=== PATIENT | female | born 1935 | race Caucasian/White ===

== ENCOUNTER 2016-11-05 16:38 | Inpatient (IN) | payer OTHER ==
[~2016-11-05] VITALS: Ht 160 cm; Wt 66.1 kg
[~2016-11-05 16:38] MED LIST: AMLO-114 PO; B-CO1CAP17 PO; CARV6.252 PO; CHOL100027 PO; LEVO125T5 PO; LSN20 PO; PANT40TA PO; PRVC/20 PO; SEVE800T7 PO; ZLF/50 PO
[2016-11-05] MEDS ORDERED: LISI-461 PO (17:09)
[2016-11-05] MEDS ORDERED: PIPERACILLIN/TAZOBACTAM 4.5 GM/100ML D5W IV STA (17:10)
[2016-11-05] MEDS ORDERED: ACETAMINOPHEN 325 MG TAB PO ONE (17:15)
--- NOTE | 2016-11-05 17:31 | EMERGENCY ROOM VISIT NOTE ---
History Report prepared by Kathy: Oj Moser Under the Supervision of: Dr. Efraín Jurado M.D. First contact with patient: 17:04 Chief Complaint: WEAKNESS Stated Complaint: WEAKNESS Nursing Triage Summary: General weakness for 2 or more days. Dialysis patient. History of Present Illness The patient is a 81 year old female who presents to the Emergency Room via EMS with complaints of weakness for the past 2 days. This HPI is limited secondary to AMS. She called EMS to come to the hospital today due to her increasing weakness. She is incontinent of stool. She could not even get up to go to the bathroom today. She received dialysis recently (Sunday). She usually uses a walker, but cannot even do that since the weakness started. She thinks that the last time she was able to walk was yesterday. She occasionally can urinate, but not very often. She denies any fever, cough, emesis, and chills. Although she denies fevers, the nursing staff notes she had a low grade fever per EMS. Source of History: patient History Limited By: AMS Onset: 2 days ago Position: other (global) Symptom Intensity: moderate Quality: other (weakness) Timing: worsening Associated Symptoms: + fevers, No chills, No cough, No vomiting Review of Systems ROS is limited secondary to AMS. Past Medical & Surgical Medical Problems: (1) Aortic stenosis (2) CAD (coronary artery disease) (3) CHF (congestive heart failure) (4) DM2 (diabetes mellitus, type 2) (5) DVT (deep vein thrombosis) in (6) End stage renal disease (7) ESRD needing dialysis (8) Hemodialysis access, AV graft (9) History of tobacco use (10) HLD (hyperlipidemia) (11) HTN (hypertension) (12) Hyperkalemia (13) Hypothyroidism (14) Hypoxia (15) JOON (obstructive sleep apnea) (16) PUD (peptic ulcer disease) (17) Pulmonary embolism (18) TIA (transient ischemic attack) Surgical Problems: (1) H/O eye surgery (2) H/O knee surgery (3) S/P appendectomy Family History Patient reports no known family medical history. Social History Smoking Status: Never Smoker Alcohol Use: none Drug Use: none Marital Status: Housing Status: lives with family Occupation Status: retired Current/Historical Medications Scheduled Amlodipine (Norvasc), 10 MG PO DAILY Carvedilol (Coreg), 6.25 MG PO AMPM Cholecalciferol (Vitamin D 1000 Unit), 1,000 INTER.UNIT PO QAM Levothyroxine Sodium (Levothyroxine Sodium), 125 MCG PO QAM Lisinopril (Lisinopril), 10 MG PO QAM Pantoprazole Sodium (Protonix), 40 MG PO BID Pravastatin Sod (Pravastatin Sodium), 20 MG PO DAILY Sertraline HCl (Sertraline HCl), 50 MG PO DAILY Sevelamer Carbonate (Renvela), 800 MG PO TIDM Vitamin B Cmplx/Vitc/Folic Ac (Nephrocaps), 1 CAP PO QAM Allergies Coded Allergies: Diazepam (Verified Adverse Reaction, Severe, CHEST PAIN, 11/05/16) Physical Exam Vital Signs Date Time Temp Pulse Resp B/P Pulse Ox O2 Delivery O2 Flow Rate FiO2 11/05/16 18:11 74 16 148/65 93 Room Air 11/05/16 17:54 77 22 151/62 93 Room Air 11/05/16 16:58 75 11/05/16 16:55 Room Air 11/05/16 16:49 37.0 76 16 151/62 92 Room Air Physical Exam GENERAL: Patient is in no acute distress. HEENT: No acute trauma, normocephalic atraumatic, mucous membranes moist, no nasal congestion, no scleral icterus. NECK: No stridor, no adenopathy, no meningismus, trachea is midline. LUNGS: Crackles at both bases, more on the right. No wheezing. Equal breath sounds. HEART: 4/6 systolic murmur with a regular rate and rhythm. ABDOMEN: Soft, nontender, bowel sounds positive, no hernias, no peritonitis. EXTREMITIES: No cyanosis. Full range of motion of all the joints without pain or difficulty, no signs for acute trauma. Edema to the right upper extremity that the patient states is chronic. There is a fistula present in this arm. NEUROLOGIC: Awake and alert. Some confusion noted. Patient follows simple commands. No focal motor deficits. SKIN: No rash, no jaundice, no diaphoresis. Medical Decision & Procedures ER Provider Diagnostic Interpretation: Radiology results are stated below per my review and radiologist interpretation: HEAD CT NONCONTRAST CT DOSE: 537.48 mGy.cm HISTORY: weakness TECHNIQUE: Multiaxial CT images of the head were performed without the use of intravenous contrast. Automated exposure control was utilized for this study. Comparison: Head CT 05/30/2015. Findings: The paranasal sinuses and mastoid air cells are clear. The calvarium and skull base are intact. There is no mass, hematoma, midline shift, acute infarct. White matter hypodensity is nonspecific but suggestive of microvascular ischemic change. The ventricles and sulci demonstrate mild age-related involutional changes. Old left basal ganglia lacunar infarcts. Old left OFFICE MESSENGER territory infarct. This remains unchanged. Impression: No significant change compared to the prior study. No acute intracranial abnormality. 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 Electronically signed by: Tristin Amador M.D. 11/05/2016 6:23 PM Dictated Date/Time: 11/05/2016 6:20 PM CHEST ONE VIEW PORTABLE HISTORY: Sepsis COMPARISON: Chest 01/25/2016. FINDINGS: No change in the cardiomegaly and diffuse interstitial thickening. No pneumothorax. Small right pleural effusion. Right-sided vascular stent is again noted. No lobar consolidation. IMPRESSION: No change in the mild interstitial pulmonary edema and cardiomegaly. There is a small right pleural effusion. Electronically signed by: Tristin Amador M.D. 11/05/2016 5:55 PM Dictated Date/Time: 11/05/2016 5:54 PM Laboratory Results 11/05/16 18:05 Red Blood Count 4.20, Mean Corpuscular Volume 85.5, Mean Corpuscular Hemoglobin 28.3, Mean Corpuscular Hemoglobin Concent 33.1, Mean Platelet Volume 8.6, Neutrophils (%) (Auto) 66.8, Lymphocytes (%) (Auto) 16.2, Monocytes (%) (Auto) 12.0, Eosinophils (%) (Auto) 3.3, Basophils (%) (Auto) 1.4, Neutrophils # (Auto ) 5.28, Lymphocytes # (Auto) 1.28, Monocytes # (Auto) 0.95, Eosinophils # (Auto ) 0.26, Basophils # (Auto) 0.11 11/05/16 18:05 Test 11/05/16 18:05 White Blood Count 7.90 K/uL (4.8-10.8) Red Blood Count 4.20 M/uL (4.2-5.4) Hemoglobin 11.9 g/dL (12.0-16.0) Hematocrit 35.9 % (37-47) Mean Corpuscular Volume 85.5 fL (80-100) Mean Corpuscular Hemoglobin 28.3 pg (25-34) Mean Corpuscular Hemoglobin Concent 33.1 g/dl (32-36) Platelet Count 301 K/uL (130-400) Mean Platelet Volume 8.6 fL (7.4-10.4) Neutrophils (%) (Auto) 66.8 % Lymphocytes (%) (Auto) 16.2 % Monocytes (%) (Auto) 12.0 % Eosinophils (%) (Auto) 3.3 % Basophils (%) (Auto) 1.4 % Neutrophils # (Auto) 5.28 K/uL (1.4-6.5) Lymphocytes # (Auto) 1.28 K/uL (1.2-3.4) Monocytes # (Auto) 0.95 K/uL (0.11-0.59) Eosinophils # (Auto) 0.26 K/uL (0-0.5) Basophils # (Auto) 0.11 K/uL (0-0.2) RDW Standard Deviation 45.9 fL (36.4-46.3) RDW Coefficient of Variation 14.8 % (11.5-14.5) Immature Granulocyte % (Auto) 0.3 % Immature Granulocyte # (Auto) 0.02 K/uL (0.00-0.02) Prothrombin Time 11.8 SECONDS (9.0-12.0) Prothromb Time International Ratio 1.1 (0.9-1.1) Activated Partial Thromboplast Time 33.5 SECONDS (21.0-31.0) Partial Thromboplastin Ratio 1.3 Anion Gap 9.0 mmol/L (3-11) Est Creatinine Clear Calc Drug Dose 7.4 ml/min Estimated GFR () 7.9 Estimated GFR (Non- 6.8 BUN/Creatinine Ratio 4.5 (10-20) Bedside Lactic Acid Venous 1.18 mmol/L (0.90-1.70) Calcium Level 8.6 mg/dl (8.5-10.1) Magnesium Level 1.9 mg/dl (1.8-2.4) Total Bilirubin 0.9 mg/dl (0.2-1) Aspartate Amino Transf (AST/SGOT) 16 U/L (15-37) Alanine Aminotransferase (ALT/SGPT) 9 U/L (12-78) Alkaline Phosphatase 133 U/L (45-117) Total Protein 8.0 gm/dl (6.4-8.2) Albumin 2.7 gm/dl (3.4-5.0) Globulin 5.3 gm/dl (2.5-4.0) Albumin/Globulin Ratio 0.5 (0.9-2) Thyroid Stimulating Hormone (TSH) 1.290 uIu/ml (0.300-4.500) Free Thyroxine 1.64 ng/dl (0.80-1.60) Laboratory results reviewed by me. Medications Administered Medications (Trade) Dose Ordered Sig/Rach Route Start Time Stop Time Status Last Admin Dose Admin Piperacillin Sod/ Tazobactam Sod (Zosyn Iv) 4.5 gm ONE STAT IV 11/05/16 17:10 11/05/16 17:12 DC 11/05/16 18:39 4.5 GM Acetaminophen 650 mg 650 mg ONE ONCE PO 11/05/16 17:15 11/05/16 17:16 DC 11/05/16 18:39 650 MG Sodium Chloride (Nss 250ml) 250 ml @ 999 mls/hr Q16M STAT IV 11/05/16 19:19 11/05/16 19:34 DC 11/05/16 19:19 999 MLS/HR ECG Indication: weakness Rate (beats per minute): 76 Rhythm: normal sinus Findings: ST depression (Lateral), no acute ischemic change, no ectopy ED Course 1703: The patient was evaluated in room B2. A complete history and physical exam was performed. 1710: Ordered Zosyn Iv 4.5 gm IV 1715: Ordered Tylenol Tab 650 mg PO 1750: I had to convince the patient to have blood work. 1903: Her rectal temperature is 37.5 C. 1924: Upon reexamination the patient is resting. I discussed results and treatment plan with the patient. She verbalizes agreement and understanding. The patient will be evaluated by Dr. Contreras - [facility] – [place], for further management. Medical Decision Differential diagnosis includes but is not limited to sepsis, bacteremia, pneumonia, electrolyte imbalance, cellulitis, stroke, dehydration, and viral illness. There is no leukocytosis or concerning anemia. Renal panel testing shows the need for dialysis. No significant electrolyte abnormality requiring correction. There was no hepatitis. Thyroid testing shows findings consistent with someone taking thyroid medication. EKG shows a sinus rhythm, no acute ischemia. Brain CT shows no acute bleed or mass effect. Chest x-ray shows some chronic congestion to the lungs and what I think may be a right lung infiltrate. Blood cultures are pending. Lactic acid level is not elevated making sepsis less likely. The patient received a small amount of IV saline. She was given IV Zosyn and oral Tylenol. The patient presents with weakness and inability to walk. I think she has an infection, likely a pneumonia. This has caused her presentation. Admission/ observation is warranted. I spoke to the patient and to case management. The on-call hospitalist was consulted. Consults Time Called: 1914 Consulting Physician: Dr. Diane Toussaint [facility] – [place] Returned Call: [phone] He will be evaluating the patient for further management. Impression Primary Impression: Weakness Additional Impression: Pneumonia Scribe Attestation The scribe's documentation has been prepared under my direction and personally reviewed by me in its entirety. I confirm that the note above accurately reflects all work, treatment, procedures, and medical decision making performed by me. Departure Information Dispostion Being Evaluated By Hospitalist Referrals Mracelo Bradley M.D. (PCP) Patient Instructions My [facility] Problem Qualifiers
--- NOTE | 2016-11-05 17:57 | DIAGNOSTIC IMAGING REPORT ---
CHEST ONE VIEW PORTABLE HISTORY: Sepsis COMPARISON: Chest 01/25/2016. FINDINGS: No change in the cardiomegaly and diffuse interstitial thickening. No pneumothorax. Small right pleural effusion. Right-sided vascular stent is again noted. No lobar consolidation. IMPRESSION: No change in the mild interstitial pulmonary edema and cardiomegaly. There is a small right pleural effusion. Electronically signed by: Tristin Amador M.D. 11/05/2016 5:55 PM Dictated Date/Time: 11/05/2016 5:54 PM
[2016-11-05 18:18] LABS: BASO % 1.4 %; BASO ABS # 0.11 K/uL (0-0.2); COMPLETE YES; EOS % 3.3 %; HEMATOCRIT 35.9 % (37-47); IG% 0.3 %; LYMPH % 16.2 %; LYMPH ABS # 1.28 K/uL (1.2-3.4); MEAN CELL VOLUME 85.5 fL (80-100); MEAN CORPUSCULAR HEMOGLOBIN 28.3 pg (25-34); MEAN CORPUSCULAR HGB CONC 33.1 g/dl (32-36); MEAN PLATELET VOLUME 8.6 fL (7.4-10.4); NEUT % 66.8 %; PLATELET COUNT 301 K/uL (130-400)
--- NOTE | 2016-11-05 18:25 | DIAGNOSTIC IMAGING REPORT ---
HEAD CT NONCONTRAST CT DOSE: 537.48 mGy.cm HISTORY: weakness TECHNIQUE: Multiaxial CT images of the head were performed without the use of intravenous contrast. Automated exposure control was utilized for this study. Comparison: Head CT 05/30/2015. Findings: The paranasal sinuses and mastoid air cells are clear. The calvarium and skull base are intact. There is no mass, hematoma, midline shift, acute infarct. White matter hypodensity is nonspecific but suggestive of microvascular ischemic change. The ventricles and sulci demonstrate mild age-related involutional changes. Old left basal ganglia lacunar infarcts. Old left CENTER MANAGER territory infarct. This remains unchanged. Impression: No significant change compared to the prior study. No acute intracranial abnormality. 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 Electronically signed by: Tristin Amador M.D. 11/05/2016 6:23 PM Dictated Date/Time: 11/05/2016 6:20 PM
[2016-11-05 18:34] LABS: INR 1.1 (0.9-1.1); PARTIAL THROMBOPLASTIN RATIO 1.3; PROTHROMBIN TIME (PATIENT) 11.8 SECONDS (9.0-12.0)
[2016-11-05 18:54] LABS: ALB/GLOB RATIO 0.5 (0.9-2); BUN/CREATININE RATIO 4.5 (10-20); CALCIUM 8.6 mg/dl (8.5-10.1); CREATININE 5.4 mg/dl (0.60-1.20); MAGNESIUM 1.9 mg/dl (1.8-2.4); POTASSIUM 3.3 mmol/L (3.5-5.1)
[2016-11-05 18:55] LABS: THYROID STIMULATING HORMONE 1.29 uIu/ml (0.300-4.500)
[2016-11-05] MEDS ORDERED: SODIUM CHLORIDE 0.9% 250ML 250 ML IV STA (19:19)
[2016-11-05] MEDS ORDERED: VANCOMYCIN INJ 1,000 MG in SODIUM CHLORIDE 0.9% 250ML 250 ML IV STA (19:49)
[2016-11-05] MEDS ORDERED: ONDANSETRON INJ 2 MG/ML 2 ML VIAL IV PRN (20:00)
[2016-11-05] MEDS ORDERED: LEVOFLOXACIN / D5W 500 MG in PREMIXED IN D5W 100 ML IV SCH (20:00)
[2016-11-05] MEDS ORDERED: ZOLPIDEM TARTRATE 5 MG TAB PO PRN (20:00)
[2016-11-05] MEDS ORDERED: ACETAMINOPHEN 325 MG TAB PO PRN (20:00)
[2016-11-05] MEDS ORDERED: VANCOMYCIN 1GM/270ML NSS IV STA (20:08)
[2016-11-05] MEDS ORDERED: VANCOMYCIN CONSULT ACTIVE PRN (20:15)
[2016-11-05] MEDS ORDERED: PIPERACILL/TAZOBAC CONSULT ACTIVE PRN (20:15)
[2016-11-05] MEDS ORDERED: LEVALBUTEROL/IPRATROPIUM NEB INH SCH (21:00)
[2016-11-05] MEDS ORDERED: LEVOFLOXACIN 500MG / D5W IV SCH (21:00)
[2016-11-05 22:24] VITALS: BP 105/46; PULSE 68; TEMP 37; O2SAT 95; Ht 160 cm; Wt 66.1 kg
[2016-11-05] MEDS ORDERED: LEVOFLOXACIN CONSULT ACTIVE PRN (22:30)
[2016-11-05 22:32] VITALS: BP 130/58; PULSE 62; TEMP 36.5; O2SAT 95
[2016-11-05] MEDS: GUAIFENESIN 600 MG TABCR PO SCH (22:43)
[2016-11-05] MEDS: PANTOprazole SOD 40 MG TAB PO SCH (22:43)
[2016-11-05] MEDS: CARVEDILOL 6.25 MG TAB PO SCH (22:44)
[2016-11-05] MEDS: METHYLPREDNISOLONE IV 20 MG in SYRINGE 0 ML IV SCH (22:45)
[2016-11-06] VITALS (23 sets, daily range): BP systolic 137–188; BP diastolic 51–80; PULSE 64–84; TEMP 36.5–37; O2SAT 92–96
[2016-11-06] MEDS: IPRATROPIUM BROMIDE NEB SOLN 0.02% 2.5 ML VIAL INH SCH ×5 (01:48→21:43)
[2016-11-06] MEDS: LEVALBUTEROL 1.25MG/0.5ML NEB INH SCH ×5 (01:48→21:43)
[2016-11-06] MEDS ORDERED: PIPERACILL/TAZOBAC IV 3.375 GM in DEXTROSE 5% 100ML 100 ML IV SCH (02:00)
--- NOTE | 2016-11-06 03:43 | History and Physical ---
History & Physical Date & Time of Service: Nov 06, 2016 at 03:30. Date of admission was 11/05/2016. Chief Complaint: Esrd Needing Dialysis, Pneumonia Primary Care Physician: Marcelo Bradley M.D. History of Present Illness Source: patient The patient is an 81-year-old female presents emergency department via EMS with 2 days of generalized weakness and confusion. She was too weak to walk with her walker to the bathroom today, and is incontinent of stool. She has end- stage renal disease receiving dialysis on Sunday, Sunday and Sunday. She does still produce some urine. EMS reported that she had a low-grade fever. Past Medical/Surgical History Medical Problems: (1) Aortic stenosis Status: Chronic (2) CAD (coronary artery disease) Status: Chronic (3) CHF (congestive heart failure) Status: Chronic (4) DM2 (diabetes mellitus, type 2) Status: Chronic (5) DVT (deep vein thrombosis) in Status: Chronic (6) End stage renal disease Status: Chronic (7) Hemodialysis access, AV graft Status: Chronic (8) History of tobacco use Status: Chronic (9) HLD (hyperlipidemia) Status: Chronic (10) HTN (hypertension) Status: Chronic (11) Hyperkalemia Status: Chronic (12) Hypothyroidism Status: Chronic (13) JOON (obstructive sleep apnea) Status: Chronic (14) PUD (peptic ulcer disease) Status: Chronic (15) Pulmonary embolism Status: Chronic (16) TIA (transient ischemic attack) Status: Chronic Surgical Problems: (1) H/O eye surgery Status: Chronic (2) H/O knee surgery Permanent Comment: Right TKA Status: Chronic (3) S/P appendectomy Status: Chronic Family History Patient reports no known family medical history. Social History Smoking Status: Never Smoker Smokeless Tobacco Use: No Alcohol Use: none Drug Use: none Marital Status: Occupational Status: retired Immunizations History of Influenza Vaccine: N/A History of Tetanus Vaccine?: Yes History of Pneumococcal: Yes Pneumococcal Date: Feb 23, 2010 History of Hepatitis B Vaccine: No Multi-Drug Resistant Organisms History of MDRO: No Allergies Coded Allergies: Diazepam (Verified Adverse Reaction, Severe, CHEST PAIN, 11/05/16) Home Medications Scheduled Amlodipine (Norvasc), 10 MG PO DAILY Carvedilol (Coreg), 6.25 MG PO AMPM Cholecalciferol (Vitamin D 1000 Unit), 1,000 INTER.UNIT PO QAM Levothyroxine Sodium (Levothyroxine Sodium), 125 MCG PO QAM Lisinopril (Lisinopril), 10 MG PO QAM Pantoprazole Sodium (Protonix), 40 MG PO BID Pravastatin Sod (Pravastatin Sodium), 20 MG PO DAILY Sertraline HCl (Sertraline HCl), 50 MG PO DAILY Sevelamer Carbonate (Renvela), 800 MG PO TIDM Vitamin B Cmplx/Vitc/Folic Ac (Nephrocaps), 1 CAP PO QAM Review of Systems The patient denies chest pain, palpitations, shortness of breath, cough, lower extremity swelling, vision change, hearing change, sore throat, fevers, chills, sweats, weight change, nausea, vomiting, abdominal pain, pelvic pain, blood in urine or stool, dysuria, urinary frequency or urgency, memory loss, rash, abnormal bruising or bleeding, focal weakness, numbness or tingling in arms or legs, arthralgias or myalgias, back or neck pain, night sweats, or allergy symptoms. The review of systems is otherwise negative other than for that already noted above, and at least 10 systems have been reviewed. Physical Exam Vital Signs Date Time Temp Pulse Resp B/P Pulse Ox O2 Delivery O2 Flow Rate FiO2 11/06/16 01:49 68 16 95 Room Air 11/05/16 23:35 Room Air 11/05/16 22:32 36.5 62 18 130/58 95 Room Air 11/05/16 22:24 37.0 68 18 105/46 95 Room Air 11/05/16 21:20 68 18 105/46 93 11/05/16 20:05 71 11/05/16 18:11 74 16 148/65 93 Room Air 11/05/16 17:54 77 22 151/62 93 Room Air 11/05/16 16:58 75 11/05/16 16:55 Room Air 11/05/16 16:49 37.0 76 16 151/62 92 Room Air The patient is awake, well-developed and adequately nourished, alert and oriented 3, normocephalic and atraumatic, lying in bed and in no acute distress. She was initially reported as confused upon arrival in the ED, but at the time of my examination is improved. HEENT--PERRL, EOMI, mucous membranes and oropharynx dry. Neck--supple, no JVD or bruits, thyroid normal, trachea midline, no adenopathy. Heart--normal S1 and S2, no extra beats, no murmurs, rubs or gallops. Lungs--coarse sounds bilaterally with crackles at the bases, no respiratory distress, no accessory muscle use. Abdomen--normal bowel sounds and soft, nontender and nondistended, no hernias or masses, no organomegaly. Extremities--no cyanosis, clubbing or edema. There are good distal pulses b/l. Dermatologic--normal skin turgor, normal color, warm and dry, no abnormal lymph nodes, no rash. Neurologic--cranial nerves II through XII grossly intact, motor and sensory examination normal. Rheumatologic--generalized osteoarthritis with limitation of range of motion of most joints. Psychiatric--normal affect. Diagnostics Laboratory Results Results Past 24 Hours Test 11/05/16 18:05 11/05/16 21:23 Range/Units White Blood Count 7.90 4.8-10.8 K/uL Red Blood Count 4.20 4.2-5.4 M/uL Hemoglobin 11.9 12.0-16.0 g/dL Hematocrit 35.9 37-47 % Mean Corpuscular Volume 85.5 80-100 fL Mean Corpuscular Hemoglobin 28.3 25-34 pg Mean Corpuscular Hemoglobin Concent 33.1 32-36 g/dl Platelet Count 301 130-400 K/uL Mean Platelet Volume 8.6 7.4-10.4 fL Neutrophils (%) (Auto) 66.8 % Lymphocytes (%) (Auto) 16.2 % Monocytes (%) (Auto) 12.0 % Eosinophils (%) (Auto) 3.3 % Basophils (%) (Auto) 1.4 % Neutrophils # (Auto) 5.28 1.4-6.5 K/uL Lymphocytes # (Auto) 1.28 1.2-3.4 K/uL Monocytes # (Auto) 0.95 0.11-0.59 K/uL Eosinophils # (Auto) 0.26 0-0.5 K/uL Basophils # (Auto) 0.11 0-0.2 K/uL RDW Standard Deviation 45.9 36.4-46.3 fL RDW Coefficient of Variation 14.8 11.5-14.5 % Immature Granulocyte % (Auto) 0.3 % Immature Granulocyte # (Auto) 0.02 0.00-0.02 K/uL Prothrombin Time 11.8 9.0-12.0 SECONDS Prothromb Time International Ratio 1.1 0.9-1.1 Activated Partial Thromboplast Time 33.5 21.0-31.0 SECONDS Partial Thromboplastin Ratio 1.3 Sodium Level 134 136-145 mmol/L Potassium Level 3.3 3.5-5.1 mmol/L Chloride Level 93 98-107 mmol/L Carbon Dioxide Level 32 21-32 mmol/L Anion Gap 9.0 3-11 mmol/L Blood Urea Nitrogen 24 7-18 mg/dl Creatinine 5.40 0.60-1.20 mg/dl Est Creatinine Clear Calc Drug Dose 7.4 ml/min Estimated GFR () 7.9 Estimated GFR (Non- 6.8 BUN/Creatinine Ratio 4.5 10-20 Random Glucose 63 70-99 mg/dl Bedside Lactic Acid Venous 1.18 0.90-1.70 mmol/L Calcium Level 8.6 8.5-10.1 mg/dl Magnesium Level 1.9 1.8-2.4 mg/dl Total Bilirubin 0.9 0.2-1 mg/dl Aspartate Amino Transf (AST/SGOT) 16 15-37 U/L Alanine Aminotransferase (ALT/SGPT) 9 12-78 U/L Alkaline Phosphatase 133 45-117 U/L Total Protein 8.0 6.4-8.2 gm/dl Albumin 2.7 3.4-5.0 gm/dl Globulin 5.3 2.5-4.0 gm/dl Albumin/Globulin Ratio 0.5 0.9-2 Thyroid Stimulating Hormone (TSH) 1.290 0.300-4.500 uIu/ml Free Thyroxine 1.64 0.80-1.60 ng/dl Bedside Glucose 115 70-90 mg/dl Microbiology Results 11/05/16 Blood Culture, Received Pending 11/05/16 Blood Culture, Received Pending Diagnostic Radiology Patient Name: AARON ROCA Unit Number: [id number] Dictated: 11/05/161819 Transcribed: 11/05/161819 [facility] Printed Date/Time: [~ rep prt dt]/[~ rep prt tm] [~ rep ct labl] - [~ rep ct ivnm] [facility] [place] [address] Dictated: 11/05/161819 Transcribed: 11/05/161819 [facility] Printed Date/Time: [~ rep prt dt]/[~ rep prt tm] [~ rep ct labl] - [~ rep ct ivnm] HEAD CT NONCONTRAST CT DOSE: 537.48 mGy.cm HISTORY: weakness TECHNIQUE: Multiaxial CT images of the head were performed without the use of intravenous contrast. Automated exposure control was utilized for this study. Comparison: Head CT 05/30/2015. Findings: The paranasal sinuses and mastoid air cells are clear. The calvarium and skull base are intact. There is no mass, hematoma, midline shift, acute infarct. White matter hypodensity is nonspecific but suggestive of microvascular ischemic change. The ventricles and sulci demonstrate mild age-related involutional changes. Old left basal ganglia lacunar infarcts. Old left [employer] territory infarct. This remains unchanged. Impression: No significant change compared to the prior study. No acute intracranial abnormality. 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 Electronically signed by: Tristin Amador M.D. 11/05/2016 6:23 PM Dictated Date/Time: 11/05/2016 6:20 PM The status of this report is Signed. Draft = Not yet reviewed or approved by Radiologist. Signed = Reviewed and approved by Radiologist. <AttendingPhy></AttendingPhy> <FamilyPhy>Marcelo Bradley M.D.</FamilyPhy> < PrimaryPhy>Marcelo Bradley M.D.</PrimaryPhy> <UnitNumber>[id number]</UnitNumber> < VisitNumber>[id number]</VisitNumber> <PatientName>AARON ROCA</PatientName> < DateOfBirth>1935</DateOfBirth> <Location>[facility]</Location> <ServiceDate></ServiceDate> <MNE>ESINDI</MNE> <OrderingPhy>Feese, Efraín J. M.D.</ OrderingPhy> <OrderingPhyMNE>f rep ord dr bagley</OrderingPhyMNE> <DictatingPhyMNE> f rep dict dr bagley</DictatingPhyMNE> <CCListMNE>f rep ct mne</CCListMNE> < AdmittingPhyMNE>f pt admit dr bagley</AdmittingPhyMNE> <AttendingPhyMNE>f pt attend dr bagley</AttendingPhyMNE> <ConsultingPhyMNE>f pt consult dr bagley</ConsultingPhyMNE> <FamilyPhyMNE>f pt fam dr bagley</FamilyPhyMNE> <OtherPhyMNE>f pt other dr bagley</OtherPhyMNE> < PrimaryPhyMNE>f pt prim care dr bagley</PrimaryPhyMNE> <ReferringPhyMNE>f pt referring dr bagley</ReferringPhyMNE> Patient Name: AARON ROCA Unit Number: [id number] Dictated: 11/05/161753 Transcribed: 11/05/161753 [facility] Printed Date/Time: [~ rep prt dt]/[~ rep prt tm] [~ rep ct labl] - [~ rep ct ivnm] [facility] [place] [address] Dictated: 11/05/161753 Transcribed: 11/05/161753 [facility] Printed Date/Time: [~ rep prt dt]/[~ rep prt tm] [~ rep ct labl] - [~ rep ct ivnm] [~ rep ct add3]] CHEST ONE VIEW PORTABLE HISTORY: Sepsis COMPARISON: Chest 01/25/2016. FINDINGS: No change in the cardiomegaly and diffuse interstitial thickening. No pneumothorax. Small right pleural effusion. Right-sided vascular stent is again noted. No lobar consolidation. IMPRESSION: No change in the mild interstitial pulmonary edema and cardiomegaly. There is a small right pleural effusion. Electronically signed by: Tristin Amador M.D. 11/05/2016 5:55 PM Dictated Date/Time: 11/05/2016 5:54 PM The status of this report is Signed. Draft = Not yet reviewed or approved by Radiologist. Signed = Reviewed and approved by Radiologist. <AttendingPhy></AttendingPhy> <FamilyPhy>Marcelo Bradley M.D.</FamilyPhy> < PrimaryPhy>Marcelo Bradley M.D.</PrimaryPhy> <UnitNumber>[id number]</UnitNumber> < VisitNumber>[id number]</VisitNumber> <PatientName>AARON ROCA</PatientName> < DateOfBirth>1935</DateOfBirth> <Location>[facility]</Location> <ServiceDate></ServiceDate> <MNE>ESINDI</MNE> <OrderingPhy>Efraín Jurado M.D.</ OrderingPhy> <OrderingPhyMNE>f rep ord dr bagley</OrderingPhyMNE> <DictatingPhyMNE> f rep dict dr bagley</DictatingPhyMNE> <CCListMNE>f rep ct kevyn</CCListMNE> < AdmittingPhyMNE>f pt admit dr bagley</AdmittingPhyMNE> <AttendingPhyMNE>f pt attend dr bagley</AttendingPhyMNE> <ConsultingPhyMNE>f pt consult dr bagley</ConsultingPhyMNE> <FamilyPhyMNE>f pt fam dr bagley</FamilyPhyMNE> <OtherPhyMNE>f pt other dr bagley</OtherPhyMNE> < PrimaryPhyMNE>f pt prim care dr bagley</PrimaryPhyMNE> <ReferringPhyMNE>f pt referring dr bagley</ReferringPhyMNE> EKG EKG shows normal sinus rhythm at 76 bpm, nonspecific ST changes. No change compared to 04/16/2016. Impression Assessment and Plan Bilateral pneumonia--admitted to the medical floor. Place on vancomycin IV, Zosyn IV, Levaquin IV, guaifenesin extended release 600 mg by mouth twice a day , Solu-Medrol 20 mg IV every 8 hours, and Xopenex/Atrovent nebulizers every 6 hours while awake and every 2 hours when necessary. End-stage renal disease on dialysis Sunday, Sunday and Sunday. We'll consult nephrology. Continue Renvela 800 mg by mouth 3 times a day with meals, Nephrocaps every morning, and vitamin D 1000 international units every morning. CAD/hypertension/CHF/aortic stenosis--continue amlodipine 10 mg by mouth daily, carvedilol 6.25 mg by mouth twice a day, and lisinopril 10 mg by mouth every morning. Hypothyroidism--continue levothyroxine sodium 125 g by mouth every morning. GERD/PUD--continue pantoprazole 40 mg by mouth twice a day. Hypercholesterolemia--continue pravastatin 20 mg by mouth daily. Depression--continue sertraline 50 mg by mouth daily. Level of Care Med/Surg Advanced Directives Existing Advance Directive: No Existing Living Will: No Existing Power of Film Flat Inspector: No Resuscitation Status FULL RESUSCITATION VTE Prophylaxis VTE Risk Assessment Done? Y/N: Yes Risk Level: Moderate Given or contraindicated: SCD's
[2016-11-06] MEDS: METHYLPREDNISOLONE IV 20 MG in SYRINGE 0 ML IV SCH ×3 (06:04→22:07)
[2016-11-06] MEDS: LEVOTHYROXINE 125 MCG TAB PO SCH (06:04)
[2016-11-06 07:31] LABS: BASO % 0.2 %; BASO ABS # 0.01 K/uL (0-0.2); COMPLETE YES; EOS % 0.2 %; HEMATOCRIT 32.7 % (37-47); IG% 0.2 %; LYMPH % 12.8 %; LYMPH ABS # 0.69 K/uL (1.2-3.4); MEAN CELL VOLUME 85.2 fL (80-100); MEAN CORPUSCULAR HEMOGLOBIN 28.6 pg (25-34); MEAN CORPUSCULAR HGB CONC 33.6 g/dl (32-36); MEAN PLATELET VOLUME 8.6 fL (7.4-10.4); MONO % 3.3 %; NEUT % 83.3 %; PLATELET COUNT 272 K/uL (130-400); RED BLOOD COUNT 3.84 M/uL (4.2-5.4); WHITE BLOOD COUNT 5.41 K/uL (4.8-10.8)
[2016-11-06] MEDS: CARVEDILOL 6.25 MG TAB PO SCH ×2 (08:00→21:06)
[2016-11-06 08:09] LABS: BUN/CREATININE RATIO 5.7 (10-20); CALCIUM 8.3 mg/dl (8.5-10.1); CREATININE 5.8 mg/dl (0.60-1.20); POTASSIUM 3.6 mmol/L (3.5-5.1)
[2016-11-06] MEDS: PANTOprazole SOD 40 MG TAB PO SCH ×2 (08:19→21:06)
[2016-11-06] MEDS: PRAVASTATIN SOD 20 MG TAB PO SCH (08:19)
[2016-11-06] MEDS: SEVELAMER HYDROCH 800 MG TAB PO SCH ×3 (08:19→18:27)
[2016-11-06] MEDS: GUAIFENESIN 600 MG TABCR PO SCH ×2 (08:19→21:06)
[2016-11-06] MEDS: SERTRALINE HCL 50 MG TAB PO SCH (08:19)
[2016-11-06] MEDS: CHOLECALCIFEROL 1000 INTER.UNIT TAB PO SCH (08:19)
[2016-11-06] MEDS: LACTOBACILLUS ACIDOPHILUS (FLORANEX) TAB PO SCH ×3 (08:19→18:27)
[2016-11-06] MEDS: NEPHROCAPS PO SCH (08:19)
--- NOTE | 2016-11-06 09:50 | Clinical Documentation Query ---
BENITA Tejada : CLINICAL DOCUMENTATION QUERIES QUERY 1 OF 2 Patient is an 81 year old female presenting with weakness and confusion, subsequently admitted with pneumonia. She was placed on vancomycin IV, Zosyn IV, and Levaquin IV, in addition to Guaifenesin, Solumedrol, and nebulizer treatments. As appropriate, please explicitly list the possible types of pneumonia in which your patient is actively being treated for. In your clinical opinion is this patient being managed for: ( x) Possible gram negative and/or MRSA pneumonia ( ) Other explanation of clinical findings (Please Explain) ( ) Unable to determine (Please Define) ( ) Need to Discuss ( ) Not Agree The medical record reflects the following clinical findings, treatment, and risk factors. Clinical Indicators: Vancomycin IV, Zosyn IV, Levaquin IV Treatment: As above Risk Factors: Co-morbidities, ESRD, frequent healthcare encounters for dialysis QUERY 2 OF 2 H&P notes heart failure, not otherwise specified. Echocardiogram (04/29) demonstrated an LVEF of 55-60%. Historical cardiology documentation (04/30)notes a diagnosis of diastolic CHF. As appropriate, please specify the acuity and type explicitly in daily progress notes and DC summary. Thank you. In your clinical opinion is this patient being managed for: ( x ) Chronic diastolic CHF ( ) Other explanation of clinical findings (Please Explain) ( ) Unable to determine (Please Define) ( ) Need to Discuss ( ) Not Agree The medical record reflects the following clinical findings, treatment, and risk factors. Clinical Indicators: As above Treatment: Antihypertensives Risk Factors: Age, hypertension, mixed valvular disease Please clarify and document your clinical opinion in the progress notes and discharge summary. Terms such as "probable", "suspected", "likely", "questionable", "possible", or "still to be ruled out" are acceptable. IF IN AGREEMENT, YOU MUST DOCUMENT ABOVE DIAGNOSTIC STATEMENT IN DAILY PROGRESS NOTES AND DISCHARGE SUMMARY. This document is not part of the patient's record. Thank You, Omkar Luis, ROMERO [phone]
[2016-11-06 10:37] LABS: HEPATITIS B AB POS
--- NOTE | 2016-11-06 11:03 | Hospitalist Progress Note ---
Hospitalist Progress Note Date of Service Nov 06, 2016. (Janis Rosario, PANorbertC) Subjective Pt evaluation today including: conversation w/ patient, physical exam, chart review, lab review, review of studies, review of inpatient medication list Patient seen and evaluated. Was admitted overnight. Patient is sitting in bedside chair and verbalizes no complaints at this time. She is intermittently confused. She is alert and oriented to self only. Initially states she was in [place] then [place]. When asked what month it is she said it was the end of the month but was unable to say it was October. When talking about PT, patient states that no physical therapist was in to see her yet today but then said that she was angry at the physical therapist for her making a comment but cannot elaborate on specifics. Upon further discussion it appears that this comment was made on a previous admission but again she was not able to elaborate. She kept saying that this therapist said she wasn't doing things at home. Again she was admitted early overnight and has not been seen by any physical therapist during this admission yet. Patient continues to be intermittently confused but is easily redirected. She states that she lives with her son and is not seeking acute rehabilitation. She is unsure if her lower extremity weakness has improved as she was moved from the bed to the chair she could not self evaluate. She is due for dialysis today. She denies get in generalized weakness after dialysis treatment. She states that this occurred out of nowhere and her legs just would not move. Additional Comments: REVIEW OF SYSTEMS: General/Constitutional: +generalized lower extremity weakness; Denies fever/ chills, fatigue ENT: Denies visual changes, nasal drainage, hearing loss, sore throat, trouble swallowing Cardiovascular: Denies chest pain, palpitations, edema Respiratory: +intermittent cough with intermittent sputum; Denies SOB, wheezing , orthopnea GI: Denies nausea, vomiting, abdominal pain, constipation, diarrhea, melena/ hematochezia : Denies dysuria, frequency, hematuria Musculoskeletal: +chronic RUE edema since AV fistula; Denies joint/muscle aches , weakness Neurologic: Denies dizziness/lightheadedness, numbness/tingling, weakness Psychiatric: Deferred Endocrine: Deferred Hematologic/Lymphatic: Denies bleeding/clotting abnormalities Skin: Denies rash, itch, new skin changes, easy bruising Allergy/Immunologic: Deferred (Janis Rosario PA-C) Medications Current Inpatient Medications Medications (Trade) Dose Ordered Sig/Rach Route Start Time Stop Time Status Last Admin Dose Admin Acetaminophen (Tylenol Tab) 650 mg Q4H PRN PO 11/05/16 20:00 12/05/16 19:59 Zolpidem Tartrate (Ambien Tab) 5 mg HSZ PRN PO 11/05/16 20:00 12/05/16 19:59 Amlodipine Besylate (Norvasc Tab) 10 mg DAILY PO 11/06/16 08:00 12/06/16 08:59 Carvedilol (Coreg Tab) 6.25 mg BID PO 11/05/16 21:00 12/05/16 20:59 11/05/16 22:44 6.25 MG Cholecalciferol (Vitamin D Tab) 1,000 inter.unit QAM PO 11/06/16 08:00 12/06/16 08:59 11/06/16 08:19 1,000 INTER.UNIT Levothyroxine Sodium (Synthroid Tab) 125 mcg DAILYBB PO 11/06/16 06:30 12/06/16 06:59 11/06/16 06:04 125 MCG Lisinopril (Zestril Tab) 10 mg QAM PO 11/06/16 08:00 12/06/16 08:59 Pantoprazole Sodium (Protonix Tab) 40 mg BID PO 11/05/16 21:00 12/05/16 20:59 11/06/16 08:19 40 MG Pravastatin Sodium (Pravachol Tab) 20 mg DAILY PO 11/06/16 08:00 12/06/16 08:59 11/06/16 08:19 20 MG Sertraline HCl (Zoloft Tab) 50 mg DAILY PO 11/06/16 08:00 12/06/16 08:59 11/06/16 08:19 50 MG Vitamin B Complex/ Vit C/Folic Acid (Nephrocaps) 1 cap QAM PO 11/06/16 08:00 12/06/16 08:59 11/06/16 08:19 1 CAP Sevelamer HCl 800 mg 800 mg TIDM PO 11/06/16 08:00 12/06/16 07:59 11/06/16 08:19 800 MG Piperacillin Sod/ Tazobactam Sod 3.375 gm/Dextrose 115 ml @ 28.75 mls/ hr Q12@0200,1400 IV 11/06/16 02:00 11/12/16 17:59 11/06/16 01:52 28.75 MLS/HR Methylprednisolone Sodium Succinate/ Syringe (Solu-Medrol IV/ Syringe) 0.32 ml @ 1.5 mls/min Q8H IV 11/05/16 22:00 12/05/16 21:59 11/06/16 06:04 1.5 MLS/MIN Ondansetron HCl (Zofran Inj) 4 mg Q6H PRN IV 11/05/16 20:00 12/05/16 19:59 Guaifenesin (Mucinex Contr Rel Tab) 600 mg BID PO 11/05/16 21:00 12/05/16 20:59 11/06/16 08:19 600 MG Lactobacillus Acidophilus (Floranex Tab) 4 tab TIDM PO 11/06/16 08:00 12/06/16 07:59 11/06/16 08:19 4 TAB Piperacillin Sod/ Tazobactam Sod (Consult) 1 ea UD PRN N/A 11/05/16 20:15 12/05/16 20:14 Vancomycin HCl (Consult) 1 ea UD PRN N/A 11/05/16 20:15 12/05/16 20:14 Levalbuterol (Xopenex 1.25MG/ 0.5ML Neb) 1.25 mg Q6R INH 11/05/16 21:00 12/05/16 20:59 11/06/16 07:44 1.25 MG Ipratropium [place] (Atrovent 0.02% 0.5MG/2.5ML Neb) 0.5 mg Q6R INH 11/05/16 21:00 12/05/16 20:59 11/06/16 07:44 0.5 MG Levofloxacin 1 ea 1 ea UD PRN N/A 11/05/16 22:30 12/05/16 22:29 Levofloxacin/Prmx (Levaquin / D5W/ Premixed D5W) 50 ml @ 50 mls/hr Q48H IV 11/07/16 23:00 11/12/16 23:59 (Janis Rosario, PA-C) Objective Vital Signs Date Time Temp Pulse Resp B/P Pulse Ox O2 Delivery O2 Flow Rate FiO2 11/06/16 08:00 Room Air 11/06/16 07:45 69 16 96 Room Air 11/06/16 07:16 37.0 64 20 149/55 92 Room Air 11/06/16 01:49 68 16 95 Room Air 11/05/16 23:35 Room Air 11/05/16 22:32 36.5 62 18 130/58 95 Room Air 11/05/16 22:24 37.0 68 18 105/46 95 Room Air 11/05/16 21:20 68 18 105/46 93 11/05/16 20:05 71 11/05/16 18:11 74 16 148/65 93 Room Air 11/05/16 17:54 77 22 151/62 93 Room Air 11/05/16 16:58 75 11/05/16 16:55 Room Air 11/05/16 16:49 37.0 76 16 151/62 92 Room Air (Janis Rosario PA-C) Physical Exam Notes: PHYSICAL EXAM:: General Appearance: WDWN in NAD who is A&O x 1 with intermittent confusion HEENT: Head is normocephalic/atraumatic; EOMI; PERRLA; Hearing grossly intact; Mucous membranes moist; Pharynx negative for exudate/lesions Neck: Supple; Trachea midline; Neg JVD; Neg lymphadenopathy Heart: RRR with systolic murmur III/ with no G/R Lungs: Crackles at bases bilarally; Respirations unlabored; Neg accessory muscle use Abdomen: Soft, non-tender, non-distended; Positive BS x 4 quadrants; Neg organomegaly Extremities: +non-pitting edema of lower extremities b/l; non-pitting edema of RUE with AV fistula with +thrill +bruit; Capillary refill < 2 seconds; Neg cyanosis Neurological: Speech clear; Gross motor/sensory function intact; Neg focal neurologic deficits Psychiatric: Appropriate mood/affect Skin: Normal Color; Warm/Dry; Neg rashes, ecchymosis, lacerations/ulcerations (Janis Rosario PA-C) Laboratory Results Last 24 Hours Test 11/05/16 18:05 11/05/16 21:23 11/06/16 07:06 11/06/16 09:20 White Blood Count 7.90 K/uL 5.41 K/uL Red Blood Count 4.20 M/uL 3.84 M/uL Hemoglobin 11.9 g/dL 11.0 g/dL Hematocrit 35.9 % 32.7 % Mean Corpuscular Volume 85.5 fL 85.2 fL Mean Corpuscular Hemoglobin 28.3 pg 28.6 pg Mean Corpuscular Hemoglobin Concent 33.1 g/dl 33.6 g/dl Platelet Count 301 K/uL 272 K/uL Mean Platelet Volume 8.6 fL 8.6 fL Neutrophils (%) (Auto) 66.8 % 83.3 % Lymphocytes (%) (Auto) 16.2 % 12.8 % Monocytes (%) (Auto) 12.0 % 3.3 % Eosinophils (%) (Auto) 3.3 % 0.2 % Basophils (%) (Auto) 1.4 % 0.2 % Neutrophils # (Auto) 5.28 K/uL 4.51 K/uL Lymphocytes # (Auto) 1.28 K/uL 0.69 K/uL Monocytes # (Auto) 0.95 K/uL 0.18 K/uL Eosinophils # (Auto) 0.26 K/uL 0.01 K/uL Basophils # (Auto) 0.11 K/uL 0.01 K/uL RDW Standard Deviation 45.9 fL 46.3 fL RDW Coefficient of Variation 14.8 % 14.9 % Immature Granulocyte % (Auto) 0.3 % 0.2 % Immature Granulocyte # (Auto) 0.02 K/uL 0.01 K/uL Prothrombin Time 11.8 SECONDS Prothromb Time International Ratio 1.1 Activated Partial Thromboplast Time 33.5 SECONDS Partial Thromboplastin Ratio 1.3 Sodium Level 134 mmol/L 134 mmol/L Potassium Level 3.3 mmol/L 3.6 mmol/L Chloride Level 93 mmol/L 95 mmol/L Carbon Dioxide Level 32 mmol/L 29 mmol/L Anion Gap 9.0 mmol/L 10.0 mmol/L Blood Urea Nitrogen 24 mg/dl 33 mg/dl Creatinine 5.40 mg/dl 5.80 mg/dl Est Creatinine Clear Calc Drug Dose 7.4 ml/min 6.9 ml/min Estimated GFR () 7.9 7.3 Estimated GFR (Non- 6.8 6.3 BUN/Creatinine Ratio 4.5 5.7 Random Glucose 63 mg/dl 177 mg/dl Bedside Lactic Acid Venous 1.18 mmol/L Calcium Level 8.6 mg/dl 8.3 mg/dl Magnesium Level 1.9 mg/dl 2.0 mg/dl Total Bilirubin 0.9 mg/dl Aspartate Amino Transf (AST/SGOT) 16 U/L Alanine Aminotransferase (ALT/SGPT) 9 U/L Alkaline Phosphatase 133 U/L Total Protein 8.0 gm/dl Albumin 2.7 gm/dl Globulin 5.3 gm/dl Albumin/Globulin Ratio 0.5 Thyroid Stimulating Hormone (TSH) 1.290 uIu/ml Free Thyroxine 1.64 ng/dl Bedside Glucose 115 mg/dl Hepatitis B Surface Antigen NEG Hepatitis B Surface Antibody POS (Janis Rosario PA-C) Assessment and Plan Generalized Weakness/Confusion 2/2 Bilateral PNA? vs Deconditioning vs Effect of Dialysis: - CXR reviewed - evidence of chronic pulmonary congestion question of underlying infiltrate? She is afebrile and without leukocytosis - Blood cultures pending - will obtain a urinalysis to rule out UTI - of note patient has already been started on antibiotics and has minimal urine output - Levofloxacin 250 mg IV Q2D, Zosyn per pharmacy dosing, and vancomycin per pharmacy dosing - dosing adjustment for renal function - Methylprednisolone 20 mg IV Q8H - Xopenex and Atrovent nebulizers Anemia: Likely Anemia of Chronic Disease: - Obtain B12, folate, iron studies - hemoglobin is baseline and suspect anemia of chronic disease given chronic renal disease - will rule out for explanation of generalized weakness ESRD - Dialysis MWF: - Sevelamer 800 mg TID and Nephrocaps daily CAD with Aortic Stenosis/HTN/CHF: - Norvasc 10 mg daily, lisinopril 10 mg daily, and Coreg 6.25 mg BID Hypothyroidism: - Synthroid 125 mcg daily GERD/PUD: - Protonix 40 mg BID HLD: - Pravastatin 20 mg daily DVT Prophylaxis: RICHARD/SCDs Code Status: FULL RESUSCITATION Disposition: PT/OT evaluations - Will await PT evaluations - at this time patient is adamant about not going to acute rehabilitation Continued [facility] stay due to: multiple IV medications needed Discharge planning: uncertain (Janis Rosario PA-C) Reviewed: Pt Seen/Exam by Me (Darlene Wilhelm MD) History Physician Science Teacher Supervision Note: I interviewed and examined the patient. Discussed with VIDA Rosario and agree with findings and plan as documented in the note. Any exceptions or clarifications are listed here: Patient seen and examined during dialysis. Still mildly confused. Does not know if she feels stronger but she is able to lift up her legs now. Attempts were made to reach her family by phone today and were not successful in order to get more information about her baseline mental status. No acute distress, alert awake oriented 1 Regular rate and rhythm, no murmur Decreased breath sounds at the bases bilaterally, otherwise clear to auscultation Positive bowel sounds soft nontender nondistended Extremities no edema, right upper extremity with AV fistula in place 81-year-old female with history of ESRD on HD, CAD, CHF Diastolic and Valvular type, aortic stenosis, history of PE, Hypertension, Dyslipidemia, CVA, here with weakness and inability to walk, incontinence of stool, and suspected right lower lobe pneumonia. 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
--- NOTE | 2016-11-06 13:44 | Nephrology Consultation ---
Nephrology Consultation Date & Providers Date of Consultation: Nov 06, 2016. Primary Care Provider: Marcelo Bradley M.D. Referring Provider: Reason for Consultation End-stage renal disease on hemodialysis. History of Present Illness Maria G Is a 81-year-old female with end-stage renal disease on hemodialysis Sunday , Sunday, Sunday at time [facility] Dialysis Unit via right brachiocephalic AV fistula admitted to the hospital with history of inability to walk for 2 days. Nephrologic consult was requested to manage end-stage renal disease on hemodialysis while in hospital. Electronic medical records including labs and imaging are reviewed in detail during patient's visit. She was feeling fine until 2 days ago when she noticed that she is not able to get out of bed or walk but could not specify any other symptom. EMS was called and she was brought to the hospital for further evaluation. She denies any neurological symptoms. Had a CT scan of head a.m. in ED which was unremarkable for any acute process. Currently overall she feels better however she has not been off of the bed. Denies any weakness or numbness of the upper or lower extremity. Her speech is normal. Denies any headache, visual changes. Denies any chest pain, shortness of breath, abdominal pain, nausea, vomiting, diarrhea or constipation. She has end-stage renal disease and has been on hemodialysis for last almost 5 years, via right brachiocephalic AV fistula, on Sunday, Sunday, Sunday at [facility] per dialysis unit. Her last dialysis was last Sunday, had full treatment for 3 and 0.5 hours. Currently she has stable volume status, blood pressure and electrolyte and she is due for dialysis today. Allergies Coded Allergies: Diazepam (Verified Adverse Reaction, Severe, CHEST PAIN, 11/05/16) Inpatient Medications Current Inpatient Medications Medications (Trade) Dose Ordered Sig/Rach Route Start Time Stop Time Status Last Admin Dose Admin Acetaminophen (Tylenol Tab) 650 mg Q4H PRN PO 11/05/16 20:00 12/05/16 19:59 Zolpidem Tartrate (Ambien Tab) 5 mg HSZ PRN PO 11/05/16 20:00 12/05/16 19:59 Amlodipine Besylate (Norvasc Tab) 10 mg DAILY PO 11/06/16 08:00 12/06/16 08:59 Carvedilol (Coreg Tab) 6.25 mg BID PO 11/05/16 21:00 12/05/16 20:59 11/05/16 22:44 6.25 MG Cholecalciferol (Vitamin D Tab) 1,000 inter.unit QAM PO 11/06/16 08:00 12/06/16 08:59 11/06/16 08:19 1,000 INTER.UNIT Levothyroxine Sodium (Synthroid Tab) 125 mcg DAILYBB PO 11/06/16 06:30 12/06/16 06:59 11/06/16 06:04 125 MCG Lisinopril (Zestril Tab) 10 mg QAM PO 11/06/16 08:00 12/06/16 08:59 Pantoprazole Sodium (Protonix Tab) 40 mg BID PO 11/05/16 21:00 12/05/16 20:59 11/06/16 08:19 40 MG Pravastatin Sodium (Pravachol Tab) 20 mg DAILY PO 11/06/16 08:00 12/06/16 08:59 11/06/16 08:19 20 MG Sertraline HCl (Zoloft Tab) 50 mg DAILY PO 11/06/16 08:00 12/06/16 08:59 11/06/16 08:19 50 MG Vitamin B Complex/ Vit C/Folic Acid (Nephrocaps) 1 cap QAM PO 11/06/16 08:00 12/06/16 08:59 11/06/16 08:19 1 CAP Sevelamer HCl 800 mg 800 mg TIDM PO 11/06/16 08:00 12/06/16 07:59 11/06/16 08:19 800 MG Piperacillin Sod/ Tazobactam Sod 3.375 gm/Dextrose 115 ml @ 28.75 mls/ hr Q12@0200,1400 IV 11/06/16 02:00 11/12/16 17:59 11/06/16 01:52 28.75 MLS/HR Methylprednisolone Sodium Succinate/ Syringe (Solu-Medrol IV/ Syringe) 0.32 ml @ 1.5 mls/min Q8H IV 11/05/16 22:00 12/05/16 21:59 11/06/16 06:04 1.5 MLS/MIN Ondansetron HCl (Zofran Inj) 4 mg Q6H PRN IV 11/05/16 20:00 12/05/16 19:59 Guaifenesin (Mucinex Contr Rel Tab) 600 mg BID PO 11/05/16 21:00 12/05/16 20:59 11/06/16 08:19 600 MG Lactobacillus Acidophilus (Floranex Tab) 4 tab TIDM PO 11/06/16 08:00 12/06/16 07:59 11/06/16 08:19 4 TAB Piperacillin Sod/ Tazobactam Sod (Consult) 1 ea UD PRN N/A 11/05/16 20:15 12/05/16 20:14 Vancomycin HCl (Consult) 1 ea UD PRN N/A 11/05/16 20:15 12/05/16 20:14 Levalbuterol (Xopenex 1.25MG/ 0.5ML Neb) 1.25 mg Q6R INH 11/05/16 21:00 12/05/16 20:59 11/06/16 07:44 1.25 MG Ipratropium [place] (Atrovent 0.02% 0.5MG/2.5ML Neb) 0.5 mg Q6R INH 11/05/16 21:00 12/05/16 20:59 11/06/16 07:44 0.5 MG Levofloxacin 1 ea 1 ea UD PRN N/A 11/05/16 22:30 12/05/16 22:29 Levofloxacin/Prmx (Levaquin / D5W/ Premixed D5W) 50 ml @ 50 mls/hr Q48H IV 11/07/16 23:00 11/12/16 23:59 Family History Patient reports no known family medical history. Social History Smoking Status: Never Smoker Smokeless Tobacco Use: No Alcohol Use: none Drug Use: none Marital Status: Occupation: retired Review of Systems A complete review of systems was performed. Pertinent positives are noted above. All other systems are negative. Physical Exam Date Time Temp Pulse Resp B/P Pulse Ox O2 Delivery O2 Flow Rate FiO2 11/06/16 07:45 69 16 96 Room Air 11/06/16 07:16 37.0 64 20 149/55 92 Room Air 11/06/16 01:49 68 16 95 Room Air 11/05/16 23:35 Room Air 11/05/16 22:32 36.5 62 18 130/58 95 Room Air 11/05/16 22:24 37.0 68 18 105/46 95 Room Air 11/05/16 21:20 68 18 105/46 93 11/05/16 20:05 71 11/05/16 18:11 74 16 148/65 93 Room Air 11/05/16 17:54 77 22 151/62 93 Room Air 11/05/16 16:58 75 11/05/16 16:55 Room Air 11/05/16 16:49 37.0 76 16 151/62 92 Room Air GENERAL: Elderly female, AAA x 3, pleasant, healthy-appearing, not in any distress. NECK: Supple, no JVD. RESPIRATORY: Normal breathing efforts, no accessory muscle use, clear to auscultation bilaterally, no wheezes or rales. CARDIOVASCULAR: S1, S2 normal, rate rhythm regular. EXTREMITY: Edema of right upper extremity, right of upper extremity AV fistula with them aneurysm. Fistula with thrill and sharp bruit. NEURO: speech fluent. PSYCHIATRY: Normal mood and judgment Laboratory Results Last 24 Hours Test 11/05/16 18:05 11/05/16 21:23 11/06/16 07:06 White Blood Count 7.90 K/uL 5.41 K/uL Red Blood Count 4.20 M/uL 3.84 M/uL Hemoglobin 11.9 g/dL 11.0 g/dL Hematocrit 35.9 % 32.7 % Mean Corpuscular Volume 85.5 fL 85.2 fL Mean Corpuscular Hemoglobin 28.3 pg 28.6 pg Mean Corpuscular Hemoglobin Concent 33.1 g/dl 33.6 g/dl Platelet Count 301 K/uL 272 K/uL Mean Platelet Volume 8.6 fL 8.6 fL Neutrophils (%) (Auto) 66.8 % 83.3 % Lymphocytes (%) (Auto) 16.2 % 12.8 % Monocytes (%) (Auto) 12.0 % 3.3 % Eosinophils (%) (Auto) 3.3 % 0.2 % Basophils (%) (Auto) 1.4 % 0.2 % Neutrophils # (Auto) 5.28 K/uL 4.51 K/uL Lymphocytes # (Auto) 1.28 K/uL 0.69 K/uL Monocytes # (Auto) 0.95 K/uL 0.18 K/uL Eosinophils # (Auto) 0.26 K/uL 0.01 K/uL Basophils # (Auto) 0.11 K/uL 0.01 K/uL RDW Standard Deviation 45.9 fL 46.3 fL RDW Coefficient of Variation 14.8 % 14.9 % Immature Granulocyte % (Auto) 0.3 % 0.2 % Immature Granulocyte # (Auto) 0.02 K/uL 0.01 K/uL Prothrombin Time 11.8 SECONDS Prothromb Time International Ratio 1.1 Activated Partial Thromboplast Time 33.5 SECONDS Partial Thromboplastin Ratio 1.3 Sodium Level 134 mmol/L 134 mmol/L Potassium Level 3.3 mmol/L 3.6 mmol/L Chloride Level 93 mmol/L 95 mmol/L Carbon Dioxide Level 32 mmol/L 29 mmol/L Anion Gap 9.0 mmol/L 10.0 mmol/L Blood Urea Nitrogen 24 mg/dl 33 mg/dl Creatinine 5.40 mg/dl 5.80 mg/dl Est Creatinine Clear Calc Drug Dose 7.4 ml/min 6.9 ml/min Estimated GFR () 7.9 7.3 Estimated GFR (Non- 6.8 6.3 BUN/Creatinine Ratio 4.5 5.7 Random Glucose 63 mg/dl 177 mg/dl Bedside Lactic Acid Venous 1.18 mmol/L Calcium Level 8.6 mg/dl 8.3 mg/dl Magnesium Level 1.9 mg/dl 2.0 mg/dl Total Bilirubin 0.9 mg/dl Aspartate Amino Transf (AST/SGOT) 16 U/L Alanine Aminotransferase (ALT/SGPT) 9 U/L Alkaline Phosphatase 133 U/L Total Protein 8.0 gm/dl Albumin 2.7 gm/dl Globulin 5.3 gm/dl Albumin/Globulin Ratio 0.5 Thyroid Stimulating Hormone (TSH) 1.290 uIu/ml Free Thyroxine 1.64 ng/dl Bedside Glucose 115 mg/dl Impression Maria G Is a 81-year-old female with end-stage renal disease on hemodialysis admitted to the hospital with ambulatory dysfunction. Unclear etiology for ambulatory dysfunction, CT head on admission was negative, currently she does not have any focal neurological deficit. She is on dialysis Sunday, Sunday, Sunday and today she is due for her regular dialysis. Her volume status blood pressure and electrolyte acceptable. Recommendations --We will schedule for dialysis today for 3 and 1.5 hours as her regular schedule -- avoid IV fluid, continue on renal diet, will continue on renal cap and phosphate binder with meal -- will scheduled for Doppler ultrasound of upper extremity to evaluate for any possibility for stenosis proximal to the AV fistula -- will give Epogen for hemoglobin less than 10 --dose medications for GFR less than 10 Thank you for allowing me to participate in your patient's care. It was a pleasure to see Maria G This chart was completed utilizing [employer] Speech and voice recognition software. Grammatical errors, random word insertions, pronoun errors and incomplete sentences are occasional consequences of this system. Any questions or concerns about the content, text or information contained within the body of this dictation should be addressed directly to the physician for clarification.
[2016-11-06] MEDS: AMLODIPINE BESYLATE 5 MG TAB PO SCH (18:24)
[2016-11-06] MEDS: LISINOPRIL 10 MG TAB PO SCH (18:24)
--- NOTE | 2016-11-06 21:15 | DIAGNOSTIC IMAGING REPORT ---
ADDENDUM ADDENDUM: There is a crating and moving estimator error in the body of the initial report. A stent is located in the right subclavian vein and the subclavian vein is patent. The splenic artery is listed, and this should also read the subclavian vein. Electronically signed by: Efraín Romero M.D. 11/07/2016 3:07 PM Dictated Date/Time: 11/07/2016 3:05 PM ORIGINAL REPORT ULTRASOUND RIGHT UPPER EXTREMITY VENOUS CLINICAL HISTORY: Right arm swelling. COMPARISON STUDY: Right upper extremity venous ultrasound dated 12/16/2011. TECHNIQUE: Real-time, grayscale, and color Doppler sonography of the deep veins of the right upper extremity is performed. Compression and augmentation were utilized. FINDINGS: There is no sonographic evidence of deep venous thrombosis identified in the right upper extremity. The right internal jugular, axillary, and brachial veins are patent and normally compressible. A stent is identified within the right subclavian artery. The splenic artery is patent. The cephalic and basilic veins are clear. The cephalic vein is enlarged, likely due to the presence of a right upper extremity dialysis fistula. The visualized radial and ulnar veins are patent. There is a tiny complex fluid collection identified which measures up to 1.5 cm. This is located adjacent to the cephalic vein and likely represents a small hematoma. There is no flow identified within this to suggest pseudoaneurysm. IMPRESSION: 1. There is no sonographic evidence of deep venous thrombosis identified in the right upper extremity. 2. A small hematoma is suggested adjacent to the right cephalic vein measure up to 1.5 cm. Electronically signed by: Efraín Romero M.D. 11/06/2016 9:13 PM Dictated Date/Time: 11/06/2016 9:10 PM
--- NOTE | 2016-11-06 21:25 | DIAGNOSTIC IMAGING REPORT ---
ULTRASOUND RIGHT UPPER EXTREMITY ARTERIAL CLINICAL HISTORY: Right arm swelling. COMPARISON STUDY: Right upper extremity hemodialysis ultrasound dated 03/17/2016. TECHNIQUE: Real-time, grayscale, and color Doppler sonography of the arteries of the right upper extremity is performed. FINDINGS: The right common carotid artery is patent. There are elevated velocities identified within the right subclavian artery. These measure up to 424 cm/s. There are blunted arterial waveforms seen distally, and there is reversal of flow present within the right vertebral artery, suggesting subclavian steal phenomenon. Elevated velocities are also identified within the right axillary artery, measuring up to 347 cm/s. This suggests high-grade stenosis. The brachial arteries are patent. Mildly elevated velocities are present within the right proximal brachial artery, measuring up to 255 cm/s. The right radial artery and the right ulnar artery are patent. A hemodialysis fistula in the right upper extremity is patent. IMPRESSION: 1. There are markedly elevated velocities identified within the right subclavian artery with reversal of flow in the right vertebral artery. 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 2. Elevated velocities within the right axillary and right brachial arteries also suggest foci of stenosis. 3. The patient's right upper extremity dialysis fistula is patent. Dictated: 11/06/2016 9:05 PM Transcribed: 11/06/2016 9:24 PM [email or web address] Electronically signed by: Efraín Romero M.D. 11/06/2016 10:40 PM Dictated Date/Time: 11/06/2016 9:05 PM
[2016-11-06] MEDS ORDERED: HEPARIN SOD 5000 UNIT/0.5 ML CARP SQ ONE (22:28)
[2016-11-06] MEDS ORDERED: VANCOMYCIN INJ 750 MG in SODIUM CHLORIDE 0.9% 250ML 250 ML IV SCH (22:30)
--- NOTE | 2016-11-06 23:06 | Pharmacy Progress Note ---
Pharmacy Antibiotic Consult Date of Service: Nov 06, 2016. Pharmacy Dosing Scope Pharmacy is consulted to initiate vancomycin, Zosyn, Levaquin IV dosing therapy , order appropriate labs and adjust drug dose/frequency. Subjective The patient is a 81 year old female admitted on Nov 05, 2016 at 20:14 with weakness, possible pneumonia. Objective Height (Feet): 5 Height (Inches): 3.00 Weight (Kilograms): 67.800 Lab Results (24hrs): Laboratory Tests Test 11/06/16 07:06 BUN/Creatinine Ratio 5.7 Blood Urea Nitrogen 33 mg/dl Creatinine 5.80 mg/dl White Blood Count 5.41 K/uL Red Blood Count 3.84 M/uL Hemoglobin 11.0 g/dL Hematocrit 32.7 % Mean Corpuscular Volume 85.2 fL Mean Corpuscular Hemoglobin 28.6 pg Mean Corpuscular Hemoglobin Concent 33.6 g/dl Platelet Count 272 K/uL Mean Platelet Volume 8.6 fL Neutrophils (%) (Auto) 83.3 % Lymphocytes (%) (Auto) 12.8 % Monocytes (%) (Auto) 3.3 % Eosinophils (%) (Auto) 0.2 % Basophils (%) (Auto) 0.2 % Neutrophils # (Auto) 4.51 K/uL Lymphocytes # (Auto) 0.69 K/uL Monocytes # (Auto) 0.18 K/uL Eosinophils # (Auto) 0.01 K/uL Basophils # (Auto) 0.01 K/uL Micro Results: 11/05 blood x2 pending 11/06 nasal swab pending Recent Pertinent Medications Item Value Date Time Levofloxacin 250 50 ml @ 50 mls/hr 11/07/16 2300 mg/Prmx Q48H/IV Vancomycin HCl 265 ml @ 125 mls/hr 11/06/16 2230 750 mg/Sodium TODAY@2230/IV Chloride Piperacillin Sod/ 115 ml @ 28.75 mls/hr 11/06/16 0200 Tazobactam Sod Q12@0200,1400/IV 11/06/16 0152 3.375 gm/Dextrose Levofloxacin 500 100 ml @ 100 mls/hr 11/05/16 2100 mg/Prmx TODAY@2100/IV 11/05/16 2242 Vancomycin HCl 1 gm 11/05/162007 (Vancomycin 1gm/ NOW STAT/IV 270ml Nss) Piperacillin Sod/ 4.5 gm 11/05/16 1710 Tazobactam Sod ONE STAT/IV 11/05/16 1839 (Zosyn Iv) Assessment & Plan Loading dose: vancomycin 1000 mg IV X 1 dose in ED 11/05 then: redose empirically based on levels. Vanco level ~4 hr after hemodialysis 11/06 was 9.1. Will give additional vancomycin 750 mg today. Next level prior to next hemodialysis. Goal trough level estimate: between 15-20 mcg/mL. Random level has been ordered for: 11/08 with am labs. Levaquin loading dose 500 mg IV x1, then 250 mg q48h for hemodialysis patient. Zosyn loading dose 4.5 Gm IV x 1, then 3.375 Gm IV (infused over 4 hr) q12h for CrCl less than 20 ml/min or hemodialysis. (Note Zosyn dc'd today) Pharmacy will continue to follow and will adjust dose/frequency as necessary. Thank you
[2016-11-07] VITALS (9 sets, daily range): BP systolic 123–153; BP diastolic 57–68; PULSE 63–81; TEMP 36.6–36.8; O2SAT 94–99
[2016-11-07] MEDS: IPRATROPIUM BROMIDE NEB SOLN 0.02% 2.5 ML VIAL INH SCH ×4 (02:14→19:10)
[2016-11-07] MEDS: LEVALBUTEROL 1.25MG/0.5ML NEB INH SCH ×4 (02:14→19:10)
[2016-11-07] MEDS: LEVOTHYROXINE 125 MCG TAB PO SCH (06:06)
[2016-11-07] MEDS: METHYLPREDNISOLONE IV 20 MG in SYRINGE 0 ML IV SCH ×3 (06:06→21:27)
[2016-11-07 07:52] LABS: BASO % 0.1 %; BASO ABS # 0.01 K/uL (0-0.2); COMPLETE YES; HEMATOCRIT 31.2 % (37-47); IG% 0.3 %; LYMPH % 10.5 %; LYMPH ABS # 0.95 K/uL (1.2-3.4); MEAN CELL VOLUME 85.2 fL (80-100); MEAN CORPUSCULAR HEMOGLOBIN 29.2 pg (25-34); MEAN CORPUSCULAR HGB CONC 34.3 g/dl (32-36); MONO % 6.5 %; NEUT % 82.6 %; PLATELET COUNT 283 K/uL (130-400); RED BLOOD COUNT 3.66 M/uL (4.2-5.4); WHITE BLOOD COUNT 9.09 K/uL (4.8-10.8)
[2016-11-07 09:09] LABS: BUN/CREATININE RATIO 5.7 (10-20); CALCIUM 8.9 mg/dl (8.5-10.1); CREATININE 4.2 mg/dl (0.60-1.20); POTASSIUM 3.9 mmol/L (3.5-5.1)
[2016-11-07 09:18] LABS: FERRITIN 1174.2 ng/ml (8.0-388.0)
[2016-11-07] MEDS: SERTRALINE HCL 50 MG TAB PO SCH (09:21)
[2016-11-07] MEDS: PRAVASTATIN SOD 20 MG TAB PO SCH (09:21)
[2016-11-07] MEDS: NEPHROCAPS PO SCH (09:22)
[2016-11-07] MEDS: CARVEDILOL 6.25 MG TAB PO SCH ×2 (09:22→19:44)
[2016-11-07] MEDS: GUAIFENESIN 600 MG TABCR PO SCH ×2 (09:22→19:44)
[2016-11-07] MEDS: PANTOprazole SOD 40 MG TAB PO SCH ×2 (09:22→19:45)
[2016-11-07] MEDS: CHOLECALCIFEROL 1000 INTER.UNIT TAB PO SCH (09:23)
[2016-11-07] MEDS: LACTOBACILLUS ACIDOPHILUS (FLORANEX) TAB PO SCH ×3 (09:23→16:30)
[2016-11-07] MEDS: SEVELAMER HYDROCH 800 MG TAB PO SCH ×3 (09:24→16:31)
[2016-11-07] MEDS: HEPARIN SOD 5000 UNIT/0.5 ML CARP SQ SCH ×2 (09:35→21:30)
--- NOTE | 2016-11-07 12:27 | Nephrology Progress Note ---
Nephrology Progress Note Date of Service Nov 07, 2016. Chief Complaint End-stage renal disease on hemodialysis. Suze Cummins Was seen and examined in her room this morning. She was sitting in chair and feels like her legs does not feel as weak as before. blood pressure, volume status and electrolyte acceptable. She had dialysis yesterday uneventful. Venous Doppler upper extremity was negative for any venous thrombosis. Arterial Doppler showed significant stenosis seen and axillary and subclavian artery. Review of Systems A complete review of systems was performed. Pertinent positives are noted above. All other systems are negative. Vital Signs Last 8 Hrs Date Time Temp Pulse Resp B/P Pulse Ox O2 Delivery O2 Flow Rate FiO2 11/07/16 08:00 94 Room Air 11/07/16 07:37 36.7 72 18 145/58 94 Room Air 11/07/16 07:07 74 16 95 Room Air I & O 24-Hour Column 11/07/16 08:00 Intake Total 775 ml Output Total 2000 ml Balance -1225 ml Last Recorded Weight Weight (Kilograms): 66.500 Physical Exam GENERAL: Elderly female, AAA x 3, pleasant, healthy-appearing, not in any distress. NECK: Supple, no JVD. RESPIRATORY: Normal breathing efforts, no accessory muscle use, clear to auscultation bilaterally, no wheezes or rales. CARDIOVASCULAR: S1, S2 normal, rate rhythm regular. EXTREMITY: No lower extremity edema, has right upper extremity edema, AV fistula with harsh thrill, large aneurysm. NEURO: speech fluent. PSYCHIATRY: Normal mood and judgment Family History Patient reports no known family medical history. Social History Smoking Status: Never smoker Smokeless Tobacco Use: No Alcohol Use: none Drug Use: none Marital Status: Occupation: retired Laboratory Results Past 24 Hours 11/07/16 07:12 Red Blood Count 3.66, Mean Corpuscular Volume 85.2, Mean Corpuscular Hemoglobin 29.2, Mean Corpuscular Hemoglobin Concent 34.3, Mean Platelet Volume 9.0, Neutrophils (%) (Auto) 82.6, Lymphocytes (%) (Auto) 10.5, Monocytes (%) (Auto) 6.5, Eosinophils (%) (Auto) 0.0, Basophils (%) (Auto) 0.1, Neutrophils # (Auto) 7.51, Lymphocytes # (Auto) 0.95, Monocytes # (Auto) 0.59, Eosinophils # (Auto) 0.00, Basophils # (Auto) 0.01 11/07/16 07:12 Test 11/06/16 21:20 11/07/16 07:12 Random Vancomycin Level 9.1 mcg/ml White Blood Count 9.09 K/uL (4.8-10.8) Red Blood Count 3.66 M/uL (4.2-5.4) Hemoglobin 10.7 g/dL (12.0-16.0) Hematocrit 31.2 % (37-47) Mean Corpuscular Volume 85.2 fL (80-100) Mean Corpuscular Hemoglobin 29.2 pg (25-34) Mean Corpuscular Hemoglobin Concent 34.3 g/dl (32-36) Platelet Count 283 K/uL (130-400) Mean Platelet Volume 9.0 fL (7.4-10.4) Neutrophils (%) (Auto) 82.6 % Lymphocytes (%) (Auto) 10.5 % Monocytes (%) (Auto) 6.5 % Eosinophils (%) (Auto) 0.0 % Basophils (%) (Auto) 0.1 % Neutrophils # (Auto) 7.51 K/uL (1.4-6.5) Lymphocytes # (Auto) 0.95 K/uL (1.2-3.4) Monocytes # (Auto) 0.59 K/uL (0.11-0.59) Eosinophils # (Auto) 0.00 K/uL (0-0.5) Basophils # (Auto) 0.01 K/uL (0-0.2) RDW Standard Deviation 47.0 fL (36.4-46.3) RDW Coefficient of Variation 15.0 % (11.5-14.5) Immature Granulocyte % (Auto) 0.3 % Immature Granulocyte # (Auto) 0.03 K/uL (0.00-0.02) Anion Gap 8.0 mmol/L (3-11) Est Creatinine Clear Calc Drug Dose 9.5 ml/min Estimated GFR () 10.7 Estimated GFR (Non- 9.2 BUN/Creatinine Ratio 5.7 (10-20) Calcium Level 8.9 mg/dl (8.5-10.1) Magnesium Level 2.0 mg/dl (1.8-2.4) Iron Level 100 mcg/dl (35-150) Total Iron Binding Capacity 166 mcg/dl (250-450) Ferritin 1174.2 ng/ml (8.0-388.0) Vitamin B12 Level 1171 pg/mL (211-911) Folate 4.81 ng/mL (>5.38) Date/Time Source Procedure Growth Status 11/06/16 22:00 Nasal MRSA DNA Surveillance Screen - Final Specimen Negative for MRSA by DNA Probe Complete Allergies Coded Allergies: Diazepam (Verified Adverse Reaction, Severe, CHEST PAIN, 11/05/16) Medications Current Inpatient Medications Medications (Trade) Dose Ordered Sig/Rach Route Start Time Stop Time Status Last Admin Dose Admin Acetaminophen (Tylenol Tab) 650 mg Q4H PRN PO 11/05/16 20:00 12/05/16 19:59 Zolpidem Tartrate (Ambien Tab) 5 mg HSZ PRN PO 11/05/16 20:00 12/05/16 19:59 Amlodipine Besylate (Norvasc Tab) 10 mg DAILY PO 11/06/16 08:00 12/06/16 08:59 11/06/16 18:24 10 MG Carvedilol (Coreg Tab) 6.25 mg BID PO 11/05/16 21:00 12/05/16 20:59 11/07/16 09:22 6.25 MG Cholecalciferol (Vitamin D Tab) 1,000 inter.unit QAM PO 11/06/16 08:00 12/06/16 08:59 11/07/16 09:23 1,000 INTER.UNIT Levothyroxine Sodium (Synthroid Tab) 125 mcg DAILYBB PO 11/06/16 06:30 12/06/16 06:59 11/07/16 06:06 125 MCG Lisinopril (Zestril Tab) 10 mg QAM PO 11/06/16 08:00 12/06/16 08:59 11/06/16 18:24 10 MG Pantoprazole Sodium (Protonix Tab) 40 mg BID PO 11/05/16 21:00 12/05/16 20:59 11/07/16 09:22 40 MG Pravastatin Sodium (Pravachol Tab) 20 mg DAILY PO 11/06/16 08:00 12/06/16 08:59 11/07/16 09:21 20 MG Sertraline HCl (Zoloft Tab) 50 mg DAILY PO 11/06/16 08:00 12/06/16 08:59 11/07/16 09:21 50 MG Vitamin B Complex/ Vit C/Folic Acid (Nephrocaps) 1 cap QAM PO 11/06/16 08:00 12/06/16 08:59 11/07/16 09:22 1 CAP Sevelamer HCl 800 mg 800 mg TIDM PO 11/06/16 08:00 12/06/16 07:59 11/07/16 09:24 800 MG Methylprednisolone Sodium Succinate/ Syringe (Solu-Medrol IV/ Syringe) 0.32 ml @ 1.5 mls/min Q8H IV 11/05/16 22:00 12/05/16 21:59 11/07/16 06:06 1.5 MLS/MIN Ondansetron HCl (Zofran Inj) 4 mg Q6H PRN IV 11/05/16 20:00 12/05/16 19:59 Guaifenesin (Mucinex Contr Rel Tab) 600 mg BID PO 11/05/16 21:00 12/05/16 20:59 11/07/16 09:22 600 MG Lactobacillus Acidophilus (Floranex Tab) 4 tab TIDM PO 11/06/16 08:00 12/06/16 07:59 11/07/16 09:23 4 TAB Levalbuterol (Xopenex 1.25MG/ 0.5ML Neb) 1.25 mg Q6R INH 11/05/16 21:00 12/05/16 20:59 11/07/16 07:07 1.25 MG Ipratropium Imperial (Atrovent 0.02% 0.5MG/2.5ML Neb) 0.5 mg Q6R INH 11/05/16 21:00 12/05/16 20:59 11/07/16 07:07 0.5 MG Levofloxacin 1 ea 1 ea UD PRN N/A 11/05/16 22:30 12/05/16 22:29 Levofloxacin/Prmx (Levaquin / D5W/ Premixed D5W) 50 ml @ 50 mls/hr Q48H IV 11/07/16 23:00 11/12/16 23:59 Heparin Sodium (Porcine) (Heparin Sq 5000 Unit/0.5ml) 5,000 unit Q12 SQ 11/07/16 09:00 12/07/16 08:59 11/07/16 09:35 5,000 UNIT Impression Maria G Is a 81-year-old female with end-stage renal disease on hemodialysis admitted to the hospital with ambulatory dysfunction. Unclear etiology for ambulatory dysfunction, CT head on admission was negative, currently she does not have any focal neurological deficit. She is on dialysis Sunday, Sunday, Sunday.. Her volume status blood pressure and electrolyte acceptable. Recommendations -- had dialysis yesterday, tolerated well, currently volume status, blood pressure and electrolyte acceptable. -- avoid IV fluid, continue on renal diet, will continue on renal cap and phosphate binder with meal -- arterial Doppler of right upper extremity showed critical stenosis and subclavian and axillary artery -- vascular surgery consulted for further evaluation management -- will give Epogen for hemoglobin less than 10 --dose medications for GFR less than 10 Will follow.
[2016-11-07] MEDS: LISINOPRIL 10 MG TAB PO SCH (14:01)
[2016-11-07] MEDS: AMLODIPINE BESYLATE 5 MG TAB PO SCH (14:02)
--- NOTE | 2016-11-07 15:01 | Hospitalist Progress Note ---
Hospitalist Progress Note Date of Service Nov 07, 2016. (Janis Rosario PA-C) Subjective Pt evaluation today including: conversation w/ patient, physical exam, chart review, lab review, review of studies, review of inpatient medication list Patient seen and evaluated. No acute events overnight. Patient continues to be intermittently confused but easily redirected and reoriented. Ultrasounds of the right upper extremity performed which were significant for multiple vessel stenosis. Asked patient if she can recall who placed her AV fistula and she cannot recall. Try to discuss with family members and have been unable to reach them. Consult placed for vascular surgery for evaluation. PT evaluation reports ability to ambulate and does recommend the patient may return home with caregivers and family. Discussion with patient, she states that she is willing to continue PT/OT at home but is not interested in acute rehabilitation. She has caregivers established through [facility]. We'll continue to try to touch base with family members to confirm their ability to assist her and to better understand her baseline mentation. Additional Comments: REVIEW OF SYSTEMS: General/Constitutional: Denies fever/chills, fatigue, generalized weakness ENT: Denies visual changes, nasal drainage, hearing loss, sore throat, trouble swallowing Cardiovascular: Denies chest pain, palpitations, edema Respiratory: +intermittent cough with intermittent sputum; Denies SOB, wheezing , orthopnea GI: Denies nausea, vomiting, abdominal pain, constipation, diarrhea, melena/ hematochezia : Denies dysuria, frequency, hematuria Musculoskeletal: +chronic RUE edema with AV fistula; Denies joint/muscle aches, weakness Neurologic: Denies dizziness/lightheadedness, numbness/tingling, weakness Psychiatric: Deferred Endocrine: Deferred Hematologic/Lymphatic: Denies bleeding/clotting abnormalities Skin: Denies rash, itch, new skin changes, easy bruising Allergy/Immunologic: Deferred (Janis Rosario PA-C) Medications Current Inpatient Medications Medications (Trade) Dose Ordered Sig/Rach Route Start Time Stop Time Status Last Admin Dose Admin Acetaminophen (Tylenol Tab) 650 mg Q4H PRN PO 11/05/16 20:00 12/05/16 19:59 Zolpidem Tartrate (Ambien Tab) 5 mg HSZ PRN PO 11/05/16 20:00 12/05/16 19:59 Amlodipine Besylate (Norvasc Tab) 10 mg DAILY PO 11/06/16 08:00 12/06/16 08:59 11/07/16 14:02 10 MG Carvedilol (Coreg Tab) 6.25 mg BID PO 11/05/16 21:00 12/05/16 20:59 11/07/16 09:22 6.25 MG Cholecalciferol (Vitamin D Tab) 1,000 inter.unit QAM PO 11/06/16 08:00 12/06/16 08:59 11/07/16 09:23 1,000 INTER.UNIT Levothyroxine Sodium (Synthroid Tab) 125 mcg DAILYBB PO 11/06/16 06:30 12/06/16 06:59 11/07/16 06:06 125 MCG Lisinopril (Zestril Tab) 10 mg QAM PO 11/06/16 08:00 12/06/16 08:59 11/07/16 14:01 10 MG Pantoprazole Sodium (Protonix Tab) 40 mg BID PO 11/05/16 21:00 12/05/16 20:59 11/07/16 09:22 40 MG Pravastatin Sodium (Pravachol Tab) 20 mg DAILY PO 11/06/16 08:00 12/06/16 08:59 11/07/16 09:21 20 MG Sertraline HCl (Zoloft Tab) 50 mg DAILY PO 11/06/16 08:00 12/06/16 08:59 11/07/16 09:21 50 MG Vitamin B Complex/ Vit C/Folic Acid (Nephrocaps) 1 cap QAM PO 11/06/16 08:00 12/06/16 08:59 11/07/16 09:22 1 CAP Sevelamer HCl 800 mg 800 mg TIDM PO 11/06/16 08:00 12/06/16 07:59 11/07/16 14:02 800 MG Methylprednisolone Sodium Succinate/ Syringe (Solu-Medrol IV/ Syringe) 0.32 ml @ 1.5 mls/min Q8H IV 11/05/16 22:00 12/05/16 21:59 11/07/16 14:02 1.5 MLS/MIN Ondansetron HCl (Zofran Inj) 4 mg Q6H PRN IV 11/05/16 20:00 12/05/16 19:59 Guaifenesin (Mucinex Contr Rel Tab) 600 mg BID PO 11/05/16 21:00 12/05/16 20:59 11/07/16 09:22 600 MG Lactobacillus Acidophilus (Floranex Tab) 4 tab TIDM PO 11/06/16 08:00 12/06/16 07:59 11/07/16 14:02 4 TAB Levalbuterol (Xopenex 1.25MG/ 0.5ML Neb) 1.25 mg Q6R INH 11/05/16 21:00 12/05/16 20:59 11/07/16 14:27 1.25 MG Ipratropium Osprey (Atrovent 0.02% 0.5MG/2.5ML Neb) 0.5 mg Q6R INH 11/05/16 21:00 12/05/16 20:59 11/07/16 14:27 0.5 MG Levofloxacin 1 ea 1 ea UD PRN N/A 11/05/16 22:30 12/05/16 22:29 Levofloxacin/Prmx (Levaquin / D5W/ Premixed D5W) 50 ml @ 50 mls/hr Q48H IV 11/07/16 23:00 11/12/16 23:59 Heparin Sodium (Porcine) (Heparin Sq 5000 Unit/0.5ml) 5,000 unit Q12 SQ 11/07/16 09:00 12/07/16 08:59 11/07/16 09:35 5,000 UNIT Folic Acid (Folvite Tab) 1 mg QAM PO 11/08/16 08:00 12/08/16 07:59 (Janis Rosario, GEREMIASC) Objective Vital Signs Date Time Temp Pulse Resp B/P Pulse Ox O2 Delivery O2 Flow Rate FiO2 11/07/16 14:26 77 16 95 Room Air 11/07/16 08:00 94 Room Air 11/07/16 07:37 36.7 72 18 145/58 94 Room Air 11/07/16 07:07 74 16 95 Room Air 11/07/16 02:14 68 16 94 Room Air 11/07/16 00:00 Room Air 11/06/16 23:21 36.8 79 16 137/54 94 Room Air 11/06/16 21:43 82 16 93 Room Air 11/06/16 21:03 36.7 78 18 138/51 94 Room Air 11/06/16 18:00 Room Air 11/06/16 17:59 36.7 79 182/77 11/06/16 17:45 84 171/80 11/06/16 17:30 69 165/71 11/06/16 17:15 75 173/74 11/06/16 17:00 77 176/75 11/06/16 16:45 81 174/77 11/06/16 16:30 73 177/74 11/06/16 16:15 77 172/70 11/06/16 16:00 75 188/71 11/06/16 15:45 82 170/66 11/06/16 15:30 82 175/72 11/06/16 15:15 80 167/74 11/06/16 15:00 77 182/69 11/06/16 14:45 84 177/70 (Janis Rosario PA-C) Physical Exam Notes: PHYSICAL EXAM:: General Appearance: WDWN in NAD who is A&O to person and somewhat place (knows it's Edupath) with intermittent confusion HEENT: Head is normocephalic/atraumatic; EOMI; PERRLA; Hearing grossly intact; Mucous membranes moist; Pharynx negative for exudate/lesions Neck: Supple; Trachea midline; Neg JVD; Neg lymphadenopathy Heart: RRR with systolic murmur III/ with no G/R Lungs: Crackles at R base; Respirations unlabored; Neg accessory muscle use Abdomen: Soft, non-tender, non-distended; Positive BS x 4 quadrants; Neg organomegaly Extremities: +non-pitting edema of lower extremities b/l; non-pitting edema of RUE with AV fistula with +thrill +bruit with enlarged vessels of the forearm connecting to AV fistula; Capillary refill < 2 seconds; Neg cyanosis Neurological: Speech clear; Gross motor/sensory function intact; Neg focal neurologic deficits Psychiatric: Appropriate mood/affect Skin: Normal Color; Warm/Dry; Neg rashes, ecchymosis, lacerations/ulcerations (Janis Rosario PA-C) Laboratory Results Last 24 Hours Test 11/06/16 21:20 11/07/16 07:12 Random Vancomycin Level 9.1 mcg/ml White Blood Count 9.09 K/uL Red Blood Count 3.66 M/uL Hemoglobin 10.7 g/dL Hematocrit 31.2 % Mean Corpuscular Volume 85.2 fL Mean Corpuscular Hemoglobin 29.2 pg Mean Corpuscular Hemoglobin Concent 34.3 g/dl Platelet Count 283 K/uL Mean Platelet Volume 9.0 fL Neutrophils (%) (Auto) 82.6 % Lymphocytes (%) (Auto) 10.5 % Monocytes (%) (Auto) 6.5 % Eosinophils (%) (Auto) 0.0 % Basophils (%) (Auto) 0.1 % Neutrophils # (Auto) 7.51 K/uL Lymphocytes # (Auto) 0.95 K/uL Monocytes # (Auto) 0.59 K/uL Eosinophils # (Auto) 0.00 K/uL Basophils # (Auto) 0.01 K/uL RDW Standard Deviation 47.0 fL RDW Coefficient of Variation 15.0 % Immature Granulocyte % (Auto) 0.3 % Immature Granulocyte # (Auto) 0.03 K/uL Sodium Level 136 mmol/L Potassium Level 3.9 mmol/L Chloride Level 99 mmol/L Carbon Dioxide Level 29 mmol/L Anion Gap 8.0 mmol/L Blood Urea Nitrogen 24 mg/dl Creatinine 4.20 mg/dl Est Creatinine Clear Calc Drug Dose 9.5 ml/min Estimated GFR () 10.7 Estimated GFR (Non- 9.2 BUN/Creatinine Ratio 5.7 Random Glucose 123 mg/dl Calcium Level 8.9 mg/dl Magnesium Level 2.0 mg/dl Iron Level 100 mcg/dl Total Iron Binding Capacity 166 mcg/dl Ferritin 1174.2 ng/ml Vitamin B12 Level 1171 pg/mL Folate 4.81 ng/mL (Janis Rosario, PA-C) Assessment and Plan Generalized Weakness/Confusion 2/2 Bilateral CAP/MRSA? 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: - Unable to ascertain who placed AV fistula due to patient a poor story and and unable to contact family - Consult vascular surgery - appreciate recommendations Anemia: Likely Anemia of Chronic Disease: - Evidence of folate deficiency and elevated ferritin (can cause unexplained weakness) - Folic acid 1 mg daily ESRD - Dialysis MWF: - Sevelamer 800 mg TID and Nephrocaps daily CAD with Aortic Stenosis/HTN/Chronic Diastolic CHF: - Norvasc 10 mg daily, lisinopril 10 mg daily, and Coreg 6.25 mg BID Hypothyroidism: - Synthroid 125 mcg daily GERD/PUD: - Protonix 40 mg BID HLD: - Pravastatin 20 mg daily DVT Prophylaxis: RICHARD/SCDs Code Status: FULL RESUSCITATION Disposition: PT/OT evaluations - can return home with caregivers and family - Have attempted to call multiple numbers on file to include the son, daughter- in-law (old work number), and number listed for patient's apartment and unable to contact family - Will need to evaluate if family feels comfortable with patient's return home and would like to update on current plan and to assess patient's baseline mentation which likely is significant for intermittent confusion - Hopefully D/C in 1-2 days pending Vascular evaluation and ability to reach family members (Janis Rosario, EMELI) Reviewed: Pt Seen/Exam by Me (Darlene Wilhelm MD) History Physician Lip Reading Teacher Supervision Note: I interviewed and examined the patient. Discussed with VIDA Rosario and agree with findings and plan as documented in the note. Any exceptions or clarifications are listed here: Patient still confused and only oriented 1. She cannot tell me the phone numbers of any of her family members for me to call. We continued to be unsuccessful in reaching out to them for more information and for discharge planning purposes. Patient says she feels much better overall and is stronger. She did have multiple episodes of incontinence to stool today. No acute distress, alert awake oriented 1 Regular rate and rhythm, no murmur Decreased breath sounds at the bases bilaterally, otherwise clear to auscultation Positive bowel sounds soft nontender nondistended Extremities no edema, right upper extremity with AV fistula very large in upper arm in place with some edema of the entire right arm 81-year-old female with history of ESRD on HD, CAD, CHF Diastolic and Valvular type, aortic stenosis, history of PE, Hypertension, Dyslipidemia, CVA, here with weakness and inability to walk, incontinence of stool, and suspected right lower lobe pneumonia. 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
[2016-11-07] MEDS ORDERED: LEVOFLOXACIN 250MG / D5W IV SCH (23:00)
[2016-11-08] VITALS (24 sets, daily range): BP systolic 142–172; BP diastolic 62–78; PULSE 66–81; TEMP 36.3–36.7; O2SAT 94–96
[2016-11-08] MEDS: IPRATROPIUM BROMIDE NEB SOLN 0.02% 2.5 ML VIAL INH SCH ×4 (02:13→19:38)
[2016-11-08] MEDS: LEVALBUTEROL 1.25MG/0.5ML NEB INH SCH ×4 (02:13→19:38)
[2016-11-08] MEDS: METHYLPREDNISOLONE IV 20 MG in SYRINGE 0 ML IV SCH ×2 (05:41→14:45)
[2016-11-08] MEDS: LEVOTHYROXINE 125 MCG TAB PO SCH (05:41)
[2016-11-08] MEDS: NEPHROCAPS PO SCH (08:19)
[2016-11-08] MEDS: SEVELAMER HYDROCH 800 MG TAB PO SCH ×3 (08:19→17:01)
[2016-11-08] MEDS: SERTRALINE HCL 50 MG TAB PO SCH (08:19)
[2016-11-08] MEDS: PRAVASTATIN SOD 20 MG TAB PO SCH (08:21)
[2016-11-08] MEDS: GUAIFENESIN 600 MG TABCR PO SCH ×2 (08:21→21:36)
[2016-11-08] MEDS: LACTOBACILLUS ACIDOPHILUS (FLORANEX) TAB PO SCH ×3 (08:21→17:01)
[2016-11-08] MEDS: PANTOprazole SOD 40 MG TAB PO SCH ×2 (08:21→21:36)
[2016-11-08] MEDS: CHOLECALCIFEROL 1000 INTER.UNIT TAB PO SCH (08:21)
[2016-11-08] MEDS: HEPARIN SOD 5000 UNIT/0.5 ML CARP SQ SCH ×2 (08:22→21:46)
[2016-11-08 08:45] LABS: BASO % 0.1 %; BASO ABS # 0.01 K/uL (0-0.2); COMPLETE YES; IG% 0.4 %; LYMPH % 11.3 %; LYMPH ABS # 1.18 K/uL (1.2-3.4); MEAN CELL VOLUME 85.7 fL (80-100); MEAN CORPUSCULAR HEMOGLOBIN 27.6 pg (25-34); MEAN CORPUSCULAR HGB CONC 32.2 g/dl (32-36); MEAN PLATELET VOLUME 8.9 fL (7.4-10.4); MONO % 5.4 %; NEUT % 82.8 %; PLATELET COUNT 328 K/uL (130-400); WHITE BLOOD COUNT 10.42 K/uL (4.8-10.8)
[2016-11-08 09:20] LABS: CALCIUM 8.7 mg/dl (8.5-10.1)
[2016-11-08 09:33] LABS: BUN/CREATININE RATIO 8.2 (10-20); CREATININE 5.7 mg/dl (0.60-1.20); POTASSIUM 4.6 mmol/L (3.5-5.1)
--- NOTE | 2016-11-08 09:39 | Surgery Consultation ---
Consultation Date of Service Nov 08, 2016. Chief Complaint ESRD on HD, RUE AVF venous aneurysm and edema History of Present Illness The patient is a 81 year old female with hx of HTN, ESRD on HD, hypothyroidism, known to Dr Feliciano for HD access, seen in consultation today d/t large venous aneurysms of RUE AVF , as well as edema of R arm. Imaging performed on admission suggests possible subclavian and axillary art stenosis and reversal of vertebral flow, but pt denies dizziness, vertigo, or lightheadedness. She is unreliable historian d/t dementia. States she lives with her son, Larry, and goes to HD 3 x weekly. States she does not know of any problems they have been having running her at HD. Denies PHELPS, fever, chills, chest pain, SOB, abd pain, N/V, rest pain, claudication, other complaints. Vitals Vital Signs Past 12 Hours Date Time Temp Pulse Resp B/P Pulse Ox O2 Delivery O2 Flow Rate FiO2 11/08/16 07:49 36.5 75 17 169/73 95 Room Air 11/08/16 07:46 79 16 95 Room Air 11/08/16 02:14 74 16 96 Room Air 11/07/16 23:35 Room Air 11/07/16 23:35 36.6 81 18 153/68 98 Room Air Allergies Coded Allergies: Diazepam (Verified Adverse Reaction, Severe, CHEST PAIN, 11/05/16) Home Medications Scheduled Amlodipine (Norvasc), 10 MG PO DAILY Carvedilol (Coreg), 6.25 MG PO AMPM Cholecalciferol (Vitamin D 1000 Unit), 1,000 INTER.UNIT PO QAM Levothyroxine Sodium (Levothyroxine Sodium), 125 MCG PO QAM Lisinopril (Lisinopril), 10 MG PO QAM Pantoprazole Sodium (Protonix), 40 MG PO BID Pravastatin Sod (Pravastatin Sodium), 20 MG PO DAILY Sertraline HCl (Sertraline HCl), 50 MG PO DAILY Sevelamer Carbonate (Renvela), 800 MG PO TIDM Vitamin B Cmplx/Vitc/Folic Ac (Nephrocaps), 1 CAP PO QAM Problem List Medical Problems: (1) Aortic stenosis (2) CAD (coronary artery disease) (3) CHF (congestive heart failure) (4) DM2 (diabetes mellitus, type 2) (5) DVT (deep vein thrombosis) in (6) End stage renal disease (7) ESRD needing dialysis (8) Hemodialysis access, AV graft (9) History of tobacco use (10) HLD (hyperlipidemia) (11) HTN (hypertension) (12) Hyperkalemia (13) Hypothyroidism (14) Hypoxia (15) JOON (obstructive sleep apnea) (16) PUD (peptic ulcer disease) (17) Pulmonary embolism (18) TIA (transient ischemic attack) Surgical Problems: (1) H/O eye surgery (2) H/O knee surgery (3) S/P appendectomy Surgical / Medical History Hx Cardiac Surgery: No Hx Abdominal Surgery: Yes (hysterectomy, appendectomy) Hx Cancer Surgery: No Hx Thoracic Surgery: No Hx Orthopedic: Yes (right knee surgery) Hx Urinary Tract Surgery: No Past Medical/Surgical History: Hypertension, Kidney Disease, Thyroid Disease Family History Patient reports no known family medical history. Social History Smoking Status: Never Smoker Hx Tobacco Use In Past Year?: No Hx Alcohol Use - Type & Amnt: No Hx Substance Use -Type & Amnt: No Review of Systems Constitutional: + malaise, No chills, No fever Eyes: No visual changes ENMT: No sore throat Respiratory: No MANRIQUE, No cough, No hemoptysis, No short of breath Cardiovascular: + edema (R arm), No chest pain, No intermittent claudication, No palpitations, No syncope Gastrointestinal: No abdominal pain, No nausea, No vomiting Genitourinary - Female: No dysuria, No hematuria Neurologic: No dizziness, No headache, No lethargy, No numbness, No tingling Physical Exam Constitutional: General Apperance: well-nourished, well-developed Level of Distress: NAD, chronically ill Psychiatric: Mental Status: active & alert, normal mood, normal affect Orientation: oriented except where noted, to place, to person, not oriented to time Memory: recent memory abnormal (vague), remote memory abnormal Head: normocephalic, atraumatic Eyes: EOM: EOMI ENMT: normal ENT inspection, hearing grossly normal Neck: supple, trachea midline Lungs: Respiratory effort: no dyspnea Auscultation: no rales/crackles, no rhonchi, decreased breath sounds Cardiovascular: Apical Impulse: not displaced Heart Auscultation: RRR, no rubs, no gallops Peripheral Pulses: Pulses: full and equal, in all extremities except if noted Bruits: none appreciated Carotid Pulse: normal on the left, normal on the right Brachial Pulses: normal on the left, normal on the right Radial Pulse: normal on the left, decreased on the right Femoral Pulse: normal on the left, normal on the right Posterior Tibialis Pulse: decreased on the left, decreased on the right Dorsalis Pedis Pulse: decreased on the left, decreased on the right Abdomen: Bowel Sounds: normal Inspection & Palpation: soft, non-distended, no tenderness, guarding & rebound Musculoskeletal: normal strength (5/5 throughout), normal tone Extremities: Upper Right: no cyanosis, pertinent finding (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 + thrill/bruit throughout AVF. Large venous branch flowing distally. +2 edema. ) Upper Left: no cyanosis, no edema, no varicosities Lower Right: no cyanosis, no edema, no varicosities Lower Left: no cyanosis, no edema, no varicosities Neurologic: Cranial Nerves: grossly intact Sensation: grossly intact Assessment and Plan ASSESSMENT and PLAN: RUE brachiocephalic AVF, large venous aneurysms Edema ESRD on HD Possible subclavian/axillary art stenosis Pt discussed with Dr Feliciano, recommends revision of RUE AVF with venorrhaphy and fistulagram with intervention on FRIDAY 11/10. Will discuss with pt as well as her son by phone prior to procedure.
--- NOTE | 2016-11-08 11:55 | Nephrology Progress Note ---
Nephrology Progress Note Date of Service Nov 08, 2016. Chief Complaint End-stage renal disease on hemodialysis. Review of Systems A complete review of systems was performed. Pertinent positives are noted above. All other systems are negative. Vital Signs Last 8 Hrs Date Time Temp Pulse Resp B/P Pulse Ox O2 Delivery O2 Flow Rate FiO2 11/08/16 11:30 75 169/76 11/08/16 11:15 73 162/70 11/08/16 11:00 73 160/71 11/08/16 10:45 72 154/70 11/08/16 10:30 70 153/67 11/08/16 10:15 75 142/78 11/08/16 10:00 73 150/69 11/08/16 09:44 68 147/67 11/08/16 08:00 94 Room Air 11/08/16 07:49 36.5 75 17 169/73 95 Room Air 11/08/16 07:46 79 16 95 Room Air I & O 24-Hour Column 11/08/16 08:00 Intake Total 580 ml Balance 580 ml Last Recorded Weight Weight (Kilograms): 66.700 Physical Exam GENERAL: Elderly female, AAA x 3, pleasant, healthy-appearing, not in any distress but seems somewhat confused. NECK: Supple, no JVD. RESPIRATORY: Normal breathing efforts, no accessory muscle use, clear to auscultation bilaterally, no wheezes or rales. CARDIOVASCULAR: S1, S2 normal, rate rhythm regular. EXTREMITY: No lower extremity edema, has right upper extremity edema, AV fistula with harsh thrill, large aneurysm. NEURO: speech fluent. PSYCHIATRY: Normal mood and judgment Family History Patient reports no known family medical history. Social History Smoking Status: Never smoker Smokeless Tobacco Use: No Alcohol Use: none Drug Use: none Marital Status: Occupation: retired Laboratory Results Past 24 Hours 11/08/16 08:22 Red Blood Count 4.20, Mean Corpuscular Volume 85.7, Mean Corpuscular Hemoglobin 27.6, Mean Corpuscular Hemoglobin Concent 32.2, Mean Platelet Volume 8.9, Neutrophils (%) (Auto) 82.8, Lymphocytes (%) (Auto) 11.3, Monocytes (%) (Auto) 5.4, Eosinophils (%) (Auto) 0.0, Basophils (%) (Auto) 0.1, Neutrophils # (Auto) 8.63, Lymphocytes # (Auto) 1.18, Monocytes # (Auto) 0.56, Eosinophils # (Auto) 0.00, Basophils # (Auto) 0.01 11/08/16 08:22 Test 11/08/16 08:22 White Blood Count 10.42 K/uL (4.8-10.8) Red Blood Count 4.20 M/uL (4.2-5.4) Hemoglobin 11.6 g/dL (12.0-16.0) Hematocrit 36.0 % (37-47) Mean Corpuscular Volume 85.7 fL (80-100) Mean Corpuscular Hemoglobin 27.6 pg (25-34) Mean Corpuscular Hemoglobin Concent 32.2 g/dl (32-36) Platelet Count 328 K/uL (130-400) Mean Platelet Volume 8.9 fL (7.4-10.4) Neutrophils (%) (Auto) 82.8 % Lymphocytes (%) (Auto) 11.3 % Monocytes (%) (Auto) 5.4 % Eosinophils (%) (Auto) 0.0 % Basophils (%) (Auto) 0.1 % Neutrophils # (Auto) 8.63 K/uL (1.4-6.5) Lymphocytes # (Auto) 1.18 K/uL (1.2-3.4) Monocytes # (Auto) 0.56 K/uL (0.11-0.59) Eosinophils # (Auto) 0.00 K/uL (0-0.5) Basophils # (Auto) 0.01 K/uL (0-0.2) RDW Standard Deviation 46.8 fL (36.4-46.3) RDW Coefficient of Variation 15.2 % (11.5-14.5) Immature Granulocyte % (Auto) 0.4 % Immature Granulocyte # (Auto) 0.04 K/uL (0.00-0.02) Anion Gap 12.0 mmol/L (3-11) Est Creatinine Clear Calc Drug Dose 7.0 ml/min Estimated GFR () 7.4 Estimated GFR (Non- 6.4 BUN/Creatinine Ratio 8.2 (10-20) Calcium Level 8.7 mg/dl (8.5-10.1) Magnesium Level 2.0 mg/dl (1.8-2.4) Allergies Coded Allergies: Diazepam (Verified Adverse Reaction, Severe, CHEST PAIN, 11/05/16) Medications Current Inpatient Medications Medications (Trade) Dose Ordered Sig/Rach Route Start Time Stop Time Status Last Admin Dose Admin Acetaminophen (Tylenol Tab) 650 mg Q4H PRN PO 11/05/16 20:00 12/05/16 19:59 Zolpidem Tartrate (Ambien Tab) 5 mg HSZ PRN PO 11/05/16 20:00 12/05/16 19:59 Amlodipine Besylate (Norvasc Tab) 10 mg DAILY PO 11/06/16 08:00 12/06/16 08:59 11/07/16 14:02 10 MG Carvedilol (Coreg Tab) 6.25 mg BID PO 11/05/16 21:00 12/05/16 20:59 11/07/16 19:44 6.25 MG Cholecalciferol (Vitamin D Tab) 1,000 inter.unit QAM PO 11/06/16 08:00 12/06/16 08:59 11/08/16 08:21 1,000 INTER.UNIT Levothyroxine Sodium (Synthroid Tab) 125 mcg DAILYBB PO 11/06/16 06:30 12/06/16 06:59 11/08/16 05:41 125 MCG Lisinopril (Zestril Tab) 10 mg QAM PO 11/06/16 08:00 12/06/16 08:59 11/07/16 14:01 10 MG Pantoprazole Sodium (Protonix Tab) 40 mg BID PO 11/05/16 21:00 12/05/16 20:59 11/08/16 08:21 40 MG Pravastatin Sodium (Pravachol Tab) 20 mg DAILY PO 11/06/16 08:00 12/06/16 08:59 11/08/16 08:21 20 MG Sertraline HCl (Zoloft Tab) 50 mg DAILY PO 11/06/16 08:00 12/06/16 08:59 11/08/16 08:19 50 MG Vitamin B Complex/ Vit C/Folic Acid (Nephrocaps) 1 cap QAM PO 11/06/16 08:00 12/06/16 08:59 11/08/16 08:19 1 CAP Sevelamer HCl 800 mg 800 mg TIDM PO 11/06/16 08:00 12/06/16 07:59 11/08/16 08:19 800 MG Methylprednisolone Sodium Succinate/ Syringe (Solu-Medrol IV/ Syringe) 0.32 ml @ 1.5 mls/min Q8H IV 11/05/16 22:00 12/05/16 21:59 11/08/16 05:41 1.5 MLS/MIN Ondansetron HCl (Zofran Inj) 4 mg Q6H PRN IV 11/05/16 20:00 12/05/16 19:59 Guaifenesin (Mucinex Contr Rel Tab) 600 mg BID PO 11/05/16 21:00 12/05/16 20:59 11/08/16 08:21 600 MG Lactobacillus Acidophilus (Floranex Tab) 4 tab TIDM PO 11/06/16 08:00 12/06/16 07:59 11/08/16 08:21 4 TAB Levalbuterol (Xopenex 1.25MG/ 0.5ML Neb) 1.25 mg Q6R INH 11/05/16 21:00 12/05/16 20:59 11/08/16 07:46 1.25 MG Ipratropium Stella (Atrovent 0.02% 0.5MG/2.5ML Neb) 0.5 mg Q6R INH 11/05/16 21:00 12/05/16 20:59 11/08/16 07:46 0.5 MG Levofloxacin 1 ea 1 ea UD PRN N/A 11/05/16 22:30 12/05/16 22:29 Levofloxacin/Prmx (Levaquin / D5W/ Premixed D5W) 50 ml @ 50 mls/hr Q48H IV 11/07/16 23:00 11/12/16 23:59 11/07/16 22:51 50 MLS/HR Heparin Sodium (Porcine) (Heparin Sq 5000 Unit/0.5ml) 5,000 unit Q12 SQ 11/07/16 09:00 12/07/16 08:59 11/08/16 08:22 5,000 UNIT Folic Acid (Folvite Tab) 1 mg QAM PO 11/08/16 08:00 12/08/16 07:59 11/08/16 08:20 1 MG Impression Maria G Is a 81-year-old female with end-stage renal disease on hemodialysis admitted to the hospital with ambulatory dysfunction. Unclear etiology for ambulatory dysfunction, CT head on admission was negative, currently she does not have any focal neurological deficit. She is on dialysis Sunday, Sunday, Sunday.. Her volume status blood pressure and electrolyte acceptable. Recommendations -- currently she is doing well, volume status, blood pressure and electrolyte acceptable. --scheduled for dialysis later this morning -- avoid IV fluid, continue on renal diet, will continue on renal cap and phosphate binder with meal -- vascular surgery is evaluating for possible repair of aneurysm at AV fistula site -- will give Epogen for hemoglobin less than 10 --dose medications for GFR less than 10 Will follow.
--- NOTE | 2016-11-08 14:31 | Hospitalist Progress Note ---
Hospitalist Progress Note Date of Service Nov 08, 2016. (Janis Rosario, EMELI) Subjective Pt evaluation today including: conversation w/ patient, physical exam, chart review, lab review, review of studies, review of inpatient medication list Patient seen and evaluated. No acute events overnight. In regards to lower extremity weakness this has seemed to improve. PT/OT evaluations suggest 24/7 care. Patient has been consistently stating that she lives with her son and daughter- in-law with caregivers through the day. This is actually not the truth. This seemed evident as no family has visited and multiple attempts to contact them have been unsuccessful. As well, address is on file do not match that of her son. Per office of aging, patient does have caregivers who assist with transportation for dialysis however she is alone for multiple hours of each day and all day Sunday. Multiple attempts made to contact family members but have been unsuccessful. A cell phone number for the son was obtained and will be attempted. Patient is refusing acute rehabilitation or SNF placement. She is alert and oriented to self and knows she is in [place] but normally does not state the hospital and she is unable to state the month. She also seems to agree with what you say even when you present contradictory statements. Yesterday patient was incontinent of stool and when asked to transition to bedside commode patient said she was not finished and continued to have a bowel movement in the chair and appears she may have thought she was on the toilet. She was recently admitted in April 2016 due to a fall where she was found laying on the floor by her caregivers. Patient appears to have significant dementia that was not initially evident upon admission as well appears to confabulate. Prior to this admission, patient does have life alert and was able to call EMS prior to arrival here. However, given patient's dementia, fall risk, and comorbidities she is a high risk for significant injury and she would return home without 24/7 care. In regards to her AV fistula, evidence of aneurysm is present and plan to perform revision per vascular surgery however need consent from family members. Unfortunately, patient does not seem to be competent to make her decisions and may be forced into place. Additional Comments: REVIEW OF SYSTEMS: General/Constitutional: Denies fever/chills, fatigue, generalized weakness ENT: Denies visual changes, nasal drainage, hearing loss, sore throat, trouble swallowing Cardiovascular: Denies chest pain, palpitations, edema Respiratory: +intermittent cough with intermittent sputum; Denies SOB, wheezing , orthopnea GI: Denies nausea, vomiting, abdominal pain, constipation, diarrhea, melena/ hematochezia : Denies dysuria, frequency, hematuria Musculoskeletal: +chronic RUE edema with AV fistula; Denies joint/muscle aches, weakness Neurologic: Denies dizziness/lightheadedness, numbness/tingling, weakness Psychiatric: Deferred Endocrine: Deferred Hematologic/Lymphatic: Denies bleeding/clotting abnormalities Skin: Denies rash, itch, new skin changes, easy bruising Allergy/Immunologic: Deferred (Janis Rosario, EMELI) Medications Current Inpatient Medications Medications (Trade) Dose Ordered Sig/Rach Route Start Time Stop Time Status Last Admin Dose Admin Acetaminophen (Tylenol Tab) 650 mg Q4H PRN PO 11/05/16 20:00 12/05/16 19:59 Zolpidem Tartrate (Ambien Tab) 5 mg HSZ PRN PO 11/05/16 20:00 12/05/16 19:59 Amlodipine Besylate (Norvasc Tab) 10 mg DAILY PO 11/06/16 08:00 12/06/16 08:59 11/07/16 14:02 10 MG Carvedilol (Coreg Tab) 6.25 mg BID PO 11/05/16 21:00 12/05/16 20:59 11/07/16 19:44 6.25 MG Cholecalciferol (Vitamin D Tab) 1,000 inter.unit QAM PO 11/06/16 08:00 12/06/16 08:59 11/08/16 08:21 1,000 INTER.UNIT Levothyroxine Sodium (Synthroid Tab) 125 mcg DAILYBB PO 11/06/16 06:30 12/06/16 06:59 11/08/16 05:41 125 MCG Lisinopril (Zestril Tab) 10 mg QAM PO 11/06/16 08:00 12/06/16 08:59 11/07/16 14:01 10 MG Pantoprazole Sodium (Protonix Tab) 40 mg BID PO 11/05/16 21:00 12/05/16 20:59 11/08/16 08:21 40 MG Pravastatin Sodium (Pravachol Tab) 20 mg DAILY PO 11/06/16 08:00 12/06/16 08:59 11/08/16 08:21 20 MG Sertraline HCl (Zoloft Tab) 50 mg DAILY PO 11/06/16 08:00 12/06/16 08:59 11/08/16 08:19 50 MG Vitamin B Complex/ Vit C/Folic Acid (Nephrocaps) 1 cap QAM PO 11/06/16 08:00 12/06/16 08:59 11/08/16 08:19 1 CAP Sevelamer HCl 800 mg 800 mg TIDM PO 11/06/16 08:00 12/06/16 07:59 11/08/16 08:19 800 MG Methylprednisolone Sodium Succinate/ Syringe (Solu-Medrol IV/ Syringe) 0.32 ml @ 1.5 mls/min Q8H IV 11/05/16 22:00 12/05/16 21:59 11/08/16 05:41 1.5 MLS/MIN Ondansetron HCl (Zofran Inj) 4 mg Q6H PRN IV 11/05/16 20:00 12/05/16 19:59 Guaifenesin (Mucinex Contr Rel Tab) 600 mg BID PO 11/05/16 21:00 12/05/16 20:59 11/08/16 08:21 600 MG Lactobacillus Acidophilus (Floranex Tab) 4 tab TIDM PO 11/06/16 08:00 12/06/16 07:59 11/08/16 08:21 4 TAB Levalbuterol (Xopenex 1.25MG/ 0.5ML Neb) 1.25 mg Q6R INH 11/05/16 21:00 12/05/16 20:59 11/08/16 07:46 1.25 MG Ipratropium Chemult (Atrovent 0.02% 0.5MG/2.5ML Neb) 0.5 mg Q6R INH 11/05/16 21:00 12/05/16 20:59 11/08/16 07:46 0.5 MG Levofloxacin 1 ea 1 ea UD PRN N/A 11/05/16 22:30 12/05/16 22:29 Levofloxacin/Prmx (Levaquin / D5W/ Premixed D5W) 50 ml @ 50 mls/hr Q48H IV 11/07/16 23:00 11/12/16 23:59 11/07/16 22:51 50 MLS/HR Heparin Sodium (Porcine) (Heparin Sq 5000 Unit/0.5ml) 5,000 unit Q12 SQ 11/07/16 09:00 12/07/16 08:59 11/08/16 08:22 5,000 UNIT Folic Acid (Folvite Tab) 1 mg QAM PO 11/08/16 08:00 12/08/16 07:59 11/08/16 08:20 1 MG (Janis Rosario PA-C) Objective Vital Signs Date Time Temp Pulse Resp B/P Pulse Ox O2 Delivery O2 Flow Rate FiO2 11/08/16 12:30 71 160/74 11/08/16 12:15 74 166/71 11/08/16 12:00 81 172/77 11/08/16 11:45 75 167/73 11/08/16 11:30 75 169/76 11/08/16 11:15 73 162/70 11/08/16 11:00 73 160/71 11/08/16 10:45 72 154/70 11/08/16 10:30 70 153/67 11/08/16 10:15 75 142/78 11/08/16 10:00 73 150/69 11/08/16 09:44 68 147/67 11/08/16 08:00 94 Room Air 11/08/16 07:49 36.5 75 17 169/73 95 Room Air 11/08/16 07:46 79 16 95 Room Air 11/08/16 02:14 74 16 96 Room Air 11/07/16 23:35 Room Air 11/07/16 23:35 36.6 81 18 153/68 98 Room Air 11/07/16 19:10 71 16 94 Room Air 11/07/16 16:00 94 Room Air 11/07/16 15:00 36.8 63 20 123/57 99 Room Air 11/07/16 14:26 77 16 95 Room Air (Janis Rosario PA-C) Physical Exam Notes: PHYSICAL EXAM:: General Appearance: WDWN in NAD who is A&O to person and somewhat place (knows it's [place]) with intermittent confusion HEENT: Head is normocephalic/atraumatic; Hearing grossly intact; Mucous membranes moist; Pharynx negative for exudate/lesions Neck: Supple; Trachea midline; Neg JVD; Neg lymphadenopathy Heart: RRR with systolic murmur III/ with no G/R Lungs: Crackles at R base; Respirations unlabored; Neg accessory muscle use Abdomen: Soft, non-tender, non-distended; Positive BS x 4 quadrants; Neg organomegaly Extremities: +non-pitting edema of lower extremities b/l; non-pitting edema of RUE with AV fistula with +thrill +bruit with enlarged vessels of the forearm connecting to AV fistula; Neg cyanosis Neurological: Speech clear; Gross motor/sensory function intact; Neg focal neurologic deficits; strength equal but diminished with dorsiflexion/plantar flexion and flexion of hip Psychiatric: Appropriate mood/affect Skin: Normal Color; Warm/Dry; Neg rashes, ecchymosis, lacerations/ulcerations (Janis Rosario, EMELI) Laboratory Results Last 24 Hours Test 11/08/16 08:22 White Blood Count 10.42 K/uL Red Blood Count 4.20 M/uL Hemoglobin 11.6 g/dL Hematocrit 36.0 % Mean Corpuscular Volume 85.7 fL Mean Corpuscular Hemoglobin 27.6 pg Mean Corpuscular Hemoglobin Concent 32.2 g/dl Platelet Count 328 K/uL Mean Platelet Volume 8.9 fL Neutrophils (%) (Auto) 82.8 % Lymphocytes (%) (Auto) 11.3 % Monocytes (%) (Auto) 5.4 % Eosinophils (%) (Auto) 0.0 % Basophils (%) (Auto) 0.1 % Neutrophils # (Auto) 8.63 K/uL Lymphocytes # (Auto) 1.18 K/uL Monocytes # (Auto) 0.56 K/uL Eosinophils # (Auto) 0.00 K/uL Basophils # (Auto) 0.01 K/uL RDW Standard Deviation 46.8 fL RDW Coefficient of Variation 15.2 % Immature Granulocyte % (Auto) 0.4 % Immature Granulocyte # (Auto) 0.04 K/uL Sodium Level 134 mmol/L Potassium Level 4.6 mmol/L Chloride Level 97 mmol/L Carbon Dioxide Level 25 mmol/L Anion Gap 12.0 mmol/L Blood Urea Nitrogen 47 mg/dl Creatinine 5.70 mg/dl Est Creatinine Clear Calc Drug Dose 7.0 ml/min Estimated GFR () 7.4 Estimated GFR (Non- 6.4 BUN/Creatinine Ratio 8.2 Random Glucose 120 mg/dl Calcium Level 8.7 mg/dl Magnesium Level 2.0 mg/dl (Janis Rosario PA-C) Assessment and Plan Generalized Weakness/Confusion 2/2 Bilateral CAP/MRSA? 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 - need consent from son Anemia: Likely Anemia of Chronic Disease: - Evidence of folate deficiency and elevated ferritin (can cause unexplained weakness) - Folic acid 1 mg daily ESRD - Dialysis MWF: - Sevelamer 800 mg TID and Nephrocaps daily CAD with Aortic Stenosis/HTN/Chronic Diastolic CHF: - Norvasc 10 mg daily, lisinopril 10 mg daily, and Coreg 6.25 mg BID Hypothyroidism: - Synthroid 125 mcg daily GERD/PUD: - Protonix 40 mg BID HLD: - Pravastatin 20 mg daily DVT Prophylaxis: Heparin 5000 units SC BID Code Status: FULL RESUSCITATION Disposition: PT/OT evaluations - can return home with caregivers and family - Have attempted to call multiple numbers on file to include the son, daughter- in-law (old work number), and number listed for patient's apartment and unable to contact family - Patient lives alone with daytime caregivers to office of aging - his home alone for multiple hours in the evening and at night as well as all day Sunday - Given patient's dementia she does not appear to be competent to make her decisions and will need more supervision than currently placed Continued [facility] stay due to: home environment unsafe for pt [facility]charge planning[facility] (Janis Rosario PA-C) Reviewed: Pt Seen/Exam by Me (Darlene Wilhelm MD) History Physician Coding Compliance Auditor Supervision Note: I interviewed and examined the patient. Discussed with VIDA Rosario and agree with findings and plan as documented in the note. Any exceptions or clarifications are listed here: Patient remains confused and only oriented 1. When I asked how often she sees her son, she tells me "he has a secret." She would not elaborate on that. We continued to be unsuccessful in reaching out to family for more information and for discharge planning purposes. She has no complaints. No acute distress, alert awake oriented 1 Regular rate and rhythm, no murmur Decreased breath sounds at the bases bilaterally, otherwise clear to auscultation Positive bowel sounds soft nontender nondistended Extremities no edema, right upper extremity with AV fistula very large with aneurysm in upper arm in place with trace edema of the entire right arm 81-year-old female with history of ESRD on HD, CAD, CHF Diastolic and Valvular type, aortic stenosis, history of PE, Hypertension, Dyslipidemia, CVA, here with weakness and inability to walk, incontinence of stool, and suspected right lower lobe pneumonia. - continue Levaquin for total 10 days, discontinued vancomycin as MRSA nasal swab was negative -Discontinue steroids as is not wheezing and no evidence of COPD or asthma, continue bronchodilators when necessary -Continue dialysis Sunday, note subclavian steal syndrome and axillary artery stenosis on ultrasound, with aneurysm-needs repair by vascular surgery -Need to get in touch with family to get more information on baseline mental status-we'll ask case management to assist with this -Continue other home meds for chronic conditions -Checking C. difficile antigen for loose stools -Continue heparin subcutaneously for DVT prophylaxis Disposition-to SNF if cannot have 24-hour caregivers at home Documented By: Darlene Wilhelm (Darlene Wilhelm MD)
[2016-11-08] MEDS: LISINOPRIL 10 MG TAB PO SCH (14:43)
[2016-11-08] MEDS: CARVEDILOL 6.25 MG TAB PO SCH ×2 (14:43→21:35)
[2016-11-08] MEDS: AMLODIPINE BESYLATE 5 MG TAB PO SCH (14:43)
[2016-11-09] VITALS (7 sets, daily range): BP systolic 137–158; BP diastolic 60–66; PULSE 63–72; TEMP 36.3–37; O2SAT 96–97
[2016-11-09] MEDS: IPRATROPIUM BROMIDE NEB SOLN 0.02% 2.5 ML VIAL INH SCH ×2 (01:06→07:03)
[2016-11-09] MEDS: LEVALBUTEROL 1.25MG/0.5ML NEB INH SCH ×2 (01:06→07:03)
[2016-11-09] MEDS: LEVOTHYROXINE 125 MCG TAB PO SCH (06:07)
[2016-11-09 07:40] LABS: BASO % 0.3 %; BASO ABS # 0.03 K/uL (0-0.2); COMPLETE YES; EOS % 0.9 %; HEMATOCRIT 32.7 % (37-47); IG% 0.2 %; LYMPH % 17.9 %; LYMPH ABS # 1.68 K/uL (1.2-3.4); MEAN CELL VOLUME 85.6 fL (80-100); MEAN CORPUSCULAR HEMOGLOBIN 28.3 pg (25-34); MEAN PLATELET VOLUME 8.5 fL (7.4-10.4); MONO % 9.5 %; NEUT % 71.2 %; PLATELET COUNT 254 K/uL (130-400); RED BLOOD COUNT 3.82 M/uL (4.2-5.4); WHITE BLOOD COUNT 9.39 K/uL (4.8-10.8)
[2016-11-09 08:14] LABS: BUN/CREATININE RATIO 9.2 (10-20); MAGNESIUM 1.8 mg/dl (1.8-2.4)
[2016-11-09 08:31] LABS: CALCIUM 8.4 mg/dl (8.5-10.1)
[2016-11-09] MEDS: GUAIFENESIN 600 MG TABCR PO SCH ×2 (08:54→19:46)
[2016-11-09] MEDS: AMLODIPINE BESYLATE 5 MG TAB PO SCH (08:54)
[2016-11-09] MEDS: NEPHROCAPS PO SCH (08:54)
[2016-11-09] MEDS: PANTOprazole SOD 40 MG TAB PO SCH ×2 (08:55→19:46)
[2016-11-09] MEDS: LACTOBACILLUS ACIDOPHILUS (FLORANEX) TAB PO SCH ×3 (08:55→17:56)
[2016-11-09] MEDS: SERTRALINE HCL 50 MG TAB PO SCH (08:55)
[2016-11-09] MEDS: PRAVASTATIN SOD 20 MG TAB PO SCH (08:55)
[2016-11-09] MEDS: SEVELAMER HYDROCH 800 MG TAB PO SCH ×3 (08:56→17:56)
[2016-11-09] MEDS: CHOLECALCIFEROL 1000 INTER.UNIT TAB PO SCH (08:56)
[2016-11-09] MEDS: LISINOPRIL 10 MG TAB PO SCH (08:56)
[2016-11-09] MEDS: CARVEDILOL 6.25 MG TAB PO SCH ×2 (08:58→19:46)
[2016-11-09] MEDS: HEPARIN SOD 5000 UNIT/0.5 ML CARP SQ SCH ×2 (09:04→20:47)
--- NOTE | 2016-11-09 10:49 | Nephrology Progress Note ---
Nephrology Progress Note Date of Service Nov 09, 2016. Chief Complaint End-stage renal disease on hemodialysis. Suze Cummins was seen and examined in her room this morning. She was otherwise feeling fine, denies shortness of breath or chest pain, blood pressure stable, volume status and electrolyte acceptable. She had dialysis yesterday, tolerated well. Right upper extremity swelling seems to have improved somewhat. Review of Systems A complete review of systems was performed. Pertinent positives are noted above. All other systems are negative. Vital Signs Last 8 Hrs Date Time Temp Pulse Resp B/P Pulse Ox O2 Delivery O2 Flow Rate FiO2 11/09/16 07:48 37.0 66 18 153/65 96 Room Air 11/09/16 07:03 72 16 96 Room Air 11/09/16 00:37 36.4 68 18 137/60 96 Room Air I & O 24-Hour Column 11/09/16 08:00 Intake Total 440 ml Output Total 2500 ml Balance -2060 ml Last Recorded Weight Weight (Kilograms): 65.800 Physical Exam GENERAL: Elderly female, AAA x 3, pleasant, healthy-appearing, not in any distress but seems somewhat confused. NECK: Supple, no JVD. RESPIRATORY: Normal breathing efforts, no accessory muscle use, clear to auscultation bilaterally, no wheezes or rales. CARDIOVASCULAR: S1, S2 normal, rate rhythm regular. EXTREMITY: No lower extremity edema, has right upper extremity edema, AV fistula with harsh thrill, large aneurysm. NEURO: speech fluent. PSYCHIATRY: Normal mood and judgment Family History Patient reports no known family medical history. Social History Smoking Status: Never smoker Smokeless Tobacco Use: No Alcohol Use: none Drug Use: none Marital Status: Occupation: retired Laboratory Results Past 24 Hours 11/08/16 08:22 Red Blood Count 4.20, Mean Corpuscular Volume 85.7, Mean Corpuscular Hemoglobin 27.6, Mean Corpuscular Hemoglobin Concent 32.2, Mean Platelet Volume 8.9, Neutrophils (%) (Auto) 82.8, Lymphocytes (%) (Auto) 11.3, Monocytes (%) (Auto) 5.4, Eosinophils (%) (Auto) 0.0, Basophils (%) (Auto) 0.1, Neutrophils # (Auto) 8.63, Lymphocytes # (Auto) 1.18, Monocytes # (Auto) 0.56, Eosinophils # (Auto) 0.00, Basophils # (Auto) 0.01 11/09/16 07:29 Red Blood Count 3.82, Mean Corpuscular Volume 85.6, Mean Corpuscular Hemoglobin 28.3, Mean Corpuscular Hemoglobin Concent 33.0, Mean Platelet Volume 8.5, Neutrophils (%) (Auto) 71.2, Lymphocytes (%) (Auto) 17.9, Monocytes (%) (Auto) 9.5, Eosinophils (%) (Auto) 0.9, Basophils (%) (Auto) 0.3, Neutrophils # (Auto) 6.69, Lymphocytes # (Auto) 1.68, Monocytes # (Auto) 0.89, Eosinophils # (Auto) 0.08, Basophils # (Auto) 0.03 11/08/16 08:22 Test 11/08/16 08:22 11/09/16 07:29 White Blood Count 10.42 K/uL (4.8-10.8) 9.39 K/uL (4.8-10.8) Red Blood Count 4.20 M/uL (4.2-5.4) 3.82 M/uL (4.2-5.4) Hemoglobin 11.6 g/dL (12.0-16.0) 10.8 g/dL (12.0-16.0) Hematocrit 36.0 % (37-47) 32.7 % (37-47) Mean Corpuscular Volume 85.7 fL (80-100) 85.6 fL (80-100) Mean Corpuscular Hemoglobin 27.6 pg (25-34) 28.3 pg (25-34) Mean Corpuscular Hemoglobin Concent 32.2 g/dl (32-36) 33.0 g/dl (32-36) Platelet Count 328 K/uL (130-400) 254 K/uL (130-400) Mean Platelet Volume 8.9 fL (7.4-10.4) 8.5 fL (7.4-10.4) Neutrophils (%) (Auto) 82.8 % 71.2 % Lymphocytes (%) (Auto) 11.3 % 17.9 % Monocytes (%) (Auto) 5.4 % 9.5 % Eosinophils (%) (Auto) 0.0 % 0.9 % Basophils (%) (Auto) 0.1 % 0.3 % Neutrophils # (Auto) 8.63 K/uL (1.4-6.5) 6.69 K/uL (1.4-6.5) Lymphocytes # (Auto) 1.18 K/uL (1.2-3.4) 1.68 K/uL (1.2-3.4) Monocytes # (Auto) 0.56 K/uL (0.11-0.59) 0.89 K/uL (0.11-0.59) Eosinophils # (Auto) 0.00 K/uL (0-0.5) 0.08 K/uL (0-0.5) Basophils # (Auto) 0.01 K/uL (0-0.2) 0.03 K/uL (0-0.2) RDW Standard Deviation 46.8 fL (36.4-46.3) 46.8 fL (36.4-46.3) RDW Coefficient of Variation 15.2 % (11.5-14.5) 15.1 % (11.5-14.5) Immature Granulocyte % (Auto) 0.4 % 0.2 % Immature Granulocyte # (Auto) 0.04 K/uL (0.00-0.02) 0.02 K/uL (0.00-0.02) Anion Gap 12.0 mmol/L (3-11) Est Creatinine Clear Calc Drug Dose 7.0 ml/min Estimated GFR () 7.4 Estimated GFR (Non- 6.4 BUN/Creatinine Ratio 8.2 (10-20) Calcium Level 8.7 mg/dl (8.5-10.1) Magnesium Level 2.0 mg/dl (1.8-2.4) Allergies Coded Allergies: Diazepam (Verified Adverse Reaction, Severe, CHEST PAIN, 11/05/16) Medications Current Inpatient Medications Medications (Trade) Dose Ordered Sig/Rach Route Start Time Stop Time Status Last Admin Dose Admin Acetaminophen (Tylenol Tab) 650 mg Q4H PRN PO 11/05/16 20:00 12/05/16 19:59 Zolpidem Tartrate (Ambien Tab) 5 mg HSZ PRN PO 11/05/16 20:00 12/05/16 19:59 Amlodipine Besylate (Norvasc Tab) 10 mg DAILY PO 11/06/16 08:00 12/06/16 08:59 11/08/16 14:43 10 MG Carvedilol (Coreg Tab) 6.25 mg BID PO 11/05/16 21:00 12/05/16 20:59 11/08/16 21:35 6.25 MG Cholecalciferol (Vitamin D Tab) 1,000 inter.unit QAM PO 11/06/16 08:00 12/06/16 08:59 11/08/16 08:21 1,000 INTER.UNIT Levothyroxine Sodium (Synthroid Tab) 125 mcg DAILYBB PO 11/06/16 06:30 12/06/16 06:59 11/09/16 06:07 125 MCG Lisinopril (Zestril Tab) 10 mg QAM PO 11/06/16 08:00 12/06/16 08:59 11/08/16 14:43 10 MG Pantoprazole Sodium (Protonix Tab) 40 mg BID PO 11/05/16 21:00 12/05/16 20:59 11/08/16 21:36 40 MG Pravastatin Sodium (Pravachol Tab) 20 mg DAILY PO 11/06/16 08:00 12/06/16 08:59 11/08/16 08:21 20 MG Sertraline HCl (Zoloft Tab) 50 mg DAILY PO 11/06/16 08:00 12/06/16 08:59 11/08/16 08:19 50 MG Vitamin B Complex/ Vit C/Folic Acid (Nephrocaps) 1 cap QAM PO 11/06/16 08:00 12/06/16 08:59 11/08/16 08:19 1 CAP Sevelamer HCl (Renagel Tab) 800 mg TIDM PO 11/06/16 08:00 12/06/16 07:59 11/08/16 17:01 800 MG Ondansetron HCl (Zofran Inj) 4 mg Q6H PRN IV 11/05/16 20:00 12/05/16 19:59 Guaifenesin (Mucinex Contr Rel Tab) 600 mg BID PO 11/05/16 21:00 12/05/16 20:59 11/08/16 21:36 600 MG Lactobacillus Acidophilus (Floranex Tab) 4 tab TIDM PO 11/06/16 08:00 12/06/16 07:59 11/08/16 17:01 4 TAB Levalbuterol (Xopenex 1.25MG/ 0.5ML Neb) 1.25 mg Q6R INH 11/05/16 21:00 12/05/16 20:59 11/09/16 07:03 1.25 MG Ipratropium [place] (Atrovent 0.02% 0.5MG/2.5ML Neb) 0.5 mg Q6R INH 11/05/16 21:00 12/05/16 20:59 11/09/16 07:03 0.5 MG Levofloxacin 1 ea 1 ea UD PRN N/A 11/05/16 22:30 12/05/16 22:29 Levofloxacin/Prmx (Levaquin / D5W/ Premixed D5W) 50 ml @ 50 mls/hr Q48H IV 11/07/16 23:00 11/12/16 23:59 11/07/16 22:51 50 MLS/HR Heparin Sodium (Porcine) (Heparin Sq 5000 Unit/0.5ml) 5,000 unit Q12 SQ 11/07/16 09:00 12/07/16 08:59 11/08/16 21:46 5,000 UNIT Folic Acid (Folvite Tab) 1 mg QAM PO 11/08/16 08:00 12/08/16 07:59 11/08/16 08:20 1 MG Impression Maria G Is a 81-year-old female with end-stage renal disease on hemodialysis admitted to the hospital with ambulatory dysfunction. Unclear etiology for ambulatory dysfunction, CT head on admission was negative, currently she does not have any focal neurological deficit. She is on dialysis Sunday, Sunday, Sunday.. Her volume status blood pressure and electrolyte acceptable. Recommendations -- currently she is doing well, volume status, blood pressure and electrolyte acceptable. --next dialysis tomorrow -- avoid IV fluid, continue on renal diet, will continue on renal cap and phosphate binder with meal -- she will need repair of aneurysm at AV fistula site, however that can be done as an outpatient -- will give Epogen for hemoglobin less than 10 --dose medications for GFR less than 10 -- she is stable but she may eventually need at the placement to a long-term care facility if she is agreeable. Will follow.
[2016-11-09] MEDS ORDERED: IPRATROPIUM BROMIDE NEB SOLN 0.02% 2.5 ML VIAL INH PRN (15:00)
[2016-11-09] MEDS ORDERED: LEVALBUTEROL 1.25MG/0.5ML NEB INH PRN (15:00)
--- NOTE | 2016-11-09 15:24 | Progress Note ---
Progress Note Date of Service Nov 09, 2016. Progress Note Discussed RUE AVF revision and fistulagram with pt and daughter present. Procedure, risks, benefits and alternatives discussed, they express understanding and agreement. Per daughter, pt does not have a designated POA and she wanted pt to sign the consent.
--- NOTE | 2016-11-09 17:13 | Hospitalist Progress Note ---
Hospitalist Progress Note Date of Service Nov 09, 2016. Subjective Pt evaluation today including: conversation w/ patient, conversation w/ family (daughter finally came in to see patient today, she did not know she was in the hospital until last night) Daughter here today and reports the patient is not normally this confused at home. Says it's only because she is in unfamiliar surroundings. Patient and daughter are agreeable for the vascular surgeon to fix her AV fistula tomorrow. Otherwise, she feels well. She and daughter are in agreement that she should go home and not to a retirement facility. Constitutional: No fever Respiratory: No cough, No shortness of breath Cardiovascular: No chest pain Abdomen: No pain All Other Systems: Reviewed and Negative Objective Vital Signs Date Time Temp Pulse Resp B/P Pulse Ox O2 Delivery O2 Flow Rate FiO2 11/09/16 16:01 97 Room Air 11/09/16 14:44 36.3 63 17 158/66 97 Room Air 11/09/16 08:00 96 Room Air 11/09/16 07:48 37.0 66 18 153/65 96 Room Air 11/09/16 07:03 72 16 96 Room Air 11/09/16 00:37 36.4 68 18 137/60 96 Room Air 11/08/16 23:28 Room Air 11/08/16 19:38 76 16 94 Room Air Physical Exam General Appearance: no apparent distress Eyes: normal inspection, sclerae normal Neck: trachea midline Respiratory/Chest: no respiratory distress, no accessory muscle use, + decreased breath sounds (at the bases bilaterally with some crackles) Cardiovascular: regular rate, rhythm, no edema, + systolic murmur (harsh 4/6 systolic murmur heard in all areas but could also be subclavian bruits) Abdomen: normal bowel sounds, non tender, soft Extremities: no calf tenderness, + pertinent finding (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) Neurologic/Psychiatric: alert, + disoriented (only oriented to person and town) Skin: no rash, + pertinent finding (heath skin) Laboratory Results Last 24 Hours Test 11/09/16 07:29 White Blood Count 9.39 K/uL Red Blood Count 3.82 M/uL Hemoglobin 10.8 g/dL Hematocrit 32.7 % Mean Corpuscular Volume 85.6 fL Mean Corpuscular Hemoglobin 28.3 pg Mean Corpuscular Hemoglobin Concent 33.0 g/dl Platelet Count 254 K/uL Mean Platelet Volume 8.5 fL Neutrophils (%) (Auto) 71.2 % Lymphocytes (%) (Auto) 17.9 % Monocytes (%) (Auto) 9.5 % Eosinophils (%) (Auto) 0.9 % Basophils (%) (Auto) 0.3 % Neutrophils # (Auto) 6.69 K/uL Lymphocytes # (Auto) 1.68 K/uL Monocytes # (Auto) 0.89 K/uL Eosinophils # (Auto) 0.08 K/uL Basophils # (Auto) 0.03 K/uL RDW Standard Deviation 46.8 fL RDW Coefficient of Variation 15.1 % Immature Granulocyte % (Auto) 0.2 % Immature Granulocyte # (Auto) 0.02 K/uL Sodium Level 137 mmol/L Potassium Level 4.0 mmol/L Chloride Level 98 mmol/L Carbon Dioxide Level 30 mmol/L Anion Gap 9.0 mmol/L Blood Urea Nitrogen 37 mg/dl Creatinine 4.00 mg/dl Est Creatinine Clear Calc Drug Dose 9.9 ml/min Estimated GFR () 11.4 Estimated GFR (Non- 9.8 BUN/Creatinine Ratio 9.2 Random Glucose 89 mg/dl Calcium Level 8.4 mg/dl Magnesium Level 1.8 mg/dl Assessment and Plan 81-year-old female with history of ESRD on HD, CAD, CHF Diastolic and Valvular type, aortic stenosis, history of PE, Hypertension, Dyslipidemia, CVA, here with weakness and inability to walk, incontinence of stool, and suspected right lower lobe pneumonia. -Checking C. 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 TSH here is within normal limits at 1.29 - Synthroid 125 mcg daily GERD/PUD: Stable, no issues at this time - Protonix 40 mg BID HLD: Stable, no issues at this time - Pravastatin 20 mg daily DVT Prophylaxis: Heparin 5000 units SC BID Code Status: FULL RESUSCITATION Disposition: PT/OT evaluations - can return home with caregivers and family. Daughter Candy now present and confirms the patient is less confused at her baseline when she is at home and is able to return home safely by herself -Previously attempted to call multiple numbers on file to include the son, [email or web address] (old work number), and number listed for patient's apartment and unable to contact family - Patient lives alone with daytime caregivers to office of [facility] - his home alone for multiple hours in the evening and at night as well as all day Sunday
[2016-11-09] MEDS ORDERED: LEVOFLOXACIN 250 MG TAB PO SCH (18:00)
[2016-11-10] VITALS (21 sets, daily range): BP systolic 122–165; BP diastolic 32–69; PULSE 61–76; TEMP 36.5–36.8; O2SAT 94–95
[2016-11-10] MEDS ORDERED: CEFAZOLIN 1000MG/55 ML D5W 55 ML IV SCH (06:00)
[2016-11-10] MEDS: LEVOTHYROXINE 125 MCG TAB PO SCH (06:25)
[2016-11-10] MEDS: AMLODIPINE BESYLATE 5 MG TAB PO SCH (08:00)
[2016-11-10] MEDS: SEVELAMER HYDROCH 800 MG TAB PO SCH ×3 (08:00→17:29)
[2016-11-10] MEDS: GUAIFENESIN 600 MG TABCR PO SCH ×2 (08:00→20:23)
[2016-11-10] MEDS: LACTOBACILLUS ACIDOPHILUS (FLORANEX) TAB PO SCH ×3 (08:00→17:30)
[2016-11-10] MEDS: PRAVASTATIN SOD 20 MG TAB PO SCH (08:00)
[2016-11-10] MEDS: SERTRALINE HCL 50 MG TAB PO SCH (08:00)
[2016-11-10] MEDS: PANTOprazole SOD 40 MG TAB PO SCH ×2 (08:01→20:23)
[2016-11-10] MEDS: CHOLECALCIFEROL 1000 INTER.UNIT TAB PO SCH (08:02)
[2016-11-10] MEDS: NEPHROCAPS PO SCH (08:03)
[2016-11-10] MEDS ORDERED: NURSING VERBAL MED ORDER ONE (09:30)
[2016-11-10] MEDS ORDERED: DEXAMETHASONE SOD INJ 4 MG/ML VIAL ONE (11:50)
[2016-11-10] MEDS ORDERED: MIDAZOLAM HCL 1 MG/ML 2ML VIAL ONE (11:50)
[2016-11-10] MEDS ORDERED: PROPOFOL IV EMULSION 10 MG/ML 20 ML VIAL IV ONE (11:50)
[2016-11-10] MEDS ORDERED: ONDANSETRON INJ 2 MG/ML 2 ML VIAL ONE (11:50)
[2016-11-10] MEDS ORDERED: LIDOCAINE HCL 2% 2 ML VIAL (20MG/ML) ONE (11:50)
[2016-11-10] MEDS ORDERED: FENTANYL CITRATE INJ 50 MCG/1 ML 2 ML VIAL ONE (11:51)
[2016-11-10] MEDS ORDERED: GELATIN SPONGE 12-7MM ONE (12:12)
[2016-11-10] MEDS ORDERED: THROMBIN FOR SOLN 20000 UNIT KIT ONE (12:12)
[2016-11-10] MEDS ORDERED: LIDOCAINE HCL 1% 20 ML VIAL ONE (12:13)
[2016-11-10] MEDS ORDERED: HEPARIN SOD (PORCINE) 1000 UNIT/ML 10 ML VIAL ONE ×3 (12:13→15:34)
[2016-11-10] MEDS ORDERED: BUPIVACAINE/EPINEPHRINE 0.5% MPF 1:200,000 30 ML VIAL ONE (12:13)
--- NOTE | 2016-11-10 12:16 | Dialysis Progress Note ---
Hemodialysis Note Date of Service Nov 10, 2016. Chief Complaint End-stage renal disease on hemodialysis. Subjective Maria G was seen and examined during HD this am. Tolerating well, BP stable. Denies any symptoms. Review of Systems A complete review of systems was performed. Pertinent positives are noted above. All other systems are negative. Vital Signs Last 8 Hrs Date Time Temp Pulse Resp B/P Pulse Ox O2 Delivery O2 Flow Rate FiO2 11/10/16 12:00 67 147/57 11/10/16 11:45 69 136/55 11/10/16 11:30 68 130/32 11/10/16 11:15 66 122/54 11/10/16 11:00 69 140/56 11/10/16 10:45 72 141/64 11/10/16 10:30 70 139/60 11/10/16 10:15 69 146/63 11/10/16 10:00 70 143/61 11/10/16 09:45 69 139/63 11/10/16 09:30 73 151/67 11/10/16 09:15 72 149/62 11/10/16 09:06 73 143/65 11/10/16 08:39 36.5 76 16 165/69 94 Room Air 11/10/16 08:00 Room Air I & O 24-Hour Column 11/10/16 07:59 Intake Total 420 ml Balance 420 ml Last Recorded Weight Weight (Kilograms): 68.000 Physical Exam GENERAL: Elderly female, AAA x 3, pleasant, healthy-appearing, not in any distress but seems somewhat confused. NECK: Supple, no JVD. RESPIRATORY: Normal breathing efforts, no accessory muscle use, clear to auscultation bilaterally, no wheezes or rales. CARDIOVASCULAR: S1, S2 normal, rate rhythm regular. EXTREMITY: No lower extremity edema, has right upper extremity edema, AV fistula with harsh thrill, large aneurysm. NEURO: speech fluent. PSYCHIATRY: Normal mood and judgment Social History Smoking Status: Never smoker Smokeless Tobacco Use: No Alcohol Use: none Drug Use: none Marital Status: Occupation: retired Allergies Coded Allergies: Diazepam (Verified Adverse Reaction, Severe, CHEST PAIN, 11/05/16) Medications Current Inpatient Medications Medications (Trade) Dose Ordered Sig/Rach Route Start Time Stop Time Status Last Admin Dose Admin Acetaminophen (Tylenol Tab) 650 mg Q4H PRN PO 11/05/16 20:00 12/05/16 19:59 Zolpidem Tartrate (Ambien Tab) 5 mg HSZ PRN PO 11/05/16 20:00 12/05/16 19:59 Amlodipine Besylate (Norvasc Tab) 10 mg DAILY PO 11/06/16 08:00 12/06/16 08:59 11/09/16 08:54 10 MG Carvedilol (Coreg Tab) 6.25 mg BID PO 11/05/16 21:00 12/05/16 20:59 11/09/16 19:46 6.25 MG Cholecalciferol (Vitamin D Tab) 1,000 inter.unit QAM PO 11/06/16 08:00 12/06/16 08:59 11/10/16 08:02 1,000 INTER.UNIT Levothyroxine Sodium (Synthroid Tab) 125 mcg DAILYBB PO 11/06/16 06:30 12/06/16 06:59 11/10/16 06:25 125 MCG Lisinopril (Zestril Tab) 10 mg QAM PO 11/06/16 08:00 12/06/16 08:59 11/09/16 08:56 10 MG Pantoprazole Sodium (Protonix Tab) 40 mg BID PO 11/05/16 21:00 12/05/16 20:59 11/10/16 08:01 40 MG Pravastatin Sodium (Pravachol Tab) 20 mg DAILY PO 11/06/16 08:00 12/06/16 08:59 11/10/16 08:00 20 MG Sertraline HCl (Zoloft Tab) 50 mg DAILY PO 11/06/16 08:00 12/06/16 08:59 11/10/16 08:00 50 MG Vitamin B Complex/ Vit C/Folic Acid (Nephrocaps) 1 cap QAM PO 11/06/16 08:00 12/06/16 08:59 11/10/16 08:03 1 CAP Sevelamer HCl (Renagel Tab) 800 mg TIDM PO 11/06/16 08:00 12/06/16 07:59 11/09/16 17:56 800 MG Ondansetron HCl (Zofran Inj) 4 mg Q6H PRN IV 11/05/16 20:00 12/05/16 19:59 Guaifenesin (Mucinex Contr Rel Tab) 600 mg BID PO 11/05/16 21:00 12/05/16 20:59 11/10/16 08:00 600 MG Lactobacillus Acidophilus (Floranex Tab) 4 tab TIDM PO 11/06/16 08:00 12/06/16 07:59 11/09/16 17:56 4 TAB Levofloxacin (Consult) 1 ea UD PRN N/A 11/05/16 22:30 12/05/16 22:29 Heparin Sodium (Porcine) (Heparin Sq 5000 Unit/0.5ml) 5,000 unit Q12 SQ 11/07/16 09:00 12/07/16 08:59 Future hold 11/09/16 20:47 5,000 UNIT Folic Acid (Folvite Tab) 1 mg QAM PO 11/08/16 08:00 12/08/16 07:59 11/10/16 08:01 1 MG Levofloxacin (Levaquin Tab) 250 mg Q48H PO 11/09/16 18:00 11/12/16 23:59 11/09/16 18:01 250 MG Ipratropium Sturgeon (Atrovent 0.02% 0.5MG/2.5ML Neb) 0.5 mg Q6R PRN INH 11/09/16 15:00 12/09/16 14:59 Levalbuterol 1.25 mg 1.25 mg Q6R PRN INH 11/09/16 15:00 12/09/16 14:59 Cefazolin Sodium (Ancef 1000mg/55 ml D5W) 55 ml @ 100 mls/hr PREOP IV 11/10/16 06:00 11/11/16 05:59 Impression Maria G Is a 81-year-old female with end-stage renal disease on hemodialysis admitted to the hospital with ambulatory dysfunction. Unclear etiology for ambulatory dysfunction, CT head on admission was negative, currently she does not have any focal neurological deficit. She is on dialysis Sunday, Sunday, Sunday.. Her volume status blood pressure and electrolyte acceptable. Recommendations -- currently she is doing well, volume status, blood pressure stable, tolerating HD well. -- avoid IV fluid, continue on renal diet, will continue on renal cap and phosphate binder with meal -- she will need repair of aneurysm at AV fistula site, however that can be done as an outpatient -- will give Epogen for hemoglobin less than 10 --dose medications for GFR less than 10 -- she is stable and hse and her daughter decided to go home on discharge. Will follow.
[2016-11-10] MEDS: CARVEDILOL 6.25 MG TAB PO SCH ×2 (12:45→20:24)
[2016-11-10] MEDS ORDERED: METOPROLOL TARTRATE 1 MG/ML VIAL ONE (13:33)
[2016-11-10] MEDS ORDERED: LACTATED RINGER'S 1000ML 1,000 ML IV PRN (13:38)
[2016-11-10] MEDS ORDERED: ONDANSETRON INJ 2 MG/ML 2 ML VIAL IV PRN (13:45)
[2016-11-10] MEDS ORDERED: FENTANYL CITRATE INJ 50 MCG/1 ML 2 ML VIAL IV PRN (13:45)
--- NOTE | 2016-11-10 13:54 | Progress Note ---
Progress Note Date of Service Nov 10, 2016. Progress Note Patient for revision of her right arm fistula. I have discussed the risks options and benefits of the procedure with the patient. The patient understands the risks options and benefits and agrees to the procedure. I have examined the patient, reviewed the History & Physical and in the interval since the performance of the History & Physical I have noted the following changes of clinical significance: No changes noted
[2016-11-10] MEDS ORDERED: EpHEDrine SULFATE INJ 50 MG/ML AMP ONE (14:40)
[2016-11-10] MEDS ORDERED: KETAMINE HCL INJ 50 MG/ML 10 ML VIAL ONE (15:20)
[2016-11-10] MEDS ORDERED: SURGICEL ABSORB HEMOSTAT 2IN X 14IN TOP ONE ×2 (15:21→15:55)
[2016-11-10] MEDS ORDERED: OPTIRAY 300 IV ONE (15:38)
--- NOTE | 2016-11-10 16:07 | [facility] Post Operative Brief Note ---
Immediate Operative Summary Operative Date Nov 10, 2016. Pre-Operative Diagnosis End-stage renal disease Post-Operative Diagnosis End-stage renal disease Procedure(s) Performed Right Arm Fistulogram; Right Arm Arteriovenous Fistula Revision with Venorrhaphy Surgeon Dr. Minor Degroot Industrial Automation Specialist Surgeon(s) Regina Orourke-Fellow Estimated Blood Loss 150 mL Findings good thrill, subclavian vein occlusion Specimens None per surgeon Anesthesia MAC Complication(s) None Disposition Recovery Room / PACU
[2016-11-10] MEDS ORDERED: OXYCODONE/ACETAMINOPHEN 5-325 TAB PO PRN (16:15)
--- NOTE | 2016-11-10 16:58 | Anesthesiology Progress Note ---
Anesthesia Post Op Note Date & Time Nov 10, 2016 at 16:58 Vital Signs Pain Intensity: 0 Vital Signs Past 12 Hours Date Time Temp Pulse Resp B/P Pulse Ox O2 Delivery O2 Flow Rate FiO2 11/10/16 16:35 63 16 129/51 100 Mask 5 11/10/16 16:28 36.8 69 16 123/52 98 Mask 10 11/10/16 13:05 36.7 61 153/59 11/10/16 12:30 67 142/56 11/10/16 12:15 65 141/63 11/10/16 12:00 67 147/57 11/10/16 11:45 69 136/55 11/10/16 11:30 68 130/32 11/10/16 11:15 66 122/54 11/10/16 11:00 69 140/56 11/10/16 10:45 72 141/64 11/10/16 10:30 70 139/60 11/10/16 10:15 69 146/63 11/10/16 10:00 70 143/61 11/10/16 09:45 69 139/63 11/10/16 09:30 73 151/67 11/10/16 09:15 72 149/62 11/10/16 09:06 73 143/65 11/10/16 08:50 36.7 66 144/68 11/10/16 08:39 36.5 76 16 165/69 94 Room Air 11/10/16 08:00 Room Air Notes Mental Status: alert / awake / arousable, participated in evaluation Pt Amnestic to Procedure: Yes Nausea / Vomiting: adequately controlled Pain: adequately controlled Airway Patency, RR, SpO2: stable & adequate BP & HR: stable & adequate Hydration State: stable & adequate Anesthetic Complications: no major complications apparent
--- NOTE | 2016-11-10 17:15 | OPERATIVE REPORT ---
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 POSTOPERATIVE DIAGNOSIS: Same. PROCEDURE: Revision of right upper extremity aneurysm venorrhaphy and right upper extremity fistulogram. SURGEON: Dr. Minor Feliciano. INFRASTRUCTURE DIRECTOR: Dr. Nanci Leach and Morelia Powers PA-C. FLUIDS: 400 mL. ESTIMATED BLOOD LOSS: 150 mL. ANESTHESIA: Local plus conscious sedation. COMPLICATIONS: None apparent. FLUOROSCOPY TIME: 0.1 minute and 9 milligrays. CONTRAST: 15 mL of contrast dye. CONDITION: Stable to PACU. INDICATIONS: Ms. Maria G Jo is an 81-year-old female with end-stage renal disease on hemodialysis on Sunday, Sunday, and Sunday who had a right upper extremity brachiocephalic fistula placed. This had had some aneurysmal degeneration and on ultrasound there appeared to be a stenosis in her fistula. She was advised of the risks and benefits of undergoing revision and agreed to undergo above procedure. DESCRIPTION OF PROCEDURE: The patient was brought into the operative suite. She was prepped and draped in the usual fashion. A timeout occurred. Incision was made medial to her fistula. The fistula was identified and dissected out. An area was approximated for distal end; however, the entire length of the aneurysm was aneurysmal so there was a spot that was slightly less dilated than the rest that was going to be used as an end-point. After this occurred, proximal and distal control was obtained and a venotomy was made into the fistula. This was extended with Beltran scissors. A 28 chest tube was then used to approximate size. The fistula was trimmed using a trap-door method to approximate the size of the 28 chest tube. The fistula was then repaired primarily with a running 5-0 Prolene suture. Prior to completion of the anastomosis, the 28 chest tube was withdrawn and the anastomosis was completed. It was inspected for hemostasis and repair stitches were placed. Then the fistula was accessed just near the arterial anastomosis with an axe needle. A wire was placed and then a 5-Latvian short sheath was placed into the fistula. Fistulogram was obtained, this demonstrated a widely patent fistula. In the upper arm, there is an area of serpentine fistula and then another smaller aneurysm in the upper arm. However, the patient had had previous subclavian stents and these appeared to be either occluded or highly stenotic. At this time, it was decided that intervention on the subclavian vein would take place at different times and the sheath was withdrawn and repaired with primary repair with 6-0 Prolene sutures. The fistula again was inspected for hemostasis as was the surrounding subcutaneous tissue. The excess skin was trimmed and the wound was closed in running 3-0 and 4-0 suture. The patient tolerated the procedure well and was transported to PACU. Dr. Minor Feliciano was present and scrubbed for the entirety of this case. I attest to the content of the Intraoperative Record and any orders documented therein. Any exceptio ns are noted below.
[2016-11-10] MEDS: LISINOPRIL 10 MG TAB PO SCH (17:31)
--- NOTE | 2016-11-10 18:05 | Hospitalist Progress Note ---
Hospitalist Progress Note Date of Service Nov 10, 2016. (Janis Rosario PA-C) Subjective Pt evaluation today including: conversation w/ patient, conversation w/ family (Candy (Daughter)), physical exam, chart review, lab review, review of studies , review of inpatient medication list Patient seen and evaluated. No acute events overnight. Patient S/P dialysis and S/P AV fistula repair. Tolerated procedure well. Currently eating dinner and tolerating diet. Daughter at bedside who states she can take her home tomorrow and provide care Sunday and Sunday until home services started. Constitutional: No chills, No fever Eyes: No worsening of vision ENT: No nasal symptoms, No sore throat, No trouble swallowing, No unusual epistaxis Respiratory: No cough, No shortness of breath Cardiovascular: No chest pain Abdomen: No nausea, No pain, No vomiting Musculoskeletal: No joint pain, No muscle pain Female : No dysuria Neurologic: + memory loss Skin: No rash (Janis Rosario, GEREMIASC) Medications Current Inpatient Medications Medications (Trade) Dose Ordered Sig/Rach Route Start Time Stop Time Status Last Admin Dose Admin Acetaminophen (Tylenol Tab) 650 mg Q4H PRN PO 11/05/16 20:00 12/05/16 19:59 Zolpidem Tartrate (Ambien Tab) 5 mg HSZ PRN PO 11/05/16 20:00 12/05/16 19:59 Amlodipine Besylate (Norvasc Tab) 10 mg DAILY PO 11/06/16 08:00 12/06/16 08:59 11/09/16 08:54 10 MG Carvedilol (Coreg Tab) 6.25 mg BID PO 11/05/16 21:00 12/05/16 20:59 11/09/16 19:46 6.25 MG Cholecalciferol (Vitamin D Tab) 1,000 inter.unit QAM PO 11/06/16 08:00 12/06/16 08:59 11/10/16 08:02 1,000 INTER.UNIT Levothyroxine Sodium (Synthroid Tab) 125 mcg DAILYBB PO 11/06/16 06:30 12/06/16 06:59 11/10/16 06:25 125 MCG Lisinopril (Zestril Tab) 10 mg QAM PO 11/06/16 08:00 5/24/17 08:59 11/09/16 08:56 10 MG Pantoprazole Sodium (Protonix Tab) 40 mg BID PO 11/05/16 21:00 12/05/16 20:59 11/10/16 08:01 40 MG Pravastatin Sodium (Pravachol Tab) 20 mg DAILY PO 11/06/16 08:00 12/06/16 08:59 11/10/16 08:00 20 MG Sertraline HCl (Zoloft Tab) 50 mg DAILY PO 11/06/16 08:00 12/06/16 08:59 11/10/16 08:00 50 MG Vitamin B Complex/ Vit C/Folic Acid (Nephrocaps) 1 cap QAM PO 11/06/16 08:00 12/06/16 08:59 11/10/16 08:03 1 CAP Sevelamer HCl (Renagel Tab) 800 mg TIDM PO 11/06/16 08:00 12/06/16 07:59 11/09/16 17:56 800 MG Ondansetron HCl (Zofran Inj) 4 mg Q6H PRN IV 11/05/16 20:00 12/05/16 19:59 Guaifenesin (Mucinex Contr Rel Tab) 600 mg BID PO 11/05/16 21:00 12/05/16 20:59 11/10/16 08:00 600 MG Lactobacillus Acidophilus (Floranex Tab) 4 tab TIDM PO 11/06/16 08:00 12/06/16 07:59 11/09/16 17:56 4 TAB Levofloxacin (Consult) 1 ea UD PRN N/A 11/05/16 22:30 12/05/16 22:29 Heparin Sodium (Porcine) (Heparin Sq 5000 Unit/0.5ml) 5,000 unit Q12 SQ 11/07/16 09:00 12/07/16 08:59 Future hold 11/09/16 20:47 5,000 UNIT Folic Acid (Folvite Tab) 1 mg QAM PO 11/08/16 08:00 12/08/16 07:59 11/10/16 08:01 1 MG Levofloxacin (Levaquin Tab) 250 mg Q48H PO 11/09/16 18:00 11/12/16 23:59 11/09/16 18:01 250 MG Ipratropium Brandon (Atrovent 0.02% 0.5MG/2.5ML Neb) 0.5 mg Q6R PRN INH 11/09/16 15:00 12/09/16 14:59 Levalbuterol (Xopenex 1.25MG/ 0.5ML Neb) 1.25 mg Q6R PRN INH 11/09/16 15:00 12/09/16 14:59 Ondansetron HCl (Zofran Inj) 4 mg ONE PRN IV 11/10/16 13:45 Oxycodone/ Acetaminophen (Percocet 5-325mg Tab) 1 tab Q4H PRN PO 11/10/16 16:15 11/24/16 16:14 (Janis Rosario, EMELI) Objective Vital Signs Date Time Temp Pulse Resp B/P Pulse Ox O2 Delivery O2 Flow Rate FiO2 11/10/16 17:25 36.8 63 18 144/56 95 Room Air 11/10/16 17:15 94 Room Air 11/10/16 16:55 63 16 123/51 100 Nasal Cannula 3 11/10/16 16:45 36.6 61 16 121/48 100 Nasal Cannula 3 11/10/16 16:35 63 16 129/51 100 Mask 5 11/10/16 16:28 36.8 69 16 123/52 98 Mask 10 11/10/16 13:05 36.7 61 153/59 11/10/16 12:30 67 142/56 11/10/16 12:15 65 141/63 11/10/16 12:00 67 147/57 11/10/16 11:45 69 136/55 11/10/16 11:30 68 130/32 11/10/16 11:15 66 122/54 11/10/16 11:00 69 140/56 11/10/16 10:45 72 141/64 11/10/16 10:30 70 139/60 11/10/16 10:15 69 146/63 11/10/16 10:00 70 143/61 11/10/16 09:45 69 139/63 11/10/16 09:30 73 151/67 11/10/16 09:15 72 149/62 11/10/16 09:06 73 143/65 11/10/16 08:50 36.7 66 144/68 11/10/16 08:39 36.5 76 16 165/69 94 Room Air 11/10/16 08:00 Room Air 11/10/16 00:00 Room Air 11/09/16 23:47 36.5 66 18 156/64 96 Room Air (Janis Rosario PA-C) Physical Exam General Appearance: WD/WN, no apparent distress Eyes: sclerae normal ENT: hearing grossly normal Neck: supple, no JVD, trachea midline Respiratory/Chest: lungs clear, no respiratory distress, no accessory muscle use, + decreased breath sounds Cardiovascular: regular rate, rhythm, + pertinent finding (harsh murmur) Abdomen: normal bowel sounds, non tender, soft Extremities: no calf tenderness, + swelling (nonpitting edema bilaterally ), + pertinent finding (R arm without active bleeding with adequate pulse and rapid cap refill) Neurologic/Psychiatric: alert, + pertinent finding (oriented to person) Skin: normal color, warm/dry (Janis Rosario, VIDA-C) Laboratory Results Last 24 Hours Test 11/10/16 13:16 Bedside Glucose 77 mg/dl (Janis Rosario, GEREMIASC) Assessment and Plan 81-year-old female with history of ESRD on HD, CAD, CHF Diastolic and Valvular type, aortic stenosis, history of PE, Hypertension, Dyslipidemia, CVA, here with weakness and inability to walk, incontinence of stool, and suspected right lower lobe pneumonia. 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 TSH here is within normal limits at 1.29 - Synthroid 125 mcg daily GERD/PUD: Stable, no issues at this time - Protonix 40 mg BID HLD: Stable, no issues at this time - Pravastatin 20 mg daily DVT Prophylaxis: Heparin 5000 units SC BID Code Status: FULL RESUSCITATION Disposition: PT/OT evaluations - can return home with caregivers and family. Daughter Candy now present and confirms the patient is less confused at her baseline when she is at home and is able to return home safely by herself -Previously attempted to call multiple numbers on file to include the son, [id number] (old work number), and number listed for patient's apartment and unable to contact family - Patient lives alone with daytime caregivers with [facility] - is home alone for multiple hours in the evening and at night as well as all day Sunday -- Candy would like to take patient home tomorrow and states she can provide care Sunday and Sunday until [facility] services resume Continued [facility] stay due to: other (S/P Dialysis and S/P AV Fistula repair) Discharge planning: home with home health ([facility]) (Janis Rosario PA-C) History Case discussed with VIDA Rosario, labs and chart reviewed and agree with plan as outlined. (Darlene Wilhelm MD) Assessment/Plan 81-year-old female with history of ESRD on HD, CAD, CHF Diastolic and Valvular type, aortic stenosis, history of PE, Hypertension, Dyslipidemia, CVA, here with weakness and inability to walk, incontinence of stool, and suspected right lower lobe pneumonia. -Checking C. 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 TSH here is within normal limits at 1.29 - Synthroid 125 mcg daily GERD/PUD: Stable, no issues at this time - Protonix 40 mg BID HLD: Stable, no issues at this time - Pravastatin 20 mg daily DVT Prophylaxis: Heparin 5000 units SC BID Code Status: FULL RESUSCITATION Disposition: PT/OT evaluations - can return home with caregivers and family. Daughter Candy now present and confirms the patient is less confused at her baseline when she is at home and is able to return home safely by herself -Previously attempted to call multiple numbers on file to include the son, [id number] (old work number), and number listed for patient's apartment and unable to contact family - Patient lives alone with daytime caregivers to [facility] - his home alone for multiple hours in the evening and at night as well as all day Sunday (Darlene Wilhelm MD)
[2016-11-10] MEDS: HEPARIN SOD 5000 UNIT/0.5 ML CARP SQ SCH (20:29)
[2016-11-11] MEDS: LEVOTHYROXINE 125 MCG TAB PO SCH (06:00)
[2016-11-11 07:34] VITALS: BP 149/65; PULSE 71; TEMP 36.9; O2SAT 92
--- NOTE | 2016-11-11 07:51 | Progress Note ---
Progress Note Date of Service: Nov 11, 2016. Subjective No complaints Problem List Medical Problems: (1) Abnormal EKG Status: Acute (2) Acute CHF (congestive heart failure) Status: Acute (3) Acute CHF (congestive heart failure) Status: Acute (4) Altered mental state Status: Acute (5) Ambulatory dysfunction Status: Acute (6) AV fistula Status: Acute (7) Congestive heart failure Status: Acute (8) Hematoma Status: Acute (9) Knee pain Status: Acute (10) Leg hematoma Status: Acute (11) Pneumonia Status: Acute (12) Renal failure Status: Acute (13) Weakness Status: Acute Objective Vital Signs Vital Signs Past 12 Hours Date Time Temp Pulse Resp B/P Pulse Ox O2 Delivery O2 Flow Rate FiO2 11/11/16 07:34 36.9 71 16 149/65 92 Room Air 11/11/16 00:00 Room Air 11/10/16 23:05 36.6 75 16 144/60 95 Room Air Exam Right arm incision dry and clean Good thrill Arm swollen Intake & Output 8-Hour Column 11/10/16 11/11/16 11/11/16 16:00 00:00 08:00 Intake Total 700 ml 150 ml Output Total 2500 ml 150 ml Balance -2500 ml 550 ml 150 ml 24-Hour Column 11/11/16 08:00 Intake Total 850 ml Output Total 2650 ml Balance -1800 ml Laboratory and Microbiology Results Past 24 Hours Test 11/10/16 13:16 11/11/16 04:44 Range/Units Bedside Glucose 77 70-90 mg/dl Imp: Post venorrhaphy Plan: Doing well post op. 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 Will need to try to intervene from the femoral vein approach due to severe tortuosity of the fistula.
[2016-11-11 08:02] LABS: BASO % 0.5 %; BASO ABS # 0.05 K/uL (0-0.2); COMPLETE YES; EOS % 3.6 %; HEMATOCRIT 32.7 % (37-47); IG% 0.4 %; LYMPH % 12.5 %; MEAN CELL VOLUME 86.1 fL (80-100); MEAN CORPUSCULAR HEMOGLOBIN 28.4 pg (25-34); MONO % 11.2 %; NEUT % 71.8 %; PLATELET COUNT 239 K/uL (130-400); WHITE BLOOD COUNT 9.63 K/uL (4.8-10.8)
[2016-11-11] MEDS: LACTOBACILLUS ACIDOPHILUS (FLORANEX) TAB PO SCH ×2 (08:25→12:29)
[2016-11-11] MEDS: CARVEDILOL 6.25 MG TAB PO SCH (08:25)
[2016-11-11] MEDS: PRAVASTATIN SOD 20 MG TAB PO SCH (08:26)
[2016-11-11] MEDS: AMLODIPINE BESYLATE 5 MG TAB PO SCH (08:26)
[2016-11-11] MEDS: SEVELAMER HYDROCH 800 MG TAB PO SCH (08:26)
[2016-11-11] MEDS: GUAIFENESIN 600 MG TABCR PO SCH (08:26)
[2016-11-11] MEDS: PANTOprazole SOD 40 MG TAB PO SCH (08:26)
[2016-11-11] MEDS: NEPHROCAPS PO SCH (08:26)
[2016-11-11] MEDS: CHOLECALCIFEROL 1000 INTER.UNIT TAB PO SCH (08:27)
[2016-11-11] MEDS: SERTRALINE HCL 50 MG TAB PO SCH (08:28)
[2016-11-11] MEDS: HEPARIN SOD 5000 UNIT/0.5 ML CARP SQ SCH (08:29)
[2016-11-11 08:32] LABS: BUN/CREATININE RATIO 8.9 (10-20); CREATININE 3.6 mg/dl (0.60-1.20); MAGNESIUM 1.7 mg/dl (1.8-2.4); POTASSIUM 4.2 mmol/L (3.5-5.1)
[2016-11-11 08:50] LABS: CALCIUM 8.5 mg/dl (8.5-10.1)
[2016-11-11] MEDS ORDERED: FLV1 PO (08:55)
[2016-11-11] MEDS ORDERED: LVQ250 PO ×2 (08:55→11:40)
[2016-11-11] MEDS ORDERED: LCTX PO (08:55)
[2016-11-11 10:54] VITALS: O2SAT 92
[2016-11-11] MEDS: LISINOPRIL 10 MG TAB PO SCH (11:01)
[2016-11-11 11:14] VITALS: BP 149/65; PULSE 71; TEMP 36.9; O2SAT 92
[2016-11-11 11:24] VITALS: BP 149/65; PULSE 71; TEMP 36.9; O2SAT 92
[2016-11-11] MEDS ORDERED: TYL325X PO (11:25)
--- NOTE | 2016-11-11 11:49 | Discharge Instructions ---
Discharge Instructions Date of Service Nov 11, 2016. Admission Reason for Admission: Esrd Needing Dialysis, Pneumonia Discharge Discharge Diagnosis / Problem: End-Stage Renal Disease on Dialysis; Pneumonia Discharge Goals Goal(s): Decrease discomfort, Improve function, Increase independence Activity Recommendations Activity Limitations: as noted below Lifting Limitations: no more than 5 pounds, until after follow-up appointment Exercise/Sports Limitations: gradually increase as tolerated Shower/Bathe: keep incision dry . Instructions / Follow-Up Instructions / Follow-Up Generalized Weakness - Confusion - Pneumonia - Continue Levaquin 250 mg every two days due to kidney function -- Take today's dose at approx. 6 PM then a dose on 11/13 then a dose on 11/15 to complete antibiotic course AV Fistula Repair: - Keep area clean and dry and monitor for signs of infection such as: increased pain, redness, warmth, drainage - Please use Tylenol for pain in the arm and take as prescribed. Recommend limiting lifting objects for the next few days then progress to lifting only things that are less the 5 lbs. - BE CAREFUL WITH WALKING ESPECIALLY SINCE YOU NEED YOUR ARM TO USE YOUR WALKER. RECOMMEND FAMILY ASSISTING IN TASKS UNTIL PAIN IMPROVES AND SHE CAN USE WALKER SAFELY - Dr. Feliciano will contact you for a follow-up appointment and to continue monitoring for needs of further interventions Folate Deficiency: - Low folate levels can lead to anemia - recommend continuing Folic Acid supplement of 1 mg daily End-Stage Renal Disease on Dialysis: - Continue dialysis as previously established of Sunday, Sunday, Sunday Follow-Up: - Please see family doctor in 7-10 days - Dr. Feliciano's group will contact for follow-up for the AV fistula repair - Please contact [facility] on Sunday to establish ongoing care - [facility] will help with physical therapy and have a visiting nurse to help especially after the repair on the fistula Current Hospital Diet Patient's current hospital diet: Renal Diet Discharge Diet Recommended Diet: Renal Diet Procedures Procedures Performed: Right Arm Fistulogram; Right Arm Arteriovenous Fistula Revision with Venorrhaphy Pending Studies Studies pending at discharge: no Medical Emergencies . Who to Call and When: Medical Emergencies: If at any time you feel your situation is an emergency, please call 911 immediately. . Non-Emergent Contact Non-Emergency issues call your: Primary Care Provider Call Non-Emergent contact if: you have a fever, your pain is concerning you, you have any medication questions . . "Provider Documentation" section prepared by Janis Rosario. . VTE Core Measure Inpt VTE Proph given/why not?: SCD's
--- NOTE | 2016-11-11 13:06 | Discharge Summary ---
Discharge Summary Date of Service Nov 11, 2016. (Janis Rosario PA-C) Discharge Summary Admission Date: Nov 05, 2016 at 20:14 Discharge Date: Nov 11, 2016 Discharge Disposition: Home with services Principal Diagnosis: Pneumonia Problems/Secondary Diagnoses: 1. ESRD on Dialysis 2. CAD 3. Diastolic and Valvular CHF 4. Aortic Stenosis 5. Steal Phenomenon - Subclavian Stenosis 6. CVA 7. Folate Deficiency 8. Hypothyroidism 9. HTN 10. GERD/PUD 11. H/O PE Immunizations: Have You Had Influenza Vaccine: N/A History of Tetanus Vaccine?: Yes History of Pneumococcal: Yes Pneumococcal Date: Feb 23, 2010 History of Hepatitis B Vaccine: No Procedures: 1. HEAD CT NONCONTRAST Findings: The paranasal sinuses and mastoid air cells are clear. The calvarium and skull base are intact. There is no mass, hematoma, midline shift, acute infarct. White matter hypodensity is nonspecific but suggestive of microvascular ischemic change. The ventricles and sulci demonstrate mild age-related involutional changes. Old left basal ganglia lacunar infarcts. Old left [employer] territory infarct. This remains unchanged. Impression: No significant change compared to the prior study. No acute intracranial abnormality. 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 2. CHEST ONE VIEW PORTABLE FINDINGS: No change in the cardiomegaly and diffuse interstitial thickening. No pneumothorax. Small right pleural effusion. Right-sided vascular stent is again noted. No lobar consolidation. IMPRESSION: No change in the mild interstitial pulmonary edema and cardiomegaly. There is a small right pleural effusion. 3. ULTRASOUND RIGHT UPPER EXTREMITY VENOUS ADDENDUM: There is a rheumatologist error in the body of the initial report. A stent is located in the right subclavian vein and the subclavian vein is patent. The splenic artery is listed, and this should also read the subclavian vein. FINDINGS: There is no sonographic evidence of deep venous thrombosis identified in the right upper extremity. The right internal jugular, axillary, and brachial veins are patent and normally compressible. A stent is identified within the right subclavian artery. The splenic artery is patent. The cephalic and basilic veins are clear. The cephalic vein is enlarged, likely due to the presence of a right upper extremity dialysis fistula. The visualized radial and ulnar veins are patent. There is a tiny complex fluid collection identified which measures up to 1.5 cm. This is located adjacent to the cephalic vein and likely represents a small hematoma. There is no flow identified within this to suggest pseudoaneurysm. IMPRESSION: 1. There is no sonographic evidence of deep venous thrombosis identified in the right upper extremity. 2. A small hematoma is suggested adjacent to the right cephalic vein measure up to 1.5 cm. 4. ULTRASOUND RIGHT UPPER EXTREMITY ARTERIAL FINDINGS: The right common carotid artery is patent. There are elevated velocities identified within the right subclavian artery. These measure up to 424 cm/s. There are blunted arterial waveforms seen distally, and there is reversal of flow present within the right vertebral artery, suggesting subclavian steal phenomenon. Elevated velocities are also identified within the right axillary artery, measuring up to 347 cm/s. This suggests high-grade stenosis. The brachial arteries are patent. Mildly elevated velocities are present within the right proximal brachial artery, measuring up to 255 cm/s. The right radial artery and the right ulnar artery are patent. A hemodialysis fistula in the right upper extremity is patent. IMPRESSION: 1. There are markedly elevated velocities identified within the right subclavian artery with reversal of flow in the right vertebral artery. 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 2. Elevated velocities within the right axillary and right brachial arteries also suggest foci of stenosis. 3. The patient's right upper extremity dialysis fistula is patent. Consultations: 1. Nephrology 2. 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 Cognitive impairment Ambulatory dysfunction Procedures: Revision of right upper extremity aneurysm venorrhaphy and right upper extremity fistulogram (Darlene Wilhelm MD) Medication Reconciliation New Medications: Acetaminophen (Tylenol) 325 Mg Tab 650 MG PO Q4H PRN for Pain or Fever for 30 Days, TAB Folic Acid (Folic Acid) 1 Mg Tab 1 MG PO QAM for 30 Days, #30 TAB Lactobacillus Acidophilus (Floranex) 1 Tab Tab 4 TAB PO TIDM for 7 Days, TAB Levofloxacin (Levofloxacin) 250 Mg Tab 250 MG PO Q48H, #3 TAB Take dose today 11/11 at 6 PM then on 11/13 then on 11/15 Continued Medications: Amlodipine (Norvasc) 10 Mg Tab 10 MG PO DAILY, TAB Carvedilol (Coreg) 6.25 Mg Tab 6.25 MG PO AMPM Cholecalciferol (Vitamin D 1000 Unit) 1,000 Unit Cap 1000 INTER.UNIT PO QAM Levothyroxine Sodium (Levothyroxine Sodium) 125 Mcg Tab 125 MCG PO QAM for 30 Days, 5 Refills Lisinopril (Lisinopril) 10 Mg Tab 10 MG PO QAM Pantoprazole Sodium (Protonix) 40 Mg Tab 40 MG PO BID Pravastatin Sod (Pravastatin Sodium) 20 Mg Tab 20 MG PO DAILY Sertraline HCl (Sertraline HCl) 50 Mg Tab 50 MG PO DAILY Sevelamer Carbonate (Renvela) 800 Mg Tab 800 MG PO TIDM, 3 Refills 2 TABLET DOSE IN AM,NOON AND PM Vitamin B Cmplx/Vitc/Folic Ac (Nephrocaps) Cap 1 CAP PO QAM Discharge Exam REVIEW OF SYSTEMS: General/Constitutional: Denies fever/chills, fatigue, weakness ENT: Denies visual changes, nasal drainage, hearing loss, sore throat, trouble swallowing Cardiovascular: Denies chest pain, palpitations, edema Respiratory: Denies cough, sputum, SOB, wheezing, orthopnea GI: Denies nausea, vomiting, abdominal pain, constipation, diarrhea, melena/ hematochezia : Denies dysuria, frequency, hematuria Musculoskeletal: +RUE pain; Denies weakness, swelling Neurologic: Denies dizziness/lightheadedness, numbness/tingling, weakness Psychiatric: Deferred Endocrine: Deferred Hematologic/Lymphatic: Denies bleeding/clotting abnormalities Skin: Denies rash, itch, new skin changes, easy bruising Allergy/Immunologic: Deferred PHYSICAL EXAM:: General Appearance: WDWN in NAD who is A&O x person and place with intermittent confusion HEENT: Head is normocephalic/atraumatic; EOMI; PERRLA; Hearing grossly intact; Mucous membranes moist; Pharynx negative for exudate/lesions Neck: Supple; Trachea midline; Neg JVD; Neg lymphadenopathy Heart: RRR with harsh systolic murmur heard throughout chest with no G/R Lungs: CTA in all lung tapia bilaterally but diminished; Respirations unlabored ; Neg accessory muscle use Abdomen: Soft, non-tender, non-distended; Positive BS x 4 quadrants; Neg organomegaly Extremities: Capillary refill < 2 seconds; Neg cyanosis or edema; RUE AV fistula +thrill +bruit with tortuous veins Neurological: Speech clear; Gross motor/sensory function intact; Neg focal neurologic deficits Psychiatric: Appropriate mood/affect Skin: Normal Color; Warm/Dry; Neg rashes, ecchymosis, lacerations/ulcerations (Janis Rosario, EMELI) Hospital Course ADMISSION: The patient is an 81-year-old female presents emergency department via EMS with 2 days of generalized weakness and confusion. She was too weak to walk with her walker to the bathroom today, and is incontinent of stool. She has end-stage renal disease receiving dialysis on Sunday, Sunday and Sunday. She does still produce some urine. EMS reported that she had a low-grade fever. HOSPITAL COURSE: Ms. Jo was admitted for bilateral lower extremity weakness, confusion, and incontinence of stool. Question of underlying pneumonia versus dehydration. Prior to admission, patient underwent dialysis on Sunday with resultant lower extremity weakness following this. Lower extremity weakness resolved. She is finishing a course of Levaquin 250 mg Q48H with renal dosing for total of 10 days of treatment. Patient received dialysis during admission without complication. Ultrasound of the right upper extremity obtain due to torturous vessels surrounding her AV fistula. Findings significant for subclavian vein stenosis/steal phenomenon and focal stenosis and vascular surgery was consulted. She underwent AV fistula revision on 11/10 for aneurysmal development of fistula. Plan for outpatient monitoring and femoral vein approach for occlusion of subclavian and innominate vein stents. During hospitalization, patient noted to be intermittently confused with multiple attempts to contact family members during the week with no success. Numbers on file are wrong numbers with a son and [id number]. Numerous attempts made by medical providers and case management. PT/OT evaluations recommended 24/ care. Patient reported that she lived with her son and daughter which was not the truth. Patient's confusion seems to be more related to underlying dementia with confabulation largely only oriented to self and intermittently to place. Finally was able to contact a daughter. Presented the situation to her and she does not want the patient to go to acute rehabilitation as she feels she will be better at home. Last admission reviewed, patient was found laying on the floor after falling out of bed by caregivers that morning. Daughter still adamant for patient to return home with daytime caregivers and without supervision at night even after discussing PT/OT recommendations. Daughter feels that patient is more confused in the hospital than she is at baseline however I would disagree. Patient did not appear to be in delirium and acute changes in mentation not appreciated and was consistently confabulating and agreeing with statements even when they contradicted themselves. Patient is involved with [facility] and [facility]. Patient will be discharged home with [facility] caregivers and [facility] with family assistance even thought rehab was offered. Patient is at high risk for readmission given suspicion of underlying dementia and periods of time spent alone and H/O falls. Total Time Spent: Greater than 30 minutes This includes examination of the patient, discharge planning, medication reconciliation, and communication with other providers. (Janis Rosario PA-C) Discharge Instructions Please refer to the electronic Patient Visit Report (Discharge Instructions) for additional information. (Janis Rosario PA-C) Additional Copies To Marcelo Bradley M.D. Reviewed: Pt Seen/Exam by Me (Darlene Wilhelm MD) History Physician Accountancy Professor Supervision Note: I interviewed and examined the patient. Discussed with VIDA Rosario and agree with findings and plan as documented in the note. Any exceptions or clarifications are listed here: Pt had no complaints the day of discharge except for pain in the right arm on POD#1 from fistula aneurysm repair. Physical Exam Vitals reviewed and stable General Appearance: no apparent distress Eyes: normal inspection, sclerae normal Neck: trachea midline Respiratory/Chest: no respiratory distress, no accessory muscle use, + decreased breath sounds (at the bases bilaterally with some crackles) Cardiovascular: regular rate, rhythm, no edema, + systolic murmur (harsh 4/6 systolic murmur heard in all areas but could also be subclavian bruits) Abdomen: normal bowel sounds, non tender, soft Extremities: no calf tenderness, + pertinent finding of AVF RUE with reduced size of aneurysm, now with 1+ nonpitting edema down through forearm into hand and with pain, incision over AVF appears intact with Dermabond, no surrounding erythema or induration, no bleeding or drainage Neurologic/Psychiatric: alert, + disoriented (only oriented to person and town) Skin: no rash, + pertinent finding (heath skin) 81-year-old female with history of ESRD on HD, CAD, CHF Diastolic and Valvular type, aortic stenosis, history of PE, Hypertension, Dyslipidemia, CVA, here with weakness and inability to walk, incontinence of stool, and suspected right lower lobe pneumonia. Had AVF aneurysm repair while here. Weakness improved and clinically improved on levaquin for PNA - C. difficile antigen for loose stools was negative -finish out course of Levaquin -f/u with Vascular surgery for possible further procedure for venous stenosis -f/u PCP and for HD on MWF -discharge to home with caregivers Documented By: Darlene Wilhelm (Darlene Wilhelm MD)
[2016-11-28] MEDS ORDERED: QSTP PO (10:00)
[2016-11-28] MEDS ORDERED: VANC1CAP3 PO (10:00)
[2016-12-18] MEDS ORDERED: ACET-1256 PO (22:37)
[2016-12-18] MEDS ORDERED: AMT10 PO (22:38)
[2016-12-18] MEDS ORDERED: LEVO137T3 PO (22:42)
[2016-12-18] MEDS ORDERED: NYST1POW7 TD (22:44)
== END 2016-11-11 13:03 | disposition home health service (06) | DRG 981 ==
LOC: ENRESERVDT → ENRESERVTM → EDBD 16:38 → C.EDB 16:39 → C.MS4W 20:14
PROVIDERS: ADMIT Hospitalist; ATTEND Family Medicine
PROC: 03WY03Z Revision of Infusion Device in Upper Artery, Open Approach (ICD-10-PCS; principal; 2016-11-10 13:00)
DX: J18.9 Pneumonia, unspecified organism (principal); N18.6 End stage renal disease; T82.898A Other specified complication of vascular prosthetic devices, implants and grafts, initial encounter; I13.2 Hypertensive heart and chronic kidney disease with heart failure and with stage 5 chronic kidney disease, or end stage renal disease; I50.32 Chronic diastolic (congestive) heart failure; G45.8 Other transient cerebral ischemic attacks and related syndromes; E03.9 Hypothyroidism, unspecified; I35.0 Nonrheumatic aortic (valve) stenosis; E78.00 Pure hypercholesterolemia, unspecified; F32.9 Major depressive disorder, single episode, unspecified; I25.10 Atherosclerotic heart disease of native coronary artery without angina pectoris; Z79.899 Other long term (current) drug therapy; Z99.2 Dependence on renal dialysis; K21.9 Gastro-esophageal reflux disease without esophagitis; D63.1 Anemia in chronic kidney disease; Y83.1 Surgical operation with implant of artificial internal device as the cause of abnormal reaction of the patient, or of later complication, without mention of misadventure at the time of the procedure; F03.90 Unspecified dementia, unspecified severity, without behavioral disturbance, psychotic disturbance, mood disturbance, and anxiety

== ENCOUNTER 2016-11-22 20:03 | Inpatient (IN) | payer OTHER ==
[~2016-11-22] VITALS: Ht 160 cm; Wt 78.1 kg
[~2016-11-22 20:03] MED LIST changes: +FLV1 PO; +LCTX PO; +LISI-461 PO; -LSN20 PO; +LVQ250 PO; +TYL325X PO
[2016-11-22] MEDS ORDERED: SODIUM CHLORIDE 0.9% 500ML 500 ML IV STA (20:13)
--- NOTE | 2016-11-22 20:25 | EMERGENCY ROOM VISIT NOTE ---
History Report prepared by Kathy: Vinnie Bill Under the Supervision of: Dr. King Neves D.O. First contact with patient: 20:06 Stated Complaint: ABNORMAL LABS History of Present Illness The patient is an 81 year old female who presents to the Emergency Room with complaints of persistent and frequent bouts of diarrhea for the past week. She is having at least 5 bouts of diarrhea per day. The patient went to her routine dialysis appointment today and her physician was concerned due to low levels in her blood, including low potassium. She did receive a full dialysis treatment today. The patient was admitted to the hospital ten days prior to this visit. Neither the patient nor her daughter can recall the reason for this admission. Source of History: patient, family Onset: One week Position: other (GI) Quality: other (Diarrhea) Timing: other (Persistent) Review of Systems See HPI for pertinent positives & negatives. A total of 10 systems reviewed and were otherwise negative. Past Medical & Surgical Medical Problems: (1) Aortic stenosis (2) CAD (coronary artery disease) (3) CHF (congestive heart failure) (4) DM2 (diabetes mellitus, type 2) (5) DVT (deep vein thrombosis) in (6) End stage renal disease (7) ESRD needing dialysis (8) Hemodialysis access, AV graft (9) History of tobacco use (10) HLD (hyperlipidemia) (11) HTN (hypertension) (12) Hyperkalemia (13) Hypothyroidism (14) Hypoxia (15) JOON (obstructive sleep apnea) (16) PUD (peptic ulcer disease) (17) Pulmonary embolism (18) TIA (transient ischemic attack) Surgical Problems: (1) H/O eye surgery (2) H/O knee surgery (3) S/P appendectomy Family History Patient reports no known family medical history. Social History Smoking Status: Never Smoker Alcohol Use: none Drug Use: none Marital Status: Housing Status: lives with family Occupation Status: retired Current/Historical Medications Scheduled Amlodipine (Norvasc), 10 MG PO DAILY Carvedilol (Coreg), 6.25 MG PO QAM Folic Acid (Folvite), 1 MG PO DAILY Lactobacillus Acidophilus (Floranex), 4 TAB PO TIDM Levothyroxine Sodium (Levothyroxine Sodium), 125 MCG PO QAM Lisinopril (Lisinopril), 10 MG PO QAM Pantoprazole Sodium (Protonix), 40 MG PO BID Pravastatin Sod (Pravastatin Sodium), 20 MG PO DAILY Sertraline HCl (Sertraline HCl), 50 MG PO DAILY Allergies Coded Allergies: Diazepam (Verified Adverse Reaction, Severe, CHEST PAIN, 11/22/16) Physical Exam Vital Signs Date Time Temp Pulse Resp B/P Pulse Ox O2 Delivery O2 Flow Rate FiO2 11/22/16 21:31 72 18 120/47 92 Room Air 11/22/16 20:44 73 11/22/16 20:18 37.3 76 18 121/55 94 Room Air Physical Exam GENERAL: Patient is awake, alert, and in no acute distress. Patient is resting comfortably and showing no signs of anxiety EYES: The conjunctivae are clear. The pupils are round and reactive. EARS, NOSE, MOUTH AND THROAT: The nose is without any evidence of any deformity. Mucous membranes are DRY tongue is midline NECK: The neck is nontender and supple. RESPIRATORY: Faint rales noted to both bases. No tachypnea or conversational dyspnea. CARDIOVASCULAR: Regular rate and rhythm noted. There is a systolic murmur appreciated to auscultation there no rubs or gallops normal S1 normal S2 GASTROINTESTINAL: The abdomen is soft. Bowel sounds are present in all quadrants. Abdomen is nontender MUSCULOSKELETAL/EXTREMITIES: There is no evidence of gross deformity full range of motion is noted in the hips and shoulders. Pedal edema bilaterally. There is a dialysis fistula in the right arm. Palpable thrill was noted. SKIN: There is no obvious evidence of any rash. There are no petechiae, pallor or cyanosis noted. NEUROLOGIC: Patient is awake alert and oriented x3 Medical Decision & Procedures ER Provider Diagnostic Interpretation: Radiology results as stated below per my review and radiologist interpretation: ABDOMEN 2VIEW W/PA CHEST RTN CLINICAL HISTORY: ABDOMINAL PAIN/GI pain COMPARISON STUDY: 11/05/2016. FINDINGS: mild cardia megaly. Mild congestive failure. Right subclavian stent unchanged. Bowel pattern suggests a nonobstructive ileus. There are no obstructive characteristics. There are degenerative changes of the osseous structures throughout. IMPRESSION: Mild congestive failure. Mild generalized nonobstructive ileus Electronically signed by: Manuelito Becker M.D. 11/22/2016 9:23 PM Dictated Date/Time: 11/22/2016 9:22 PM Laboratory Results 11/22/16 20:22 Red Blood Count 3.84, Mean Corpuscular Volume 86.2, Mean Corpuscular Hemoglobin 28.6, Mean Corpuscular Hemoglobin Concent 33.2, Mean Platelet Volume 8.7, Neutrophils (%) (Auto) 70.5, Lymphocytes (%) (Auto) 12.5, Monocytes (%) (Auto) 11.5, Eosinophils (%) (Auto) 4.6, Basophils (%) (Auto) 0.4, Neutrophils # (Auto ) 7.88, Lymphocytes # (Auto) 1.39, Monocytes # (Auto) 1.28, Eosinophils # (Auto ) 0.51, Basophils # (Auto) 0.04 11/22/16 20:22 Test 11/22/16 20:22 White Blood Count 11.16 K/uL (4.8-10.8) Red Blood Count 3.84 M/uL (4.2-5.4) Hemoglobin 11.0 g/dL (12.0-16.0) Hematocrit 33.1 % (37-47) Mean Corpuscular Volume 86.2 fL (80-100) Mean Corpuscular Hemoglobin 28.6 pg (25-34) Mean Corpuscular Hemoglobin Concent 33.2 g/dl (32-36) Platelet Count 302 K/uL (130-400) Mean Platelet Volume 8.7 fL (7.4-10.4) Neutrophils (%) (Auto) 70.5 % Lymphocytes (%) (Auto) 12.5 % Monocytes (%) (Auto) 11.5 % Eosinophils (%) (Auto) 4.6 % Basophils (%) (Auto) 0.4 % Neutrophils # (Auto) 7.88 K/uL (1.4-6.5) Lymphocytes # (Auto) 1.39 K/uL (1.2-3.4) Monocytes # (Auto) 1.28 K/uL (0.11-0.59) Eosinophils # (Auto) 0.51 K/uL (0-0.5) Basophils # (Auto) 0.04 K/uL (0-0.2) RDW Standard Deviation 51.2 fL (36.4-46.3) RDW Coefficient of Variation 16.7 % (11.5-14.5) Immature Granulocyte % (Auto) 0.5 % Immature Granulocyte # (Auto) 0.06 K/uL (0.00-0.02) Prothrombin Time 12.0 SECONDS (9.0-12.0) Prothromb Time International Ratio 1.1 (0.9-1.1) Activated Partial Thromboplast Time 32.3 SECONDS (21.0-31.0) Partial Thromboplastin Ratio 1.2 Anion Gap 8.0 mmol/L (3-11) Est Creatinine Clear Calc Drug Dose 16.0 ml/min Estimated GFR () 19.1 Estimated GFR (Non- 16.5 BUN/Creatinine Ratio 3.4 (10-20) Calcium Level 8.1 mg/dl (8.5-10.1) Magnesium Level 1.6 mg/dl (1.8-2.4) Total Bilirubin 0.6 mg/dl (0.2-1) Direct Bilirubin 0.3 mg/dl (0-0.2) Aspartate Amino Transf (AST/SGOT) 17 U/L (15-37) Alanine Aminotransferase (ALT/SGPT) 7 U/L (12-78) Alkaline Phosphatase 143 U/L (45-117) Total Creatine Kinase 11 U/L (26-192) Creatine Kinase MB < 0.5 ng/ml (0.5-3.6) Creatine Kinase MB Ratio (0-3.0) Troponin I 0.024 ng/ml (0-0.045) Total Protein 6.7 gm/dl (6.4-8.2) Albumin 2.3 gm/dl (3.4-5.0) Lipase 115 U/L (73-393) Date/Time Source Procedure Growth Status 11/22/16 21:50 Stool C.difficile Toxin B Gene (PCR) - Final Positive for C. difficile toxin B gene Complete Laboratory results per my review. Medications Administered Medications (Trade) Dose Ordered Sig/Rach Route Start Time Stop Time Status Last Admin Dose Admin Sodium Chloride (Nss 500ml) 500 ml @ 999 mls/hr Q31M STAT IV 11/22/16 20:13 11/22/16 20:43 DC 11/22/16 20:13 999 MLS/HR Magnesium Sulfate (Magnesium Sulfate) 1 gm NOW STAT IV 11/22/16 21:19 11/22/16 21:20 DC 11/22/16 21:25 1 GM Potassium Chloride (Kcl 10 Meq / Wtr) 10 meq NOW STAT IV 11/22/16 21:31 11/22/16 21:32 DC 11/22/16 21:31 10 MEQ ECG Indication: weakness Rate (beats per minute): 72 Rhythm: normal sinus Findings: ST depression (Inferior, lateral), no ectopy Comparison ECG Date: 11/05/16 Change: no significant change ED Course 2007: The patient was evaluated in room C2. A complete history and physical examination were performed. 2012: Ordered Sodium Chloride 500 mL @ 999 mL/hr IV. 2118: Ordered Magnesium Sulfate 1 gm IV. 2130: Ordered Potassium Chloride 10 meq IV. 2158: I discussed the case with Dr. Janis SHARMA Hospitalist resident, he will evaluate the patient for further treatment. Medical Decision Differential diagnosis: Etiologies such as metabolic, infection, hypo/hyperglycemia, electrolyte abnormalities, cardiac sources, intracerebral event, toxicologic, neurologic, as well as others were entertained. Nursing notes reviewed. Additional history is obtained from the patient's family member. The patient is an 81-year-old female who presented to the emergency department for an evaluation of weakness and diarrhea. The patient was recently admitted to our facility and has been discharged approximately one week ago. The patient started having loose bowel movements. Her still appeared to be consistent with C. difficile colitis. The patient was treated with IV fluids and IV replacement. She was also given IV antibiotics for presumed C. difficile colitis. I discussed her case with the on-call [facility] hospitalist group. They've agreed to evaluate the patient in the emergency apartment for further management and disposition. I discussed patient's laboratory and radiographic studies with the patient as well as her daughter. Consults Time Called: [phone] Consulting Physician: Dr. Janis SHARMA Hospitalist Resident Returned Call: [phone] I discussed the case with Dr. Janis SHARMA Hospitalist resident, he will evaluate the patient for further treatment. Impression Primary Impression: Diarrhea Additional Impressions: Weakness Dehydration Hypokalemia Hypomagnesemia C. difficile colitis Scribe Attestation The scribe's documentation has been prepared under my direction and personally reviewed by me in its entirety. I confirm that the note above accurately reflects all work, treatment, procedures, and medical decision making performed by me. Departure Information Dispostion Being Evaluated By Hospitalist Referrals Marcelo Bradley M.D. (PCP) Problem Qualifiers Primary Impression: Diarrhea Diarrhea type: infectious Qualified Codes: A09 - Infectious gastroenteritis and colitis, unspecified
[2016-11-22 20:34] LABS: BASO % 0.4 %; BASO ABS # 0.04 K/uL (0-0.2); COMPLETE YES; EOS % 4.6 %; HEMATOCRIT 33.1 % (37-47); IG% 0.5 %; LYMPH % 12.5 %; LYMPH ABS # 1.39 K/uL (1.2-3.4); MEAN CELL VOLUME 86.2 fL (80-100); MEAN CORPUSCULAR HEMOGLOBIN 28.6 pg (25-34); MEAN CORPUSCULAR HGB CONC 33.2 g/dl (32-36); MEAN PLATELET VOLUME 8.7 fL (7.4-10.4); MONO % 11.5 %; NEUT % 70.5 %; PLATELET COUNT 302 K/uL (130-400); RED BLOOD COUNT 3.84 M/uL (4.2-5.4); WHITE BLOOD COUNT 11.16 K/uL (4.8-10.8)
[2016-11-22 20:43] LABS: INR 1.1 (0.9-1.1); PARTIAL THROMBOPLASTIN RATIO 1.2
[2016-11-22] MEDS ORDERED: FOLI1TAB7 PO (20:57)
[2016-11-22 21:06] LABS: ALKALINE PHOSPHATASE 143 U/L (45-117); ALT/SGPT 7 U/L (12-78); AST/SGOT 17 U/L (15-37); BLOOD UREA NITROGEN 9 mg/dl (7-18); BUN/CREATININE RATIO 3.4 (10-20); CARBON DIOXIDE 36 mmol/L (21-32); CHLORIDE 91 mmol/L (98-107); GLUCOSE 99 mg/dl (70-99); MAGNESIUM 1.6 mg/dl (1.8-2.4); SODIUM 136 mmol/L (136-145)
[2016-11-22] MEDS ORDERED: MAGNESIUM SULFATE 1GM / D5W 1 GM BAG IV STA (21:19)
--- NOTE | 2016-11-22 21:24 | DIAGNOSTIC IMAGING REPORT ---
ABDOMEN 2VIEW W/PA CHEST RTN CLINICAL HISTORY: ABDOMINAL PAIN/GI pain COMPARISON STUDY: 11/05/2016. FINDINGS: mild cardia megaly. Mild congestive failure. Right subclavian stent unchanged. Bowel pattern suggests a nonobstructive ileus. There are no obstructive characteristics. There are degenerative changes of the osseous structures throughout. IMPRESSION: Mild congestive failure. Mild generalized nonobstructive ileus Electronically signed by: Manuelito Becker M.D. 11/22/2016 9:23 PM Dictated Date/Time: 11/22/2016 9:22 PM
[2016-11-22] MEDS ORDERED: POTASSIUM CHLORIDE 10 MEQ / 100ML WTR IV STA (21:31)
[2016-11-22 21:42] LABS: POTASSIUM 2.5 mmol/L (3.5-5.1)
[2016-11-22 21:56] LABS: CALCIUM 8.1 mg/dl (8.5-10.1)
[2016-11-22] MEDS ORDERED: METRONIDAZOLE 500MG / 100ML NSS IV STA (23:02)
[2016-11-22] MEDS ORDERED: ZOLPIDEM TARTRATE 5 MG TAB PO PRN (23:30)
[2016-11-22] MEDS ORDERED: ACETAMINOPHEN 325 MG TAB PO PRN (23:30)
[2016-11-22] MEDS ORDERED: ONDANSETRON INJ 2 MG/ML 2 ML VIAL IV PRN (23:45)
[2016-11-22] MEDS ORDERED: VANCOMYCIN INJ 1,350 MG in SODIUM CHLORIDE 0.9% 250ML 250 ML IV STA (23:50)
[2016-11-22] MEDS ORDERED: CHOLESTYRAMINE LIGHT 4 GM PKT PO STA (23:51)
[2016-11-22] MEDS ORDERED: VANCOMYCIN HCL 250 MG/5 ML SOLN PO STA (23:51)
[2016-11-22] MEDS ORDERED: RASPBERRY SYRUP 5 ML UDP PO STA (23:52)
[2016-11-23] VITALS (8 sets, daily range): BP systolic 96–126; BP diastolic 45–63; PULSE 63–77; TEMP 36.8–37.1; O2SAT 91–97; Ht 160 cm; Wt 78.1 kg
[2016-11-23] MEDS ORDERED: VANCOMYCIN CONSULT ACTIVE PRN (01:45)
--- NOTE | 2016-11-23 03:56 | History and Physical ---
History & Physical Date & Time of Service: November 23, 2016 at 03:37. The patient was examined on November 22, 2016. Chief Complaint: D Difficile Colitis, Hypokalemia Primary Care Physician: Marcelo Bradley M.D. History of Present Illness Source: patient, family The patient is an 81-year-old female who presents emergency department with complaints of persistent diarrhea over the past week. She continued to go to dialysis on Sunday,Sunday and Sunday, and was told at her dialysis appointment today that there were a number of low elements in her blood, including potassium, and she was advised to go to emergency department for assessment. Her main complaint is that of frequent loose stools. She denies chest pain, shortness of breath, fevers, chills, nausea, vomiting, abdominal pain, pelvic and or rectal pain. Past Medical/Surgical History Medical Problems: (1) Aortic stenosis Status: Chronic (2) CAD (coronary artery disease) Status: Chronic (3) CHF (congestive heart failure) Status: Chronic (4) DM2 (diabetes mellitus, type 2) Status: Chronic (5) DVT (deep vein thrombosis) in Status: Chronic (6) End stage renal disease Status: Chronic (7) Hemodialysis access, AV graft Status: Chronic (8) History of tobacco use Status: Chronic (9) HLD (hyperlipidemia) Status: Chronic (10) HTN (hypertension) Status: Chronic (11) Hyperkalemia Status: Chronic (12) Hypothyroidism Status: Chronic (13) JOON (obstructive sleep apnea) Status: Chronic (14) PUD (peptic ulcer disease) Status: Chronic (15) Pulmonary embolism Status: Chronic (16) TIA (transient ischemic attack) Status: Chronic Surgical Problems: (1) H/O eye surgery Status: Chronic (2) H/O knee surgery Permanent Comment: Right TKA Status: Chronic (3) S/P appendectomy Status: Chronic Family History Patient reports no known family medical history. Social History Smoking Status: Former Smoker Smokeless Tobacco Use: No Alcohol Use: none Drug Use: none Marital Status: Occupational Status: retired Immunizations History of Influenza Vaccine: N/A History of Tetanus Vaccine?: Yes History of Pneumococcal: Yes Pneumococcal Date: Feb 23, 2010 History of Hepatitis B Vaccine: No Multi-Drug Resistant Organisms History of MDRO: No Allergies Coded Allergies: Diazepam (Verified Adverse Reaction, Severe, CHEST PAIN, 5/10/17) Home Medications Scheduled Amlodipine (Norvasc), 10 MG PO DAILY Carvedilol (Coreg), 6.25 MG PO QAM Folic Acid (Folvite), 1 MG PO DAILY Lactobacillus Acidophilus (Floranex), 4 TAB PO TIDM Levothyroxine Sodium (Levothyroxine Sodium), 125 MCG PO QAM Lisinopril (Lisinopril), 10 MG PO QAM Pantoprazole Sodium (Protonix), 40 MG PO BID Pravastatin Sod (Pravastatin Sodium), 20 MG PO DAILY Sertraline HCl (Sertraline HCl), 50 MG PO DAILY Review of Systems Constitutional: No chills, No fatigue, No fever, No problem reported, No sweats , No weakness, No weight loss Eyes: No diplopia, No discharge, No eye pain, No problem reported, No redness, No worsening of vision ENT: No dental problems, No hearing loss, No nasal symptoms, No problem reported, No sore throat, No tinnitus, No trouble swallowing, No unusual epistaxis Respiratory: No cough, No dyspnea at rest, No dyspnea on exertion, No hemoptysis, No problem reported, No shortness of breath, No sputum, No wheezing Cardiovascular: No PND, No chest pain, No claudication, No edema, No orthopnea , No palpitations, No problem reported Abdomen: + diarrhea, No GI bleeding, No constipation, No nausea, No pain, No problem reported, No vomiting Musculoskeletal: No calf pain, No joint pain, No muscle pain, No problem reported, No swelling Genitourinary - Female: No dysmenorrhea, No dysuria, No hematuria, No menorrhagia, No metrorrhagia, No , No problem reported, No rash, No urinary frequency, No urinary incontinence, No urinary retention, No urinary urgency, No vaginal bleeding, No vaginal discharge, No vaginal itching, No vulvodynia Neurologic: No balance problems, No memory loss, No numbness/tingling, No paralysis, No problem reported, No vertigo, No weakness Psychiatric: No anhedonism, No anxiety, No depression symptoms, No insomnia, No problem reported, No substance abuse Endocrine: No excessive thirst, No excessive urination, No fatigue, No problem reported Hematologic / Lymphatic: No abnormal bleeding/bruising, No clotting problems, No night sweats, No problem reported, No swollen lymph nodes Integumentary: No bleeding, No color change, No itch, No new/changing skin lesions, No problem reported, No rash Allergic / Immunologic: No environmental allergies, No food allergies, No frequent infections, No hives, No pet sensitivities, No poor healing, No problem reported, No prolonged convalescence, No seasonal allergies Physical Exam Vital Signs Date Time Temp Pulse Resp B/P Pulse Ox O2 Delivery O2 Flow Rate FiO2 11/23/16 01:33 36.9 69 20 120/56 97 Nasal Cannula 2.0 11/23/16 01:04 70 16 124/57 96 11/22/16 21:31 72 18 120/47 92 Room Air 11/22/16 20:44 73 11/22/16 20:18 37.3 76 18 121/55 94 Room Air General Appearance: WD/WN, no apparent distress Head: normocephalic, atraumatic Eyes: normal inspection, PERRL, EOMI, sclerae normal ENT: normal ENT inspection, hearing grossly normal, pharynx normal Neck: supple, no adenopathy, thyroid normal, no JVD, no carotid bruits, trachea midline Respiratory/Chest: chest non-tender, lungs clear, normal breath sounds, no respiratory distress, no accessory muscle use Cardiovascular: regular rate, rhythm, no edema, no gallop, no JVD, no murmur, normal peripheral pulses Abdomen/GI: normal bowel sounds, non tender, soft, no organomegaly, no pulsatile mass Back: normal inspection, no CVA tenderness, no muscle spasm, normal range of motion Extremities/Musculoskelatal: normal inspection, no calf tenderness, normal capillary refill, no pedal edema, normal range of motion, non-tender Neurologic/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: 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, no motor/sensory deficits, alert, normal mood/affect, normal reflexes, oriented x 3 Skin: normal color, warm/dry, no rash Lymphatic: no adenopathy Diagnostics Laboratory Results Results Past 24 Hours Test 11/22/16 20:22 Range/Units White Blood Count 11.16 4.8-10.8 K/uL Red Blood Count 3.84 4.2-5.4 M/uL Hemoglobin 11.0 12.0-16.0 g/dL Hematocrit 33.1 37-47 % Mean Corpuscular Volume 86.2 80-100 fL Mean Corpuscular Hemoglobin 28.6 25-34 pg Mean Corpuscular Hemoglobin Concent 33.2 32-36 g/dl Platelet Count 302 130-400 K/uL Mean Platelet Volume 8.7 7.4-10.4 fL Neutrophils (%) (Auto) 70.5 % Lymphocytes (%) (Auto) 12.5 % Monocytes (%) (Auto) 11.5 % Eosinophils (%) (Auto) 4.6 % Basophils (%) (Auto) 0.4 % Neutrophils # (Auto) 7.88 1.4-6.5 K/uL Lymphocytes # (Auto) 1.39 1.2-3.4 K/uL Monocytes # (Auto) 1.28 0.11-0.59 K/uL Eosinophils # (Auto) 0.51 0-0.5 K/uL Basophils # (Auto) 0.04 0-0.2 K/uL RDW Standard Deviation 51.2 36.4-46.3 fL RDW Coefficient of Variation 16.7 11.5-14.5 % Immature Granulocyte % (Auto) 0.5 % Immature Granulocyte # (Auto) 0.06 0.00-0.02 K/uL Prothrombin Time 12.0 9.0-12.0 SECONDS Prothromb Time International Ratio 1.1 0.9-1.1 Activated Partial Thromboplast Time 32.3 21.0-31.0 SECONDS Partial Thromboplastin Ratio 1.2 Sodium Level 136 136-145 mmol/L Potassium Level 2.5 3.5-5.1 mmol/L Chloride Level 91 98-107 mmol/L Carbon Dioxide Level 36 21-32 mmol/L Anion Gap 8.0 3-11 mmol/L Blood Urea Nitrogen 9 7-18 mg/dl Creatinine 2.60 0.60-1.20 mg/dl Est Creatinine Clear Calc Drug Dose 16.0 ml/min Estimated GFR () 19.1 Estimated GFR (Non- 16.5 BUN/Creatinine Ratio 3.4 10-20 Random Glucose 99 70-99 mg/dl Calcium Level 8.1 8.5-10.1 mg/dl Magnesium Level 1.6 1.8-2.4 mg/dl Total Bilirubin 0.6 0.2-1 mg/dl Direct Bilirubin 0.3 0-0.2 mg/dl Aspartate Amino Transf (AST/SGOT) 17 15-37 U/L Alanine Aminotransferase (ALT/SGPT) 7 12-78 U/L Alkaline Phosphatase 143 45-117 U/L Total Creatine Kinase 11 26-192 U/L Creatine Kinase MB < 0.5 0.5-3.6 ng/ml Creatine Kinase MB Ratio 0-3.0 Troponin I 0.024 0-0.045 ng/ml Total Protein 6.7 6.4-8.2 gm/dl Albumin 2.3 3.4-5.0 gm/dl Lipase 115 73-393 U/L Microbiology Results 11/23/16 Blood Culture, Received Pending 11/23/16 Blood Culture, Received Pending 11/22/16 C.difficile Toxin B Gene (PCR) - Final, Complete Positive for C. difficile toxin B gene 11/22/16 Shiga Toxin Test, Received Pending 11/22/16 Stool Culture, Received Pending 11/22/16 WBC Smear - Preliminary, Resulted Diagnostic Radiology Patient Name: AARON ROCA Unit Number: [id number] Dictated: 11/22/162121 Transcribed: 11/22/162121 MS Printed Date/Time: [~ rep prt dt]/[~ rep prt tm] [~ rep ct labl] - [~ rep ct ivnm] [facility] [place] [address] Dictated: 11/22/162121 Transcribed: 11/22/162121 MS Printed Date/Time: [~ rep prt dt]/[~ rep prt tm] [~ rep ct labl] - [~ rep ct ivnm] ABDOMEN 2VIEW W/PA CHEST RTN CLINICAL HISTORY: ABDOMINAL PAIN/GI pain COMPARISON STUDY: 11/05/2016. FINDINGS: mild cardia megaly. Mild congestive failure. Right subclavian stent unchanged. Bowel pattern suggests a nonobstructive ileus. There are no obstructive characteristics. There are degenerative changes of the osseous structures throughout. IMPRESSION: Mild congestive failure. Mild generalized nonobstructive ileus Electronically signed by: Manuelito Becker M.D. 11/22/2016 9:23 PM Dictated Date/Time: 11/22/2016 9:22 PM The status of this report is Signed. Draft = Not yet reviewed or approved by Radiologist. Signed = Reviewed and approved by Radiologist. <AttendingPhy></AttendingPhy> <FamilyPhy>Marcelo Bradley M.D.</FamilyPhy> < PrimaryPhy>Marcelo Bradley M.D.</PrimaryPhy> <UnitNumber>[id number]</UnitNumber> < VisitNumber>[id number]</VisitNumber> <PatientName>AARON ROCA</PatientName> < DateOfBirth>1935</DateOfBirth> <Location>[facility]</Location> <ServiceDate>05/01</ServiceDate> <MNE>ESINDI</MNE> <OrderingPhy>King Neves D.O.</ OrderingPhy> <OrderingPhyMNE>f rep ord dr bagley</OrderingPhyMNE> <DictatingPhyMNE> f rep dict dr bagley</DictatingPhyMNE> <CCListMNE>f rep ct mne</CCListMNE> < AdmittingPhyMNE>f pt admit dr bagley</AdmittingPhyMNE> <AttendingPhyMNE>f pt attend dr bagley</AttendingPhyMNE> <ConsultingPhyMNE>f pt consult dr bagley</ConsultingPhyMNE> <FamilyPhyMNE>f pt fam dr bagley</FamilyPhyMNE> <OtherPhyMNE>f pt other dr bagley</OtherPhyMNE> < PrimaryPhyMNE>f pt prim care dr bagley</PrimaryPhyMNE> <ReferringPhyMNE>f pt referring dr bagley</ReferringPhyMNE> EKG EKG shows normal sinus rhythm at 74 bpm, inferolateral ST segment changes, no change from 05/05/2016 and 11/05/2016 Impression Assessment and Plan C. difficile colitis--the patient will be placed on vancomycin 250 mg by mouth 4 times a day with first dose tonight. We'll rehydrate with IV fluids. Continue Floranex 4 tablets by mouth 3 times a day with meals. Hypokalemia/hypomagnesemia/renal insufficiency--replace electrolytes both orally and IV, and repeat laboratories in the a.m. CAD/hypertension/CHF--continue amlodipine 10 mg by mouth daily carvedilol 6.25 mg by mouth every morning, and lisinopril 10 mg by mouth every morning. Diabetes mellitus--blood sugar on admission was 99, and his she is not on any routine daily medications. Hypothyroidism--continue levothyroxine sodium at 125 g by mouth every morning. Hypercholesterolemia--continue pravastatin 20 mg by mouth daily. GERD--continue pantoprazole 40 mg by mouth twice a day. Anxiety/depression--continue sertraline 50 mg by mouth daily. Level of Care Telemetry Advanced Directives Existing Advance Directive: No Existing Living Will: No Existing Power of Steel Rigger: No Resuscitation Status FULL RESUSCITATION VTE Prophylaxis VTE Risk Assessment Done? Y/N: Yes Risk Level: Moderate Given or contraindicated: SCD's
[2016-11-23] MEDS: LEVOTHYROXINE 125 MCG TAB PO SCH (06:27)
[2016-11-23 06:51] LABS: BASO % 0.5 %; BASO ABS # 0.05 K/uL (0-0.2); COMPLETE YES; EOS % 5.7 %; HEMATOCRIT 30.2 % (37-47); IG% 0.4 %; LYMPH % 16.3 %; MEAN CORPUSCULAR HEMOGLOBIN 27.6 pg (25-34); MEAN CORPUSCULAR HGB CONC 32.1 g/dl (32-36); MEAN PLATELET VOLUME 8.5 fL (7.4-10.4); MONO % 10.3 %; NEUT % 66.8 %; PLATELET COUNT 283 K/uL (130-400); RED BLOOD COUNT 3.51 M/uL (4.2-5.4); WHITE BLOOD COUNT 9.18 K/uL (4.8-10.8)
[2016-11-23 07:23] LABS: CREATININE 3.1 mg/dl (0.60-1.20)
[2016-11-23 07:24] LABS: BUN/CREATININE RATIO 3.6 (10-20); CALCIUM 7.6 mg/dl (8.5-10.1); MAGNESIUM 1.8 mg/dl (1.8-2.4); POTASSIUM 2.6 mmol/L (3.5-5.1)
[2016-11-23] MEDS ORDERED: POTASSIUM CHLORIDE 10 MEQ TABCR PO STA (07:36)
[2016-11-23] MEDS: VANCOMYCIN HCL 250 MG/5 ML SOLN PO SCH ×4 (08:30→20:39)
[2016-11-23] MEDS: RASPBERRY SYRUP 5 ML UDP PO SCH ×4 (08:31→20:40)
[2016-11-23] MEDS: POTASSIUM CHLORIDE INJ 10 MEQ in SODIUM CHLORIDE 0.9% 1000ML 1,000 ML IV SCH ×2 (08:31→20:39)
[2016-11-23] MEDS: CARVEDILOL 6.25 MG TAB PO SCH (08:31)
[2016-11-23] MEDS: SERTRALINE HCL 50 MG TAB PO SCH (08:32)
[2016-11-23] MEDS: LACTOBACILLUS ACIDOPHILUS (FLORANEX) TAB PO SCH ×3 (08:32→16:35)
[2016-11-23] MEDS: LISINOPRIL 10 MG TAB PO SCH (08:32)
[2016-11-23] MEDS: PANTOprazole SOD 40 MG TAB PO SCH ×2 (08:33→20:40)
[2016-11-23] MEDS: AMLODIPINE BESYLATE 5 MG TAB PO SCH (08:33)
[2016-11-23] MEDS: PRAVASTATIN SOD 20 MG TAB PO SCH (08:33)
[2016-11-23] MEDS: CHOLESTYRAMINE LIGHT 4 GM PKT PO SCH ×2 (10:13→22:22)
--- NOTE | 2016-11-23 11:23 | Nephrology Consultation ---
Nephrology Consultation Date & Providers Date of Consultation: November 23, 2016. Primary Care Provider: Marcelo Bradley M.D. Referring Provider: Reason for Consultation Provide inpatient HD for this patient with ESRD admitted with diarrhea and low potassium History of Present Illness Ms. Jo is an 81-year-old white female who is seen at the request of Dr. Contreras to provide inpatient HD and assist with medical management. Medical records in the hospital EMR were reviewed today and are summjarized as follows: Ms. Jo has a h/o , CMP, AODM, ESRD on HD MWF at [facility] ( Dr. Saldana). She has been suffering from profuse watery diarrhea for > 1 week. She presented for dialysis yesterday and had persistent diarrhea but was able to complete her treatment. Laboratory studies obtained at the dialysis unit revealed profound hypokalemia. Ms. Jo was subsequently admitted to the hospital for electrolyte repletion and IV hydration. Stool has tested positive for Clostridium Difficile toxin. Past Medical/Surgical History Medical: # ESRD # AODM # ICM # ASCVD # Aortic stenosis # HTN # Hyperlipidemia # DVT # TIA Surgical: # Appendectomy # TKA, # AVF Allergies Coded Allergies: Diazepam (Verified Adverse Reaction, Severe, CHEST PAIN, 11/22/16) Inpatient Medications Current Inpatient Medications Medications (Trade) Dose Ordered Sig/Rach Route Start Time Stop Time Status Last Admin Dose Admin Acetaminophen (Tylenol Tab) 650 mg Q4H PRN PO 11/22/16 23:30 12/22/16 23:29 Zolpidem Tartrate (Ambien Tab) 5 mg HSZ PRN PO 11/22/16 23:30 12/22/16 23:29 Amlodipine Besylate (Norvasc Tab) 10 mg DAILY PO 11/23/16 09:00 12/23/16 08:59 11/23/16 08:33 10 MG Carvedilol (Coreg Tab) 6.25 mg QAM PO 11/23/16 09:00 12/23/16 08:59 11/23/16 08:31 6.25 MG Folic Acid (Folvite Tab) 1 mg DAILY PO 11/23/16 09:00 12/23/16 08:59 11/23/16 08:33 1 MG Lactobacillus Acidophilus (Floranex Tab) 4 tab TIDM PO 11/23/16 07:30 12/23/16 07:59 11/23/16 08:32 4 TAB Levothyroxine Sodium (Synthroid Tab) 125 mcg DAILYBB PO 11/23/16 06:00 12/23/16 05:59 11/23/16 06:27 125 MCG Lisinopril (Zestril Tab) 10 mg QAM PO 11/23/16 09:00 12/23/16 08:59 11/23/16 08:32 10 MG Pantoprazole Sodium (Protonix Tab) 40 mg BID PO 11/23/16 09:00 12/23/16 08:59 11/23/16 08:33 40 MG Pravastatin Sodium (Pravachol Tab) 20 mg DAILY PO 11/23/16 09:00 12/23/16 08:59 11/23/16 08:33 20 MG Sertraline HCl (Zoloft Tab) 50 mg DAILY PO 11/23/16 09:00 12/23/16 08:59 11/23/16 08:32 50 MG Vancomycin HCl (Vancomycin Oral Soln) 250 mg QID PO 11/23/16 09:00 12/07/16 08:59 11/23/16 08:30 250 MG Ondansetron HCl (Zofran Inj) 4 mg Q6H PRN IV 11/22/16 23:45 12/22/16 23:44 Cholestyramine Resin (Questran Powder Light) 4 gm BID@10,22 PO 11/23/16 10:00 12/23/16 09:59 11/23/16 10:13 4 GM Raspberry (Raspberry Syrup 5ml Cup) 5 ml QID PO 11/23/16 09:00 12/07/16 08:59 11/23/16 08:31 5 ML Vancomycin HCl 1 ea 1 ea UD PRN N/A 11/23/16 01:45 12/23/16 01:44 Potassium Chloride/Sodium Chloride (KCl Inj/Nss 1000ml) 1,005 ml @ 80 mls/hr [id number] IV 11/23/16 08:15 12/23/16 08:14 11/23/16 08:31 80 MLS/HR Epoetin Ziyad (Procrit Inj) 8,000 units ONE ONCE IV. 11/24/16 06:00 11/24/16 06:01 UNV Heparin Sodium (Porcine) (No Heparin In Dialysis) 1 ea ONE ONCE N/A 11/24/16 06:00 11/24/16 06:01 UNV Family History Patient reports no known family medical history. Negative for CKD/ESRD Social History Smoking Status: Former Smoker Smokeless Tobacco Use: No Alcohol Use: none Drug Use: none Marital Status: Occupation: retired . Retired. Former smoker Review of Systems Constitutional: No fever Respiratory: No shortness of breath Cardiovascular: No chest pain Abdomen: + diarrhea, No pain A complete review of systems was performed. Pertinent positives are noted above. All other systems are negative. Physical Exam Date Time Temp Pulse Resp B/P Pulse Ox O2 Delivery O2 Flow Rate FiO2 11/23/16 08:00 Room Air 11/23/16 07:33 36.9 71 18 124/49 91 Room Air 11/23/16 04:17 36.8 66 18 126/63 93 Room Air 11/23/16 04:00 93 Room Air 11/23/16 01:33 36.9 69 20 120/56 97 Nasal Cannula 2.0 11/23/16 01:04 70 16 124/57 96 11/22/16 21:31 72 18 120/47 92 Room Air 11/22/16 20:44 73 11/22/16 20:18 37.3 76 18 121/55 94 Room Air General Appearance: no apparent distress Head: normocephalic, atraumatic Eyes: PERRL, EOMI Neck: no adenopathy Respiratory/Chest: lungs clear Cardiovascular: regular rate, rhythm Abdomen/GI: normal bowel sounds, non tender, soft Extremities/Musculoskelatal: no pedal edema, + pertinent finding (AVF + bruit) Neurologic/Psych: alert, oriented x 3 Laboratory Results Last 24 Hours Test 11/22/16 20:22 11/22/16 20:29 11/23/16 06:39 11/23/16 06:45 White Blood Count 11.16 K/uL 9.18 K/uL Red Blood Count 3.84 M/uL 3.51 M/uL Hemoglobin 11.0 g/dL 9.7 g/dL Hematocrit 33.1 % 30.2 % Mean Corpuscular Volume 86.2 fL 86.0 fL Mean Corpuscular Hemoglobin 28.6 pg 27.6 pg Mean Corpuscular Hemoglobin Concent 33.2 g/dl 32.1 g/dl Platelet Count 302 K/uL 283 K/uL Mean Platelet Volume 8.7 fL 8.5 fL Neutrophils (%) (Auto) 70.5 % 66.8 % Lymphocytes (%) (Auto) 12.5 % 16.3 % Monocytes (%) (Auto) 11.5 % 10.3 % Eosinophils (%) (Auto) 4.6 % 5.7 % Basophils (%) (Auto) 0.4 % 0.5 % Neutrophils # (Auto) 7.88 K/uL 6.12 K/uL Lymphocytes # (Auto) 1.39 K/uL 1.50 K/uL Monocytes # (Auto) 1.28 K/uL 0.95 K/uL Eosinophils # (Auto) 0.51 K/uL 0.52 K/uL Basophils # (Auto) 0.04 K/uL 0.05 K/uL RDW Standard Deviation 51.2 fL 50.9 fL RDW Coefficient of Variation 16.7 % 16.6 % Immature Granulocyte % (Auto) 0.5 % 0.4 % Immature Granulocyte # (Auto) 0.06 K/uL 0.04 K/uL Prothrombin Time 12.0 SECONDS Prothromb Time International Ratio 1.1 Activated Partial Thromboplast Time 32.3 SECONDS Partial Thromboplastin Ratio 1.2 Sodium Level 136 mmol/L 136 mmol/L Potassium Level 2.5 mmol/L 2.6 mmol/L Chloride Level 91 mmol/L 95 mmol/L Carbon Dioxide Level 36 mmol/L 37 mmol/L Anion Gap 8.0 mmol/L 4.0 mmol/L Blood Urea Nitrogen 9 mg/dl 11 mg/dl Creatinine 2.60 mg/dl 3.10 mg/dl Est Creatinine Clear Calc Drug Dose 16.0 ml/min 12.7 ml/min Estimated GFR () 19.1 15.5 Estimated GFR (Non- 16.5 13.3 BUN/Creatinine Ratio 3.4 3.6 Random Glucose 99 mg/dl 77 mg/dl Calcium Level 8.1 mg/dl 7.6 mg/dl Magnesium Level 1.6 mg/dl 1.8 mg/dl Total Bilirubin 0.6 mg/dl Direct Bilirubin 0.3 mg/dl Aspartate Amino Transf (AST/SGOT) 17 U/L Alanine Aminotransferase (ALT/SGPT) 7 U/L Alkaline Phosphatase 143 U/L Total Creatine Kinase 11 U/L Creatine Kinase MB < 0.5 ng/ml Creatine Kinase MB Ratio Troponin I 0.024 ng/ml Total Protein 6.7 gm/dl Albumin 2.3 gm/dl Lipase 115 U/L Bedside Lactic Acid Venous 1.40 mmol/L Random Vancomycin Level 22.6 mcg/ml Impression (1) End-stage renal disease on hemodialysis (2) Hypokalemia (3) Diarrhea (4) C. difficile colitis (5) DM2 (diabetes mellitus, type 2) Patient admitted w/ hypokalemia and dehydration due to Clostridium Difficile colitis. She has ESRD and requires HD MWF Recommendations END STAGE RENAL DISEASE: -- Patient is clinically volume contracted. Agree w/ gentle hydration -- Will schedule HD for 05/12 am using 4K bath and no UF -- Protect AVF HYPOKALEMIA: -- Agree w/ IV KCL supplementation -- Will obtain PRP in am ID: -- Stool tested positive for clostridium difficile toxin -- Agree w/ oral Vancomycin therapy
--- NOTE | 2016-11-23 13:36 | Hospitalist Progress Note ---
Hospitalist Progress Note Date of Service November 23, 2016. (Janis Rosario, PANorbertC) Subjective Pt evaluation today including: conversation w/ patient, physical exam, chart review, lab review, review of studies, review of inpatient medication list Patient seen and evaluated. Admitted overnight for C. Diff and significant hypokalemia. Recheck this afternoon pending. Only complaint is of frequent BMs. Denies abdominal pain or cramping. She does not feel chilled or fevered. Tolerated breakfast and was beginning to eat lunch during my exam. She is largely only oriented to self which is baseline from previous admission. Constitutional: + weakness (generalized (improving)), No chills, No fever ENT: No nasal symptoms, No sore throat, No trouble swallowing Respiratory: No shortness of breath Cardiovascular: No chest pain, No palpitations Abdomen: + diarrhea, No constipation, No nausea, No pain, No vomiting Musculoskeletal: + problem reported (mild pain of R arm (recent revision of AV fistula)), No calf pain Female : No dysuria Neurologic: No vertigo Skin: No rash (Janis Rosario, GEREMIASC) Medications Current Inpatient Medications Medications (Trade) Dose Ordered Sig/Rach Route Start Time Stop Time Status Last Admin Dose Admin Acetaminophen (Tylenol Tab) 650 mg Q4H PRN PO 11/22/16 23:30 12/22/16 23:29 Zolpidem Tartrate (Ambien Tab) 5 mg HSZ PRN PO 11/22/16 23:30 12/22/16 23:29 Amlodipine Besylate (Norvasc Tab) 10 mg DAILY PO 11/23/16 09:00 12/23/16 08:59 11/23/16 08:33 10 MG Carvedilol (Coreg Tab) 6.25 mg QAM PO 11/23/16 09:00 12/23/16 08:59 11/23/16 08:31 6.25 MG Folic Acid (Folvite Tab) 1 mg DAILY PO 11/23/16 09:00 12/23/16 08:59 11/23/16 08:33 1 MG Lactobacillus Acidophilus (Floranex Tab) 4 tab TIDM PO 11/23/16 07:30 12/23/16 07:59 11/23/16 11:11 4 TAB Levothyroxine Sodium (Synthroid Tab) 125 mcg DAILYBB PO 11/23/16 06:00 12/23/16 05:59 11/23/16 06:27 125 MCG Lisinopril (Zestril Tab) 10 mg QAM PO 11/23/16 09:00 12/23/16 08:59 11/23/16 08:32 10 MG Pantoprazole Sodium (Protonix Tab) 40 mg BID PO 11/23/16 09:00 12/23/16 08:59 11/23/16 08:33 40 MG Pravastatin Sodium (Pravachol Tab) 20 mg DAILY PO 11/23/16 09:00 12/23/16 08:59 11/23/16 08:33 20 MG Sertraline HCl (Zoloft Tab) 50 mg DAILY PO 11/23/16 09:00 12/23/16 08:59 11/23/16 08:32 50 MG Vancomycin HCl (Vancomycin Oral Soln) 250 mg QID PO 11/23/16 09:00 12/07/16 08:59 11/23/16 12:41 250 MG Ondansetron HCl (Zofran Inj) 4 mg Q6H PRN IV 11/22/16 23:45 12/22/16 23:44 Cholestyramine Resin (Questran Powder Light) 4 gm BID@10,22 PO 11/23/16 10:00 12/23/16 09:59 11/23/16 10:13 4 GM Raspberry (Raspberry Syrup 5ml Cup) 5 ml QID PO 11/23/16 09:00 12/07/16 08:59 11/23/16 12:40 5 ML Vancomycin HCl 1 ea 1 ea UD PRN N/A 11/23/16 01:45 12/23/16 01:44 Potassium Chloride/Sodium Chloride (KCl Inj/Nss 1000ml) 1,005 ml @ 80 mls/hr [id number] IV 11/23/16 08:15 12/23/16 08:14 11/23/16 08:31 80 MLS/HR Heparin Sodium (Porcine) 1 ea 1 ea TODAY@0600 N/A 11/24/16 06:00 11/24/16 23:59 Epoetin Ziyad/ Syringe (Procrit Inj/ Syringe) 0.4 ml @ 1 mls/min TODAY@0600 IV. 11/24/16 06:00 11/24/16 23:59 (Janis Rosario PA-C) Objective Vital Signs Date Time Temp Pulse Resp B/P Pulse Ox O2 Delivery O2 Flow Rate FiO2 11/23/16 12:00 Room Air 11/23/16 11:45 36.8 63 18 96/45 93 Room Air 11/23/16 08:00 Room Air 11/23/16 07:33 36.9 71 18 124/49 91 Room Air 11/23/16 04:17 36.8 66 18 126/63 93 Room Air 11/23/16 04:00 93 Room Air 11/23/16 01:33 36.9 69 20 120/56 97 Nasal Cannula 2.0 11/23/16 01:04 70 16 124/57 96 11/22/16 21:31 72 18 120/47 92 Room Air 11/22/16 20:44 73 11/22/16 20:18 37.3 76 18 121/55 94 Room Air (Janis Rosario PA-C) Physical Exam General Appearance: WD/WN, no apparent distress Eyes: sclerae normal ENT: hearing grossly normal Neck: supple, no JVD, trachea midline Respiratory/Chest: lungs clear, no respiratory distress, no accessory muscle use, + decreased breath sounds Cardiovascular: regular rate, rhythm, no gallop, + systolic murmur (harsh/loud IV/) Abdomen: normal bowel sounds, non tender, soft Extremities: no calf tenderness, + pertinent finding (Right large AV fistula with +bruit and +thrill) Neurologic/Psychiatric: alert, + disoriented (Janis Rosario PA-C) Laboratory Results Last 24 Hours Test 11/22/16 20:22 11/22/16 20:29 11/23/16 06:39 11/23/16 06:45 White Blood Count 11.16 K/uL 9.18 K/uL Red Blood Count 3.84 M/uL 3.51 M/uL Hemoglobin 11.0 g/dL 9.7 g/dL Hematocrit 33.1 % 30.2 % Mean Corpuscular Volume 86.2 fL 86.0 fL Mean Corpuscular Hemoglobin 28.6 pg 27.6 pg Mean Corpuscular Hemoglobin Concent 33.2 g/dl 32.1 g/dl Platelet Count 302 K/uL 283 K/uL Mean Platelet Volume 8.7 fL 8.5 fL Neutrophils (%) (Auto) 70.5 % 66.8 % Lymphocytes (%) (Auto) 12.5 % 16.3 % Monocytes (%) (Auto) 11.5 % 10.3 % Eosinophils (%) (Auto) 4.6 % 5.7 % Basophils (%) (Auto) 0.4 % 0.5 % Neutrophils # (Auto) 7.88 K/uL 6.12 K/uL Lymphocytes # (Auto) 1.39 K/uL 1.50 K/uL Monocytes # (Auto) 1.28 K/uL 0.95 K/uL Eosinophils # (Auto) 0.51 K/uL 0.52 K/uL Basophils # (Auto) 0.04 K/uL 0.05 K/uL RDW Standard Deviation 51.2 fL 50.9 fL RDW Coefficient of Variation 16.7 % 16.6 % Immature Granulocyte % (Auto) 0.5 % 0.4 % Immature Granulocyte # (Auto) 0.06 K/uL 0.04 K/uL Prothrombin Time 12.0 SECONDS Prothromb Time International Ratio 1.1 Activated Partial Thromboplast Time 32.3 SECONDS Partial Thromboplastin Ratio 1.2 Sodium Level 136 mmol/L 136 mmol/L Potassium Level 2.5 mmol/L 2.6 mmol/L Chloride Level 91 mmol/L 95 mmol/L Carbon Dioxide Level 36 mmol/L 37 mmol/L Anion Gap 8.0 mmol/L 4.0 mmol/L Blood Urea Nitrogen 9 mg/dl 11 mg/dl Creatinine 2.60 mg/dl 3.10 mg/dl Est Creatinine Clear Calc Drug Dose 16.0 ml/min 12.7 ml/min Estimated GFR () 19.1 15.5 Estimated GFR (Non- 16.5 13.3 BUN/Creatinine Ratio 3.4 3.6 Random Glucose 99 mg/dl 77 mg/dl Calcium Level 8.1 mg/dl 7.6 mg/dl Magnesium Level 1.6 mg/dl 1.8 mg/dl Total Bilirubin 0.6 mg/dl Direct Bilirubin 0.3 mg/dl Aspartate Amino Transf (AST/SGOT) 17 U/L Alanine Aminotransferase (ALT/SGPT) 7 U/L Alkaline Phosphatase 143 U/L Total Creatine Kinase 11 U/L Creatine Kinase MB < 0.5 ng/ml Creatine Kinase MB Ratio Troponin I 0.024 ng/ml Total Protein 6.7 gm/dl Albumin 2.3 gm/dl Lipase 115 U/L Bedside Lactic Acid Venous 1.40 mmol/L Random Vancomycin Level 22.6 mcg/ml Test 11/23/16 12:30 (Janis Rosario PA-C) Assessment and Plan Ms. Jo is an 81 y/o female with PMHx of Chronic Diastolic CHF, CAD with , T2DM (not on medications), ESRD on HD, HLD, HTN, TIA, and PUD who presents with diarrhea x 1 week. Testing reveals C. Diff positive. C. Diff Colitis: - Vancomycin 250 mg QID - FULL DAY #1 - Questran 4 g BID and probiotics Fluid and Electrolytes: - Significant hypokalemia (2.5 improved to 2.6) - afternoon replete after KCl 40 mEq po x 1 and gentle hydration with NSS + KCl 10 mEq at 80 mL/hr - Hypomagnesemia - RESOLVED - Continue gentle hydration in the setting of electrolyte abnormalities and diarrhea ESRD on HD Dialysis (MWF) with Anemia of Chronic Disease: STABLE - Folate deficiency on previous admission - Folic acid 1 mg daily - Nephrology consulted - recommendations reviewed - plan for HD tomorrow CAD with Aortic Stenosis/HTN/Chronic Diastolic CHF: STABLE - Norvasc 10 mg daily, Coreg 6.25 mg daily, and Lisinopril 10 mg daily DVT Prophylaxis: SCDs Code Status: FULL RESUSCITATION Disposition: Patient lives alone with OOA with multiple services - On previous admission, PT/OT evaluations recommended 24/7 care and took approx a week to locate family as patient kept reporting that she lives with son /[id number] - Did finally find another daughter (Candy) that states she would be able to check on patient as OOA caregivers are not 24/7 - family wanted patient to return home as they felt she is not as confused at home. On previous admission and now I do suspect advanced dementia as confusion seems to be consistent as patient has a tendency to confabulate - PT/OT evaluations Continued [facility] stay due to: multiple IV medications needed (Janis Rosario, EMELI)
[2016-11-23 13:51] LABS: CALCIUM 7.5 mg/dl (8.5-10.1); CREATININE 3.4 mg/dl (0.60-1.20); MAGNESIUM 1.9 mg/dl (1.8-2.4); POTASSIUM 2.9 mmol/L (3.5-5.1)
--- NOTE | 2016-11-23 14:28 | Pharmacy Progress Note ---
Pharmacy Abx Dose Short Note Date of Service November 23, 2016. Assessment & Plan Assessment 81 year old female receiving vancomycin po for treatment of C. diff, pharmacy consulted for IV vanc for possible fistula infection? Plan Spoke with Janis Rosario re: need for continued IV vancomycin as no notes indicated infection of fistula. In addition, patient being treated for C. diff so do not want to have unnecessary antibiotics on board. She has requested that IV vancomycin be placed on hold and she will check with overnight physician. Pharmacy will continue to follow. Please notify us if vancomycin to be resumed. Thank you.
[2016-11-24] VITALS (16 sets, daily range): BP systolic 117–143; BP diastolic 54–71; PULSE 72–84; TEMP 36.1–37.6; O2SAT 91–96
[2016-11-24] MEDS: LEVOTHYROXINE 125 MCG TAB PO SCH (05:47)
[2016-11-24 05:51] LABS: BASO % 0.4 %; BASO ABS # 0.04 K/uL (0-0.2); COMPLETE YES; EOS % 5.6 %; HEMATOCRIT 28.2 % (37-47); IG% 0.9 %; LYMPH % 15.8 %; LYMPH ABS # 1.54 K/uL (1.2-3.4); MEAN CORPUSCULAR HEMOGLOBIN 29.3 pg (25-34); MEAN PLATELET VOLUME 8.6 fL (7.4-10.4); MONO % 11.7 %; NEUT % 65.6 %; PLATELET COUNT 299 K/uL (130-400); RED BLOOD COUNT 3.28 M/uL (4.2-5.4); WHITE BLOOD COUNT 9.77 K/uL (4.8-10.8)
[2016-11-24] MEDS ORDERED: EPOETIN ALFA INJ 8,000 UNITS in SYRINGE 0 ML IV. SCH (06:00)
[2016-11-24] MEDS ORDERED: EPOETIN ALFA 10,000 UNITS/ML VIAL IV. ONE (06:00)
[2016-11-24 06:36] LABS: BUN/CREATININE RATIO 4.6 (10-20); CALCIUM 7.5 mg/dl (8.5-10.1); CREATININE 4.2 mg/dl (0.60-1.20); MAGNESIUM 1.8 mg/dl (1.8-2.4)
--- NOTE | 2016-11-24 08:02 | Hospitalist Progress Note ---
Hospitalist Progress Note Date of Service November 24, 2016. (Janis Rosario PA-C) Subjective Pt evaluation today including: conversation w/ patient, physical exam, chart review, lab review, review of studies, review of inpatient medication list Patient seen and evaluated. Patient has been incontinent of multiple BMs and having a lot of difficulty standing. Admitting doctor concerned for cellulitis of AV Fistula. Cannot appreciate cellulitis, drainage, warmth. Will hold off on further antibiotics for this. Will continue to monitor Patient did have recent repair on previous admission. She is drowsy upon entering room but easily awoken and answers appropriately but continues to largely be only oriented to person. Does not feel fevered or chilled. Did have low grade fever on AM vitals. Constitutional: No chills, No fever Respiratory: No shortness of breath Cardiovascular: No chest pain Abdomen: + diarrhea, No constipation, No nausea, No pain, No vomiting Musculoskeletal: No calf pain Skin: No rash (Janis Rosario PA-C) Medications Current Inpatient Medications Medications (Trade) Dose Ordered Sig/Rach Route Start Time Stop Time Status Last Admin Dose Admin Acetaminophen (Tylenol Tab) 650 mg Q4H PRN PO 11/22/16 23:30 12/22/16 23:29 Zolpidem Tartrate (Ambien Tab) 5 mg HSZ PRN PO 11/22/16 23:30 12/22/16 23:29 Amlodipine Besylate (Norvasc Tab) 10 mg DAILY PO 11/23/16 09:00 12/23/16 08:59 11/23/16 08:33 10 MG Carvedilol (Coreg Tab) 6.25 mg QAM PO 11/23/16 09:00 12/23/16 08:59 11/23/16 08:31 6.25 MG Folic Acid (Folvite Tab) 1 mg DAILY PO 11/23/16 09:00 12/23/16 08:59 11/23/16 08:33 1 MG Lactobacillus Acidophilus (Floranex Tab) 4 tab TIDM PO 11/23/16 07:30 12/23/16 07:59 11/23/16 16:35 4 TAB Levothyroxine Sodium (Synthroid Tab) 125 mcg DAILYBB PO 11/23/16 06:00 12/23/16 05:59 11/24/16 05:47 125 MCG Lisinopril (Zestril Tab) 10 mg QAM PO 11/23/16 09:00 12/23/16 08:59 11/23/16 08:32 10 MG Pantoprazole Sodium (Protonix Tab) 40 mg BID PO 11/23/16 09:00 12/23/16 08:59 11/23/16 20:40 40 MG Pravastatin Sodium (Pravachol Tab) 20 mg DAILY PO 11/23/16 09:00 12/23/16 08:59 11/23/16 08:33 20 MG Sertraline HCl (Zoloft Tab) 50 mg DAILY PO 11/23/16 09:00 12/23/16 08:59 11/23/16 08:32 50 MG Vancomycin HCl (Vancomycin Oral Soln) 250 mg QID PO 11/23/16 09:00 12/07/16 08:59 11/23/16 20:39 250 MG Ondansetron HCl (Zofran Inj) 4 mg Q6H PRN IV 11/22/16 23:45 12/22/16 23:44 Cholestyramine Resin (Questran Powder Light) 4 gm BID@10,22 PO 11/23/16 10:00 12/23/16 09:59 11/23/16 22:22 4 GM Raspberry (Raspberry Syrup 5ml Cup) 5 ml QID PO 11/23/16 09:00 12/07/16 08:59 11/23/16 20:40 5 ML Vancomycin HCl 1 ea 1 ea UD PRN N/A 11/23/16 01:45 12/23/16 01:44 Future Hold Potassium Chloride/Sodium Chloride (KCl Inj/Nss 1000ml) 1,005 ml @ 80 mls/hr [id number] IV 11/23/16 08:15 12/23/16 08:14 11/23/16 20:39 80 MLS/HR Heparin Sodium (Porcine) 1 ea 1 ea TODAY@0600 N/A 11/24/16 06:00 11/24/16 23:59 Epoetin Ziyad/ Syringe (Procrit Inj/ Syringe) 0.4 ml @ 1 mls/min TODAY@0600 IV. 11/24/16 06:00 11/24/16 23:59 (Janis Rosario, PANorbertC) Objective Vital Signs Date Time Temp Pulse Resp B/P Pulse Ox O2 Delivery O2 Flow Rate FiO2 11/24/16 07:37 37.6 83 16 140/63 91 Room Air 11/24/16 04:00 Room Air 11/24/16 03:53 37.6 84 20 143/62 91 Room Air 11/24/16 00:00 Room Air 11/23/16 23:36 37.1 77 20 121/55 95 Room Air 11/23/16 20:00 Room Air 11/23/16 19:07 37.0 73 22 112/59 95 Room Air 11/23/16 16:00 Room Air 11/23/16 15:30 37.0 67 18 113/53 94 Room Air 11/23/16 12:00 Room Air 11/23/16 11:45 36.8 63 18 96/45 93 Room Air 11/23/16 08:00 Room Air (Janis Rosario PA-C) Physical Exam General Appearance: no apparent distress Eyes: sclerae normal Neck: supple, no JVD, trachea midline Respiratory/Chest: lungs clear, normal breath sounds, no respiratory distress, no accessory muscle use, + decreased breath sounds Cardiovascular: regular rate, rhythm, no gallop, + systolic murmur (harsh IV/ ; heard throughout all heart tapia) Abdomen: normal bowel sounds, non tender, soft Extremities: no pedal edema, no calf tenderness, + pertinent finding ( lymphedema of RUE; AV fistula +thrill +bruit; AV fistula without drainage, erythema, or warmth) Neurologic/Psychiatric: alert, + disoriented Skin: normal color, warm/dry (Janis Rosario, GEREMIASC) Laboratory Results Last 24 Hours Test 11/23/16 13:09 11/24/16 05:19 Sodium Level 137 mmol/L 136 mmol/L Potassium Level 2.9 mmol/L 3.0 mmol/L Chloride Level 97 mmol/L 99 mmol/L Carbon Dioxide Level 35 mmol/L 31 mmol/L Anion Gap 5.0 mmol/L 6.0 mmol/L Blood Urea Nitrogen 14 mg/dl 19 mg/dl Creatinine 3.40 mg/dl 4.20 mg/dl Est Creatinine Clear Calc Drug Dose 11.6 ml/min 9.6 ml/min Estimated GFR () 13.8 10.7 Estimated GFR (Non- 11.9 9.2 BUN/Creatinine Ratio 4.0 4.6 Random Glucose 112 mg/dl 74 mg/dl Calcium Level 7.5 mg/dl 7.5 mg/dl Magnesium Level 1.9 mg/dl 1.8 mg/dl White Blood Count 9.77 K/uL Red Blood Count 3.28 M/uL Hemoglobin 9.6 g/dL Hematocrit 28.2 % Mean Corpuscular Volume 86.0 fL Mean Corpuscular Hemoglobin 29.3 pg Mean Corpuscular Hemoglobin Concent 34.0 g/dl Platelet Count 299 K/uL Mean Platelet Volume 8.6 fL Neutrophils (%) (Auto) 65.6 % Lymphocytes (%) (Auto) 15.8 % Monocytes (%) (Auto) 11.7 % Eosinophils (%) (Auto) 5.6 % Basophils (%) (Auto) 0.4 % Neutrophils # (Auto) 6.41 K/uL Lymphocytes # (Auto) 1.54 K/uL Monocytes # (Auto) 1.14 K/uL Eosinophils # (Auto) 0.55 K/uL Basophils # (Auto) 0.04 K/uL RDW Standard Deviation 51.5 fL RDW Coefficient of Variation 16.7 % Immature Granulocyte % (Auto) 0.9 % Immature Granulocyte # (Auto) 0.09 K/uL (Janis Rosario, PANorbertC) Assessment and Plan Ms. Jo is an 81 y/o female with PMHx of Chronic Diastolic CHF, CAD with , T2DM (not on medications), ESRD on HD, HLD, HTN, TIA, and PUD who presents with diarrhea x 1 week. Testing reveals C. Diff positive. C. Diff Colitis: - Vancomycin 250 mg QID - FULL DAY #2 - Questran 4 g BID and probiotics Fluid and Electrolytes: - NSS + KCl 10 mEq at 80 mL/hr - Hypokalemia - improving and now at 3.0 - schedule for 4K with no UF at dialysis - Hypomagnesemia - RESOLVED - Continue gentle hydration in the setting of electrolyte abnormalities and diarrhea ESRD on HD Dialysis (MWF) with Anemia of Chronic Disease: STABLE - Folate deficiency on previous admission - Folic acid 1 mg daily - Nephrology consulted - recommendations reviewed - plan for HD today CAD with Aortic Stenosis/HTN/Chronic Diastolic CHF: STABLE - Norvasc 10 mg daily, Coreg 6.25 mg daily, and Lisinopril 10 mg daily DVT Prophylaxis: SCDs Code Status: FULL RESUSCITATION Disposition: Patient lives alone with OOA with multiple services - On previous admission, PT/OT evaluations recommended 24/7 care and took approx a week to locate family as patient kept reporting that she lives with son /[id number] - Did finally find another daughter (Candy) that states she would be able to check on patient as OOA caregivers are not 24/7 - family wanted patient to return home as they felt she is not as confused at home. On previous admission and now I do suspect advanced dementia as confusion seems to be consistent as patient has a tendency to confabulate - PT/OT evaluations Continued [facility] stay due to: multiple IV medications needed Discharge planning: uncertain (Janis Rosario, PA-C)
[2016-11-24] MEDS: RASPBERRY SYRUP 5 ML UDP PO SCH ×4 (08:39→20:54)
[2016-11-24] MEDS: PRAVASTATIN SOD 20 MG TAB PO SCH (08:40)
[2016-11-24] MEDS: SERTRALINE HCL 50 MG TAB PO SCH (08:40)
[2016-11-24] MEDS: AMLODIPINE BESYLATE 5 MG TAB PO SCH (08:40)
[2016-11-24] MEDS: LACTOBACILLUS ACIDOPHILUS (FLORANEX) TAB PO SCH ×3 (08:40→16:41)
[2016-11-24] MEDS: CARVEDILOL 6.25 MG TAB PO SCH (08:40)
[2016-11-24] MEDS: PANTOprazole SOD 40 MG TAB PO SCH ×2 (08:41→20:54)
[2016-11-24] MEDS: POTASSIUM CHLORIDE INJ 10 MEQ in SODIUM CHLORIDE 0.9% 1000ML 1,000 ML IV SCH ×2 (08:44→20:57)
[2016-11-24] MEDS: VANCOMYCIN HCL 250 MG/5 ML SOLN PO SCH ×4 (08:44→20:57)
[2016-11-24] MEDS: CHOLESTYRAMINE LIGHT 4 GM PKT PO SCH (08:44)
[2016-11-24] MEDS: LISINOPRIL 10 MG TAB PO SCH (09:00)
--- NOTE | 2016-11-24 12:30 | Nephrology Progress Note ---
Nephrology Progress Note Date of Service November 24, 2016. Chief Complaint Provide inpatient HD for this patient with ESRD admitted with diarrhea and low potassium Subjective Ms. Jo was seen & examined in the PCU this morning. She continues to have frequent liquid bowel movements. She denies fever or abdominal pain. Ms. Jo is awaiting dialysis this afternoon. She voices no new medical concerns. Review of Systems Constitutional: No fever Cardiovascular: No chest pain Respiratory: No dyspnea at rest Abdomen: + diarrhea, No pain, No vomiting Extremities: No leg edema A complete review of systems was performed. Pertinent positives are noted above. All other systems are negative. Vital Signs Last 8 Hrs Date Time Temp Pulse Resp B/P Pulse Ox O2 Delivery O2 Flow Rate FiO2 11/24/16 08:00 Room Air 11/24/16 07:37 37.6 83 16 140/63 91 Room Air I & O 24-Hour Column 11/24/16 07:59 Intake Total 2026 ml Balance 2026 ml Last Recorded Weight Weight (Kilograms): 68.600 Physical Exam General Appearance: no apparent distress Head: normocephalic Eyes: PERRL Neck: no adenopathy Respiratory/Chest: lungs clear Cardiovascular: regular rate, rhythm Abdomen/GI: non tender, soft Extremities/Musculoskelatal: no pedal edema, + pertinent finding (right upper arm AVF + bruit) Neurologic/Psych: alert Family History Patient reports no known family medical history. Negative for CKD/ESRD Social History Smoking Status: Never smoker Smokeless Tobacco Use: No Alcohol Use: none Drug Use: none Marital Status: Occupation: retired . Retired. Former smoker Laboratory Results Past 24 Hours 11/24/16 05:19 Red Blood Count 3.28, Mean Corpuscular Volume 86.0, Mean Corpuscular Hemoglobin 29.3, Mean Corpuscular Hemoglobin Concent 34.0, Mean Platelet Volume 8.6, Neutrophils (%) (Auto) 65.6, Lymphocytes (%) (Auto) 15.8, Monocytes (%) (Auto) 11.7, Eosinophils (%) (Auto) 5.6, Basophils (%) (Auto) 0.4, Neutrophils # (Auto ) 6.41, Lymphocytes # (Auto) 1.54, Monocytes # (Auto) 1.14, Eosinophils # (Auto ) 0.55, Basophils # (Auto) 0.04 11/23/16 13:09 11/24/16 05:19 Test 11/23/16 13:09 11/24/16 05:19 Anion Gap 5.0 mmol/L (3-11) 6.0 mmol/L (3-11) Est Creatinine Clear Calc Drug Dose 11.6 ml/min 9.6 ml/min Estimated GFR () 13.8 10.7 Estimated GFR (Non- 11.9 9.2 BUN/Creatinine Ratio 4.0 (10-20) 4.6 (10-20) Calcium Level 7.5 mg/dl (8.5-10.1) 7.5 mg/dl (8.5-10.1) Magnesium Level 1.9 mg/dl (1.8-2.4) 1.8 mg/dl (1.8-2.4) White Blood Count 9.77 K/uL (4.8-10.8) Red Blood Count 3.28 M/uL (4.2-5.4) Hemoglobin 9.6 g/dL (12.0-16.0) Hematocrit 28.2 % (37-47) Mean Corpuscular Volume 86.0 fL (80-100) Mean Corpuscular Hemoglobin 29.3 pg (25-34) Mean Corpuscular Hemoglobin Concent 34.0 g/dl (32-36) Platelet Count 299 K/uL (130-400) Mean Platelet Volume 8.6 fL (7.4-10.4) Neutrophils (%) (Auto) 65.6 % Lymphocytes (%) (Auto) 15.8 % Monocytes (%) (Auto) 11.7 % Eosinophils (%) (Auto) 5.6 % Basophils (%) (Auto) 0.4 % Neutrophils # (Auto) 6.41 K/uL (1.4-6.5) Lymphocytes # (Auto) 1.54 K/uL (1.2-3.4) Monocytes # (Auto) 1.14 K/uL (0.11-0.59) Eosinophils # (Auto) 0.55 K/uL (0-0.5) Basophils # (Auto) 0.04 K/uL (0-0.2) RDW Standard Deviation 51.5 fL (36.4-46.3) RDW Coefficient of Variation 16.7 % (11.5-14.5) Immature Granulocyte % (Auto) 0.9 % Immature Granulocyte # (Auto) 0.09 K/uL (0.00-0.02) Allergies Coded Allergies: Diazepam (Verified Adverse Reaction, Severe, CHEST PAIN, 11/22/16) Medications Current Inpatient Medications Medications (Trade) Dose Ordered Sig/Rach Route Start Time Stop Time Status Last Admin Dose Admin Acetaminophen (Tylenol Tab) 650 mg Q4H PRN PO 11/22/16 23:30 12/22/16 23:29 Zolpidem Tartrate (Ambien Tab) 5 mg HSZ PRN PO 11/22/16 23:30 12/22/16 23:29 Amlodipine Besylate (Norvasc Tab) 10 mg DAILY PO 11/23/16 09:00 12/23/16 08:59 11/24/16 08:40 10 MG Carvedilol (Coreg Tab) 6.25 mg QAM PO 11/23/16 09:00 12/23/16 08:59 11/24/16 08:40 6.25 MG Folic Acid (Folvite Tab) 1 mg DAILY PO 11/23/16 09:00 12/23/16 08:59 11/24/16 08:39 1 MG Lactobacillus Acidophilus (Floranex Tab) 4 tab TIDM PO 11/23/16 07:30 12/23/16 07:59 11/24/16 08:40 4 TAB Levothyroxine Sodium (Synthroid Tab) 125 mcg DAILYBB PO 11/23/16 06:00 12/23/16 05:59 11/24/16 05:47 125 MCG Lisinopril (Zestril Tab) 10 mg QAM PO 11/23/16 09:00 12/23/16 08:59 11/23/16 08:32 10 MG Pantoprazole Sodium (Protonix Tab) 40 mg BID PO 11/23/16 09:00 12/23/16 08:59 11/24/16 08:41 40 MG Pravastatin Sodium (Pravachol Tab) 20 mg DAILY PO 11/23/16 09:00 12/23/16 08:59 11/24/16 08:40 20 MG Sertraline HCl (Zoloft Tab) 50 mg DAILY PO 11/23/16 09:00 12/23/16 08:59 11/24/16 08:40 50 MG Vancomycin HCl (Vancomycin Oral Soln) 250 mg QID PO 11/23/16 09:00 12/07/16 08:59 11/24/16 08:44 250 MG Ondansetron HCl (Zofran Inj) 4 mg Q6H PRN IV 11/22/16 23:45 12/22/16 23:44 Cholestyramine Resin (Questran Powder Light) 4 gm BID@10,22 PO 11/23/16 10:00 12/23/16 09:59 11/24/16 08:44 4 GM Raspberry (Raspberry Syrup 5ml Cup) 5 ml QID PO 11/23/16 09:00 12/07/16 08:59 11/24/16 08:39 5 ML Vancomycin HCl 1 ea 1 ea UD PRN N/A 11/23/16 01:45 12/23/16 01:44 Future Hold Potassium Chloride/Sodium Chloride (KCl Inj/Nss 1000ml) 1,005 ml @ 80 mls/hr [id number] IV 11/23/16 08:15 12/23/16 08:14 11/24/16 08:44 80 MLS/HR Heparin Sodium (Porcine) 1 ea 1 ea TODAY@0600 N/A 11/24/16 06:00 11/24/16 23:59 Epoetin Ziyad/ Syringe (Procrit Inj/ Syringe) 0.4 ml @ 1 mls/min TODAY@0600 IV. 11/24/16 06:00 11/24/16 23:59 Impression (1) End-stage renal disease on hemodialysis (2) Hypokalemia (3) Diarrhea (4) C. difficile colitis (5) DM2 (diabetes mellitus, type 2) Patient admitted w/ hypokalemia and dehydration due to Clostridium Difficile colitis. She has ESRD and requires HD MWF Recommendations END STAGE RENAL DISEASE: -- Patient remains clinically volume contracted. Agree w/ gentle hydration -- HD this afternoon using 4K bath and no UF -- Protect AVF HYPOKALEMIA: -- Will attempt to correct with high potassium bath on HD today -- Will obtain PRP in am ID: -- Stool tested positive for clostridium difficile toxin -- Continue oral Vancomycin therapy
[2016-11-25] VITALS (12 sets, daily range): BP systolic 120–154; BP diastolic 52–70; PULSE 71–85; TEMP 36.3–37.4; O2SAT 93–96
[2016-11-25] MEDS: CHOLESTYRAMINE LIGHT 4 GM PKT PO SCH ×3 (01:10→22:10)
[2016-11-25] MEDS: LEVOTHYROXINE 125 MCG TAB PO SCH (05:41)
[2016-11-25 06:09] LABS: BASO % 0.7 %; BASO ABS # 0.07 K/uL (0-0.2); COMPLETE YES; EOS % 4.7 %; HEMATOCRIT 30.3 % (37-47); IG% 1.1 %; LYMPH % 13.3 %; LYMPH ABS # 1.39 K/uL (1.2-3.4); MEAN CELL VOLUME 86.8 fL (80-100); MEAN CORPUSCULAR HEMOGLOBIN 28.7 pg (25-34); MEAN PLATELET VOLUME 8.4 fL (7.4-10.4); MONO % 10.1 %; NEUT % 70.1 %; PLATELET COUNT 287 K/uL (130-400); RED BLOOD COUNT 3.49 M/uL (4.2-5.4); WHITE BLOOD COUNT 10.45 K/uL (4.8-10.8)
[2016-11-25 06:50] LABS: BUN/CREATININE RATIO 3.9 (10-20); CALCIUM 7.9 mg/dl (8.5-10.1); CREATININE 3.2 mg/dl (0.60-1.20); MAGNESIUM 1.9 mg/dl (1.8-2.4); POTASSIUM 3.6 mmol/L (3.5-5.1)
[2016-11-25] MEDS: SERTRALINE HCL 50 MG TAB PO SCH (08:00)
[2016-11-25] MEDS: PRAVASTATIN SOD 20 MG TAB PO SCH (08:00)
[2016-11-25] MEDS: CARVEDILOL 6.25 MG TAB PO SCH (08:01)
[2016-11-25] MEDS: AMLODIPINE BESYLATE 5 MG TAB PO SCH (08:01)
[2016-11-25] MEDS: LACTOBACILLUS ACIDOPHILUS (FLORANEX) TAB PO SCH ×3 (08:01→16:47)
[2016-11-25] MEDS: RASPBERRY SYRUP 5 ML UDP PO SCH ×4 (08:02→22:09)
[2016-11-25] MEDS: LISINOPRIL 10 MG TAB PO SCH (08:02)
[2016-11-25] MEDS: VANCOMYCIN HCL 250 MG/5 ML SOLN PO SCH ×4 (08:03→22:09)
[2016-11-25] MEDS: PANTOprazole SOD 40 MG TAB PO SCH ×2 (08:04→22:09)
--- NOTE | 2016-11-25 08:38 | Hospitalist Progress Note ---
Hospitalist Progress Note Date of Service November 25, 2016. Subjective Pt evaluation today including: conversation w/ patient, chart review, conversation w/ business objects consultant increased swelling noted in the right arm, particularly the forearm. Pt denies pain. Underwent HD y. Objective Vital Signs Date Time Temp Pulse Resp B/P Pulse Ox O2 Delivery O2 Flow Rate FiO2 11/25/16 08:17 37.1 85 20 154/66 96 Room Air 11/25/16 04:00 Room Air 11/25/16 04:00 37.4 82 22 146/63 93 Room Air 11/25/16 01:05 36.7 73 140/68 11/25/16 01:00 79 127/60 11/25/16 00:45 79 130/58 11/25/16 00:30 77 129/62 11/25/16 00:15 76 138/60 11/25/16 00:02 36.3 81 20 142/69 96 Room Air 11/25/16 00:00 Room Air 11/25/16 00:00 80 144/57 11/24/16 23:45 79 132/61 11/24/16 23:30 79 126/54 11/24/16 23:15 81 139/69 11/24/16 23:00 80 136/59 11/24/16 22:45 81 127/68 11/24/16 22:30 80 138/71 11/24/16 22:15 76 124/63 11/24/16 22:00 80 125/61 11/24/16 21:45 79 128/64 11/24/16 21:30 79 127/63 11/24/16 21:15 36.1 79 128/64 11/24/16 20:00 Room Air 11/24/16 18:47 37.5 77 20 119/61 92 Room Air 11/24/16 16:00 Room Air 11/24/16 15:21 36.9 72 22 117/55 96 Room Air 11/24/16 12:29 37.0 72 20 123/54 96 Room Air 11/24/16 12:00 Room Air Physical Exam General Appearance: WD/WN Eyes: normal inspection ENT: normal ENT inspection Neck: supple Respiratory/Chest: chest non-tender, lungs clear Cardiovascular: regular rate, rhythm, + systolic murmur Abdomen: normal bowel sounds, non tender, soft Extremities: normal range of motion Neurologic/Psychiatric: tool specialist II-XII nml as tested, alert, oriented x 3 Skin: normal color Laboratory Results Last 24 Hours Test 11/25/16 05:45 White Blood Count 10.45 K/uL Red Blood Count 3.49 M/uL Hemoglobin 10.0 g/dL Hematocrit 30.3 % Mean Corpuscular Volume 86.8 fL Mean Corpuscular Hemoglobin 28.7 pg Mean Corpuscular Hemoglobin Concent 33.0 g/dl Platelet Count 287 K/uL Mean Platelet Volume 8.4 fL Neutrophils (%) (Auto) 70.1 % Lymphocytes (%) (Auto) 13.3 % Monocytes (%) (Auto) 10.1 % Eosinophils (%) (Auto) 4.7 % Basophils (%) (Auto) 0.7 % Neutrophils # (Auto) 7.32 K/uL Lymphocytes # (Auto) 1.39 K/uL Monocytes # (Auto) 1.06 K/uL Eosinophils # (Auto) 0.49 K/uL Basophils # (Auto) 0.07 K/uL RDW Standard Deviation 53.8 fL RDW Coefficient of Variation 17.4 % Immature Granulocyte % (Auto) 1.1 % Immature Granulocyte # (Auto) 0.12 K/uL Sodium Level 138 mmol/L Potassium Level 3.6 mmol/L Chloride Level 102 mmol/L Carbon Dioxide Level 29 mmol/L Anion Gap 7.0 mmol/L Blood Urea Nitrogen 13 mg/dl Creatinine 3.20 mg/dl Est Creatinine Clear Calc Drug Dose 12.6 ml/min Estimated GFR () 14.9 Estimated GFR (Non- 12.8 BUN/Creatinine Ratio 3.9 Random Glucose 67 mg/dl Calcium Level 7.9 mg/dl Magnesium Level 1.9 mg/dl Diagnostic Results DICTATED BY: Tristin Amador M.D.]] CC: Martín Coronado M.D. Smeal, Darren M.D. Endcc: [~ rep ct add3]] RIGHT UPPER EXTREMITY VENOUS DOPPLER HISTORY: ASSESS A/V FISTULA. RIGHT ARM SWELLING Right COMPARISON STUDY: Right arm venous Doppler 11/06/2016. FINDINGS: The right internal jugular vein is patent. There is subcutaneous edema throughout the right upper extremity. Branches of the right cephalic vein within the forearm appear occluded. There is a complex fluid collection surrounding the right cephalic vein within the upper arm which is stable to slightly increased in size. This favors a small hematoma. There is no color-flow to suggest a pseudoaneurysm. The subclavian and axillary veins are patent. The fistula within the right upper arm appears patent. A subclavian stent is again noted. IMPRESSION: 1. Thrombosed branches of the cephalic vein within the forearm. 2. Stable to slight increase in size in the complex fluid collection surrounding the cephalic vein within the upper arm. This is consistent with a hematoma. Electronically signed by: Tristin Amador M.D. 11/25/2016 10:02 AM Assessment and Plan Ms. Jo is an 81 y/o female with PMHx of Chronic Diastolic CHF, CAD with , T2DM (not on medications), ESRD on HD, HLD, HTN, TIA, and PUD who presents with diarrhea x 1 week. Testing reveals C. Diff positive. C. Diff Colitis: - Vancomycin 250 mg QID - FULL DAY #3 - Questran 4 g BID and probiotics Fluid and Electrolytes: - NSS + KCl 10 mEq at 80 mL/hr - Hypokalemia - improving and now at 3.0 - schedule for 4K with no UF at dialysis - Hypomagnesemia - RESOLVED - Will stop IV fluids as per Renal recommendations ESRD on HD Dialysis (MWF) with Anemia of Chronic Disease: STABLE - Folate deficiency on previous admission - Folic acid 1 mg daily - Nephrology consulted - recommendations reviewed - plan for HD today Swelling right arm. - Underwent HD without any problems y.day - Known to Vascular surgery service and will consult them - No evidence of DVT of right arm. Branches of right cephalic vein are occluded. CAD with Aortic Stenosis/HTN/Chronic Diastolic CHF: STABLE - Norvasc 10 mg daily, Coreg 6.25 mg daily, and Lisinopril 10 mg daily DVT Prophylaxis: SCDs Code Status: FULL RESUSCITATION Disposition: Patient lives alone with OOA with multiple services - On previous admission, PT/OT evaluations recommended 24/7 care and took approx a week to locate family as patient kept reporting that she lives with son /[id number] - Did finally find another daughter (Candy) that states she would be able to check on patient as OOA caregivers are not 24/7 - family wanted patient to return home as they felt she is not as confused at home. On previous admission and now I do suspect advanced dementia as confusion seems to be consistent as patient has a tendency to confabulate - PT/OT evaluations
--- NOTE | 2016-11-25 10:03 | DIAGNOSTIC IMAGING REPORT ---
RIGHT UPPER EXTREMITY VENOUS DOPPLER HISTORY: ASSESS A/V FISTULA. RIGHT ARM SWELLING Right COMPARISON STUDY: Right arm venous Doppler 11/06/2016. FINDINGS: The right internal jugular vein is patent. There is subcutaneous edema throughout the right upper extremity. Branches of the right cephalic vein within the forearm appear occluded. There is a complex fluid collection surrounding the right cephalic vein within the upper arm which is stable to slightly increased in size. This favors a small hematoma. There is no color-flow to suggest a pseudoaneurysm. The subclavian and axillary veins are patent. The fistula within the right upper arm appears patent. A subclavian stent is again noted. IMPRESSION: 1. Thrombosed branches of the cephalic vein within the forearm. 2. Stable to slight increase in size in the complex fluid collection surrounding the cephalic vein within the upper arm. This is consistent with a hematoma. Electronically signed by: Tristin Amador M.D. 11/25/2016 10:02 AM Dictated Date/Time: 11/25/2016 9:57 AM
[2016-11-25] MEDS: POTASSIUM CHLORIDE INJ 10 MEQ in SODIUM CHLORIDE 0.9% 1000ML 1,000 ML IV SCH (10:48)
--- NOTE | 2016-11-25 13:06 | Nephrology Progress Note ---
Nephrology Progress Note Date of Service November 25, 2016. Chief Complaint Follow-up for end-stage renal disease on hemodialysis. Suze Cummins Was seen and examined in her room this morning. She is otherwise feeling fine, denies any shortness of breath, chest pain. Blood pressure, volume status and electrolyte acceptable. Her right upper extremity swelling seems to have worsened. Doppler showed thrombosis in cephalic vein. Review of Systems A complete review of systems was performed. Pertinent positives are noted above. All other systems are negative. Vital Signs Last 8 Hrs Date Time Temp Pulse Resp B/P Pulse Ox O2 Delivery O2 Flow Rate FiO2 11/25/16 12:23 37.1 71 20 120/52 95 Room Air 11/25/16 12:00 Room Air 11/25/16 08:17 37.1 85 20 154/66 96 Room Air 11/25/16 08:00 Room Air I & O 24-Hour Column 11/25/16 08:00 Intake Total 2141 ml Output Total 0 ml Balance 2141 ml Last Recorded Weight Weight (Kilograms): 68.900 Physical Exam GENERAL: Elderly female, AAA x 3, pleasant, healthy-appearing, not in any distress. NECK: Supple, no JVD. RESPIRATORY: Normal breathing efforts, no accessory muscle use, clear to auscultation bilaterally, no wheezes or rales. CARDIOVASCULAR: S1, S2 normal, rate rhythm regular. EXTREMITY: No lower extremity edema, significant swelling of the right upper extremity. AV fistula with thrill and bruit. NEURO: speech fluent. PSYCHIATRY: Normal mood and judgment Family History Patient reports no known family medical history. Negative for CKD/ESRD Social History Smoking Status: Never smoker Smokeless Tobacco Use: No Alcohol Use: none Drug Use: none Marital Status: Occupation: retired . Retired. Former smoker Laboratory Results Past 24 Hours 11/25/16 05:45 Red Blood Count 3.49, Mean Corpuscular Volume 86.8, Mean Corpuscular Hemoglobin 28.7, Mean Corpuscular Hemoglobin Concent 33.0, Mean Platelet Volume 8.4, Neutrophils (%) (Auto) 70.1, Lymphocytes (%) (Auto) 13.3, Monocytes (%) (Auto) 10.1, Eosinophils (%) (Auto) 4.7, Basophils (%) (Auto) 0.7, Neutrophils # (Auto ) 7.32, Lymphocytes # (Auto) 1.39, Monocytes # (Auto) 1.06, Eosinophils # (Auto ) 0.49, Basophils # (Auto) 0.07 11/25/16 05:45 Test 11/25/16 05:45 White Blood Count 10.45 K/uL (4.8-10.8) Red Blood Count 3.49 M/uL (4.2-5.4) Hemoglobin 10.0 g/dL (12.0-16.0) Hematocrit 30.3 % (37-47) Mean Corpuscular Volume 86.8 fL (80-100) Mean Corpuscular Hemoglobin 28.7 pg (25-34) Mean Corpuscular Hemoglobin Concent 33.0 g/dl (32-36) Platelet Count 287 K/uL (130-400) Mean Platelet Volume 8.4 fL (7.4-10.4) Neutrophils (%) (Auto) 70.1 % Lymphocytes (%) (Auto) 13.3 % Monocytes (%) (Auto) 10.1 % Eosinophils (%) (Auto) 4.7 % Basophils (%) (Auto) 0.7 % Neutrophils # (Auto) 7.32 K/uL (1.4-6.5) Lymphocytes # (Auto) 1.39 K/uL (1.2-3.4) Monocytes # (Auto) 1.06 K/uL (0.11-0.59) Eosinophils # (Auto) 0.49 K/uL (0-0.5) Basophils # (Auto) 0.07 K/uL (0-0.2) RDW Standard Deviation 53.8 fL (36.4-46.3) RDW Coefficient of Variation 17.4 % (11.5-14.5) Immature Granulocyte % (Auto) 1.1 % Immature Granulocyte # (Auto) 0.12 K/uL (0.00-0.02) Anion Gap 7.0 mmol/L (3-11) Est Creatinine Clear Calc Drug Dose 12.6 ml/min Estimated GFR () 14.9 Estimated GFR (Non- 12.8 BUN/Creatinine Ratio 3.9 (10-20) Calcium Level 7.9 mg/dl (8.5-10.1) Magnesium Level 1.9 mg/dl (1.8-2.4) Allergies Coded Allergies: Diazepam (Verified Adverse Reaction, Severe, CHEST PAIN, 11/22/16) Medications Current Inpatient Medications Medications (Trade) Dose Ordered Sig/Rach Route Start Time Stop Time Status Last Admin Dose Admin Acetaminophen (Tylenol Tab) 650 mg Q4H PRN PO 11/22/16 23:30 12/22/16 23:29 Zolpidem Tartrate (Ambien Tab) 5 mg HSZ PRN PO 11/22/16 23:30 12/22/16 23:29 Amlodipine Besylate (Norvasc Tab) 10 mg DAILY PO 11/23/16 09:00 12/23/16 08:59 11/25/16 08:01 10 MG Carvedilol (Coreg Tab) 6.25 mg QAM PO 11/23/16 09:00 12/23/16 08:59 11/25/16 08:01 6.25 MG Folic Acid (Folvite Tab) 1 mg DAILY PO 11/23/16 09:00 12/23/16 08:59 11/25/16 08:04 1 MG Lactobacillus Acidophilus (Floranex Tab) 4 tab TIDM PO 11/23/16 07:30 12/23/16 07:59 11/25/16 11:40 4 TAB Levothyroxine Sodium (Synthroid Tab) 125 mcg DAILYBB PO 11/23/16 06:00 12/23/16 05:59 11/25/16 05:41 125 MCG Lisinopril (Zestril Tab) 10 mg QAM PO 11/23/16 09:00 12/23/16 08:59 11/25/16 08:02 10 MG Pantoprazole Sodium (Protonix Tab) 40 mg BID PO 11/23/16 09:00 12/23/16 08:59 11/25/16 08:04 40 MG Pravastatin Sodium (Pravachol Tab) 20 mg DAILY PO 11/23/16 09:00 12/23/16 08:59 11/25/16 08:00 20 MG Sertraline HCl (Zoloft Tab) 50 mg DAILY PO 11/23/16 09:00 12/23/16 08:59 11/25/16 08:00 50 MG Vancomycin HCl (Vancomycin Oral Soln) 250 mg QID PO 11/23/16 09:00 12/07/16 08:59 11/25/16 08:03 250 MG Ondansetron HCl (Zofran Inj) 4 mg Q6H PRN IV 11/22/16 23:45 12/22/16 23:44 Cholestyramine Resin (Questran Powder Light) 4 gm BID@10,22 PO 11/23/16 10:00 12/23/16 09:59 11/25/16 10:00 4 GM Raspberry 5 ml 5 ml QID PO 11/23/16 09:00 12/07/16 08:59 11/25/16 08:02 5 ML Potassium Chloride/Sodium Chloride (KCl Inj/Nss 1000ml) 1,005 ml @ 80 mls/hr [id number] IV 11/23/16 08:15 12/23/16 08:14 11/25/16 10:48 80 MLS/HR Impression (1) End-stage renal disease on hemodialysis (2) Hypokalemia (3) Diarrhea (4) C. difficile colitis (5) DM2 (diabetes mellitus, type 2) Patient admitted w/ hypokalemia and dehydration due to Clostridium Difficile colitis. She has ESRD and requires HD MWF Recommendations END STAGE RENAL DISEASE: -- had dialysis yesterday, currently volume status blood pressure and electrolyte acceptable. --Discontinue IV fluid and avoid any further IV fluid --Dose medications for GFR less than 10 --suggest vascular surgery consult for right upper extremity thrombosis -- continue on Nephrocaps --phosphate binder with meal --MAGEN with dialysis HYPOKALEMIA: Resolved, received high potassium bath dialysis yesterday ID: -- Stool tested positive for clostridium difficile toxin -- Continue oral Vancomycin therapy
[2016-11-26] VITALS: BP 116/64; PULSE 81; TEMP 37; O2SAT 92
[2016-11-26] MEDS: LEVOTHYROXINE 125 MCG TAB PO SCH (06:14)
[2016-11-26 07:19] VITALS: BP 130/63; PULSE 77; TEMP 36.5; O2SAT 95
[2016-11-26] MEDS: RASPBERRY SYRUP 5 ML UDP PO SCH ×4 (08:21→21:45)
[2016-11-26] MEDS: CHOLESTYRAMINE LIGHT 4 GM PKT PO SCH ×2 (08:21→21:46)
[2016-11-26] MEDS: VANCOMYCIN HCL 250 MG/5 ML SOLN PO SCH ×4 (08:21→21:45)
[2016-11-26] MEDS: LISINOPRIL 10 MG TAB PO SCH (08:21)
[2016-11-26] MEDS: SERTRALINE HCL 50 MG TAB PO SCH (08:21)
[2016-11-26] MEDS: PANTOprazole SOD 40 MG TAB PO SCH ×2 (08:22→21:45)
[2016-11-26] MEDS: AMLODIPINE BESYLATE 5 MG TAB PO SCH (08:22)
[2016-11-26] MEDS: PRAVASTATIN SOD 20 MG TAB PO SCH (08:22)
[2016-11-26] MEDS: LACTOBACILLUS ACIDOPHILUS (FLORANEX) TAB PO SCH ×3 (08:22→16:43)
[2016-11-26] MEDS: CARVEDILOL 6.25 MG TAB PO SCH (08:22)
[2016-11-26 08:36] LABS: BUN/CREATININE RATIO 5.2 (10-20); CREATININE 4.3 mg/dl (0.60-1.20); PHOSPHORUS 1.9 mg/dl (2.5-4.9); POTASSIUM 3.7 mmol/L (3.5-5.1)
[2016-11-26 08:46] LABS: CALCIUM 7.6 mg/dl (8.5-10.1)
--- NOTE | 2016-11-26 09:49 | Nephrology Progress Note ---
Nephrology Progress Note Date of Service November 26, 2016. Chief Complaint Follow-up for end-stage renal disease on hemodialysis. Suze Cummins Was seen and examined in her room this morning. She is otherwise feeling fine, denies any shortness of breath, chest pain. Blood pressure, volume status and electrolyte acceptable. Continues to have diarrhea but improving. Her right upper extremity swelling seems to have worsened. Doppler showed thrombosis in cephalic vein. Review of Systems A complete review of systems was performed. Pertinent positives are noted above. All other systems are negative. Vital Signs Last 8 Hrs Date Time Temp Pulse Resp B/P Pulse Ox O2 Delivery O2 Flow Rate FiO2 11/26/16 07:19 36.5 77 18 130/63 95 Room Air 11/26/16 00:00 Room Air 11/26/16 00:00 37.0 81 18 116/64 92 Room Air I & O 24-Hour Column 11/26/16 08:00 Intake Total 800 ml Balance 800 ml Last Recorded Weight Weight (Kilograms): 68.900 Physical Exam GENERAL: Elderly female, AAA x 3, pleasant, healthy-appearing, not in any distress. NECK: Supple, no JVD. RESPIRATORY: Normal breathing efforts, no accessory muscle use, clear to auscultation bilaterally, no wheezes or rales. CARDIOVASCULAR: S1, S2 normal, rate rhythm regular. EXTREMITY: No lower extremity edema, significant swelling of the right upper extremity. AV fistula with thrill and bruit. NEURO: speech fluent. PSYCHIATRY: Normal mood and judgment Family History Patient reports no known family medical history. Negative for CKD/ESRD Social History Smoking Status: Never smoker Smokeless Tobacco Use: No Alcohol Use: none Drug Use: none Marital Status: Occupation: retired . Retired. Former smoker Laboratory Results Past 24 Hours Test 11/26/16 04:44 Allergies Coded Allergies: Diazepam (Verified Adverse Reaction, Severe, CHEST PAIN, 11/22/16) Medications Current Inpatient Medications Medications (Trade) Dose Ordered Sig/Rach Route Start Time Stop Time Status Last Admin Dose Admin Acetaminophen (Tylenol Tab) 650 mg Q4H PRN PO 11/22/16 23:30 12/22/16 23:29 Zolpidem Tartrate (Ambien Tab) 5 mg HSZ PRN PO 11/22/16 23:30 12/22/16 23:29 Amlodipine Besylate (Norvasc Tab) 10 mg DAILY PO 11/23/16 09:00 12/23/16 08:59 11/25/16 08:01 10 MG Carvedilol (Coreg Tab) 6.25 mg QAM PO 11/23/16 09:00 12/23/16 08:59 11/25/16 08:01 6.25 MG Folic Acid (Folvite Tab) 1 mg DAILY PO 11/23/16 09:00 12/23/16 08:59 11/25/16 08:04 1 MG Lactobacillus Acidophilus (Floranex Tab) 4 tab TIDM PO 11/23/16 07:30 12/23/16 07:59 11/25/16 16:47 4 TAB Levothyroxine Sodium (Synthroid Tab) 125 mcg DAILYBB PO 11/23/16 06:00 12/23/16 05:59 11/26/16 06:14 125 MCG Lisinopril (Zestril Tab) 10 mg QAM PO 11/23/16 09:00 12/23/16 08:59 11/25/16 08:02 10 MG Pantoprazole Sodium (Protonix Tab) 40 mg BID PO 11/23/16 09:00 12/23/16 08:59 11/25/16 22:09 40 MG Pravastatin Sodium (Pravachol Tab) 20 mg DAILY PO 11/23/16 09:00 12/23/16 08:59 11/25/16 08:00 20 MG Sertraline HCl (Zoloft Tab) 50 mg DAILY PO 11/23/16 09:00 12/23/16 08:59 11/25/16 08:00 50 MG Vancomycin HCl (Vancomycin Oral Soln) 250 mg QID PO 11/23/16 09:00 12/07/16 08:59 11/25/16 22:09 250 MG Ondansetron HCl (Zofran Inj) 4 mg Q6H PRN IV 11/22/16 23:45 12/22/16 23:44 Cholestyramine Resin (Questran Powder Light) 4 gm BID@ PO 11/23/16 10:00 12/23/16 09:59 11/25/16 22:10 4 GM Raspberry (Raspberry Syrup 5ml Cup) 5 ml QID PO 11/23/16 09:00 12/07/16 08:59 11/25/16 22:09 5 ML Impression (1) End-stage renal disease on hemodialysis (2) Hypokalemia (3) Diarrhea (4) C. difficile colitis (5) DM2 (diabetes mellitus, type 2) Patient admitted w/ hypokalemia and dehydration due to Clostridium Difficile colitis. She has ESRD and requires HD MWF Recommendations -- had dialysis Sunday, currently volume status blood pressure and electrolyte acceptable. --avoid any further IV fluid --Dose medications for GFR less than 10 --vascular surgery consulted for right upper extremity thrombosis -- continue on Nephrocaps --phosphate binder with meal --MAGEN with dialysis --on oral Vancomycin therapy for C. diff
--- NOTE | 2016-11-26 11:27 | Hospitalist Progress Note ---
Hospitalist Progress Note Date of Service November 26, 2016. Subjective Pt evaluation today including: conversation w/ patient, physical exam, chart review Resting in bed. Improved diarrhea. No CP Denies pain in the right upper extremity Objective Vital Signs Date Time Temp Pulse Resp B/P Pulse Ox O2 Delivery O2 Flow Rate FiO2 11/26/16 08:30 Room Air 11/26/16 07:19 36.5 77 18 130/63 95 Room Air 11/26/16 00:00 Room Air 11/26/16 00:00 37.0 81 18 116/64 92 Room Air 11/25/16 20:00 Room Air 11/25/16 17:00 Room Air 11/25/16 16:13 36.5 75 18 150/70 94 Room Air 11/25/16 15:47 37.1 71 20 95 11/25/16 12:23 37.1 71 20 120/52 95 Room Air 11/25/16 12:00 Room Air Physical Exam General Appearance: WD/WN Eyes: normal inspection ENT: normal ENT inspection Neck: supple, no JVD Respiratory/Chest: chest non-tender, + decreased breath sounds Cardiovascular: regular rate, rhythm, no JVD, + systolic murmur Abdomen: normal bowel sounds, non tender, soft Extremities: + pedal edema, + pertinent finding (right arm AV fistula with thrill and bruit. Significant edema noted in the right forearm) Neurologic/Psychiatric: alert, oriented x 3 Skin: + pallor Laboratory Results Last 24 Hours Test 11/26/16 08:03 Sodium Level 134 mmol/L Potassium Level 3.7 mmol/L Chloride Level 99 mmol/L Carbon Dioxide Level 27 mmol/L Anion Gap 8.0 mmol/L Blood Urea Nitrogen 22 mg/dl Creatinine 4.30 mg/dl Est Creatinine Clear Calc Drug Dose 9.4 ml/min Estimated GFR () 10.4 Estimated GFR (Non- 9.0 BUN/Creatinine Ratio 5.2 Random Glucose 69 mg/dl Calcium Level 7.6 mg/dl Phosphorus Level 1.9 mg/dl Albumin 2.1 gm/dl Diagnostic Results RIGHT UPPER EXTREMITY VENOUS DOPPLER HISTORY: ASSESS A/V FISTULA. RIGHT ARM SWELLING Right COMPARISON STUDY: Right arm venous Doppler 11/06/2016. FINDINGS: The right internal jugular vein is patent. There is subcutaneous edema throughout the right upper extremity. Branches of the right cephalic vein within the forearm appear occluded. There is a complex fluid collection surrounding the right cephalic vein within the upper arm which is stable to slightly increased in size. This favors a small hematoma. There is no color-flow to suggest a pseudoaneurysm. The subclavian and axillary veins are patent. The fistula within the right upper arm appears patent. A subclavian stent is again noted. IMPRESSION: 1. Thrombosed branches of the cephalic vein within the forearm. 2. Stable to slight increase in size in the complex fluid collection surrounding the cephalic vein within the upper arm. This is consistent with a hematoma. Electronically signed by: Tristin Amador M.D. 11/25/2016 10:02 AM Assessment and Plan Ms. Jo is an 81 y/o female with PMHx of Chronic Diastolic CHF, CAD with , T2DM (not on medications), ESRD on HD, HLD, HTN, TIA, and PUD who presents with diarrhea x 1 week. Testing reveals C. Diff positive. C. Diff Colitis: - Vancomycin 250 mg QID - FULL DAY #3 - Questran 4 g BID and probiotics Fluid and Electrolytes: - NSS + KCl 10 mEq at 80 mL/hr - Hypokalemia - improving and now at 3.0 - schedule for 4K with no UF at dialysis - Hypomagnesemia - RESOLVED - Will stop IV fluids as per Renal recommendations ESRD on HD Dialysis (MWF) with Anemia of Chronic Disease: STABLE - Folate deficiency on previous admission - Folic acid 1 mg daily - Nephrology consulted - recommendations reviewed - plan for HD today Swelling right arm. - Underwent HD without any problems y.day - Known to Vascular surgery service and will consult them - No evidence of DVT of right arm. Branches of right cephalic vein are occluded. CAD with Aortic Stenosis/HTN/Chronic Diastolic CHF: STABLE - Norvasc 10 mg daily, Coreg 6.25 mg daily, and Lisinopril 10 mg daily DVT Prophylaxis: SCDs Code Status: FULL RESUSCITATION Disposition: Patient lives alone with OOA with multiple services - On previous admission, PT/OT evaluations recommended 24/7 care and took approx a week to locate family as patient kept reporting that she lives with son /[id number] - Did finally find another daughter (Candy) that states she would be able to check on patient as OOA caregivers are not 24/7 - family wanted patient to return home as they felt she is not as confused at home. On previous admission and now I do suspect advanced dementia as confusion seems to be consistent as patient has a tendency to confabulate - PT/OT evaluations
[2016-11-26 15:11] VITALS: BP 103/55; PULSE 70; TEMP 37.5; O2SAT 92
[2016-11-26 23:13] VITALS: BP 111/46; PULSE 74; TEMP 36.2; O2SAT 95
[2016-11-26 23:40] VITALS: BP 135/64; PULSE 75
[2016-11-27] VITALS (17 sets, daily range): BP systolic 80–130; BP diastolic 40–65; PULSE 62–74; TEMP 36.1–36.7; O2SAT 96
[2016-11-27] MEDS: LEVOTHYROXINE 125 MCG TAB PO SCH (06:02)
[2016-11-27] MEDS: VANCOMYCIN HCL 250 MG/5 ML SOLN PO SCH ×4 (08:01→21:14)
[2016-11-27] MEDS: LACTOBACILLUS ACIDOPHILUS (FLORANEX) TAB PO SCH ×3 (08:02→17:17)
[2016-11-27] MEDS: RASPBERRY SYRUP 5 ML UDP PO SCH ×4 (08:02→21:14)
[2016-11-27] MEDS: CARVEDILOL 6.25 MG TAB PO SCH (08:03)
[2016-11-27] MEDS: SERTRALINE HCL 50 MG TAB PO SCH (08:04)
[2016-11-27] MEDS: PRAVASTATIN SOD 20 MG TAB PO SCH (08:04)
[2016-11-27] MEDS: PANTOprazole SOD 40 MG TAB PO SCH ×2 (08:04→21:14)
[2016-11-27] MEDS: AMLODIPINE BESYLATE 5 MG TAB PO SCH (08:05)
[2016-11-27] MEDS: LISINOPRIL 10 MG TAB PO SCH (08:05)
--- NOTE | 2016-11-27 09:07 | Medical Consult ---
Consultation Note Date of Service November 27, 2016. Consultation Note 81 yo f known to Dr Street for vascular access for HD, seen today for RUE edema. Pt 2 wks s/p RUE AVF revision/venorrhaphy d/t large venous aneurysm. Incision well healed. 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 Edema has been present for a long time, and RUE AVF continues to function appropriately. Will plan to perform RUE venogram via femoral approach after resolution of her C diff infection. Please call if needed otherwise.
[2016-11-27 09:16] LABS: BUN/CREATININE RATIO 5.4 (10-20); PHOSPHORUS 2.4 mg/dl (2.5-4.9); POTASSIUM 3.7 mmol/L (3.5-5.1)
[2016-11-27 09:17] LABS: CREATININE 5.4 mg/dl (0.60-1.20)
[2016-11-27 09:33] LABS: CALCIUM 8.2 mg/dl (8.5-10.1)
[2016-11-27] MEDS: CHOLESTYRAMINE LIGHT 4 GM PKT PO SCH ×2 (10:00→22:00)
--- NOTE | 2016-11-27 10:26 | Progress Note ---
Subjective Date of Service: November 27, 2016. Subjective Pt evaluation today including: conversation w/ patient, physical exam, lab review, review of studies, conversation w/ microsoft dynamics ax consultant, review of inpatient medication list Pain: denies pain PO Intake: adequate, ate breakfast Voiding: no voiding problems patient receiving hemodialysis currently, tolerating well very sleepy, no specific complaints discussed home situation, has OOA 12 hours a day, family can help at night unclear if she specifically has 24 hour care less diarrhea, no vomiting, no abdominal pain feels weak, unsure if she would be ready to go home tomorrow Problem List Medical Problems: (1) Abnormal EKG Status: Acute (2) Acute CHF (congestive heart failure) Status: Acute (3) Acute CHF (congestive heart failure) Status: Acute (4) Altered mental state Status: Acute (5) Ambulatory dysfunction Status: Acute (6) AV fistula Status: Acute (7) C. difficile colitis Status: Acute (8) Congestive heart failure Status: Acute (9) Dehydration Status: Acute (10) Diarrhea Status: Acute (11) Hematoma Status: Acute (12) Hypokalemia Status: Acute (13) Hypomagnesemia Status: Acute (14) Knee pain Status: Acute (15) Leg hematoma Status: Acute (16) Pneumonia Status: Acute (17) Renal failure Status: Acute (18) Weakness Status: Acute (19) Weakness Status: Acute Review of Systems Constitutional: + fatigue, + weakness Cardiac: + edema (right arm) Abdomen: + diarrhea (less frequent since treatment started) Neurologic: + balance problems, + weakness All Other Systems: Reviewed and Negative Medications Current Inpatient Medications Medications (Trade) Dose Ordered Sig/Rach Route Start Time Stop Time Status Last Admin Dose Admin Acetaminophen (Tylenol Tab) 650 mg Q4H PRN PO 11/22/16 23:30 12/22/16 23:29 Zolpidem Tartrate (Ambien Tab) 5 mg HSZ PRN PO 11/22/16 23:30 12/22/16 23:29 Amlodipine Besylate (Norvasc Tab) 10 mg DAILY PO 11/23/16 09:00 12/23/16 08:59 11/27/16 08:05 10 MG Carvedilol (Coreg Tab) 6.25 mg QAM PO 11/23/16 09:00 12/23/16 08:59 11/27/16 08:03 6.25 MG Folic Acid (Folvite Tab) 1 mg DAILY PO 11/23/16 09:00 12/23/16 08:59 11/27/16 08:04 1 MG Lactobacillus Acidophilus (Floranex Tab) 4 tab TIDM PO 11/23/16 07:30 12/23/16 07:59 11/27/16 08:02 4 TAB Levothyroxine Sodium (Synthroid Tab) 125 mcg DAILYBB PO 11/23/16 06:00 12/23/16 05:59 11/27/16 06:02 125 MCG Lisinopril (Zestril Tab) 10 mg QAM PO 11/23/16 09:00 12/23/16 08:59 11/27/16 08:05 10 MG Pantoprazole Sodium (Protonix Tab) 40 mg BID PO 11/23/16 09:00 12/23/16 08:59 11/27/16 08:04 40 MG Pravastatin Sodium (Pravachol Tab) 20 mg DAILY PO 11/23/16 09:00 12/23/16 08:59 11/27/16 08:04 20 MG Sertraline HCl (Zoloft Tab) 50 mg DAILY PO 11/23/16 09:00 12/23/16 08:59 11/27/16 08:04 50 MG Vancomycin HCl (Vancomycin Oral Soln) 250 mg QID PO 11/23/16 09:00 12/07/16 08:59 11/27/16 08:01 250 MG Ondansetron HCl (Zofran Inj) 4 mg Q6H PRN IV 11/22/16 23:45 12/22/16 23:44 Cholestyramine Resin (Questran Powder Light) 4 gm BID@10,22 PO 11/23/16 10:00 12/23/16 09:59 11/26/16 21:46 4 GM Raspberry (Raspberry Syrup 5ml Cup) 5 ml QID PO 11/23/16 09:00 12/07/16 08:59 11/27/16 08:02 5 ML Objective Vital Signs Date Time Temp Pulse Resp B/P Pulse Ox O2 Delivery O2 Flow Rate FiO2 11/27/16 10:00 65 85/45 11/27/16 09:45 67 81/40 11/27/16 09:30 69 88/42 11/27/16 09:15 70 86/43 11/27/16 08:54 71 101/44 11/27/16 08:00 Room Air 11/27/16 07:45 36.6 74 18 130/61 96 11/27/16 00:00 Room Air 11/26/16 23:40 75 135/64 11/26/16 23:13 36.2 74 18 111/46 95 Room Air 11/26/16 20:00 Room Air 11/26/16 16:30 Room Air 11/26/16 15:11 37.5 70 18 103/55 92 Room Air Physical Exam General Appearance: WD/WN, no apparent distress Eyes: normal inspection, EOMI, sclerae normal Neck: supple, no adenopathy, no JVD, trachea midline Respiratory/Chest: chest non-tender, lungs clear, normal breath sounds, no respiratory distress, no accessory muscle use Cardiovascular: regular rate, rhythm, no gallop, no JVD, no murmur Abdomen: normal bowel sounds, non tender, soft, no organomegaly Extremities: normal range of motion, non-tender, normal inspection, no calf tenderness, + pertinent finding (right arm swollen, significant) Neurologic/Psychiatric: 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 tested, alert, normal mood/affect, oriented x 3, + motor weakness (generalized, more pronounce with ongoing HD this AM) Skin: normal color, warm/dry, no rash Laboratory Results Last 24 Hours Test 11/27/16 07:19 Sodium Level 134 mmol/L Potassium Level 3.7 mmol/L Chloride Level 100 mmol/L Carbon Dioxide Level 24 mmol/L Anion Gap 10.0 mmol/L Blood Urea Nitrogen 29 mg/dl Creatinine 5.40 mg/dl Est Creatinine Clear Calc Drug Dose 7.5 ml/min Estimated GFR () 7.9 Estimated GFR (Non- 6.8 BUN/Creatinine Ratio 5.4 Random Glucose 80 mg/dl Calcium Level 8.2 mg/dl Phosphorus Level 2.4 mg/dl Albumin 2.0 gm/dl Assessment and Plan Ms. Jo is an 81 y/o female with PMHx of Chronic Diastolic CHF, CAD with , T2DM (not on medications), ESRD on HD, HLD, HTN, TIA, and PUD who presents with diarrhea x 1 week. Testing reveals C. Diff positive. C. Diff Colitis: improving with the below treatment, needs 2 weeks total treatment - Vancomycin 250 mg QID - FULL DAY #4 - Questran 4 g BID and probiotics ESRD on HD Dialysis (MWF) with Anemia of Chronic Disease: STABLE - Folate deficiency on previous admission - Folic acid 1 mg daily - Nephrology consulted - continue HD on MWF scheduled, receiving today Swelling right arm. - Underwent HD without any problems, fistula functioning well - Known to Vascular surgery service - they recommend venogram once C diff fully treated follow up outpatient - No evidence of DVT of right arm. Branches of right cephalic vein are occluded CAD with Aortic Stenosis/HTN/Chronic Diastolic CHF: STABLE - Norvasc 10 mg daily, Coreg 6.25 mg daily, and Lisinopril 10 mg daily DVT Prophylaxis: SCDs Code Status: FULL RESUSCITATION Disposition: Patient lives alone with OOA with multiple services - On previous admission, PT/OT evaluations recommended 24/7 care and again PT note this admission recommends SNF with rehab to improve strength - feel that she would recommend rehab, admits that she is weak, likely too weak to be at home, however, medically she would be stable for d/c tomorrow - CM will need to discuss with patient and family Continued [facility] stay due to: multiple IV medications needed Discharge planning: uncertain
--- NOTE | 2016-11-27 11:34 | Dialysis Progress Note ---
Hemodialysis Note Date of Service November 27, 2016. Chief Complaint Follow-up for end-stage renal disease on hemodialysis. Subjective Maria G was seen and examined during HD Rx this am. tolerating Rx well, denies any symptoms. Diarrhea improving. BP stable. Review of Systems A complete review of systems was performed. Pertinent positives are noted above. All other systems are negative. Vital Signs Last 8 Hrs Date Time Temp Pulse Resp B/P Pulse Ox O2 Delivery O2 Flow Rate FiO2 11/27/16 11:15 68 93/45 11/27/16 11:00 67 99/50 11/27/16 10:45 62 97/45 11/27/16 10:30 64 89/46 11/27/16 10:15 66 80/43 11/27/16 10:00 65 85/45 11/27/16 09:45 67 81/40 11/27/16 09:30 69 88/42 11/27/16 09:15 70 86/43 11/27/16 08:54 71 101/44 11/27/16 08:00 Room Air 11/27/16 07:45 36.6 74 18 130/61 96 I & O 24-Hour Column 11/27/16 07:59 Intake Total 420 ml Balance 420 ml Last Recorded Weight Weight (Kilograms): 68.900 Physical Exam GENERAL: Elderly female, AAA x 3, pleasant, healthy-appearing, not in any distress. NECK: Supple, no JVD. RESPIRATORY: Normal breathing efforts, no accessory muscle use, clear to auscultation bilaterally, no wheezes or rales. CARDIOVASCULAR: S1, S2 normal, rate rhythm regular. EXTREMITY: No lower extremity edema, significant swelling of the right upper extremity. AV fistula with thrill and bruit. NEURO: speech fluent. PSYCHIATRY: Normal mood and judgment Family History Negative for CKD/ESRD Social History Smoking Status: Never smoker Smokeless Tobacco Use: No Alcohol Use: none Drug Use: none Marital Status: Occupation: retired . Retired. Former smoker Laboratory Results Past 24 Hours 11/27/16 07:19 Test 11/27/16 07:19 Anion Gap 10.0 mmol/L (3-11) Est Creatinine Clear Calc Drug Dose 7.5 ml/min Estimated GFR () 7.9 Estimated GFR (Non- 6.8 BUN/Creatinine Ratio 5.4 (10-20) Calcium Level 8.2 mg/dl (8.5-10.1) Phosphorus Level 2.4 mg/dl (2.5-4.9) Albumin 2.0 gm/dl (3.4-5.0) Allergies Coded Allergies: Diazepam (Verified Adverse Reaction, Severe, CHEST PAIN, 11/22/16) Medications Current Inpatient Medications Medications (Trade) Dose Ordered Sig/Rach Route Start Time Stop Time Status Last Admin Dose Admin Acetaminophen (Tylenol Tab) 650 mg Q4H PRN PO 11/22/16 23:30 12/22/16 23:29 Zolpidem Tartrate (Ambien Tab) 5 mg HSZ PRN PO 11/22/16 23:30 12/22/16 23:29 Amlodipine Besylate (Norvasc Tab) 10 mg DAILY PO 11/23/16 09:00 12/23/16 08:59 11/27/16 08:05 10 MG Carvedilol (Coreg Tab) 6.25 mg QAM PO 11/23/16 09:00 12/23/16 08:59 11/27/16 08:03 6.25 MG Folic Acid (Folvite Tab) 1 mg DAILY PO 11/23/16 09:00 12/23/16 08:59 11/27/16 08:04 1 MG Lactobacillus Acidophilus (Floranex Tab) 4 tab TIDM PO 11/23/16 07:30 12/23/16 07:59 11/27/16 08:02 4 TAB Levothyroxine Sodium (Synthroid Tab) 125 mcg DAILYBB PO 11/23/16 06:00 12/23/16 05:59 11/27/16 06:02 125 MCG Lisinopril (Zestril Tab) 10 mg QAM PO 11/23/16 09:00 12/23/16 08:59 11/27/16 08:05 10 MG Pantoprazole Sodium (Protonix Tab) 40 mg BID PO 11/23/16 09:00 12/23/16 08:59 11/27/16 08:04 40 MG Pravastatin Sodium (Pravachol Tab) 20 mg DAILY PO 11/23/16 09:00 12/23/16 08:59 11/27/16 08:04 20 MG Sertraline HCl (Zoloft Tab) 50 mg DAILY PO 11/23/16 09:00 12/23/16 08:59 11/27/16 08:04 50 MG Vancomycin HCl (Vancomycin Oral Soln) 250 mg QID PO 11/23/16 09:00 12/07/16 08:59 11/27/16 08:01 250 MG Ondansetron HCl (Zofran Inj) 4 mg Q6H PRN IV 11/22/16 23:45 12/22/16 23:44 Cholestyramine Resin (Questran Powder Light) 4 gm BID@ PO 11/23/16 10:00 12/23/16 09:59 11/26/16 21:46 4 GM Raspberry (Raspberry Syrup 5ml Cup) 5 ml QID PO 11/23/16 09:00 12/07/16 08:59 11/27/16 08:02 5 ML Impression (1) End-stage renal disease on hemodialysis (2) Hypokalemia (3) Diarrhea (4) C. difficile colitis (5) DM2 (diabetes mellitus, type 2) Patient admitted w/ hypokalemia and dehydration due to Clostridium Difficile colitis. She has ESRD and requires HD MWF Recommendations --currently getting HD tolerating well. Volume status, blood pressure and electrolyte acceptable. --avoid any further IV fluid --Dose medications for GFR less than 10 --continue on Nephrocaps --phosphate binder with meal --MAGEN with dialysis --on oral Vancomycin therapy for C. diff
[2016-11-28 00:17] VITALS: BP 121/53; PULSE 77; TEMP 37.1; O2SAT 93
[2016-11-28] MEDS: LEVOTHYROXINE 125 MCG TAB PO SCH (05:45)
[2016-11-28 07:57] VITALS: BP 135/56; PULSE 83; TEMP 36.8; O2SAT 93
[2016-11-28] MEDS: LISINOPRIL 10 MG TAB PO SCH (08:28)
[2016-11-28] MEDS: SERTRALINE HCL 50 MG TAB PO SCH (08:28)
[2016-11-28] MEDS: PANTOprazole SOD 40 MG TAB PO SCH ×2 (08:28→21:05)
[2016-11-28] MEDS: VANCOMYCIN HCL 250 MG/5 ML SOLN PO SCH ×4 (08:29→21:04)
[2016-11-28] MEDS: LACTOBACILLUS ACIDOPHILUS (FLORANEX) TAB PO SCH ×3 (08:29→16:53)
[2016-11-28] MEDS: RASPBERRY SYRUP 5 ML UDP PO SCH ×4 (08:29→21:04)
[2016-11-28] MEDS: CARVEDILOL 6.25 MG TAB PO SCH (08:29)
[2016-11-28] MEDS: PRAVASTATIN SOD 20 MG TAB PO SCH (08:29)
[2016-11-28] MEDS: AMLODIPINE BESYLATE 5 MG TAB PO SCH (08:30)
[2016-11-28] MEDS: CHOLESTYRAMINE LIGHT 4 GM PKT PO SCH ×2 (08:30→21:04)
[2016-11-28] MEDS ORDERED: QSTP PO (10:00)
[2016-11-28] MEDS ORDERED: VANC1CAP3 PO (10:00)
--- NOTE | 2016-11-28 10:07 | Discharge Instructions ---
Discharge Instructions Date of Service November 28, 2016. Admission Reason for Admission: D Difficile Colitis, Hypokalemia Discharge Discharge Diagnosis / Problem: C diff colitis, ESRD on HD Discharge Goals Goal(s): Improve function, Increase independence, Improve disease control Activity Recommendations Activity Limitations: resume your previous activity Lifting Limitations: none Exercise/Sports Limitations: as tolerated Shower/Bathe: no limitations . Instructions / Follow-Up Instructions / Follow-Up Medications: - VANCOMYCIN: 250mg capsules, take one capsule 4 times a day x 7 days then one capsule 3 times a day x 7 days - QUESTRAN: intended to bind up stools and decrease diarrhea, use twice a day as needed while having loose stools, as stools become normal, stop taking Questran as diarrhea should resolve with Vancomycin treating the infection C diff colitis (diarrhea): should be adequately treated with Vancomycin for 2 weeks, please follow up with primary care physician to assure that it has been eradicated ESRD on HD: please resume scheduled of hemodialysis on MWF Right arm swelling: assessed during admission, there is thrombus in cephalic vein, fistula working well evaluated by vascular surgery, recommend a venogram via femoral approach once C diff cleared, 3 weeks FOLLOW UP - Dr. Bradley in 7-10 days, call to make appointment for hospital follow up - Dr. Saldana, nephrology, as previously scheduled - Dr. Feliciano, need a venogram in 3 weeks to assess right arm, call to scheduled appointment, Current Hospital Diet Patient's current hospital diet: Renal Diet Discharge Diet Recommended Diet: Renal Diet Pending Studies Studies pending at discharge: no Medical Emergencies . Who to Call and When: Medical Emergencies: If at any time you feel your situation is an emergency, please call 911 immediately. . Non-Emergent Contact Non-Emergency issues call your: Primary Care Provider Call Non-Emergent contact if: you have a fever, you have any medication questions . Past History Medical & Surgical History: (1) C. difficile colitis (2) ESRD needing dialysis . "Provider Documentation" section prepared by Gilberto Zamarripa. . VTE Core Measure Inpt VTE Proph given/why not?: SCD's [place] Drug Monitoring Program Search Results: no issues identified
--- NOTE | 2016-11-28 11:15 | Nephrology Progress Note ---
Nephrology Progress Note Date of Service November 28, 2016. Chief Complaint Follow-up for end-stage renal disease on hemodialysis. Suze Cummins was seen and examined in her room this morning. She is otherwise asymptomatic but sleepy, easily arousable. continues to have at diarrhea several times a day. Had dialysis yesterday, currently volume status blood pressure and electrolyte acceptable. Review of Systems A complete review of systems was performed. Pertinent positives are noted above. All other systems are negative. Vital Signs Last 8 Hrs Date Time Temp Pulse Resp B/P Pulse Ox O2 Delivery O2 Flow Rate FiO2 11/28/16 07:57 36.8 83 18 135/56 93 I & O 24-Hour Column 11/28/16 08:00 Intake Total 220 ml Output Total 0 ml Balance 220 ml Last Recorded Weight Weight (Kilograms): 68.900 Physical Exam GENERAL: Elderly female, AAA x 3, pleasant, not in any distress. NECK: Supple, no JVD. RESPIRATORY: Normal breathing efforts, no accessory muscle use, clear to auscultation bilaterally, no wheezes or rales. CARDIOVASCULAR: S1, S2 normal, rate rhythm regular. EXTREMITY: No lower extremity edema, significant swelling of the right upper extremity. AV fistula with thrill and bruit. NEURO: speech fluent. PSYCHIATRY: Normal mood and judgment Family History Patient reports no known family medical history. Negative for CKD/ESRD Social History Smoking Status: Never smoker Smokeless Tobacco Use: No Alcohol Use: none Drug Use: none Marital Status: Occupation: retired . Retired. Former smoker Allergies Coded Allergies: Diazepam (Verified Adverse Reaction, Severe, CHEST PAIN, 11/22/16) Medications Current Inpatient Medications Medications (Trade) Dose Ordered Sig/Rach Route Start Time Stop Time Status Last Admin Dose Admin Acetaminophen (Tylenol Tab) 650 mg Q4H PRN PO 11/22/16 23:30 12/22/16 23:29 Zolpidem Tartrate (Ambien Tab) 5 mg HSZ PRN PO 11/22/16 23:30 12/22/16 23:29 Amlodipine Besylate (Norvasc Tab) 10 mg DAILY PO 11/23/16 09:00 12/23/16 08:59 11/28/16 08:30 10 MG Carvedilol (Coreg Tab) 6.25 mg QAM PO 11/23/16 09:00 12/23/16 08:59 11/28/16 08:29 6.25 MG Folic Acid (Folvite Tab) 1 mg DAILY PO 11/23/16 09:00 12/23/16 08:59 11/28/16 08:29 1 MG Lactobacillus Acidophilus (Floranex Tab) 4 tab TIDM PO 11/23/16 07:30 12/23/16 07:59 11/28/16 08:29 4 TAB Levothyroxine Sodium (Synthroid Tab) 125 mcg DAILYBB PO 11/23/16 06:00 12/23/16 05:59 11/28/16 05:45 125 MCG Lisinopril (Zestril Tab) 10 mg QAM PO 11/23/16 09:00 12/23/16 08:59 11/28/16 08:28 10 MG Pantoprazole Sodium (Protonix Tab) 40 mg BID PO 11/23/16 09:00 12/23/16 08:59 11/28/16 08:28 40 MG Pravastatin Sodium (Pravachol Tab) 20 mg DAILY PO 11/23/16 09:00 12/23/16 08:59 11/28/16 08:29 20 MG Sertraline HCl (Zoloft Tab) 50 mg DAILY PO 11/23/16 09:00 12/23/16 08:59 11/28/16 08:28 50 MG Vancomycin HCl (Vancomycin Oral Soln) 250 mg QID PO 11/23/16 09:00 12/07/16 08:59 11/28/16 08:29 250 MG Ondansetron HCl (Zofran Inj) 4 mg Q6H PRN IV 11/22/16 23:45 12/22/16 23:44 Cholestyramine Resin (Questran Powder Light) 4 gm BID@10,22 PO 11/23/16 10:00 12/23/16 09:59 11/27/16 10:00 4 GM Raspberry (Raspberry Syrup 5ml Cup) 5 ml QID PO 11/23/16 09:00 12/07/16 08:59 11/28/16 08:29 5 ML Impression (1) End-stage renal disease on hemodialysis (2) Hypokalemia (3) Diarrhea (4) C. difficile colitis (5) DM2 (diabetes mellitus, type 2) Patient admitted w/ hypokalemia and dehydration due to Clostridium Difficile colitis. She has ESRD and requires HD MWF Recommendations --Had dialysis yesterday, currently Volume status, blood pressure and electrolyte acceptable. --avoid any further IV fluid --Dose medications for GFR less than 10 --continue on Nephrocaps --phosphate binder with meal --MAGEN with dialysis --on oral Vancomycin therapy for C. diff Will continue to follow while inpatient however once diarrhea is improved patient is sudden okay to be discharged and she can continue on dialysis at her outpatient unit.
[2016-11-29] VITALS (20 sets, daily range): BP systolic 96–149; BP diastolic 50–62; PULSE 63–84; TEMP 36.4–36.9; O2SAT 93–94
[2016-11-29] MEDS: LEVOTHYROXINE 125 MCG TAB PO SCH (06:16)
[2016-11-29] MEDS: PRAVASTATIN SOD 20 MG TAB PO SCH (08:01)
[2016-11-29] MEDS: PANTOprazole SOD 40 MG TAB PO SCH (08:01)
[2016-11-29] MEDS: LISINOPRIL 10 MG TAB PO SCH (08:01)
[2016-11-29] MEDS: AMLODIPINE BESYLATE 5 MG TAB PO SCH (08:02)
[2016-11-29] MEDS: SERTRALINE HCL 50 MG TAB PO SCH (08:02)
[2016-11-29] MEDS: LACTOBACILLUS ACIDOPHILUS (FLORANEX) TAB PO SCH ×2 (08:02→13:23)
[2016-11-29] MEDS: CARVEDILOL 6.25 MG TAB PO SCH (08:02)
[2016-11-29] MEDS: CHOLESTYRAMINE LIGHT 4 GM PKT PO SCH (08:03)
[2016-11-29] MEDS: RASPBERRY SYRUP 5 ML UDP PO SCH ×2 (08:06→13:23)
[2016-11-29] MEDS: VANCOMYCIN HCL 250 MG/5 ML SOLN PO SCH ×2 (08:06→13:23)
--- NOTE | 2016-11-29 08:14 | Progress Note ---
Subjective Date of Service: November 28, 2016. Subjective Pt evaluation today including: conversation w/ patient, conversation w/ family (daughter), physical exam, lab review, conversation w/ it consultant, review of inpatient medication list Pain: denied pain PO Intake: adequate Voiding: no voiding problems patient felt well enough to be discharged, discussed rehab and she was resistant d/w CM who had talked with daughter the day prior and she had requested [facility] patient agreeable to [facility] after her daughter arrived unfortunately no beds available at [facility] so d/c delayed until 11/29 overall patient was stable, eating well, moving bowels less frequently, stools more formed, no abdominal pain right arm swelling still problematic, updated patient's daughter on plan to have venogram in [address] Feliciano Problem List Medical Problems: (1) Abnormal EKG Status: Acute (2) Acute CHF (congestive heart failure) Status: Acute (3) Acute CHF (congestive heart failure) Status: Acute (4) Altered mental state Status: Acute (5) Ambulatory dysfunction Status: Acute (6) AV fistula Status: Acute (7) C. difficile colitis Status: Acute (8) Congestive heart failure Status: Acute (9) Dehydration Status: Acute (10) Diarrhea Status: Acute (11) Hematoma Status: Acute (12) Hypokalemia Status: Acute (13) Hypomagnesemia Status: Acute (14) Knee pain Status: Acute (15) Leg hematoma Status: Acute (16) Pneumonia Status: Acute (17) Renal failure Status: Acute (18) Weakness Status: Acute (19) Weakness Status: Acute Review of Systems Constitutional: + fatigue, + weakness Cardiac: + edema (right arm and hand) Neurologic: + balance problems, + weakness All Other Systems: Reviewed and Negative Medications Current Inpatient Medications Medications (Trade) Dose Ordered Sig/Rach Route Start Time Stop Time Status Last Admin Dose Admin Acetaminophen (Tylenol Tab) 650 mg Q4H PRN PO 11/22/16 23:30 12/22/16 23:29 Zolpidem Tartrate (Ambien Tab) 5 mg HSZ PRN PO 11/22/16 23:30 12/22/16 23:29 Amlodipine Besylate (Norvasc Tab) 10 mg DAILY PO 11/23/16 09:00 12/23/16 08:59 11/28/16 08:30 10 MG Carvedilol (Coreg Tab) 6.25 mg QAM PO 11/23/16 09:00 12/23/16 08:59 11/28/16 08:29 6.25 MG Folic Acid (Folvite Tab) 1 mg DAILY PO 11/23/16 09:00 12/23/16 08:59 11/28/16 08:29 1 MG Lactobacillus Acidophilus (Floranex Tab) 4 tab TIDM PO 11/23/16 07:30 12/23/16 07:59 11/28/16 11:40 4 TAB Levothyroxine Sodium (Synthroid Tab) 125 mcg DAILYBB PO 11/23/16 06:00 12/23/16 05:59 11/28/16 05:45 125 MCG Lisinopril (Zestril Tab) 10 mg QAM PO 11/23/16 09:00 12/23/16 08:59 11/28/16 08:28 10 MG Pantoprazole Sodium (Protonix Tab) 40 mg BID PO 11/23/16 09:00 12/23/16 08:59 11/28/16 08:28 40 MG Pravastatin Sodium (Pravachol Tab) 20 mg DAILY PO 11/23/16 09:00 12/23/16 08:59 11/28/16 08:29 20 MG Sertraline HCl (Zoloft Tab) 50 mg DAILY PO 11/23/16 09:00 12/23/16 08:59 11/28/16 08:28 50 MG Vancomycin HCl (Vancomycin Oral Soln) 250 mg QID PO 11/23/16 09:00 12/07/16 08:59 11/28/16 11:40 250 MG Ondansetron HCl (Zofran Inj) 4 mg Q6H PRN IV 11/22/16 23:45 12/22/16 23:44 Cholestyramine Resin (Questran Powder Light) 4 gm BID@, PO 11/23/16 10:00 12/23/16 09:59 11/27/16 10:00 4 GM Raspberry (Raspberry Syrup 5ml Cup) 5 ml QID PO 11/23/16 09:00 12/07/16 08:59 11/28/16 11:40 5 ML Objective Vital Signs Date Time Temp Pulse Resp B/P Pulse Ox O2 Delivery O2 Flow Rate FiO2 11/28/16 08:15 Room Air 11/28/16 07:57 36.8 83 18 135/56 93 11/28/16 00:17 37.1 77 20 121/53 93 Room Air 11/27/16 23:50 Room Air 11/27/16 16:31 Room Air Physical Exam General Appearance: WD/WN, no apparent distress Neck: supple, no adenopathy, no JVD, trachea midline Respiratory/Chest: chest non-tender, lungs clear, normal breath sounds, no respiratory distress, no accessory muscle use Cardiovascular: regular rate, rhythm, no edema, no gallop, no JVD, no murmur Abdomen: normal bowel sounds, non tender, soft, no organomegaly Extremities: normal range of motion, non-tender, normal inspection, no pedal edema, no calf tenderness Neurologic/Psychiatric: 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 Jo is an 81 y/o female with PMHx of Chronic Diastolic CHF, CAD with , T2DM (not on medications), ESRD on HD, HLD, HTN, TIA, and PUD who presents with diarrhea x 1 week. Testing reveals C. Diff positive. C. Diff Colitis: improving with the below treatment, needs 2 weeks total treatment - Vancomycin 250 mg QID - FULL DAY #5 - Questran 4 g BID and probiotics plan to d/c on 250mg QID x 1 week then TID x 1 week then look to discontinue if C diff is eradicated will need close PCP follow up can stop using Questran once stools are solid ESRD on HD Dialysis (MWF) with Anemia of Chronic Disease: STABLE - Folate deficiency on previous admission - Folic acid 1 mg daily - Nephrology consulted - continue HD on MWF scheduled, scheduled to get HD on and then can be d/c to [facility] Swelling right arm. - Underwent HD without any problems, fistula functioning well - Known to Vascular surgery service - they recommend venogram once C diff fully treated follow up outpatient - No evidence of DVT of right arm. Branches of right cephalic vein are occluded - updated patient and daughter about plan for right arm CAD with Aortic Stenosis/HTN/Chronic Diastolic CHF: STABLE - Norvasc 10 mg daily, Coreg 6.25 mg daily, and Lisinopril 10 mg daily DVT Prophylaxis: SCDs Code Status: FULL RESUSCITATION Disposition: Patient lives alone with OOA with multiple services - plan for [facility] rehab on 11/29 after she receives HD Continued [facility] stay due to: multiple IV medications needed Discharge planning: uncertain
--- NOTE | 2016-11-29 08:21 | Discharge Instructions ---
Discharge Instructions Date of Service November 29, 2016. Admission Reason for Admission: C Difficile Colitis, Hypokalemia Discharge Discharge Diagnosis / Problem: C diff colitis, Hypokalemia, ESRD on HD, right arm edema, cephalic thrombus Discharge Goals Goal(s): Improve function, Improve disease control, Therapeutic intervention ( needs venogram in [address] Feliciano, Re: right arm swelling and clot) Activity Recommendations Activity Level: OOB In Chair, Assistance Required Therapies: Physical Therapy, Occupational Therapy Lifting Limitations: none Exercise/Sports Limitations: as tolerated Shower/Bathe: no limitations . Additional Information Patient informed of condition: Yes Advance Directives: Yes DNR: No Level of Care: Acute Rehab Communicable Disease: No Prognosis: Improving Oxygen at (LPM): none Jacbos Catheter: No Instructions / Follow-Up Instructions / Follow-Up Medications: - VANCOMYCIN: 250mg capsules, take one capsule 4 times a day x 7 days then one capsule 3 times a day x 7 days - QUESTRAN: intended to bind up stools and decrease diarrhea, use twice a day as needed while having loose stools, as stools become normal, stop taking Questran as diarrhea should resolve with Vancomycin treating the infection C diff colitis (diarrhea): should be adequately treated with Vancomycin for 2 weeks, please follow up with primary care physician to assure that it has been eradicated with repeat stool testing ESRD on HD: please resume scheduled of hemodialysis on MWF, consult Dr. Saldana for hemodialysis orders while in rehab Right arm swelling: assessed during admission, there is thrombus in cephalic vein, fistula working well evaluated by vascular surgery, recommend a venogram via femoral approach once C diff cleared, 2-3 weeks FOLLOW UP - Dr. Bradley in one week after d/c from rehab, call to make appointment for hospital follow up - Dr. Saldana, nephrology, as previously scheduled - Dr. Feliciano, need a venogram in 2-3 weeks to assess right arm, call to scheduled appointment, Current Hospital Diet Patient's current hospital diet: Renal Diet Discharge Diet Recommended Diet: Renal Diet Procedures Procedures Performed: none Pending Studies Studies pending at discharge: no Physician Orders On Transfer Additional Orders: consult Dr. Saldana for hemodialysis orders BMP, Mag and Phos on MWF mornings prior to HD POLST Discussion: without POLST completion Medical Emergencies . Who to Call and When: Medical Emergencies: If at any time you feel your situation is an emergency, please call 911 immediately. . Non-Emergent Contact Non-Emergency issues call your: Primary Care Provider Call Non-Emergent contact if: you have a fever, you have any medication questions . Past History Medical & Surgical History: (1) C. difficile colitis (2) End-stage renal disease on hemodialysis (3) Hypokalemia . "Provider Documentation" section prepared by Gilberto Johnson . Core Measure Problem Core Measures: None [place] Drug Monitoring Program Search Results: no issues identified
--- NOTE | 2016-11-29 12:00 | Discharge Summary ---
Discharge Summary Date of Service November 29, 2016. Discharge Summary Admission Date: November 22, 2016 at 23:25 Discharge Date: November 28, 2016 Discharge Disposition: Rehab Principal Diagnosis: C diff colitis Problems/Secondary Diagnoses: Hypokalemia ESRD on HD RUE fistula RUE edema due to cephalic thrombus Immunizations: Have You Had Influenza Vaccine: N/A History of Tetanus Vaccine?: Yes History of Pneumococcal: Yes Pneumococcal Date: Feb 23, 2010 History of Hepatitis B Vaccine: No Procedures: Hemodialysis Consultations: Nephrology Vascular Surgery Medication Reconciliation New Medications: Vancomycin Hcl (Vancomycin) 250 Mg Cap 250 MG PO QID, #49 CAP 0 Refills 1 capsule 4 times a day x 7 days then 1 capsule 3 times a day x 7 days Cholestyramine (Cholestyramine Light) 4 Gm Pack 4 GM PO BID@10,22 PRN for Diarrhea MDD 8gm, #14 PKT 1 Refill Continued Medications: Amlodipine (Norvasc) 10 Mg Tab 10 MG PO DAILY, TAB Carvedilol (Coreg) 6.25 Mg Tab 6.25 MG PO QAM Folic Acid (Folvite) 1 Mg Tab 1 MG PO DAILY DAILY @1200 Lactobacillus Acidophilus (Floranex) 1 Tab Tab 4 TAB PO TIDM for 7 Days, TAB Levothyroxine Sodium (Levothyroxine Sodium) 125 Mcg Tab 125 MCG PO QAM for 30 Days, 5 Refills Lisinopril (Lisinopril) 10 Mg Tab 10 MG PO QAM Pantoprazole Sodium (Protonix) 40 Mg Tab 40 MG PO BID Pravastatin Sod (Pravastatin Sodium) 20 Mg Tab 20 MG PO DAILY Sertraline HCl (Sertraline HCl) 50 Mg Tab 50 MG PO DAILY Discharge Exam Patient doing well today, tolerating HD. Says that her stools are formed. No abdominal pain, eating well. Review of Systems: Constitutional: + fatigue, + weakness Cardiovascular: + edema (RUE, stable, not improving) Abdomen: + diarrhea (improving) Neurologic: + memory loss, + weakness Physical Exam: General Appearance: WD/WN, no apparent distress Eyes: normal inspection, EOMI, sclerae normal ENT: normal ENT inspection, hearing grossly normal, pharynx normal Neck: supple, no adenopathy, no JVD, trachea midline Respiratory/Chest: chest non-tender, lungs clear, normal breath sounds, no respiratory distress, no accessory muscle use Cardiovascular: regular rate, rhythm, no gallop, no JVD, no murmur, normal peripheral pulses Abdomen / GI: normal bowel sounds, non tender, soft, no organomegaly Extremities: normal inspection, no calf tenderness, normal capillary refill , normal range of motion, + pertinent finding (Right arm and hand swelling, stable but no improvement) Neurologic/Psychiatric: 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 Jo is an 81 y/o female with PMHx of Chronic Diastolic CHF, CAD with , T2DM (not on medications), ESRD on HD, HLD, HTN, TIA, and PUD who presents with diarrhea x 1 week. Testing reveals C. Diff positive. 2 weeks prior to admission she was independent at home with care takers 12 hours a day, per daughter she is dramatically weaker now with the infection. Her C diff responded well to Vancomycin PO and Questran to solidify stools. Plan to d/c to [facility] for rehab to get her stronger as she recovers from infection. See below for details. C. Diff Colitis: improving with the below treatment, needs 2 weeks more total treatment - Vancomycin 250 mg QID - Questran 4 g BID and probiotics plan to d/c on 250mg QID x 1 week then TID x 1 week then look to discontinue if C diff is eradicated will need close PCP follow up once done with rehab can stop using Questran once stools are solid ESRD on HD Dialysis (MWF) with Anemia of Chronic Disease: STABLE - Folate deficiency on previous admission - Folic acid 1 mg daily - Nephrology consulted - continue HD on MWF scheduled, scheduled to get HD on and then can be d/c to [facility] consult Dr. Saldana for HD orders while at [facility] Swelling right arm. - Underwent HD without any problems, fistula functioning well - Known to Vascular surgery service - they recommend venogram once C diff fully treated follow up outpatient in 2-3 weeks, Dr. Feliciano - No evidence of DVT of right arm. Branches of right cephalic vein are occluded , so flow impeded but not completely cut off - updated patient and daughter about plan for right arm CAD with Aortic Stenosis/HTN/Chronic Diastolic CHF: STABLE - Norvasc 10 mg daily, Coreg 6.25 mg daily, and Lisinopril 10 mg daily DVT Prophylaxis: SCDs Code Status: FULL RESUSCITATION Disposition: Patient lives alone with OOA with multiple services - plan for [facility] on 11/29 after she receives HD Total Time Spent: Greater than 30 minutes This includes examination of the patient, discharge planning, medication reconciliation, and communication with other providers. Discharge Instructions Please refer to the electronic Patient Visit Report (Discharge Instructions) for additional information. Follow-Up PCP one week after d/c from rehab Dr. Saldana as previously scheduled Dr. Feliciano in 2-3 weeks for venogram via femoral approach of the right UE Additional Copies To [facility]; Nadia Saldana MD; Minor Feliciano M.D.; Marcelo Bradley M.D.
--- NOTE | 2016-11-29 12:01 | Dialysis Progress Note ---
Hemodialysis Note Date of Service November 29, 2016. Chief Complaint Follow-up for end-stage renal disease on hemodialysis. Subjective Maria G was seen and examined during HD Rx this am. tolerating Rx well, denies any symptoms. Diarrhea improving. BP stable. Review of Systems A complete review of systems was performed. Pertinent positives are noted above. All other systems are negative. Vital Signs Last 8 Hrs Date Time Temp Pulse Resp B/P Pulse Ox O2 Delivery O2 Flow Rate FiO2 11/29/16 11:45 67 100/51 11/29/16 11:30 68 96/50 11/29/16 11:15 68 102/50 11/29/16 11:00 63 124/59 11/29/16 10:45 70 102/51 11/29/16 10:30 71 107/54 11/29/16 10:15 72 111/53 11/29/16 10:00 71 110/52 11/29/16 09:45 73 125/59 11/29/16 09:30 74 105/53 11/29/16 09:15 74 118/57 11/29/16 09:04 74 107/57 11/29/16 08:55 36.6 75 124/55 11/29/16 08:15 Room Air 11/29/16 08:09 36.4 84 18 149/62 93 Room Air I & O 24-Hour Column 11/29/16 08:00 Intake Total 670 ml Balance 670 ml Last Recorded Weight Weight (Kilograms): 78.300 Physical Exam GENERAL: Elderly female, AAA x 3, pleasant, not in any distress. NECK: Supple, no JVD. RESPIRATORY: Normal breathing efforts, no accessory muscle use, clear to auscultation bilaterally, no wheezes or rales. CARDIOVASCULAR: S1, S2 normal, rate rhythm regular. EXTREMITY: No lower extremity edema, significant swelling of the right upper extremity. AV fistula with thrill and bruit. NEURO: speech fluent. PSYCHIATRY: Normal mood and judgment Family History Negative for CKD/ESRD Social History Smoking Status: Never smoker Smokeless Tobacco Use: No Alcohol Use: none Drug Use: none Marital Status: Occupation: retired . Retired. Former smoker Allergies Coded Allergies: Diazepam (Verified Adverse Reaction, Severe, CHEST PAIN, 11/22/16) Medications Current Inpatient Medications Medications (Trade) Dose Ordered Sig/Rach Route Start Time Stop Time Status Last Admin Dose Admin Acetaminophen (Tylenol Tab) 650 mg Q4H PRN PO 11/22/16 23:30 12/22/16 23:29 Zolpidem Tartrate (Ambien Tab) 5 mg HSZ PRN PO 11/22/16 23:30 12/22/16 23:29 Amlodipine Besylate (Norvasc Tab) 10 mg DAILY PO 11/23/16 09:00 12/23/16 08:59 11/29/16 08:02 10 MG Carvedilol (Coreg Tab) 6.25 mg QAM PO 11/23/16 09:00 12/23/16 08:59 11/29/16 08:02 6.25 MG Folic Acid (Folvite Tab) 1 mg DAILY PO 11/23/16 09:00 12/23/16 08:59 11/29/16 08:02 1 MG Lactobacillus Acidophilus (Floranex Tab) 4 tab TIDM PO 11/23/16 07:30 12/23/16 07:59 11/29/16 08:02 4 TAB Levothyroxine Sodium (Synthroid Tab) 125 mcg DAILYBB PO 11/23/16 06:00 12/23/16 05:59 11/29/16 06:16 125 MCG Lisinopril (Zestril Tab) 10 mg QAM PO 11/23/16 09:00 12/23/16 08:59 11/29/16 08:01 10 MG Pantoprazole Sodium (Protonix Tab) 40 mg BID PO 11/23/16 09:00 12/23/16 08:59 11/29/16 08:01 40 MG Pravastatin Sodium (Pravachol Tab) 20 mg DAILY PO 11/23/16 09:00 12/23/16 08:59 11/29/16 08:01 20 MG Sertraline HCl (Zoloft Tab) 50 mg DAILY PO 11/23/16 09:00 12/23/16 08:59 11/29/16 08:02 50 MG Vancomycin HCl (Vancomycin Oral Soln) 250 mg QID PO 11/23/16 09:00 12/07/16 08:59 11/29/16 08:06 250 MG Ondansetron HCl (Zofran Inj) 4 mg Q6H PRN IV 11/22/16 23:45 12/22/16 23:44 Cholestyramine Resin (Questran Powder Light) 4 gm BID@10,22 PO 11/23/16 10:00 12/23/16 09:59 11/27/16 10:00 4 GM Raspberry (Raspberry Syrup 5ml Cup) 5 ml QID PO 11/23/16 09:00 12/07/16 08:59 11/29/16 08:06 5 ML Impression (1) End-stage renal disease on hemodialysis (2) Hypokalemia (3) Diarrhea (4) C. difficile colitis (5) DM2 (diabetes mellitus, type 2) Patient admitted w/ hypokalemia and dehydration due to Clostridium Difficile colitis. She has ESRD and requires HD MWF Recommendations --currently getting dialysis and tolerating well, blood pressure stable, denies any symptom. --avoid any further IV fluid --Dose medications for GFR less than 10 --continue on Nephrocaps --phosphate binder with meal --MAGEN with dialysis --on oral Vancomycin therapy for C. diff Will continue to follow while inpatient and provide dialysis care once patient discharged to [facility].
--- NOTE | 2016-12-01 12:42 | EDITING REQUIRED CODING QUERY ---
CODING QUERY Dear Dr. Zamarripa, To promote full compliance with coding requirements relating to patient care, provider participation is requested in all cases of core java software engineer uncertainty. Please assist us with the question(s) below: In responding to this query, please exercise your independent professional judgement. The fact that a question is asked does not imply that any particular answer is desired or expected. We appreciate your clarification on this issue. Coding Question(s): Complication of AVF revision - Cephalic Thrombus Cephalic Thrombus ( ) Complication of AVF revision ( ) Present on Admission ( ) Not present on admission ( ) Unable to determine ( x ) Not a complication of revision ( ) Other: Please explain ( ) Unable to determine Medical documentation from discharge summary: Principal Diagnosis: C diff colitis Problems/Secondary Diagnoses: Hypokalemia ESRD on HD RUE fistula RUE edema due to cephalic thrombus Physician's Response(s): Thank you for your time. ALEXIA Tadeo Principal Diagnosis: "_that condition established after study, to be chiefly responsible for occasioning the admission of the patient to the hospital for care." Co-Existing Principal Diagnosis: "_when two or more diagnoses equally meet the criteria for principal diagnosis as determined by the circumstances of admission, diagnostic work up, and/or therapy provided, and the Alphabetic Index, Tabular List, or another coding guideline does not provide sequencing direction, any one of the diagnoses may be sequenced first." "When the physician has documented what appears to be a current diagnosis in the body of the record, but has not included the diagnosis in the final diagnostic statement, the physician should be asked whether the diagnosis should be added." (Source [facility] 2 QTR90. p3-4)
[2016-12-18] MEDS ORDERED: ACET-1256 PO (22:37)
[2016-12-18] MEDS ORDERED: AMT10 PO (22:38)
[2016-12-18] MEDS ORDERED: LEVO137T3 PO (22:42)
[2016-12-18] MEDS ORDERED: NYST1POW7 TD (22:44)
== END 2016-11-29 15:35 | DRG 371 ==
LOC: ENRESERVDT → ENRESERVTM → EDBD 20:03 → C.EDC 20:04 → UNDOADMIN 23:25 → C.2T 23:25 → EDBEDREQ 23:47 → C.MS2W 11-25 15:54 → C.2T 11-25 15:54
PROVIDERS: ADMIT Hospitalist; ATTEND Internal Medicine
DX: A04.7 Enterocolitis due to Clostridium difficile (principal); N18.6 End stage renal disease; I50.32 Chronic diastolic (congestive) heart failure; I82.611 Acute embolism and thrombosis of superficial veins of right upper extremity; I13.2 Hypertensive heart and chronic kidney disease with heart failure and with stage 5 chronic kidney disease, or end stage renal disease; E87.6 Hypokalemia; K21.9 Gastro-esophageal reflux disease without esophagitis; F41.9 Anxiety disorder, unspecified; F32.9 Major depressive disorder, single episode, unspecified; E86.0 Dehydration; I25.10 Atherosclerotic heart disease of native coronary artery without angina pectoris; G47.33 Obstructive sleep apnea (adult) (pediatric); E11.22 Type 2 diabetes mellitus with diabetic chronic kidney disease; E78.5 Hyperlipidemia, unspecified; M19.90 Unspecified osteoarthritis, unspecified site; E03.9 Hypothyroidism, unspecified; I35.0 Nonrheumatic aortic (valve) stenosis; Z96.651 Presence of right artificial knee joint; E83.42 Hypomagnesemia; D63.8 Anemia in other chronic diseases classified elsewhere; K27.9 Peptic ulcer, site unspecified, unspecified as acute or chronic, without hemorrhage or perforation; Z99.2 Dependence on renal dialysis; Z86.718 Personal history of other venous thrombosis and embolism; Z87.891 Personal history of nicotine dependence; Z79.899 Other long term (current) drug therapy; Z95.828 Presence of other vascular implants and grafts; Z86.73 Personal history of transient ischemic attack (TIA), and cerebral infarction without residual deficits; Z86.711 Personal history of pulmonary embolism

== ENCOUNTER 2016-12-18 20:39 | Emergency (ER) | payer OTHER ==
[~2016-12-18] VITALS: Ht 154.9 cm; Wt 67.4 kg
[~2016-12-18 20:39] MED LIST changes: -B-CO1CAP17 PO; -CHOL100027 PO; -FLV1 PO; +FOLI1TAB7 PO; -LVQ250 PO; +QSTP PO; -SEVE800T7 PO; -TYL325X PO; +VANC1CAP3 PO
[2016-12-18 20:53] VITALS: TEMP 36.9; Ht 154.9 cm; Wt 67.4 kg
[2016-12-18 21:43] LABS: BASO % 1.6 %; BASO ABS # 0.13 K/uL (0-0.2); COMPLETE YES; EOS % 2.5 %; HEMATOCRIT 32.9 % (37-47); IG% 0.3 %; LYMPH % 17.9 %; LYMPH ABS # 1.43 K/uL (1.2-3.4); MEAN CELL VOLUME 86.6 fL (80-100); MEAN CORPUSCULAR HEMOGLOBIN 28.4 pg (25-34); MEAN CORPUSCULAR HGB CONC 32.8 g/dl (32-36); MEAN PLATELET VOLUME 9.3 fL (7.4-10.4); MONO % 15.5 %; NEUT % 62.2 %; PLATELET COUNT 291 K/uL (130-400)
[2016-12-18 21:48] LABS: INR 1.2 (0.9-1.1); PARTIAL THROMBOPLASTIN RATIO 1.4; PROTHROMBIN TIME (PATIENT) 12.8 SECONDS (9.0-12.0)
[2016-12-18 21:50] LABS: BUN/CREATININE RATIO 2.7 (10-20); CREATININE 3.2 mg/dl (0.60-1.20); POTASSIUM 3.1 mmol/L (3.5-5.1)
[2016-12-18 21:52] LABS: ALB/GLOB RATIO 0.5 (0.9-2)
[2016-12-18 22:04] LABS: CALCIUM 8.2 mg/dl (8.5-10.1)
[2016-12-18] MEDS ORDERED: ACET-1256 PO ×2 (22:37)
[2016-12-18] MEDS ORDERED: AMT10 PO ×2 (22:38)
[2016-12-18] MEDS ORDERED: LEVO137T3 PO ×2 (22:42)
[2016-12-18] MEDS ORDERED: NYST1POW7 TD ×2 (22:44)
[2016-12-18] MEDS ORDERED: BOOST VANILLA PO STA ×2 (23:00)
[2016-12-18] MEDS ORDERED: ACETAMINOPHEN 325 MG TAB PO STA (23:02)
[2016-12-18 23:22] VITALS: BP 101/43; PULSE 69; O2SAT 99
--- NOTE | 2016-12-18 23:41 | EMERGENCY ROOM VISIT NOTE ---
History Report prepared by Kathy: Madelin Ponce Under the Supervision of: Dr. Dallin Prieto M.D. First contact with patient: 21:55 Chief Complaint: WEAKNESS Stated Complaint: WEAKNESS Nursing Triage Summary: ? weakness s/p dialysis treatment, lowered to floor, patient verbalizes negative c/c. History of Present Illness The patient is an 81 year old female who presents to the Emergency Room with complaints of worsening weakness starting yesterday. The patient's daughter reports that she has not eaten much for the past couple of days. Yesterday she had 2 bites of a grilled cheese and today she had 2 bites of a hamburger. She also had an Atkins protein drink. She went to dialysis today and was told that she should not be drinking the protein drinks because they have too much potassium. Today, she was walking with her help staff to her bedroom when she was unable to move her legs. She was lowered down to the ground slowly. She usually is able to walk with a walker. She denies any fever, chest pain, SOB, abdominal pain, nausea, and vomiting. The patient has a history of C diff and was on vancomycin. She finished her course, but is still having diarrhea. Her diarrhea has worsened in the past couple of days. There is no blood in her stool. She has pain and swelling in her right arm. She is scheduled for surgery tomorrow with Dr. Feliciano for her right arm. She is only allowed 4 cups of water a day because of her CHF. Source of History: patient, family Onset: yesterday Position: other (global) Quality: other (weakness) Timing: worsening Associated Symptoms: + diarrhea, No fevers, No chest pain, No SOB, No nausea , No vomiting, No abdominal pain Note: Pt reports right arm swelling and pain. Review of Systems See HPI for pertinent positives & negatives. A total of 10 systems reviewed and were otherwise negative. Past Medical & Surgical Medical Problems: (1) Aortic stenosis (2) C. difficile colitis (3) CAD (coronary artery disease) (4) CHF (congestive heart failure) (5) DM2 (diabetes mellitus, type 2) (6) DVT (deep vein thrombosis) in (7) End stage renal disease (8) End-stage renal disease on hemodialysis (9) ESRD needing dialysis (10) Hemodialysis access, AV graft (11) History of tobacco use (12) HLD (hyperlipidemia) (13) HTN (hypertension) (14) Hyperkalemia (15) Hypothyroidism (16) Hypoxia (17) JOON (obstructive sleep apnea) (18) PUD (peptic ulcer disease) (19) Pulmonary embolism (20) TIA (transient ischemic attack) Surgical Problems: (1) H/O eye surgery (2) H/O knee surgery (3) S/P appendectomy Family History Patient reports no known family medical history. Noncontributory secondary to age. Social History Smoking Status: Never Smoker Alcohol Use: none Drug Use: none Marital Status: Housing Status: lives with family Occupation Status: retired Current/Historical Medications Scheduled Amitriptyline HCl (Amitriptyline HCl), 10 MG PO HS Amlodipine (Norvasc), 10 MG PO DAILY Carvedilol (Coreg), 6.25 MG PO QAM Folic Acid (Folvite), 1 MG PO DAILY Levothyroxine Sodium (Levothyroxine Sodium), 137 MCG PO DAILY Lisinopril (Lisinopril), 10 MG PO QAM Nystatin (Topical) (Nystatin), 1 APPLN TD BID Pantoprazole Sodium (Protonix), 40 MG PO BID Pravastatin Sod (Pravastatin Sodium), 20 MG PO DAILY Sertraline HCl (Sertraline HCl), 50 MG PO DAILY Vancomycin Hcl (Vancomycin), 250 MG PO QID Scheduled PRN Acetaminophen (Tylenol), 500 MG PO Q4H PRN for Pain or Fever Allergies Coded Allergies: Diazepam (Verified Adverse Reaction, Severe, CHEST PAIN, 11/22/16) Physical Exam Vital Signs Date Time Temp Pulse Resp B/P (MAP) Pulse Ox O2 Delivery O2 Flow Rate FiO2 12/18/16 23:22 69 20 101/43 99 Nasal Cannula 2.0 12/18/16 22:50 99/40 12/18/16 22:39 67 26 99 12/18/16 22:09 69 24 99 12/18/16 21:39 68 27 99 12/18/16 21:09 67 23 12/18/16 20:53 36.9 71 22 115/46 96 Room Air 12/18/16 20:53 Room Air 12/18/16 20:46 69 12/18/16 20:42 115/46 Physical Exam Constitutional: Vital signs reviewed. Eyes: Pupils are equal round reactive to light. Conjunctiva are noninjected. ENT: Pharynx is clear without erythema or exudate. Mucous membranes are dry. Neck supple without meningeal signs. Respiratory: Clear to auscultation bilaterally. Breath sounds are equal bilaterally. Cardiovascular: Regular rate and rhythm. No rubs or gallops. GI: Soft, nondistended and nontender. Bowel sounds are present. Musculoskeletal: Edema to the right upper extremity. Normal distal pulses. Palpable thrill AV fistula. Integumentary: No cyanosis. Neurological: The patient is awake and alert. No focal deficits. Psychiatric: Normal affect. Medical Decision & Procedures Laboratory Results 12/18/16 20:25 Red Blood Count 3.80, Mean Corpuscular Volume 86.6, Mean Corpuscular Hemoglobin 28.4, Mean Corpuscular Hemoglobin Concent 32.8, Mean Platelet Volume 9.3, Neutrophils (%) (Auto) 62.2, Lymphocytes (%) (Auto) 17.9, Monocytes (%) (Auto) 15.5, Eosinophils (%) (Auto) 2.5, Basophils (%) (Auto) 1.6, Neutrophils # (Auto ) 4.98, Lymphocytes # (Auto) 1.43, Monocytes # (Auto) 1.24, Eosinophils # (Auto ) 0.20, Basophils # (Auto) 0.13 12/18/16 20:25 Test 12/18/16 20:25 White Blood Count 8.00 K/uL (4.8-10.8) Red Blood Count 3.80 M/uL (4.2-5.4) Hemoglobin 10.8 g/dL (12.0-16.0) Hematocrit 32.9 % (37-47) Mean Corpuscular Volume 86.6 fL (80-100) Mean Corpuscular Hemoglobin 28.4 pg (25-34) Mean Corpuscular Hemoglobin Concent 32.8 g/dl (32-36) Platelet Count 291 K/uL (130-400) Mean Platelet Volume 9.3 fL (7.4-10.4) Neutrophils (%) (Auto) 62.2 % Lymphocytes (%) (Auto) 17.9 % Monocytes (%) (Auto) 15.5 % Eosinophils (%) (Auto) 2.5 % Basophils (%) (Auto) 1.6 % Neutrophils # (Auto) 4.98 K/uL (1.4-6.5) Lymphocytes # (Auto) 1.43 K/uL (1.2-3.4) Monocytes # (Auto) 1.24 K/uL (0.11-0.59) Eosinophils # (Auto) 0.20 K/uL (0-0.5) Basophils # (Auto) 0.13 K/uL (0-0.2) RDW Standard Deviation 53.9 fL (36.4-46.3) RDW Coefficient of Variation 16.9 % (11.5-14.5) Immature Granulocyte % (Auto) 0.3 % Immature Granulocyte # (Auto) 0.02 K/uL (0.00-0.02) Prothrombin Time 12.8 SECONDS (9.0-12.0) Prothromb Time International Ratio 1.2 (0.9-1.1) Activated Partial Thromboplast Time 36.0 SECONDS (21.0-31.0) Partial Thromboplastin Ratio 1.4 Anion Gap 9.0 mmol/L (3-11) Est Creatinine Clear Calc Drug Dose 11.9 ml/min Estimated GFR () 14.9 Estimated GFR (Non- 12.8 BUN/Creatinine Ratio 2.7 (10-20) Calcium Level 8.2 mg/dl (8.5-10.1) Magnesium Level 1.9 mg/dl (1.8-2.4) Total Bilirubin 0.8 mg/dl (0.2-1) Aspartate Amino Transf (AST/SGOT) 19 U/L (15-37) Alanine Aminotransferase (ALT/SGPT) 9 U/L (12-78) Alkaline Phosphatase 175 U/L (45-117) Total Protein 7.4 gm/dl (6.4-8.2) Albumin 2.4 gm/dl (3.4-5.0) Globulin 5.0 gm/dl (2.5-4.0) Albumin/Globulin Ratio 0.5 (0.9-2) Laboratory results as reviewed by me. Medications Administered Medications (Trade) Dose Ordered Sig/Rach Route Start Time Stop Time Status Last Admin Dose Admin Acetaminophen (Tylenol Tab) 325 mg NOW STAT PO 12/18/16 23:02 12/18/16 23:03 DC 12/18/16 23:24 325 MG ECG Indication: weakness Rate (beats per minute): 71 Rhythm: normal sinus Findings: ST depression (Inferior, Lateral), no ectopy Comparison ECG Date: Nov 23 2016, Nov 24 2016 Change: no significant change ED Course 2157: The patient was evaluated in room B2. A complete history and physical exam was performed. 2211: I reevaluated the patient. I discussed the results with them. 2253: I reevaluated the patient. She was unable to provide a stool sample. I discussed the results and treatment plan with her and her daughter. They verbalized understanding and agreement. The patient was discharged home. 2299: Boost 1 can PO. 2301: Acetaminophen 325 mg PO. Medical Decision This is an 81-year-old female who presents with generalized weakness. Differential diagnosis includes dehydration, malnourishment, electrolyte abnormality, metabolic derangement, C. difficile. I did perform a limited focused review of portions of the patient's old chart on the electronic medical record. The patient was admitted November 22 for C difficile colitis. She also has right upper extremity edema secondary to cephalic thrombus. She was discharged on vancomycin. Medication Reconciliation: I attest that I have personally reviewed the patient' s current medication list. Blood Pressure Screening: Patient was found to have normal blood pressure on screening and does not require follow-up. I did evaluate the patient as noted above. The patient is presenting with worsening generalized weakness for the past day. She has not been eating or drinking very much over the past several days and has had increased diarrhea. I suspect this is likely causing her weakness. She has had no cough or cold symptoms. She does have pain to her right arm but she is scheduled for surgery tomorrow with Dr. Feliciano. IV access was established. The patient was placed on a continuous phototypesetting equipment monitor. I did personally review the patient's 12-lead EKG as described above. Her twelve-lead EKG shows nonspecific ST changes which are unchanged from her prior EKGs. She denies any chest pain or shortness of breath. I did order and review the patient's blood work as noted in the electronic medical record. She has anemia and hypokalemia. Because she is a renal patient I did not replace her potassium. She was given food and drinks here. She only took a few bites of food. I did not wish to give her IV fluids as she has a history of CHF. I did not want to fluid overload her especially prior to her surgery tomorrow. She was unable to give us a stool sample. I did discuss the test results with the patient and her daughter. They did feel ready for discharge and will follow up tomorrow for her surgery. She was discharged home with her Hep-Lock in place per her request. They were encouraged to follow closely with their doctor. Impression Primary Impression: Generalized weakness Additional Impressions: Diarrhea Hypokalemia Anemia Scribe Attestation The scribe's documentation has been prepared under my direct and personally reviewed by me in its entirety. I confirm that the note above accurately reflects all work, treatment, procedures, and medical decision making performed by me. Departure Information Dispostion Home / Self-Care Referrals Marcelo Bradley M.D. (PCP) Forms HOME CARE DOCUMENTATION FORM, IMPORTANT VISIT INFORMATION Patient Instructions ED Weakness [facility], [facility] Additional Instructions You have been examined and treated today on an emergency basis only. This is not a substitute for, or an effort to provide, complete comprehensive medical care. It is impossible to recognize and treat all injuries or illnesses in a single emergency department visit. It is therefore important that you follow up closely with your physician. Call as soon as possible for an appointment. Return for worsening symptoms or if you develop fever, vomiting, chest pain, shortness of breath, abdominal pain, rectal bleeding or any other concerning symptoms. Problem Qualifiers Additional Impressions: Diarrhea Diarrhea type: unspecified type Qualified Codes: R19.7 - Diarrhea, unspecified Anemia Anemia type: unspecified type Qualified Codes: D64.9 - Anemia, unspecified
[2016-12-19] MEDS ORDERED: BOOST VANILLA PO SCH ×2 (09:00)
== END 2016-12-18 23:40 | disposition home or self-care (01) ==
LOC: C.EDB 20:39 → EDBD 20:39 → C.EDB 23:40
DX: R53.1 Weakness (principal); R19.7 Diarrhea, unspecified; E87.6 Hypokalemia; D64.9 Anemia, unspecified; I35.0 Nonrheumatic aortic (valve) stenosis; I25.10 Atherosclerotic heart disease of native coronary artery without angina pectoris; I50.9 Heart failure, unspecified; E11.9 Type 2 diabetes mellitus without complications; Z86.718 Personal history of other venous thrombosis and embolism; N18.6 End stage renal disease; Z99.2 Dependence on renal dialysis; E78.5 Hyperlipidemia, unspecified; E03.9 Hypothyroidism, unspecified; G47.33 Obstructive sleep apnea (adult) (pediatric); Z86.711 Personal history of pulmonary embolism; Z86.73 Personal history of transient ischemic attack (TIA), and cerebral infarction without residual deficits; Z79.899 Other long term (current) drug therapy

== ENCOUNTER 2016-12-19 07:32 | Day surgery (SDC) | payer OTHER ==
[2016-12-19] VITALS (8 sets, daily range): BP systolic 84–101; BP diastolic 40–48; PULSE 58–65; TEMP 36.4–36.8; O2SAT 91–94; Ht 162.6 cm; Wt 71.0 kg
[~2016-12-19] VITALS: Ht 162.6 cm; Wt 71.0 kg
[~2016-12-19 07:32] MED LIST changes: +ACET-1256 PO; +AMT10 PO; +CEFAZOLIN 1000MG/55 ML D5W IV SCH; +D5W AND 1/4NSS 1000 ML IV SCH; +LEVO137T3 PO; +NYST1POW7 TD; +PATIENT'S HEIGHT AND/OR WEIGHT NEEDED SCH
--- NOTE | 2016-12-19 08:07 | History and Physical ---
History & Physical Date of Service Dec 19, 2016. History & Physical ESRD on HD, RUE AVF with arm edema History of Present Illness The patient is a 81 year old female with hx of HTN, ESRD on HD, hypothyroidism, She had developed left arm swelling. She had previously placed stents of the right innimate vein which are now occluded. She is admitted for an attempt to open this vein to allow drainage from the left arm. States she lives with her son, Larry, and goes to HD 3 x weekly. States she does not know of any problems they have been having running her at HD. Denies PHELPS, fever, chills, chest pain, SOB, abd pain, N/V, rest pain, claudication, other complaints. Allergies Coded Allergies: Diazepam (Verified Adverse Reaction, Severe, CHEST PAIN, 11/05/16) Home Medications Scheduled Amlodipine (Norvasc), 10 MG PO DAILY Carvedilol (Coreg), 6.25 MG PO AMPM Cholecalciferol (Vitamin D 1000 Unit), 1,000 INTER.UNIT PO QAM Levothyroxine Sodium (Levothyroxine Sodium), 125 MCG PO QAM Lisinopril (Lisinopril), 10 MG PO QAM Pantoprazole Sodium (Protonix), 40 MG PO BID Pravastatin Sod (Pravastatin Sodium), 20 MG PO DAILY Sertraline HCl (Sertraline HCl), 50 MG PO DAILY Sevelamer Carbonate (Renvela), 800 MG PO TIDM Vitamin B Cmplx/Vitc/Folic Ac (Nephrocaps), 1 CAP PO QAM Problem List Medical Problems: (1) Aortic stenosis (2) CAD (coronary artery disease) (3) CHF (congestive heart failure) (4) DM2 (diabetes mellitus, type 2) (5) DVT (deep vein thrombosis) in (6) End stage renal disease (7) ESRD needing dialysis (8) Hemodialysis access, AV graft (9) History of tobacco use (10) HLD (hyperlipidemia) (11) HTN (hypertension) (12) Hyperkalemia (13) Hypothyroidism (14) Hypoxia (15) JOON (obstructive sleep apnea) (16) PUD (peptic ulcer disease) (17) Pulmonary embolism (18) TIA (transient ischemic attack) Surgical Problems: (1) H/O eye surgery (2) H/O knee surgery (3) S/P appendectomy Surgical / Medical History Hx Cardiac Surgery: No Hx Abdominal Surgery: Yes (hysterectomy, appendectomy) Hx Cancer Surgery: No Hx Thoracic Surgery: No Hx Orthopedic: Yes (right knee surgery) Hx Urinary Tract Surgery: No Past Medical/Surgical History: Hypertension, Kidney Disease, Thyroid Disease Family History Patient reports no known family medical history. Social History Smoking Status: Never Smoker Hx Tobacco Use In Past Year?: No Hx Alcohol Use - Type & Amnt: No Hx Substance Use -Type & Amnt: No ROS: Vascular Con v2 Review of Systems Constitutional: + malaise, No chills, No fever Eyes: No visual changes ENMT: No sore throat Respiratory: No cough, No MANRIQUE, No hemoptysis, No short of breath Cardiovascular: + edema (R arm), No chest pain, No palpitations, No syncope, No intermittent claudication Gastrointestinal: No abdominal pain, No nausea, No vomiting Genitourinary - Female: No dysuria, No hematuria Neurologic: No dizziness, No headache, No lethargy, No numbness, No tingling Exam: Vascular Con v2 Physical Exam Constitutional: General Apperance: well-nourished, well-developed Level of Distress: NAD, chronically ill Psychiatric: Mental Status: active & alert, normal mood, normal affect Orientation: oriented except where noted, to place, to person, not oriented to time Memory: recent memory abnormal (vague), remote memory abnormal Head: normocephalic, atraumatic Eyes: EOM: EOMI ENMT: normal ENT inspection, hearing grossly normal Neck: supple, trachea midline Lungs: Respiratory effort: no dyspnea Auscultation: no rales/crackles, no rhonchi, decreased breath sounds Cardiovascular: Apical Impulse: not displaced Heart Auscultation: RRR, no rubs, no gallops Peripheral Pulses: Pulses: full and equal, in all extremities except if noted Bruits: none appreciated Carotid Pulse: normal on the left, normal on the right Brachial Pulses: normal on the left, normal on the right Radial Pulse: normal on the left, decreased on the right Femoral Pulse: normal on the left, normal on the right Posterior Tibialis Pulse: decreased on the left, decreased on the right Dorsalis Pedis Pulse: decreased on the left, decreased on the right Abdomen: Bowel Sounds: normal Inspection & Palpation: soft, non-distended, no tenderness, guarding & rebound Musculoskeletal: normal strength (5/5 throughout), normal tone Extremities: Upper Right: no cyanosis, pertinent finding (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 + thrill/bruit throughout AVF. Large venous branch flowing distally. +2 edema. ) Upper Left: no cyanosis, no edema, no varicosities Lower Right: no cyanosis, no edema, no varicosities Lower Left: no cyanosis, no edema, no varicosities Neurologic: Cranial Nerves: grossly intact Sensation: grossly intact A&P: Vascular Con v2 Assessment and Plan ASSESSMENT and PLAN: RUE brachiocephalic AVF, Left arm swelling ESRD on HD Plan: Patient admitted for a venogram with possible intervention. I have discussed the risks options and benefits of the procedure with the patient. The patient understands the risks options and benefits and agrees to the procedure.
--- NOTE | 2016-12-19 10:32 | Procedure Note ---
Pre-Mod Sedation Assessment General Date of Moderate Sedation: Dec 19, 2016. Vital Signs: Vital Signs Past 12 Hours Date Time Temp Pulse Resp B/P (MAP) Pulse Ox O2 Delivery O2 Flow Rate FiO2 12/19/16 08:50 36.7 58 20 98/48 (65) 93 Room Air Pre-Sedation Airway Assessment Oral Cavity: Dentures Short Thick Neck: No Hx of Sleep Apnea: Yes Smoking Status: Never Smoker Mallampati Classification: Class I ASA Classification: Class II Notes The planned sedation has been discussed with the patient and consent obtained. I have identified the patient, determined the appropriateness of sedation and have assessed the patient immediately prior to the procedure. All medicine(s) and interventions are by my order.
[2016-12-19] MEDS ORDERED: LIDOCAINE HCL 1% 20 ML VIAL ONE (10:45)
[2016-12-19] MEDS ORDERED: MIDAZOLAM HCL 1 MG/ML 2ML VIAL ONE (10:47)
[2016-12-19] MEDS ORDERED: FENTANYL CITRATE INJ 50 MCG/1 ML 2 ML VIAL ONE (10:47)
[2016-12-19] MEDS ORDERED: HEPARIN SOD (PORCINE) 1000 UNIT/ML 10 ML VIAL ONE (10:47)
[2016-12-19] MEDS ORDERED: LIDOCAINE HCL 1% 20 ML VIAL SQ ONE (11:27)
[2016-12-19] MEDS ORDERED: IODIXANOL (VISIPAQUE) 270 MG/ML 150ML FLUSH ONE (11:56)
--- NOTE | 2016-12-19 11:59 | [facility] Post Operative Brief Note ---
Immediate Operative Summary Operative Date Dec 19, 2016. Pre-Operative Diagnosis Right Upper Extremity Edema Post-Operative Diagnosis Same Procedure(s) Performed Fistulogram, Percutaneous Transluminal Angioplasty of Right Subclavian and Innominate Veins Cannulation of the vena cava Surgeon Dr. Feliciano Paperboard Machine Operator Surgeon(s) Dr. Connie Han Estimated Blood Loss 4 Findings good flow, no residual stenosis Specimens None Anesthesia Local Complication(s) None Disposition
--- NOTE | 2016-12-19 12:01 | Discharge Instructions ---
Discharge Instructions Date of Service Dec 19, 2016. Visit Reason for Visit: Right Innominate Vein Occlusion Discharge Discharge Diagnosis / Problem: Right arm swelling Discharge Goals Goal(s): Therapeutic intervention Activity Recommendations Activity Limitations: resume your previous activity Exercise/Sports Limitations: none Shower/Bathe: no limitations Driving or Machine Use: no limitations Anesthesia . Post Anesthesia Instructions: If you have had General Anesthesia or IV Sedation: * Do not drive today. * Resume driving when surgeon permits. * Do not make important decisions or sign legal documents today. * Call surgeon for: 1. Temperature elevations greater than 101 degrees F. 2. Uncontrollable pain. 3. Excessive bleeding. 4. Persistent nausea and vomiting. 5. Medication intolerance (nausea, vomiting or rash). * For nausea and vomiting use only clear liquids such as: tea, soda, bouillon until nausea subsides, then gradually increase diet as tolerated. * If you have any concerns or questions, call your surgeon's office. If physician is unavailable and it is an emergency, call 911 or go to the nearest emergency room. . Instructions / Follow-Up Instructions / Follow-Up SPECIAL CARE INSTRUCTIONS: Medications: * Continue to take your medications as directed. If you have been given a prescription for Plavix, please fill it immediately and take as directed. Incision Care: * Your puncture site may have some bruising and minor swelling for about one week. * You will have a small dressing covering your puncture site. You may remove the dressing after 24 hours and shower. You may let the warm soapy water run over it, but be sure to dry the puncture site well and keep it dry. * DO NOT IMMERSE THE INCISION IN A TUB/POOL/etc. UNTIL HEALED. * Puncture sites should be kept covered with a band-aid until it begins to heal. Restrictions: * Depending on whether you leg or arm was punctured to access the arteries, you will be required to lay flat, hold your arm still, or both, for about 4 hours after the procedure to prevent bleeding. * Limit your activity for the first 48 hours. You may walk and go up and down steps. Avoid excessive bending or movement at the puncture site. Possible Complications: * Excessive Swelling - after blood flow is improved you may notice increased swelling in the lower legs. This is a normal response. This usually depends on the amount of blockages in the leg, how long they have been there prior to your procedure and how much blood flow was restored. Elevating your legs will help to improve this. Please notify our office ([phone] ) if the swelling does not go away after lying in bed overnight. * Infection/Drainage/Bleeding - Drainage or bleeding from the puncture site should be minimal. If you have excessive bleeding or drainage, call our office ([phone]) right away. * Pain - You may experience some mild pain or soreness at your puncture site. If your pain does not improve, please contact our office ([phone]). Call your doctor and seek emergent treatment if you develop: * Temperature above 101 degrees * Any fever or chills * Any redness or purulent drainage from the puncture site * Any new dusky/blue colored toes or feet with coolness or sharp or aching pain. SKIN IRRITATION: * You may experience some redness and/or swelling in the area where radiation was administered. If any skin irritation occurs, please contact your family physician. FOLLOW UP VISIT: Keep any scheduled doctor appointments. Diet Recommendations Recommended Home Diet: resume previous diet Procedures Procedures Performed: Fistulogram, Percutaneous Transluminal Angioplasty of Right Subclavian and Innominate Veins Cannulation of vena cava Pending Studies Studies pending at discharge: no Medical Emergencies . Who to Call and When: Medical Emergencies: If at any time you feel your situation is an emergency, please call 911 immediately. . Non-Emergent Contact Non-Emergency issues call your: Surgeon . . "Provider Documentation" section prepared by Minor Feliciano. .
--- NOTE | 2016-12-19 13:09 | DIAGNOSTIC IMAGING REPORT ---
DATE OF PROCEDURE: 12/19/2016 PREOPERATIVE DIAGNOSIS: Right arm swelling secondary to right arm arteriovenous fistula dysfunction. POSTOPERATIVE DIAGNOSIS: Right arm swelling secondary to right arm arteriovenous fistula dysfunction. PROCEDURE: Right arm fistulogram, venoplasty of the right subclavian, innominate vein with 16 x 20 mm balloon, 20 x 20 mm balloon, right femoral vein access ultrasound guided. SURGEON: Dr. Minor Feliciano. HERBARIUM CURATOR: Dr. Connie Han. ESTIMATED BLOOD LOSS: 5 cc CONDITION: Stable COMPLICATIONS: None INDICATIONS: Mrs. Maria G Jo is an 81-year-old woman with end-stage renal disease on hemodialysis through a right upper arm AV fistula. She previously underwent a resection of aneurysm involving the cephalic vein of her AV fistula. She additionally has had previous innominate and proximal subclavian stents placed for fistula dysfunction. The patient presents with right arm swelling believed to be secondary to central venous stenosis and/or in-stent stenosis. For this reason, she was recommended to undergo a right arm fistulogram with possible intervention. The risks, benefits and alternatives were discussed with the patient and she consented to the procedure. PROCEDURE: The patient was taken to the hybrid OR and placed in supine position. Her right upper arm and shoulder as well as her right groin were prepped and draped in the usual sterile fashion. A safety timeout was performed and the procedure and patient correctly identified. Ultrasound was used to access the right femoral vein. A 5-Kyrgyz sheath was placed into the right femoral vein. Palpation was used to identify a thrill over the cephalic vein in the upper arm. This was accessed and a 5-Kyrgyz sheath was placed in the upper arm as well. An 0.035 angled Glidewire was placed through both sheaths into the SVC and ultimately were able to cross the area of stenosis within the previously placed stents from the fistula access site. A fistulogram was obtained to ensure that we were appropriately positioned. The 0.035 Glidewire placed from the arm was snared from the right femoral vein and brought about out of the patient. A 16 x 20 mm balloon was placed over the wire from the groin into this area of stenosis within the previously placed stents. This was inflated throughout the stent. There was still some residual stenosis within the middle of the stent. This was re-ballooned with a 20 x 20 mm balloon. Fistulogram obtained following venoplasty showed improved flow through the fistula. There was a stronger thrill in the fistula following angioplasty. Both sheaths were removed and manual pressure was held. Sterile dressings were applied. The patient tolerated the procedure well and there were no immediate complications. Dr. Minor Feliciano was present and scrubbed for the entire procedure. I, Dr. Feliciano was present and scrubed for the entire procedure. [facility]
== END 2016-12-19 16:00 | disposition home or self-care (01) ==
LOC: C.ACU 07:32
PROVIDERS: ATTEND Surgery Vascular Surgery
DX: I82.B11 Acute embolism and thrombosis of right subclavian vein (principal); N18.6 End stage renal disease; I12.0 Hypertensive chronic kidney disease with stage 5 chronic kidney disease or end stage renal disease; E03.9 Hypothyroidism, unspecified; I25.10 Atherosclerotic heart disease of native coronary artery without angina pectoris; K27.9 Peptic ulcer, site unspecified, unspecified as acute or chronic, without hemorrhage or perforation; E87.5 Hyperkalemia; E11.9 Type 2 diabetes mellitus without complications; I35.0 Nonrheumatic aortic (valve) stenosis; E78.5 Hyperlipidemia, unspecified; G47.33 Obstructive sleep apnea (adult) (pediatric); Z86.73 Personal history of transient ischemic attack (TIA), and cerebral infarction without residual deficits; Z86.711 Personal history of pulmonary embolism; Z90.49 Acquired absence of other specified parts of digestive tract; Z99.2 Dependence on renal dialysis

== ENCOUNTER 2016-12-25 14:59 | Inpatient (IN) | payer OTHER ==
[~2016-12-25] VITALS: Ht 160 cm; Wt 65.6 kg
[~2016-12-25 14:59] MED LIST changes: -CEFAZOLIN 1000MG/55 ML D5W IV SCH; -D5W AND 1/4NSS 1000 ML IV SCH; -LCTX PO; -LEVO125T5 PO; -PATIENT'S HEIGHT AND/OR WEIGHT NEEDED SCH; -QSTP PO; -VANC1CAP3 PO
[2016-12-25] MEDS ORDERED: B-CO1CAP17 PO (15:09)
[2016-12-25] MEDS ORDERED: VANC1CAP3 PO (15:11)
[2016-12-25] MEDS ORDERED: CHOL1000 PO (15:11)
--- NOTE | 2016-12-25 15:32 | EMERGENCY ROOM VISIT NOTE ---
History Report prepared by Kathy: Kannan Nguyen Under the Supervision of: Dr. King Neves D.O. First contact with patient: 15:16 Chief Complaint: SHORTNESS OF BREATH Stated Complaint: SOB History of Present Illness The patient is a 81 year old female who presents to the Emergency Room by EMS with complaints of improving shortness of breath beginning today. She states that her symptoms have improved since arriving in the ED. Per nursing staff, the patient is a dialysis patient. She began dialysis recently and states that her most recent treatment was today. Her shortness of breath began following dialysis today. The patient denies any chest pain, cough, leg swelling, or fevers. She had surgery last week to remove a growth from her right arm. Source of History: patient, nursing staff Onset: Today Quality: other (shortness of breath) Timing: other (improving) Modifying Factors (Worsening): other (dialysis) Associated Symptoms: No fevers, No cough, No chest pain Note: The patient denies any leg swelling. Review of Systems See HPI for pertinent positives & negatives. A total of 10 systems reviewed and were otherwise negative. Past Medical & Surgical Medical Problems: (1) Aortic stenosis (2) C. difficile colitis (3) CAD (coronary artery disease) (4) CHF (congestive heart failure) (5) DM2 (diabetes mellitus, type 2) (6) DVT (deep vein thrombosis) in (7) End stage renal disease (8) End-stage renal disease on hemodialysis (9) ESRD needing dialysis (10) Hemodialysis access, AV graft (11) History of tobacco use (12) HLD (hyperlipidemia) (13) HTN (hypertension) (14) Hyperkalemia (15) Hypothyroidism (16) Hypoxia (17) JOON (obstructive sleep apnea) (18) PUD (peptic ulcer disease) (19) Pulmonary embolism (20) TIA (transient ischemic attack) Surgical Problems: (1) H/O eye surgery (2) H/O knee surgery (3) S/P appendectomy Family History Patient reports no known family medical history. Social History Smoking Status: Never Smoker Alcohol Use: none Drug Use: none Marital Status: Housing Status: lives with family Occupation Status: retired Current/Historical Medications Scheduled Amitriptyline HCl (Amitriptyline HCl), 10 MG PO HS Amlodipine (Norvasc), 10 MG PO DAILY Carvedilol (Coreg), 6.25 MG PO QAM Cholecalciferol (Vitamin D3), 1,000 INTER.UNIT PO DAILY Folic Acid (Folvite), 1 MG PO DAILY Levothyroxine Sodium (Levothyroxine Sodium), 137 MCG PO DAILY Lisinopril (Lisinopril), 10 MG PO QAM Pantoprazole Sodium (Protonix), 40 MG PO BID Pravastatin Sod (Pravastatin Sodium), 20 MG PO DAILY Sertraline HCl (Sertraline HCl), 50 MG PO DAILY Vancomycin Hcl (Vancomycin), 250 MG PO DAILY Vitamin B Cmplx/Vitc/Folic Ac (Nephrocaps), 1 CAP PO DAILY Allergies Coded Allergies: Diazepam (Verified Adverse Reaction, Severe, CHEST PAIN, 12/25/16) Physical Exam Vital Signs Date Time Temp Pulse Resp B/P (MAP) Pulse Ox O2 Delivery O2 Flow Rate FiO2 12/25/16 16:11 66 24 108/52 92 Room Air 12/25/16 15:51 96 Room Air 12/25/16 15:51 96 Room Air 12/25/16 15:14 93 Room Air 12/25/16 15:14 36.6 68 24 118/56 93 Room Air 12/25/16 15:12 66 Physical Exam GENERAL: Patient is awake, alert, and in no acute distress. Patient is resting comfortably and showing no signs of anxiety EYES: The conjunctivae are clear. The pupils are round and reactive. EARS, NOSE, MOUTH AND THROAT: The nose is without any evidence of any deformity. Mucous membranes are moist tongue is midline NECK: The neck is nontender and supple. JVD noted. RESPIRATORY: Diminished at both bases. Rales at both bases. No tachypnea or conversational dyspnea noted. CARDIOVASCULAR: Regular rate and rhythm noted to auscultation, systolic murmur was appreciated. GASTROINTESTINAL: The abdomen is soft. Bowel sounds are present in all quadrants. Abdomen is nontender MUSCULOSKELETAL/EXTREMITIES: There is no evidence of gross deformity full range of motion is noted in the hips and shoulders. Pedal edema bilaterally. Dialysis fistula in the RUE. Palpable thrill noted. SKIN: There is no obvious evidence of any rash. There are no petechiae, pallor or cyanosis noted. NEUROLOGIC: Patient is awake alert and oriented x3 Medical Decision & Procedures ER Provider Diagnostic Interpretation: X-ray results as stated below per interpretation by me and the radiologist. CHEST ONE VIEW PORTABLE FINDINGS: The heart is enlarged. There is a right subclavian region stent. There is radiographic evidence of mild pulmonary vascular congestion. Since the prior study the patient developed an increasing right pleural effusion with associated right basilar airspace opacities.[ IMPRESSION: Cardiomegaly and pulmonary vascular congestion. Increasing right pleural effusion with associated right basilar airspace opacities. Electronically signed by: Dejuan Rivera M.D. 12/25/2016 3:47 PM Laboratory Results 12/25/16 15:35 Red Blood Count 3.69, Mean Corpuscular Volume 87.0, Mean Corpuscular Hemoglobin 28.7, Mean Corpuscular Hemoglobin Concent 33.0, Mean Platelet Volume 9.6, Neutrophils (%) (Auto) 63.0, Lymphocytes (%) (Auto) 19.1, Monocytes (%) (Auto) 7.9, Eosinophils (%) (Auto) 8.8, Basophils (%) (Auto) 0.9, Neutrophils # (Auto) 4.15, Lymphocytes # (Auto) 1.26, Monocytes # (Auto) 0.52, Eosinophils # (Auto) 0.58, Basophils # (Auto) 0.06 12/25/16 15:35 Test 12/25/16 15:35 White Blood Count 6.59 K/uL (4.8-10.8) Red Blood Count 3.69 M/uL (4.2-5.4) Hemoglobin 10.6 g/dL (12.0-16.0) Hematocrit 32.1 % (37-47) Mean Corpuscular Volume 87.0 fL (80-100) Mean Corpuscular Hemoglobin 28.7 pg (25-34) Mean Corpuscular Hemoglobin Concent 33.0 g/dl (32-36) Platelet Count 206 K/uL (130-400) Mean Platelet Volume 9.6 fL (7.4-10.4) Neutrophils (%) (Auto) 63.0 % Lymphocytes (%) (Auto) 19.1 % Monocytes (%) (Auto) 7.9 % Eosinophils (%) (Auto) 8.8 % Basophils (%) (Auto) 0.9 % Neutrophils # (Auto) 4.15 K/uL (1.4-6.5) Lymphocytes # (Auto) 1.26 K/uL (1.2-3.4) Monocytes # (Auto) 0.52 K/uL (0.11-0.59) Eosinophils # (Auto) 0.58 K/uL (0-0.5) Basophils # (Auto) 0.06 K/uL (0-0.2) RDW Standard Deviation 53.4 fL (36.4-46.3) RDW Coefficient of Variation 16.7 % (11.5-14.5) Immature Granulocyte % (Auto) 0.3 % Immature Granulocyte # (Auto) 0.02 K/uL (0.00-0.02) Prothrombin Time 11.9 SECONDS (9.0-12.0) Prothromb Time International Ratio 1.1 (0.9-1.1) Activated Partial Thromboplast Time 33.9 SECONDS (21.0-31.0) Partial Thromboplastin Ratio 1.3 Anion Gap 7.0 mmol/L (3-11) Est Creatinine Clear Calc Drug Dose 15.6 ml/min Estimated GFR () 20.1 Estimated GFR (Non- 17.3 BUN/Creatinine Ratio 2.1 (10-20) Calcium Level 8.2 mg/dl (8.5-10.1) Total Bilirubin 0.9 mg/dl (0.2-1) Aspartate Amino Transf (AST/SGOT) 19 U/L (15-37) Alanine Aminotransferase (ALT/SGPT) < 6 U/L (12-78) Alkaline Phosphatase 178 U/L (45-117) Troponin I < 0.015 ng/ml (0-0.045) Pro-B-Type Natriuretic Peptide > 08710 pg/ml (0-1800) Total Protein 7.3 gm/dl (6.4-8.2) Albumin 2.6 gm/dl (3.4-5.0) Globulin 4.7 gm/dl (2.5-4.0) Albumin/Globulin Ratio 0.6 (0.9-2) Laboratory results per my review. ECG Indication: SOB/dyspnea Rate (beats per minute): 66 Rhythm: normal sinus Findings: no ectopy, other (No acute ST segment abnormalities) Comparison ECG Date: December 18, 2016 Change: no significant change ED Course 1524: The patient was evaluated in room C9. A complete history and physical examination were performed. 1647: I reassessed the patient. She is resting comfortably. She will undergo an ambulatory trial. 1710: I reevaluated the patient. She felt very dizzy with ambulation. I discussed results and treatment plan with her. The patient verbalizes agreement and understanding. [place] [facility] [place] The patient will be evaluated for further management and care. Medical Decision Differential diagnosis: Etiologies such as infections, reactive airway disease, pneumonia, pneumothorax , COPD, CHF, cardiac ischemia, pulmonary embolism, musculoskeletal, gastrointestinal, as well as others were entertained. Nursing notes reviewed. Additional history is obtained from the prehospital personnel. The patient is an 81-year-old female who has a history of end-stage renal disease who started having shortness of breath while at dialysis. The patient was found have significant hypoxia prior to arrival. The patient had a large right pleural effusion which appears to be increased compared to previous chest x-ray. The patient was treated with supplemental oxygen and rest. She was significantly improved. With any ambulation she became very dyspneic as well as hypoxic. I discussed his case with the on-call [facility] hospitalist. They have agreed to evaluate the patient in the emergency department for further management and disposition. Consults Time Called: 170 Consulting Physician: Dr. Vora [place] Returned Call: [phone] I discussed the patient's case with Dr. Vora. The patient will be evaluated for further management. Impression Primary Impression: SOB (shortness of breath) Additional Impressions: Hypoxia End stage renal disease Pleural effusion, right Scribe Attestation The scribe's documentation has been prepared under my direction and personally reviewed by me in its entirety. I confirm that the note above accurately reflects all work, treatment, procedures, and medical decision making performed by me. Departure Information Dispostion Being Evaluated By Hospitalist Referrals Marcelo Bradley M.D. (PCP) Patient Instructions [facility] Problem Qualifiers
--- NOTE | 2016-12-25 15:49 | DIAGNOSTIC IMAGING REPORT ---
CHEST ONE VIEW PORTABLE CLINICAL HISTORY: Respiratory distress. Shortness of breath. COMPARISON STUDY: 11/22/2016 FINDINGS: The heart is enlarged. There is a right subclavian region stent. There is radiographic evidence of mild pulmonary vascular congestion. Since the prior study the patient developed an increasing right pleural effusion with associated right basilar airspace opacities.[ IMPRESSION: Cardiomegaly and pulmonary vascular congestion. Increasing right pleural effusion with associated right basilar airspace opacities. Electronically signed by: Dejuan Rivera M.D. 12/25/2016 3:47 PM Dictated Date/Time: 12/25/2016 3:46 PM
[2016-12-25 15:52] LABS: BASO % 0.9 %; BASO ABS # 0.06 K/uL (0-0.2); COMPLETE YES; EOS % 8.8 %; HEMATOCRIT 32.1 % (37-47); IG% 0.3 %; LYMPH % 19.1 %; LYMPH ABS # 1.26 K/uL (1.2-3.4); MEAN CORPUSCULAR HEMOGLOBIN 28.7 pg (25-34); MEAN PLATELET VOLUME 9.6 fL (7.4-10.4); MONO % 7.9 %; PLATELET COUNT 206 K/uL (130-400); RED BLOOD COUNT 3.69 M/uL (4.2-5.4); WHITE BLOOD COUNT 6.59 K/uL (4.8-10.8)
[2016-12-25 16:02] LABS: INR 1.1 (0.9-1.1); PARTIAL THROMBOPLASTIN RATIO 1.3; PROTHROMBIN TIME (PATIENT) 11.9 SECONDS (9.0-12.0)
[2016-12-25 16:10] LABS: ALT/SGPT < 6 U/L (12-78); AST/SGOT 19 U/L (15-37); BLOOD UREA NITROGEN 5 mg/dl (7-18); BUN/CREATININE RATIO 2.1 (10-20); CALCIUM 8.2 mg/dl (8.5-10.1); CARBON DIOXIDE 34 mmol/L (21-32); CHLORIDE 97 mmol/L (98-107); GLUCOSE 69 mg/dl (70-99); POTASSIUM 3.3 mmol/L (3.5-5.1); SODIUM 138 mmol/L (136-145)
[2016-12-25 16:14] LABS: ALB/GLOB RATIO 0.6 (0.9-2); ALKALINE PHOSPHATASE 178 U/L (45-117)
[2016-12-25] MEDS ORDERED: ONDANSETRON INJ 2 MG/ML 2 ML VIAL IV PRN (18:00)
[2016-12-25] MEDS ORDERED: ALUMINUM/MAGNESIUM/SIMETH (MAALOX MAX) 30 ML UDC PO PRN (18:00)
[2016-12-25] MEDS ORDERED: ACETAMINOPHEN 325 MG TAB PO PRN (18:00)
[2016-12-25] MEDS ORDERED: HEPARIN SOD 5000 UNIT/0.5 ML CARP SQ SCH (18:00)
[2016-12-25] MEDS ORDERED: MAGNESIUM HYDROXIDE SUSP 30 ML UDC PO PRN (18:00)
[2016-12-25] MEDS ORDERED: POLYETHYLENE (MIRALAX) 17 GM PACK PO PRN (18:00)
--- NOTE | 2016-12-25 18:08 | History and Physical ---
History & Physical Date & Time of Service: Dec 25, 2016 at 17:51 Chief Complaint: SOB Primary Care Physician: Marcelo Bradley M.D. History of Present Illness Source: patient, clinic records, hospital records Patient is a pleasant 81 y/o female, with PMHx of ESRD on HD, diastolic CHF, HTN , hypothyroidism, dyslipidemia, depression, and GERD, who presented to the ED because of SOB/dizziness after HD on 12/25. Patient states after she completed dialysis today, she started to feel lightheaded. She was placed on 2L O2 in ED with saturations at 96%. Patient tried to ambulate with ED nurse, but could not stand due to dizziness; pulse ox was at 88%. Patient is a poor historian, limited HPI. Patient denies any SOB at present. Patient denies any fever, chills , sweats, vision changes, CP, palpitations, edema, SOB, wheezing, cough, abdominal pain, nausea, vomiting, diarrhea, urinary symptoms, melena, numbness/ tingling, weakness, muscle/joint pain, anxiety/depression, active bleeding, or new skin discoloration/changes. Past Medical/Surgical History Medical Problems: 1. ESRD on HD 2. diastolic CHF 3. HTN 4. Hypothyroidism 5. dyslipidemia 6. depression 7. GERD 8. h/o TIA 9. h/o PE 10. h/o DVT 11. JOON Surgical Problems: (1) H/O eye surgery Status: Chronic (2) H/O knee surgery Permanent Comment: Right TKA Status: Chronic (3) S/P appendectomy Status: Chronic Family History Patient reports no known family medical history. Social History Smoking Status: Never Smoker Drug Use: none Marital Status: Occupational Status: retired Immunizations History of Influenza Vaccine: N/A History of Tetanus Vaccine?: Yes History of Pneumococcal: Yes Pneumococcal Date: Feb 23, 2010 History of Hepatitis B Vaccine: No Multi-Drug Resistant Organisms History of MDRO: No Allergies Coded Allergies: Diazepam (Verified Adverse Reaction, Severe, CHEST PAIN, 12/25/16) Home Medications Scheduled Amitriptyline HCl (Amitriptyline HCl), 10 MG PO HS Amlodipine (Norvasc), 10 MG PO DAILY Carvedilol (Coreg), 6.25 MG PO QAM Cholecalciferol (Vitamin D3), 1,000 INTER.UNIT PO DAILY Folic Acid (Folvite), 1 MG PO DAILY Levothyroxine Sodium (Levothyroxine Sodium), 137 MCG PO DAILY Lisinopril (Lisinopril), 10 MG PO QAM Pantoprazole Sodium (Protonix), 40 MG PO BID Pravastatin Sod (Pravastatin Sodium), 20 MG PO DAILY Sertraline HCl (Sertraline HCl), 50 MG PO DAILY Vancomycin Hcl (Vancomycin), 250 MG PO DAILY Vitamin B Cmplx/Vitc/Folic Ac (Nephrocaps), 1 CAP PO DAILY Physical Exam Vital Signs Date Time Temp Pulse Resp B/P (MAP) Pulse Ox O2 Delivery O2 Flow Rate FiO2 12/25/16 16:11 66 24 108/52 92 Room Air 12/25/16 15:51 96 Room Air 12/25/16 15:51 96 Room Air 12/25/16 15:14 93 Room Air 12/25/16 15:14 36.6 68 24 118/56 93 Room Air 12/25/16 15:12 66 General Appearance: no apparent distress, + pertinent finding (frail appearing ; O2 2L supplement ) Head: normocephalic, atraumatic Eyes: normal inspection, PERRL ENT: hearing grossly normal Neck: supple Respiratory/Chest: lungs clear, no respiratory distress, no accessory muscle use, + decreased breath sounds (right lung base ) Cardiovascular: regular rate, rhythm, + systolic murmur Abdomen/GI: normal bowel sounds, non tender, soft Back: normal inspection Extremities/Musculoskelatal: no calf tenderness, no pedal edema Neurologic/Psych: alert, normal mood/affect Skin: normal color, warm/dry, no rash Diagnostics Laboratory Results Results Past 24 Hours Test 12/25/16 15:35 Range/Units White Blood Count 6.59 4.8-10.8 K/uL Red Blood Count 3.69 4.2-5.4 M/uL Hemoglobin 10.6 12.0-16.0 g/dL Hematocrit 32.1 37-47 % Mean Corpuscular Volume 87.0 80-100 fL Mean Corpuscular Hemoglobin 28.7 25-34 pg Mean Corpuscular Hemoglobin Concent 33.0 32-36 g/dl Platelet Count 206 130-400 K/uL Mean Platelet Volume 9.6 7.4-10.4 fL Neutrophils (%) (Auto) 63.0 % Lymphocytes (%) (Auto) 19.1 % Monocytes (%) (Auto) 7.9 % Eosinophils (%) (Auto) 8.8 % Basophils (%) (Auto) 0.9 % Neutrophils # (Auto) 4.15 1.4-6.5 K/uL Lymphocytes # (Auto) 1.26 1.2-3.4 K/uL Monocytes # (Auto) 0.52 0.11-0.59 K/uL Eosinophils # (Auto) 0.58 0-0.5 K/uL Basophils # (Auto) 0.06 0-0.2 K/uL RDW Standard Deviation 53.4 36.4-46.3 fL RDW Coefficient of Variation 16.7 11.5-14.5 % Immature Granulocyte % (Auto) 0.3 % Immature Granulocyte # (Auto) 0.02 0.00-0.02 K/uL Prothrombin Time 11.9 9.0-12.0 SECONDS Prothromb Time International Ratio 1.1 0.9-1.1 Activated Partial Thromboplast Time 33.9 21.0-31.0 SECONDS Partial Thromboplastin Ratio 1.3 Sodium Level 138 136-145 mmol/L Potassium Level 3.3 3.5-5.1 mmol/L Chloride Level 97 98-107 mmol/L Carbon Dioxide Level 34 21-32 mmol/L Anion Gap 7.0 3-11 mmol/L Blood Urea Nitrogen 5 7-18 mg/dl Creatinine 2.50 0.60-1.20 mg/dl Est Creatinine Clear Calc Drug Dose 15.6 ml/min Estimated GFR () 20.1 Estimated GFR (Non- 17.3 BUN/Creatinine Ratio 2.1 10-20 Random Glucose 69 70-99 mg/dl Calcium Level 8.2 8.5-10.1 mg/dl Total Bilirubin 0.9 0.2-1 mg/dl Aspartate Amino Transf (AST/SGOT) 19 15-37 U/L Alanine Aminotransferase (ALT/SGPT) < 6 12-78 U/L Alkaline Phosphatase 178 45-117 U/L Troponin I < 0.015 0-0.045 ng/ml Pro-B-Type Natriuretic Peptide > 15585 0-1800 pg/ml Total Protein 7.3 6.4-8.2 gm/dl Albumin 2.6 3.4-5.0 gm/dl Globulin 4.7 2.5-4.0 gm/dl Albumin/Globulin Ratio 0.6 0.9-2 Diagnostic Radiology CHEST ONE VIEW PORTABLE CLINICAL HISTORY: Respiratory distress. Shortness of breath. COMPARISON STUDY: 11/22/2016 FINDINGS: The heart is enlarged. There is a right subclavian region stent. There is radiographic evidence of mild pulmonary vascular congestion. Since the prior study the patient developed an increasing right pleural effusion with associated right basilar airspace opacities.[ IMPRESSION: Cardiomegaly and pulmonary vascular congestion. Increasing right pleural effusion with associated right basilar airspace opacities. Electronically signed by: Dejuan Rivera M.D. 12/25/2016 3:47 PM Dictated Date/Time: 12/25/2016 3:46 PM The status of this report is Signed. Draft = Not yet reviewed or approved by Radiologist. Signed = Reviewed and approved by Radiologist. EKG AARON ROCA ID:[id number] 25-DEC-2016 15:14:04 [facility] Normal sinus rhythm with sinus arrhythmia Nonspecific ST abnormality Abnormal ECG When compared with ECG of 18-DEC-2016 20:47, No significant change was found Confirmed by Mayco Medellin ([id number]) on 12/25/2016 4:47:58 PM 25mm/s 10mm/mV 150Hz 8.0 SP2 12SL 241 NIKOLAY: 9 Referred by: Assigned No Doctor Confirmed By: Mayco Anderson. rate 66 BPM RI interval 194 ms QRS duration 104 ms QT/QTc 446/467 ms P-R-T axes 36 27 57 1934 (81 yr) Female 71in 1lb Room: Loc:15 Sash Assembler:JP CONLEY Test ind: Impression Assessment and Plan Patient is a pleasant 81 y/o female, with PMHx of ESRD on HD, diastolic CHF, HTN , hypothyroidism, dyslipidemia, depression, and GERD, who presented to the ED because of SOB/dizziness after HD on 12/25. SOB/dizziness s/p HD: - Admit to med/surg - CXR- Cardiomegaly and pulmonary vascular congestion. Increasing right pleural effusion with associated right basilar airspace opacities. - O2 protocol, wean as tolerated- does NOT wear O2 supplement at home - Increasing right pleural effusion- consult Dr. Wade for ?thoracentesis, appreciate recommendations - PT/OT Mild hypokalemia of 3.3: - Replace with 40 mEq KCL - Follow PRP HTN w/ low-normal BPs on admission: Hold Amlodipine 10 mg daily and Lisinopril 10 mg daily- resume once low-normal BPs resolve CAD/diastolic CHF: Coreg 6.25 mg daily ESRD on HD MWF Hypothyroidism: Synthroid 127 mcg daily Dyslipidemia: Pravastatin 20 mg daily Depression/anxiety: Zoloft 50 mg daily, Elavil 10 mg HS GERD: Protonix 40 mg daily GI Prophylaxis: Maalox PRN, IV Zofran PRN, Colace and/or Milk of Mag PRN DVT prophylaxis: RICHARD and SCDs; hold chemical means due to ?procedure for pleural effusion Code Status: LEVEL I, FULL Dispo: From home, lives w/ daughter- social services analyst consulted and PT/OT evaluations Level of Care Med/Surg Resuscitation Status FULL RESUSCITATION VTE Prophylaxis VTE Risk Assessment Done? Y/N: Yes Risk Level: Moderate Given or contraindicated: T.E.D. Stockings, SCD's
[2016-12-25] MEDS ORDERED: POTASSIUM CHLORIDE 20 MEQ TABCR PO ONE (18:39)
[2016-12-25 19:15] VITALS: BP 150/64; PULSE 66; TEMP 36.7; O2SAT 98
[2016-12-25 20:00] VITALS: BP 150/64; PULSE 66; TEMP 36.7; O2SAT 98; Ht 160 cm; Wt 65.6 kg
[2016-12-25] MEDS: PANTOprazole SOD 40 MG TAB PO SCH (20:29)
[2016-12-25] MEDS: PRAVASTATIN SOD 20 MG TAB PO SCH (20:29)
[2016-12-25] MEDS: AMITRIPTYLINE HCL 10 MG TAB PO SCH (20:29)
[2016-12-25 23:05] VITALS: BP 132/59; PULSE 66; TEMP 36.8; O2SAT 93
[2016-12-26] MEDS ORDERED: MICONAZOLE NITRATE POWDER 43 GM EXT PRN (01:15)
[2016-12-26] MEDS ORDERED: NURSING DECISION MEDICATION ORDER SCH (01:15)
[2016-12-26] MEDS: LEVOTHYROXINE 137 MCG TAB PO SCH (06:07)
[2016-12-26 07:07] VITALS: BP 137/52; PULSE 67; TEMP 36.6; O2SAT 96
[2016-12-26 07:27] LABS: BUN/CREATININE RATIO 2.7 (10-20); CREATININE 3.6 mg/dl (0.60-1.20); MAGNESIUM 1.9 mg/dl (1.8-2.4); POTASSIUM 4.1 mmol/L (3.5-5.1)
[2016-12-26] MEDS ORDERED: HEPARIN SOD (PORCINE) 1000 UNIT/ML 10 ML VIAL IV SCH (07:30)
[2016-12-26] MEDS: PANTOprazole SOD 40 MG TAB PO SCH ×2 (08:23→20:23)
[2016-12-26] MEDS: CHOLECALCIFEROL 1000 INTER.UNIT TAB PO SCH (08:23)
[2016-12-26] MEDS: CARVEDILOL 6.25 MG TAB PO SCH (08:24)
[2016-12-26] MEDS: SERTRALINE HCL 50 MG TAB PO SCH (08:24)
[2016-12-26] MEDS: NEPHROCAPS PO SCH (08:24)
[2016-12-26] MEDS: RASPBERRY SYRUP 5 ML UDP PO SCH ×4 (09:00→20:23)
[2016-12-26] MEDS: VANCOMYCIN HCL 125 MG/2.5ML SOLN PO SCH ×4 (09:00→20:23)
--- NOTE | 2016-12-26 10:37 | Nephrology Consultation ---
Nephrology Consultation Date & Providers Date of Consultation: Dec 26, 2016. Primary Care Provider: Marcelo Bradley M.D. Referring Provider: Reason for Consultation ESRD History of Present Illness Ms. Jo is an 81-year-old female who is seen at the request of Janis Rosario PA-C to provide inpatient HD and assist with medical management. Medical records in the hospital EMR were reviewed today and are summarized as follows: Ms. Jo has a h/o , CMP, AODM, ESRD on HD MWF. She was admitted to [facility] yesterday following her regular dialysis treatment with dizziness and shortness of breath. Symptoms have started to improve since admission. Arrington was resting comfortably in bed during my evaluation this morning but she was very weak and tired. She had difficulty maintaining conversation. CXR documented a right sided pleural effusion and pulmonary vascular congestion. EKG showing NSR with sinus arrhythmia but no acute changes. She denies diarrhea. She was admitted to [facility] last month with watery diarrhea due to C diff colitis. She was discharged to [facility] and recently returned home from rehab. Past Medical/Surgical History Medical: # ESRD # AODM # ICM # ASCVD # Aortic stenosis # HTN # Hyperlipidemia # DVT # TIA Surgical: # Appendectomy # TKA # AVF Allergies Coded Allergies: Diazepam (Verified Adverse Reaction, Severe, CHEST PAIN, 12/25/16) Inpatient Medications Current Inpatient Medications Medications (Trade) Dose Ordered Sig/Rach Route Start Time Stop Time Status Last Admin Dose Admin Acetaminophen (Tylenol Tab) 650 mg Q4H PRN PO 12/25/16 18:00 01/24/17 17:59 Al Hydrox/Mg Hydrox/Simethicone (Maalox Max Susp) 15 ml Q4H PRN PO 12/25/16 18:00 01/24/17 17:59 Magnesium Hydroxide (Milk Of Magnesia Susp) 30 ml Q6H PRN PO 12/25/16 18:00 01/24/17 17:59 Polyethylene (Miralax Powder Packet) 17 gm DAILY PRN PO 12/25/16 18:00 01/24/17 17:59 Ondansetron HCl (Zofran Inj) 4 mg Q6H PRN IV 12/25/16 18:00 01/24/17 17:59 Amitriptyline HCl (Elavil Tab) 10 mg HS PO 12/25/16 21:00 7/12/17 20:59 12/25/16 20:29 10 MG Carvedilol (Coreg Tab) 6.25 mg QAM PO 12/26/16 09:00 01/25/17 08:59 12/26/16 08:24 6.25 MG Cholecalciferol (Vitamin D Tab) 1,000 inter.unit DAILY PO 12/26/16 09:00 01/25/17 08:59 12/26/16 08:23 1,000 INTER.UNIT Folic Acid (Folvite Tab) 1 mg DAILY PO 12/26/16 09:00 01/25/17 08:59 12/26/16 08:23 1 MG Levothyroxine Sodium (Synthroid Tab) 137 mcg DAILYBB PO 12/26/16 06:30 01/25/17 06:59 12/26/16 06:07 137 MCG Pantoprazole Sodium (Protonix Tab) 40 mg BID PO 12/25/16 21:00 01/24/17 20:59 12/26/16 08:23 40 MG Pravastatin Sodium (Pravachol Tab) 20 mg HS PO 12/25/16 21:00 01/24/17 20:59 12/25/16 20:29 20 MG Sertraline HCl (Zoloft Tab) 50 mg DAILY PO 12/26/16 09:00 01/25/17 08:59 12/26/16 08:24 50 MG Vitamin B Complex/ Vit C/Folic Acid (Nephrocaps) 1 cap DAILY PO 12/26/16 09:00 01/25/17 08:59 12/26/16 08:24 1 CAP Miconazole Nitrate (Desenex Powder) 1 appln PRN PRN EXT 12/26/16 01:15 01/25/17 01:14 12/26/16 05:10 1 APPLN Vancomycin HCl (Vancomycin Oral Soln) 125 mg QID PO 12/26/16 09:00 01/09/17 08:59 Raspberry (Raspberry Syrup 5ml Cup) 5 ml QID PO 12/26/16 09:00 01/09/17 08:59 Family History Patient reports no known family medical history. Social History Smoking Status: Former Smoker Drug Use: none Marital Status: Occupation: retired Review of Systems A complete review of systems was performed. Pertinent positives are noted above. All other systems are negative. Physical Exam Date Time Temp Pulse Resp B/P (MAP) Pulse Ox O2 Delivery O2 Flow Rate FiO2 12/26/16 08:00 Room Air 2.0 12/26/16 07:07 36.6 67 16 137/52 (80) 96 Room Air 12/26/16 00:00 Nasal Cannula 2.0 12/25/16 23:05 36.8 66 20 132/59 (83) 93 Nasal Cannula 2.0 12/25/16 20:00 36.7 66 22 150/64 98 Nasal Cannula 2.0 12/25/16 19:15 36.7 66 22 150/64 (92) 98 Nasal Cannula 2.0 12/25/16 18:06 64 24 117/52 96 Nasal Cannula 2.0 12/25/16 16:11 66 24 108/52 92 Room Air 12/25/16 15:51 96 Room Air 12/25/16 15:51 96 Room Air 12/25/16 15:14 93 Room Air 12/25/16 15:14 36.6 68 24 118/56 93 Room Air 12/25/16 15:12 66 General Appearance: no apparent distress, + pertinent finding (elderly, well developed) Head: normocephalic, atraumatic Eyes: normal inspection, sclerae normal ENT: normal ENT inspection, pharynx normal Neck: supple, + pertinent finding (Increased JVP with green A waves) Respiratory/Chest: no respiratory distress, no accessory muscle use, + decreased breath sounds, + rales Cardiovascular: regular rate, rhythm, no gallop, + systolic murmur Abdomen/GI: non tender, soft Extremities/Musculoskelatal: + pertinent finding (RUE edema and venous congestion consistent with known clot, RUE AVF with thrill and bruit, no LE edema or distal cyanosis) Neurologic/Psych: alert, normal mood/affect, + pertinent finding (tired and easily falls asleep) Skin: no rash Laboratory Results Last 24 Hours Test 12/25/16 15:35 12/26/16 06:35 White Blood Count 6.59 K/uL Red Blood Count 3.69 M/uL Hemoglobin 10.6 g/dL Hematocrit 32.1 % Mean Corpuscular Volume 87.0 fL Mean Corpuscular Hemoglobin 28.7 pg Mean Corpuscular Hemoglobin Concent 33.0 g/dl Platelet Count 206 K/uL Mean Platelet Volume 9.6 fL Neutrophils (%) (Auto) 63.0 % Lymphocytes (%) (Auto) 19.1 % Monocytes (%) (Auto) 7.9 % Eosinophils (%) (Auto) 8.8 % Basophils (%) (Auto) 0.9 % Neutrophils # (Auto) 4.15 K/uL Lymphocytes # (Auto) 1.26 K/uL Monocytes # (Auto) 0.52 K/uL Eosinophils # (Auto) 0.58 K/uL Basophils # (Auto) 0.06 K/uL RDW Standard Deviation 53.4 fL RDW Coefficient of Variation 16.7 % Immature Granulocyte % (Auto) 0.3 % Immature Granulocyte # (Auto) 0.02 K/uL Prothrombin Time 11.9 SECONDS Prothromb Time International Ratio 1.1 Activated Partial Thromboplast Time 33.9 SECONDS Partial Thromboplastin Ratio 1.3 Sodium Level 138 mmol/L 138 mmol/L Potassium Level 3.3 mmol/L 4.1 mmol/L Chloride Level 97 mmol/L 98 mmol/L Carbon Dioxide Level 34 mmol/L 32 mmol/L Anion Gap 7.0 mmol/L 8.0 mmol/L Blood Urea Nitrogen 5 mg/dl 10 mg/dl Creatinine 2.50 mg/dl 3.60 mg/dl Est Creatinine Clear Calc Drug Dose 15.6 ml/min 10.9 ml/min Estimated GFR () 20.1 12.9 Estimated GFR (Non- 17.3 11.1 BUN/Creatinine Ratio 2.1 2.7 Random Glucose 69 mg/dl 71 mg/dl Calcium Level 8.2 mg/dl 8.0 mg/dl Total Bilirubin 0.9 mg/dl Aspartate Amino Transf (AST/SGOT) 19 U/L Alanine Aminotransferase (ALT/SGPT) < 6 U/L Alkaline Phosphatase 178 U/L Troponin I < 0.015 ng/ml Pro-B-Type Natriuretic Peptide > 21687 pg/ml Total Protein 7.3 gm/dl Albumin 2.6 gm/dl Globulin 4.7 gm/dl Albumin/Globulin Ratio 0.6 Magnesium Level 1.9 mg/dl Impression (1) End-stage renal disease on hemodialysis (2) Hypoxia (3) SOB (shortness of breath) (4) Pleural effusion, right (5) Aortic stenosis (6) CAD (coronary artery disease) (7) Hemodialysis access, AV graft Maria G Kilgore is an 81-year-old female with a complicated medical history of ESRD on HD, CAD, JOON, obesity, JOON and pulmonary hypertension. She was recently admitted with C diff colitis. She was admitted to [facility] yesterday following HD with dizziness and shortness of breath. She has a recurrent right sided pleural effusion. Blood pressure is acceptable. Blood pressure was slightly low on admission consistent with post dialysis relative hypotension. There were no new abnormal findings or arrhythmia on telemetry or EKG. Recommendations --Had dialysis yesterday, currently volume status, blood pressure and electrolyte acceptable --Avoid any additional IV fluid --Medications are appropriate for renal function --Continue on Nephrocaps --Phosphate binder with meal --MAGEN with dialysis --On oral vanco for C diff
--- NOTE | 2016-12-26 12:17 | Hospitalist Progress Note ---
Hospitalist Progress Note Date of Service Dec 26, 2016. Subjective Pt evaluation today including: conversation w/ patient, physical exam, chart review, lab review, review of studies, review of inpatient medication list Patient seen and evaluated. Patient noted to have C. Diff positive test. Patient with recent admission due to C. Diff and ultimately be still positive from then vs reoccurrence She did refuse her Vancomycin this AM. She looks fatigued and is generally sluggish. Currently eating a slice of cheese from her lunch. She is alert and not holding much of a conversation but denies any complaints except for fatigue. She currently denies SOB and continues of O2 by NC Constitutional: No fever, No chills ENT: No sore throat, No trouble swallowing Respiratory: No cough, No shortness of breath Cardiovascular: No chest pain Abdomen: No pain, No nausea, No vomiting, No diarrhea, No constipation Musculoskeletal: + problem reported (R arm pain (chronic)) Female : No dysuria Skin: No rash Medications Current Inpatient Medications Medications (Trade) Dose Ordered Sig/Rach Route Start Time Stop Time Status Last Admin Dose Admin Acetaminophen (Tylenol Tab) 650 mg Q4H PRN PO 12/25/16 18:00 01/24/17 17:59 Al Hydrox/Mg Hydrox/Simethicone (Maalox Max Susp) 15 ml Q4H PRN PO 12/25/16 18:00 01/24/17 17:59 Magnesium Hydroxide (Milk Of Magnesia Susp) 30 ml Q6H PRN PO 12/25/16 18:00 01/24/17 17:59 Polyethylene (Miralax Powder Packet) 17 gm DAILY PRN PO 12/25/16 18:00 01/24/17 17:59 Ondansetron HCl (Zofran Inj) 4 mg Q6H PRN IV 12/25/16 18:00 01/24/17 17:59 Amitriptyline HCl (Elavil Tab) 10 mg HS PO 12/25/16 21:00 01/24/17 20:59 12/25/16 20:29 10 MG Carvedilol (Coreg Tab) 6.25 mg QAM PO 12/26/16 09:00 01/25/17 08:59 12/26/16 08:24 6.25 MG Cholecalciferol (Vitamin D Tab) 1,000 inter.unit DAILY PO 12/26/16 09:00 01/25/17 08:59 12/26/16 08:23 1,000 INTER.UNIT Folic Acid (Folvite Tab) 1 mg DAILY PO 12/26/16 09:00 01/25/17 08:59 12/26/16 08:23 1 MG Levothyroxine Sodium (Synthroid Tab) 137 mcg DAILYBB PO 12/26/16 06:30 01/25/17 06:59 12/26/16 06:07 137 MCG Pantoprazole Sodium (Protonix Tab) 40 mg BID PO 12/25/16 21:00 01/24/17 20:59 12/26/16 08:23 40 MG Pravastatin Sodium (Pravachol Tab) 20 mg HS PO 12/25/16 21:00 01/24/17 20:59 12/25/16 20:29 20 MG Sertraline HCl (Zoloft Tab) 50 mg DAILY PO 12/26/16 09:00 01/25/17 08:59 12/26/16 08:24 50 MG Vitamin B Complex/ Vit C/Folic Acid (Nephrocaps) 1 cap DAILY PO 12/26/16 09:00 01/25/17 08:59 12/26/16 08:24 1 CAP Miconazole Nitrate (Desenex Powder) 1 appln PRN PRN EXT 12/26/16 01:15 01/25/17 01:14 12/26/16 05:10 1 APPLN Vancomycin HCl (Vancomycin Oral Soln) 125 mg QID PO 12/26/16 09:00 01/09/17 08:59 Raspberry (Raspberry Syrup 5ml Cup) 5 ml QID PO 12/26/16 09:00 01/09/17 08:59 Objective Vital Signs Date Time Temp Pulse Resp B/P (MAP) Pulse Ox O2 Delivery O2 Flow Rate FiO2 12/26/16 08:00 Room Air 2.0 12/26/16 07:07 36.6 67 16 137/52 (80) 96 Room Air 12/26/16 00:00 Nasal Cannula 2.0 12/25/16 23:05 36.8 66 20 132/59 (83) 93 Nasal Cannula 2.0 12/25/16 20:00 36.7 66 22 150/64 98 Nasal Cannula 2.0 12/25/16 19:15 36.7 66 22 150/64 (92) 98 Nasal Cannula 2.0 12/25/16 18:06 64 24 117/52 96 Nasal Cannula 2.0 12/25/16 16:11 66 24 108/52 92 Room Air 12/25/16 15:51 96 Room Air 12/25/16 15:51 96 Room Air 12/25/16 15:14 93 Room Air 12/25/16 15:14 36.6 68 24 118/56 93 Room Air 12/25/16 15:12 66 Physical Exam General Appearance: no apparent distress, + pertinent finding (chronically ill- appearing) Eyes: sclerae normal ENT: hearing grossly normal Neck: supple, no JVD, trachea midline Respiratory/Chest: lungs clear, no respiratory distress, no accessory muscle use, + decreased breath sounds Cardiovascular: regular rate, rhythm, no gallop, + systolic murmur Abdomen: normal bowel sounds, non tender, soft Extremities: no pedal edema, no calf tenderness, + pertinent finding (AV fistula to RUE +thrill +bruit) Neurologic/Psychiatric: alert, + pertinent finding (oriented to person only) Skin: normal color, warm/dry Laboratory Results Last 24 Hours Test 12/25/16 15:35 12/26/16 06:35 White Blood Count 6.59 K/uL Red Blood Count 3.69 M/uL Hemoglobin 10.6 g/dL Hematocrit 32.1 % Mean Corpuscular Volume 87.0 fL Mean Corpuscular Hemoglobin 28.7 pg Mean Corpuscular Hemoglobin Concent 33.0 g/dl Platelet Count 206 K/uL Mean Platelet Volume 9.6 fL Neutrophils (%) (Auto) 63.0 % Lymphocytes (%) (Auto) 19.1 % Monocytes (%) (Auto) 7.9 % Eosinophils (%) (Auto) 8.8 % Basophils (%) (Auto) 0.9 % Neutrophils # (Auto) 4.15 K/uL Lymphocytes # (Auto) 1.26 K/uL Monocytes # (Auto) 0.52 K/uL Eosinophils # (Auto) 0.58 K/uL Basophils # (Auto) 0.06 K/uL RDW Standard Deviation 53.4 fL RDW Coefficient of Variation 16.7 % Immature Granulocyte % (Auto) 0.3 % Immature Granulocyte # (Auto) 0.02 K/uL Prothrombin Time 11.9 SECONDS Prothromb Time International Ratio 1.1 Activated Partial Thromboplast Time 33.9 SECONDS Partial Thromboplastin Ratio 1.3 Sodium Level 138 mmol/L 138 mmol/L Potassium Level 3.3 mmol/L 4.1 mmol/L Chloride Level 97 mmol/L 98 mmol/L Carbon Dioxide Level 34 mmol/L 32 mmol/L Anion Gap 7.0 mmol/L 8.0 mmol/L Blood Urea Nitrogen 5 mg/dl 10 mg/dl Creatinine 2.50 mg/dl 3.60 mg/dl Est Creatinine Clear Calc Drug Dose 15.6 ml/min 10.9 ml/min Estimated GFR () 20.1 12.9 Estimated GFR (Non- 17.3 11.1 BUN/Creatinine Ratio 2.1 2.7 Random Glucose 69 mg/dl 71 mg/dl Calcium Level 8.2 mg/dl 8.0 mg/dl Total Bilirubin 0.9 mg/dl Aspartate Amino Transf (AST/SGOT) 19 U/L Alanine Aminotransferase (ALT/SGPT) < 6 U/L Alkaline Phosphatase 178 U/L Troponin I < 0.015 ng/ml Pro-B-Type Natriuretic Peptide > 81891 pg/ml Total Protein 7.3 gm/dl Albumin 2.6 gm/dl Globulin 4.7 gm/dl Albumin/Globulin Ratio 0.6 Magnesium Level 1.9 mg/dl Assessment and Plan Ms. Jo is a 81 y/o female, with PMHx of ESRD on HD, diastolic CHF, HTN, hypothyroidism, dyslipidemia, depression, and GERD, who presented to the ED because of SOB/dizziness after HD on 12/25. SOB/Dizziness S/P HD: - Reporting improvement in dizziness and SOB and states its resolved - of note, on previous admissions patient has a tendency to agree with statements even when presented with contradicting statements - will continue to monitor as note show that she gets dizziness with moving - Orthostatic BP QS Acute Hypoxic Respiratory Failure: - 2/2 Increasing R Pleural Effusion and R Basilar Opacity - no signs of failure or pneumonia -- Reports resolution but remains on O2 NC - Possible transudative with atelectasis - O2 by NC with weaning as appropriate - Consult CT Surg - thoracentesis? C. Diff: - Previous admission with C. Diff and treatment provided - C. diff testing positive - Vancomycin po QID - patient refused morning dosage -- Will treat as if this is reoccurrence and therefore Flagyl would not be a good alternative Mild Hypokalemia: RESOLVED - Repleted - continue to follow electrolytes HTN: - Low normal BPs on admission - Hold Amlodpine 10 mg dailiy and Lisinopril 10 mg daily ESRD on HD MWF: - Consult Nephrology for dialysis services while inpatient CAD/Chronic Diastolic CHF: Coreg 6.25 mg daily Hypothyroidism: Synthroid 127 mcg daily Dyslipidemia: Pravastatin 20 mg daily Depression/Anxiety: Zoloft 50 mg daily, Elavil 10 mg HS GERD: Protonix 40 mg daily DVT Prophylaxis: RICHARD/SCDs; hold chemical means due to possible thoracentesis Code Status: LEVEL I, FULL Disposition: From home with [facility] caregivers and daughter visits - PT/OT evaluations Continued [facility] stay due to: abnormal vital signs, ambulation difficulties Discharge planning: uncertain
[2016-12-26 14:30] VITALS: BP 111/46; PULSE 64; O2SAT 94
[2016-12-26 15:26] VITALS: BP 134/53; PULSE 64; TEMP 36.4; O2SAT 96
--- NOTE | 2016-12-26 15:26 | DIAGNOSTIC IMAGING REPORT ---
CHEST ONE VIEW PORTABLE CLINICAL HISTORY: Thoracentesis. COMPARISON STUDY: History of December 25, 2016. FINDINGS: The right pleural effusion has markedly decreased in size since prior exam. There is no definite residual pleural effusion. There is no pneumothorax following thoracentesis. Moderate cardiomegaly is noted. There is mitral annular calcification. There is pulmonary vascular congestion which has improved. Multiple vascular stents project over the right upper hemithorax. IMPRESSION: 1. No pneumothorax following right thoracentesis. Marked decrease in size of the right pleural effusion. 2. Interval improvement in pulmonary vascular congestion. Electronically signed by: Arnoldo Blackmon M.D. 12/26/2016 3:24 PM Dictated Date/Time: 12/26/2016 3:23 PM
--- NOTE | 2016-12-26 15:48 | OPERATIVE REPORT ---
DATE OF OPERATION: 12/26/2016 PREOPERATIVE DIAGNOSIS: Right pleural effusion. POSTOPERATIVE DIAGNOSIS: Same. PROCEDURE: Thoracentesis under ultrasound guidance. SURGEON: Dr. Wade. DIESEL LOCOMOTIVE FIRER: Brody Wiggins PA-C. ANESTHESIA: Local. SPECIFICS OF THE PROCEDURE: With the patient in a left lateral decubitus position, her right chest was evaluated and a good window for fluid was seen posteriorly about the eighth interspace. After appropriate timeout had been called. The patient was prepped and draped in usual sterile fashion. A skin wheal was raised with 25 gauge needle and 1% Xylocaine. A large bore needle was used to enter the pleural cavity and free flowing serous fluid was drained. A guidewire was inserted through the needle and needle removed. Introducer sheath was slid over the guidewire and then removed. The triple lumen catheter was slid in to 17 cm. It was attached to suction and a liter of yellowish light fluid was drained. The patient had some reexpansion coughing, so we stopped at this point. There was no bleeding. She tolerated it quite well. I did discuss this with the patient's daughter at the conclusion of the procedure. We did slowly remove this catheter. The fluid was sent for appropriate studies. It should be noted the pH was normal. I attest to the content of the Intraoperative Record and any orders documented therein. Any exception s are noted below.
[2016-12-26 16:15] LABS: PLEURAL FLUID APPEARANCE CLEAR; PLEURAL FLUID COLOR STRAW; PLEURAL FLUID MONONUC RELAT 92.4 %; PLEURAL FLUID POLYNUC 7.6 %; PLEURAL FLUID SOURCE RIGHT LUNG; PLEURAL FLUID WBC (A) 248 /uL
[2016-12-26 16:16] LABS: PLEURAL FLUID TOTAL PROTEIN 2.1 g/dl
--- NOTE | 2016-12-26 16:44 | SURGICAL CONSULTATION ---
DATE OF CONSULTATION: 12/26/2016 REASON FOR CONSULTATION: Right pleural effusion. HISTORY OF PRESENT ILLNESS: This is a very nice 81-year-old female who was admitted with shortness of breath. She is normally followed by Dr. Marcelo Bradley. The patient has multiple medical problems including end-stage renal disease and been on hemodialysis for a long period of time. She was hypoxic and required supplemental oxygen. She denies fevers, chills or productive cough. She is not really very active. We were asked to see her from a thoracic surgery standpoint, which was seen to have a significant right pleural effusion on chest x-ray. PAST MEDICAL HISTORY: 1. End-stage renal disease. 2. Hypertension. 3. Hypothyroidism. 4. Diastolic dysfunction. 5. Gastroesophageal reflux disease. 6. Dyslipidemia. 7. Depression. 8. History of deep vein thrombosis. 9. Obstructive sleep apnea. 10. Cerebrovascular disease. 11. History of transient ischemic attack. 12. History of pulmonary embolism. 13. Clostridium difficile colitis. PAST SURGICAL HISTORY: 1. Multiple fistulas right upper extremity and currently has a right subclavian vein stent. 2. Appendectomy. 3. Right total knee arthroplasty. MEDICATIONS: 1. Vancomycin p.o. 2. Amitriptyline. 3. Coreg. 4. Norvasc. 5. Synthroid. 6. Lisinopril. 7. Protonix. 8. Sertraline. 9. Pravastatin. 10. Nephrocaps. ALLERGIES: DIAZEPAM. 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 Never smoked cigarettes, not drink alcohol. She is . FAMILY MEDICAL HISTORY: Significant for coronary artery disease, hypertension, hypercholesterolemia. REVIEW OF SYSTEMS: The patient has been a bit more lethargic. She also complained of some dizziness and lightheadedness, with shortness of breath with dialysis. She has had problems with constipation in the past. She is currently receiving dialysis. She has had no skin breakdown. She denies any visual or auditory symptoms. She has had no obvious neurologic symptoms other than her dizziness. She denies any neurologic symptoms such as amaurosis fugax. PHYSICAL EXAMINATION: GENERAL: This is a 5 feet 3 inch, 144 pound white female who is awake. She has some periods when she is more alert. HEENT: Her sclerae are clear. Her pupils are equal, round and reactive. Extraocular movements are intact. NECK: She does have some neck distention. She also has prominent veins on the right side of her chest. She has a loud thrill in the aneurysmal venous segments of her right arm. I detect no carotid bruits. She has no lymphadenopathy. LUNGS: She has had decreased breath sounds on the right. She has no wheezing. HEART: She has a regular rate and rhythm of her heart with systolic ejection murmur. ABDOMEN: Soft, nontender. EXTREMITIES: She really does not have much in the way of edema. agreement. I can palpate pedal pulses. SKIN: She has no skin breakdown. NEUROLOGIC: She is awake, alert, although a bit lethargic. ASSESSMENT AND PLAN: Right pleural effusion. We are going to perform a thoracentesis under ultrasound guidance for therapy and for diagnosis. I think it is probably related to her kidney failure. ROD
[2016-12-26] MEDS: PRAVASTATIN SOD 20 MG TAB PO SCH (20:23)
[2016-12-26] MEDS: AMITRIPTYLINE HCL 10 MG TAB PO SCH (20:23)
[2016-12-26 23:41] VITALS: BP 120/54; PULSE 67; TEMP 36.9; O2SAT 95
[2016-12-27] VITALS (20 sets, daily range): BP systolic 113–140; BP diastolic 52–72; PULSE 68–78; TEMP 36.2–37; O2SAT 94–98
[2016-12-27] MEDS: LEVOTHYROXINE 137 MCG TAB PO SCH (06:01)
[2016-12-27] MEDS ORDERED: HEPARIN SOD (PORCINE) 1000 UNIT/ML 10 ML VIAL IV SCH ×2 (06:30→07:30)
[2016-12-27 07:30] LABS: BUN/CREATININE RATIO 3.5 (10-20); CALCIUM 7.9 mg/dl (8.5-10.1); CREATININE 4.8 mg/dl (0.60-1.20); POTASSIUM 4.6 mmol/L (3.5-5.1)
--- NOTE | 2016-12-27 08:12 | DIAGNOSTIC IMAGING REPORT ---
CHEST ONE VIEW PORTABLE CLINICAL HISTORY: Right pleural effusion. COMPARISON STUDY: Chest radiograph December 26, 2016. FINDINGS: Several vascular stents project over the right hemithorax the patient is rotated. There is no pneumothorax. A small right pleural effusion is increased. There is a trace left pleural effusion. Interstitial thickening and right lung airspace opacities have increased. IMPRESSION: 1. Interval increase in small right and trace left pleural effusions. 2. Increasing interstitial thickening which favors pulmonary edema. Right lung airspace opacities have also increased. Electronically signed by: Arnoldo Blackmon M.D. 12/27/2016 8:11 AM Dictated Date/Time: 12/27/2016 8:10 AM
--- NOTE | 2016-12-27 08:19 | SURGERY PROGRESS NOTE ---
DATE: 12/27/2016 SUBJECTIVE: Ms. Jo is 1 day status post a thoracentesis for about a liter of fluid. The pH of that fluid was 7.48. Her LDH is only 77. This is a transudate. This is most likely related to her renal failure or her heart. This does not appear to be parapneumonic effusion. The patient underwent a chest x-ray today that shows some accumulation of fluid. She also has more of an infiltrative pattern bilaterally, looks more like failure. Her x-ray after we performed a thoracentesis yesterday showed a nice sharp diaphragm. At this point, I think she is stable. Saturations 98% on 2 liters. We will follow along and see if she reaccumulates in which case a discussion about a PleurX catheter would be made.
[2016-12-27] MEDS: SERTRALINE HCL 50 MG TAB PO SCH (09:00)
[2016-12-27] MEDS: RASPBERRY SYRUP 5 ML UDP PO SCH ×4 (09:00→20:49)
[2016-12-27] MEDS: VANCOMYCIN HCL 125 MG/2.5ML SOLN PO SCH ×4 (09:00→20:49)
[2016-12-27] MEDS: CHOLECALCIFEROL 1000 INTER.UNIT TAB PO SCH (09:00)
[2016-12-27] MEDS: CARVEDILOL 6.25 MG TAB PO SCH (09:00)
[2016-12-27] MEDS: NEPHROCAPS PO SCH (09:00)
--- NOTE | 2016-12-27 10:30 | Nephrology Progress Note ---
Nephrology Progress Note Date of Service Dec 27, 2016. Chief Complaint ESRD Subjective No acute events overnight. Maria G was sleeping comfortably in bed this morning. She appears weak but offered no complaints or concerns. She woke easily. Noted that she is not oriented to place or time per nursing. Reported 9 bowel movements yesterday. Patient continues to have loose stool and incontinence. She denies abdominal pain. No fevers or chills. Dyspnea appears to have improved. She tolerated thoracentesis well. Review of Systems A complete review of systems was performed. Pertinent positives are noted above. All other systems are negative. Vital Signs Last 8 Hrs Date Time Temp Pulse Resp B/P (MAP) Pulse Ox O2 Delivery O2 Flow Rate FiO2 12/27/16 08:00 Room Air 2.0 12/27/16 07:51 36.8 69 16 139/62 (87) 98 Room Air Last Recorded Weight Weight (Kilograms): 65.800 Physical Exam General Appearance: no apparent distress, + thin, + pertinent finding (Elderly , comfortably lying flat in bed ) Head: normocephalic, atraumatic Eyes: normal inspection, sclerae normal ENT: normal ENT inspection, + pertinent finding (oral mucosa dry) Neck: supple, + JVD, + pertinent finding (green A waves) Respiratory/Chest: no respiratory distress, no accessory muscle use, + decreased breath sounds, + rales Cardiovascular: regular rate, rhythm, no gallop Abdomen/GI: non tender, soft Extremities/Musculoskelatal: normal inspection, no pedal edema Neurologic/Psych: alert, normal mood/affect Family History Patient reports no known family medical history. Social History Smoking Status: Never smoker Drug Use: none Marital Status: Occupation: retired Laboratory Results Past 24 Hours 12/27/16 06:09 Test 12/27/16 06:09 Anion Gap 6.0 mmol/L (3-11) Est Creatinine Clear Calc Drug Dose 8.2 ml/min Estimated GFR () 9.1 Estimated GFR (Non- 7.9 BUN/Creatinine Ratio 3.5 (10-20) Calcium Level 7.9 mg/dl (8.5-10.1) Allergies Coded Allergies: Diazepam (Verified Adverse Reaction, Severe, CHEST PAIN, 12/25/16) Medications Current Inpatient Medications Medications (Trade) Dose Ordered Sig/Rach Route Start Time Stop Time Status Last Admin Dose Admin Acetaminophen (Tylenol Tab) 650 mg Q4H PRN PO 12/25/16 18:00 01/24/17 17:59 Al Hydrox/Mg Hydrox/Simethicone (Maalox Max Susp) 15 ml Q4H PRN PO 12/25/16 18:00 01/24/17 17:59 Magnesium Hydroxide (Milk Of Magnesia Susp) 30 ml Q6H PRN PO 12/25/16 18:00 01/24/17 17:59 Polyethylene (Miralax Powder Packet) 17 gm DAILY PRN PO 12/25/16 18:00 01/24/17 17:59 Ondansetron HCl (Zofran Inj) 4 mg Q6H PRN IV 12/25/16 18:00 01/24/17 17:59 Amitriptyline HCl (Elavil Tab) 10 mg HS PO 12/25/16 21:00 01/24/17 20:59 12/26/16 20:23 10 MG Carvedilol (Coreg Tab) 6.25 mg QAM PO 12/26/16 09:00 01/25/17 08:59 12/26/16 08:24 6.25 MG Cholecalciferol (Vitamin D Tab) 1,000 inter.unit DAILY PO 12/26/16 09:00 01/25/17 08:59 12/26/16 08:23 1,000 INTER.UNIT Folic Acid (Folvite Tab) 1 mg DAILY PO 12/26/16 09:00 01/25/17 08:59 12/26/16 08:23 1 MG Levothyroxine Sodium (Synthroid Tab) 137 mcg DAILYBB PO 12/26/16 06:30 01/25/17 06:59 12/27/16 06:01 137 MCG Pantoprazole Sodium (Protonix Tab) 40 mg BID PO 12/25/16 21:00 01/24/17 20:59 12/26/16 20:23 40 MG Pravastatin Sodium (Pravachol Tab) 20 mg HS PO 12/25/16 21:00 01/24/17 20:59 12/26/16 20:23 20 MG Sertraline HCl (Zoloft Tab) 50 mg DAILY PO 12/26/16 09:00 01/25/17 08:59 12/26/16 08:24 50 MG Vitamin B Complex/ Vit C/Folic Acid (Nephrocaps) 1 cap DAILY PO 12/26/16 09:00 01/25/17 08:59 12/26/16 08:24 1 CAP Miconazole Nitrate (Desenex Powder) 1 appln PRN PRN EXT 12/26/16 01:15 01/25/17 01:14 12/26/16 05:10 1 APPLN Vancomycin HCl (Vancomycin Oral Soln) 125 mg QID PO 12/26/16 09:00 01/09/17 08:59 Raspberry (Raspberry Syrup 5ml Cup) 5 ml QID PO 12/26/16 09:00 01/09/17 08:59 Heparin Sodium (Porcine) (Heparin Iv Bolus) 1,000 unit TODAY@0630 IV 12/27/16 06:30 12/27/16 16:00 Impression (1) End-stage renal disease on hemodialysis (2) Hypoxia (3) SOB (shortness of breath) (4) Pleural effusion, right (5) Aortic stenosis (6) CAD (coronary artery disease) (7) Hemodialysis access, AV graft Maria G Jo is an 81-year-old female with a complicated medical history of ESRD on HD, CAD, JOON, obesity, JOON and pulmonary hypertension. She was recently admitted with C diff colitis. This admission, she presented with dizziness and shortness of breath following hemodialysis. UF even on the day of admission. She has a recurrent right sided pleural effusion. Thoracentesis performed yesterday with therapeutic benefit. Blood pressure is acceptable. Blood pressure appropriate. There were no new abnormal findings or arrhythmia on telemetry or EKG. Recommendations --HD today per [facility] schedule, orders entered into EMR --UF goal 1 kg as tolerated --Medications are appropriate for renal function --Continue on Nephrocaps --Phosphate binder with meal --On oral vanco for C diff
--- NOTE | 2016-12-27 13:53 | Hospitalist Progress Note ---
Hospitalist Progress Note Date of Service Dec 27, 2016. Subjective Pt evaluation today including: conversation w/ patient, physical exam, chart review, lab review, review of studies, review of inpatient medication list Patient seen and evaluated. Currently receiving dialysis in room. Patient continues to have minimal conversation and denies all symptoms. But asked again about fatigue she said she is. She has been refusing her oral Vanc and had a discussion with her about this. She says she doesn't like it but wouldn't elaborate. Suspicion is because of taste but expressed importance. She states that she is willing to try and take it. Discussed with the nurse and will we attempt dosing today. Continues to have frequent BMs but denies abdominal pain. Constitutional: No fever, No chills Eyes: No worsening of vision ENT: No sore throat, No trouble swallowing Respiratory: No cough, No shortness of breath Cardiovascular: No chest pain Abdomen: + diarrhea, No pain, No nausea, No vomiting, No constipation Musculoskeletal: No swelling, No calf pain Female : No dysuria Medications Current Inpatient Medications Medications (Trade) Dose Ordered Sig/Rach Route Start Time Stop Time Status Last Admin Dose Admin Acetaminophen (Tylenol Tab) 650 mg Q4H PRN PO 12/25/16 18:00 01/24/17 17:59 Al Hydrox/Mg Hydrox/Simethicone (Maalox Max Susp) 15 ml Q4H PRN PO 12/25/16 18:00 01/24/17 17:59 Magnesium Hydroxide (Milk Of Magnesia Susp) 30 ml Q6H PRN PO 12/25/16 18:00 01/24/17 17:59 Polyethylene (Miralax Powder Packet) 17 gm DAILY PRN PO 12/25/16 18:00 01/24/17 17:59 Ondansetron HCl (Zofran Inj) 4 mg Q6H PRN IV 12/25/16 18:00 01/24/17 17:59 Amitriptyline HCl (Elavil Tab) 10 mg HS PO 12/25/16 21:00 01/24/17 20:59 12/26/16 20:23 10 MG Carvedilol (Coreg Tab) 6.25 mg QAM PO 12/26/16 09:00 01/25/17 08:59 12/26/16 08:24 6.25 MG Cholecalciferol (Vitamin D Tab) 1,000 inter.unit DAILY PO 12/26/16 09:00 01/25/17 08:59 12/26/16 08:23 1,000 INTER.UNIT Folic Acid (Folvite Tab) 1 mg DAILY PO 12/26/16 09:00 01/25/17 08:59 12/26/16 08:23 1 MG Levothyroxine Sodium (Synthroid Tab) 137 mcg DAILYBB PO 12/26/16 06:30 01/25/17 06:59 12/27/16 06:01 137 MCG Pantoprazole Sodium (Protonix Tab) 40 mg BID PO 12/25/16 21:00 01/24/17 20:59 12/26/16 20:23 40 MG Pravastatin Sodium (Pravachol Tab) 20 mg HS PO 12/25/16 21:00 01/24/17 20:59 12/26/16 20:23 20 MG Sertraline HCl (Zoloft Tab) 50 mg DAILY PO 12/26/16 09:00 01/25/17 08:59 12/26/16 08:24 50 MG Vitamin B Complex/ Vit C/Folic Acid (Nephrocaps) 1 cap DAILY PO 12/26/16 09:00 01/25/17 08:59 12/26/16 08:24 1 CAP Miconazole Nitrate (Desenex Powder) 1 appln PRN PRN EXT 12/26/16 01:15 01/25/17 01:14 12/26/16 05:10 1 APPLN Vancomycin HCl (Vancomycin Oral Soln) 125 mg QID PO 12/26/16 09:00 01/09/17 08:59 Raspberry (Raspberry Syrup 5ml Cup) 5 ml QID PO 12/26/16 09:00 01/09/17 08:59 Heparin Sodium (Porcine) (Heparin Iv Bolus) 1,000 unit TODAY@0630 IV 12/27/16 06:30 12/27/16 16:00 Objective Vital Signs Date Time Temp Pulse Resp B/P (MAP) Pulse Ox O2 Delivery O2 Flow Rate FiO2 12/27/16 13:30 72 119/52 12/27/16 13:15 71 131/60 12/27/16 13:00 72 127/59 12/27/16 12:45 72 128/62 12/27/16 12:30 70 130/55 12/27/16 12:15 70 125/63 12/27/16 12:06 36.2 69 127/64 (85) 12/27/16 12:00 68 121/57 12/27/16 11:50 68 119/57 12/27/16 08:00 Room Air 2.0 12/27/16 07:51 36.8 69 16 139/62 (87) 98 Room Air 12/27/16 00:00 Nasal Cannula 2.0 12/26/16 23:41 36.9 67 18 120/54 (76) 95 Nasal Cannula 2.0 12/26/16 20:00 Nasal Cannula 2.0 12/26/16 16:00 Nasal Cannula 2.0 12/26/16 15:26 36.4 64 18 134/53 (80) 96 Nasal Cannula 2.0 12/26/16 14:30 64 94 Physical Exam General Appearance: no apparent distress Eyes: sclerae normal ENT: hearing grossly normal Neck: supple, no JVD Respiratory/Chest: lungs clear, no respiratory distress, no accessory muscle use, + decreased breath sounds Cardiovascular: regular rate, rhythm, no gallop, + systolic murmur Abdomen: normal bowel sounds, non tender, soft Extremities: no pedal edema, no calf tenderness Neurologic/Psychiatric: alert, + disoriented (only oriented to self) Skin: normal color, warm/dry Laboratory Results Last 24 Hours Test 12/27/16 06:09 Sodium Level 137 mmol/L Potassium Level 4.6 mmol/L Chloride Level 99 mmol/L Carbon Dioxide Level 32 mmol/L Anion Gap 6.0 mmol/L Blood Urea Nitrogen 17 mg/dl Creatinine 4.80 mg/dl Est Creatinine Clear Calc Drug Dose 8.2 ml/min Estimated GFR () 9.1 Estimated GFR (Non- 7.9 BUN/Creatinine Ratio 3.5 Random Glucose 73 mg/dl Calcium Level 7.9 mg/dl Assessment and Plan Ms. Jo is a 81 y/o female, with PMHx of ESRD on HD, diastolic CHF, HTN, hypothyroidism, dyslipidemia, depression, and GERD, who presented to the ED because of SOB/dizziness after HD on 12/25. Acute Hypoxic Respiratory Failure S/P Thoracentesis: IMPROVING - 2/2 Increasing R Pleural Effusion and R Basilar Opacity - no signs of failure or pneumonia - Possible transudative with atelectasis - Thoracentesis removed 950 mL - O2 by NC with weaning as appropriate - CT Surg following - recommendations reviewed - will continue monitoring and may need PleurX if reaccumulation occurs C. Diff: - Previous admission with C. Diff and treatment provided - C. diff testing positive with frequent loose stool - Vancomycin po QID - patient has refused all doses so far - Did discuss with patient the importance of taking this medication and she expresses understanding and is willing to try taking the medication - will continue to offer -- Will treat as if this is reoccurrence and therefore Flagyl would not be a good alternative unfortunately - and likely will need long taper Mild Hypokalemia: RESOLVED - Repleted - continue to follow electrolytes HTN: - Hold Amlodpine 10 mg dailiy and Lisinopril 10 mg daily ESRD on HD MWF: - Consult Nephrology for dialysis services while inpatient CAD/Chronic Diastolic CHF: Coreg 6.25 mg daily Hypothyroidism: Synthroid 127 mcg daily Dyslipidemia: Pravastatin 20 mg daily Depression/Anxiety: Zoloft 50 mg daily, Elavil 10 mg HS GERD: Protonix 40 mg daily DVT Prophylaxis: RICHARD/SCDs Code Status: LEVEL I, FULL Disposition: From home with [facility] caregivers and daughter visits - PT/OT evaluations - likely SNF placement Continued [facility] stay due to: home environment unsafe for pt [facility]charge planning: [facility]
[2016-12-27] MEDS: AMITRIPTYLINE HCL 10 MG TAB PO SCH (20:49)
[2016-12-27] MEDS: PRAVASTATIN SOD 20 MG TAB PO SCH (20:49)
[2016-12-27] MEDS: PANTOprazole SOD 40 MG TAB PO SCH (20:49)
[2016-12-28] MEDS: LEVOTHYROXINE 137 MCG TAB PO SCH (05:55)
[2016-12-28 06:46] LABS: BUN/CREATININE RATIO 2.7 (10-20); CALCIUM 7.9 mg/dl (8.5-10.1)
[2016-12-28 07:11] VITALS: BP 149/62; PULSE 71; TEMP 36.7; O2SAT 98
[2016-12-28] MEDS: VANCOMYCIN HCL 125 MG/2.5ML SOLN PO SCH ×4 (08:34→21:05)
[2016-12-28] MEDS: RASPBERRY SYRUP 5 ML UDP PO SCH ×4 (08:34→21:05)
[2016-12-28] MEDS: NEPHROCAPS PO SCH (08:34)
[2016-12-28] MEDS: SERTRALINE HCL 50 MG TAB PO SCH (08:34)
[2016-12-28] MEDS: CHOLECALCIFEROL 1000 INTER.UNIT TAB PO SCH (08:35)
[2016-12-28] MEDS: CARVEDILOL 6.25 MG TAB PO SCH (08:35)
[2016-12-28] MEDS: PANTOprazole SOD 40 MG TAB PO SCH ×2 (08:35→21:05)
--- NOTE | 2016-12-28 12:12 | Hospitalist Progress Note ---
Hospitalist Progress Note Date of Service Dec 28, 2016. Subjective Pt evaluation today including: conversation w/ patient, physical exam, chart review, lab review, review of studies, review of inpatient medication list Patient seen and evaluated. No acute events overnight. Reports that she feels good today. Having less BMs and has been taking Vancomycin. Daughter expected to visit today and will update. Plan for placement. Constitutional: No fever, No chills ENT: No sore throat Respiratory: No cough Cardiovascular: No chest pain Abdomen: + diarrhea, No pain, No nausea, No vomiting, No constipation Musculoskeletal: No swelling, No calf pain Medications Current Inpatient Medications Medications (Trade) Dose Ordered Sig/Rach Route Start Time Stop Time Status Last Admin Dose Admin Acetaminophen (Tylenol Tab) 650 mg Q4H PRN PO 12/25/16 18:00 01/24/17 17:59 Al Hydrox/Mg Hydrox/Simethicone (Maalox Max Susp) 15 ml Q4H PRN PO 12/25/16 18:00 01/24/17 17:59 Magnesium Hydroxide (Milk Of Magnesia Susp) 30 ml Q6H PRN PO 12/25/16 18:00 01/24/17 17:59 Polyethylene (Miralax Powder Packet) 17 gm DAILY PRN PO 12/25/16 18:00 01/24/17 17:59 Ondansetron HCl (Zofran Inj) 4 mg Q6H PRN IV 12/25/16 18:00 01/24/17 17:59 Amitriptyline HCl (Elavil Tab) 10 mg HS PO 12/25/16 21:00 01/24/17 20:59 12/27/16 20:49 10 MG Carvedilol (Coreg Tab) 6.25 mg QAM PO 12/26/16 09:00 01/25/17 08:59 12/28/16 08:35 6.25 MG Cholecalciferol (Vitamin D Tab) 1,000 inter.unit DAILY PO 12/26/16 09:00 01/25/17 08:59 12/28/16 08:35 1,000 INTER.UNIT Folic Acid (Folvite Tab) 1 mg DAILY PO 12/26/16 09:00 01/25/17 08:59 12/28/16 08:35 1 MG Levothyroxine Sodium (Synthroid Tab) 137 mcg DAILYBB PO 12/26/16 06:30 01/25/17 06:59 12/28/16 05:55 137 MCG Pantoprazole Sodium (Protonix Tab) 40 mg BID PO 12/25/16 21:00 01/24/17 20:59 12/28/16 08:35 40 MG Pravastatin Sodium (Pravachol Tab) 20 mg HS PO 12/25/16 21:00 01/24/17 20:59 12/27/16 20:49 20 MG Sertraline HCl (Zoloft Tab) 50 mg DAILY PO 12/26/16 09:00 01/25/17 08:59 12/28/16 08:34 50 MG Vitamin B Complex/ Vit C/Folic Acid (Nephrocaps) 1 cap DAILY PO 12/26/16 09:00 01/25/17 08:59 12/28/16 08:34 1 CAP Miconazole Nitrate (Desenex Powder) 1 appln PRN PRN EXT 12/26/16 01:15 01/25/17 01:14 12/26/16 05:10 1 APPLN Vancomycin HCl (Vancomycin Oral Soln) 125 mg QID PO 12/26/16 09:00 01/09/17 08:59 12/28/16 08:34 125 MG Raspberry (Raspberry Syrup 5ml Cup) 5 ml QID PO 12/26/16 09:00 01/09/17 08:59 12/28/16 08:34 5 ML Objective Vital Signs Date Time Temp Pulse Resp B/P (MAP) Pulse Ox O2 Delivery O2 Flow Rate FiO2 12/28/16 08:00 Nasal Cannula 1.0 12/28/16 07:11 36.7 71 16 149/62 (91) 98 Nasal Cannula 1.0 12/28/16 00:00 Nasal Cannula 1.0 12/27/16 23:11 37.0 71 22 140/60 (86) 98 Nasal Cannula 1.0 12/27/16 16:09 36.5 74 24 131/60 (83) 98 Nasal Cannula 1.0 12/27/16 16:00 94 Room Air 1.0 12/27/16 15:36 36.5 74 131/60 (83) 12/27/16 15:00 75 113/57 12/27/16 14:45 76 129/64 12/27/16 14:30 78 129/60 12/27/16 14:15 78 130/60 12/27/16 14:00 74 127/72 12/27/16 13:45 74 134/62 12/27/16 13:30 72 119/52 12/27/16 13:15 71 131/60 12/27/16 13:00 72 127/59 12/27/16 12:45 72 128/62 12/27/16 12:30 70 130/55 12/27/16 12:15 70 125/63 Physical Exam General Appearance: no apparent distress Eyes: sclerae normal ENT: hearing grossly normal Neck: supple, no JVD, trachea midline Respiratory/Chest: lungs clear, no respiratory distress, no accessory muscle use, + decreased breath sounds Cardiovascular: regular rate, rhythm, no gallop, + systolic murmur Abdomen: normal bowel sounds, non tender, soft Extremities: + pertinent finding (RUE AV Fistula +thrill +bruit) Neurologic/Psychiatric: alert, + pertinent finding (oriented only to self) Skin: normal color, warm/dry Laboratory Results Last 24 Hours Test 12/27/16 14:45 12/28/16 05:25 Hepatitis B Surface Antigen NEG Sodium Level 140 mmol/L Potassium Level 4.0 mmol/L Chloride Level 105 mmol/L Carbon Dioxide Level 28 mmol/L Anion Gap 7.0 mmol/L Blood Urea Nitrogen 8 mg/dl Creatinine 3.00 mg/dl Est Creatinine Clear Calc Drug Dose 13.3 ml/min Estimated GFR () 16.1 Estimated GFR (Non- 13.9 BUN/Creatinine Ratio 2.7 Random Glucose 64 mg/dl Calcium Level 7.9 mg/dl Assessment and Plan Ms. Jo is a 81 y/o female, with PMHx of ESRD on HD, diastolic CHF, HTN, hypothyroidism, dyslipidemia, depression, and GERD, who presented to the ED because of SOB/dizziness after HD on 12/25. Acute Hypoxic Respiratory Failure S/P Thoracentesis: IMPROVING - Thoracentesis removed 950 mL on 12/26 - no further complaints of SOB - O2 by NC plan to wean to RA if tolerated - CT Surg - recommendations reviewed - will continue monitoring and may need PleurX if reaccumulation occurs C. Diff: - Previous admission with C. Diff and treatment provided - C. diff testing positive with frequent loose stool but are improving - Vancomycin po QID - patient initially refused medication but since discussion with her she has taken the vancomycin -- Will treat as if this is reoccurrence and therefore Flagyl would not be a good alternative unfortunately - and likely will need long taper Mild Hypokalemia: RESOLVED - Repleted - continue to follow electrolytes HTN: - Hold Amlodipine 10 mg daily and Lisinopril 10 mg daily ESRD on HD MWF: - Consult Nephrology for dialysis services while inpatient CAD/Chronic Diastolic CHF: Coreg 6.25 mg daily Hypothyroidism: Synthroid 127 mcg daily Dyslipidemia: Pravastatin 20 mg daily Depression/Anxiety: Zoloft 50 mg daily, Elavil 10 mg HS GERD: Protonix 40 mg daily DVT Prophylaxis: RICHARD/SCDs Code Status: LEVEL I, FULL Disposition: From home with [facility] caregivers and daughter visits - PT/OT evaluations - likely SNF placement - daughter to come in today and discussion of placement Continued [facility] stay due to: home environment unsafe for pt [place]charge planning[place] [facility]
--- NOTE | 2016-12-28 14:43 | SURGERY PROGRESS NOTE ---
DATE: 12/28/2016 Ms. Jo was seen today on 12/28/2016. She is only on 1 liter of oxygen with 98% saturations. She actually looks a bit better to me. She is positive for Clostridium difficile titer in her stool. Quite frankly I am happy with her appearance. I was not happy with her appearance of her chest x-ray yesterday, I am going to order one for the morning.
[2016-12-28 15:30] VITALS: BP 125/42; PULSE 76; TEMP 36.8; O2SAT 92
--- NOTE | 2016-12-28 15:57 | Nephrology Progress Note ---
Nephrology Progress Note Date of Service Dec 28, 2016. Chief Complaint ESRD Subjective No acute events overnight. Maria G was seen and evaluated in her hospital room this morning. Plan of care was discussed with Dr. Zamarripa. Maria G reports improvement in her dyspnea. Activity tolerance is reduced. Her appetite is fair. She has not experienced any additional dizziness, syncope or presyncope. She tolerated hemodialysis yesterday without complications. Net UF 1.2 kg. Review of Systems A complete review of systems was performed. Pertinent positives are noted above. All other systems are negative. Vital Signs Last 8 Hrs Date Time Temp Pulse Resp B/P (MAP) Pulse Ox O2 Delivery O2 Flow Rate FiO2 12/28/16 15:30 36.8 76 24 125/42 (69) 92 Room Air 12/28/16 08:00 Nasal Cannula 1.0 I & O 24-Hour Column 12/29/16 08:00 Intake Total 360 ml Balance 360 ml Last Recorded Weight Weight (Kilograms): 67.100 Physical Exam General Appearance: no apparent distress, + pertinent finding (elderly) Head: normocephalic, atraumatic Eyes: normal inspection, sclerae normal ENT: normal ENT inspection, pharynx normal Neck: supple, no JVD Respiratory/Chest: normal breath sounds, no respiratory distress, no accessory muscle use, + decreased breath sounds (R>L) Cardiovascular: regular rate, rhythm, no gallop, + systolic murmur Abdomen/GI: non tender, soft Extremities/Musculoskelatal: normal inspection, no pedal edema, + pertinent finding (AVF with thrill and bruit) Neurologic/Psych: alert, oriented x 3 Family History Patient reports no known family medical history. Social History Smoking Status: Never smoker Drug Use: none Marital Status: Occupation: retired Laboratory Results Past 24 Hours 12/28/16 05:25 Test 12/28/16 05:25 Anion Gap 7.0 mmol/L (3-11) Est Creatinine Clear Calc Drug Dose 13.3 ml/min Estimated GFR () 16.1 Estimated GFR (Non- 13.9 BUN/Creatinine Ratio 2.7 (10-20) Calcium Level 7.9 mg/dl (8.5-10.1) Allergies Coded Allergies: Diazepam (Verified Adverse Reaction, Severe, CHEST PAIN, 12/25/16) Medications Current Inpatient Medications Medications (Trade) Dose Ordered Sig/Rach Route Start Time Stop Time Status Last Admin Dose Admin Acetaminophen (Tylenol Tab) 650 mg Q4H PRN PO 12/25/16 18:00 01/24/17 17:59 Al Hydrox/Mg Hydrox/Simethicone (Maalox Max Susp) 15 ml Q4H PRN PO 12/25/16 18:00 01/24/17 17:59 Magnesium Hydroxide (Milk Of Magnesia Susp) 30 ml Q6H PRN PO 12/25/16 18:00 01/24/17 17:59 Polyethylene (Miralax Powder Packet) 17 gm DAILY PRN PO 12/25/16 18:00 01/24/17 17:59 Ondansetron HCl (Zofran Inj) 4 mg Q6H PRN IV 12/25/16 18:00 01/24/17 17:59 Amitriptyline HCl (Elavil Tab) 10 mg HS PO 12/25/16 21:00 01/24/17 20:59 12/27/16 20:49 10 MG Carvedilol (Coreg Tab) 6.25 mg QAM PO 12/26/16 09:00 01/25/17 08:59 12/28/16 08:35 6.25 MG Cholecalciferol (Vitamin D Tab) 1,000 inter.unit DAILY PO 12/26/16 09:00 01/25/17 08:59 12/28/16 08:35 1,000 INTER.UNIT Folic Acid (Folvite Tab) 1 mg DAILY PO 12/26/16 09:00 01/25/17 08:59 12/28/16 08:35 1 MG Levothyroxine Sodium (Synthroid Tab) 137 mcg DAILYBB PO 12/26/16 06:30 01/25/17 06:59 12/28/16 05:55 137 MCG Pantoprazole Sodium (Protonix Tab) 40 mg BID PO 12/25/16 21:00 01/24/17 20:59 12/28/16 08:35 40 MG Pravastatin Sodium (Pravachol Tab) 20 mg HS PO 12/25/16 21:00 01/24/17 20:59 12/27/16 20:49 20 MG Sertraline HCl (Zoloft Tab) 50 mg DAILY PO 12/26/16 09:00 7/13/17 08:59 12/28/16 08:34 50 MG Vitamin B Complex/ Vit C/Folic Acid (Nephrocaps) 1 cap DAILY PO 12/26/16 09:00 01/25/17 08:59 12/28/16 08:34 1 CAP Miconazole Nitrate (Desenex Powder) 1 appln PRN PRN EXT 12/26/16 01:15 01/25/17 01:14 12/26/16 05:10 1 APPLN Vancomycin HCl (Vancomycin Oral Soln) 125 mg QID PO 12/26/16 09:00 01/09/17 08:59 12/28/16 14:16 125 MG Raspberry (Raspberry Syrup 5ml Cup) 5 ml QID PO 12/26/16 09:00 01/09/17 08:59 12/28/16 14:16 5 ML Impression (1) End-stage renal disease on hemodialysis (2) Hypoxia (3) SOB (shortness of breath) (4) Pleural effusion, right (5) Aortic stenosis (6) CAD (coronary artery disease) (7) Hemodialysis access, AV graft Maria G Jo is an 81-year-old female with a complicated medical history of ESRD on HD, CAD, JOON, obesity, JOON and pulmonary hypertension. She was recently admitted with C diff colitis. This admission, she presented with dizziness and shortness of breath following hemodialysis. UF even on the day of admission. She has a recurrent right sided pleural effusion. Thoracentesis was performed on December 26 with notable therapeutic benefit. Blood pressure is acceptable. Recommendations ESRD: --HD tomorrow per [facility] schedule, orders entered into EMR --Blood pressure and volume status acceptable --Nephrocaps daily --Medications currently appropriately dosed for renal function Acute hypoxic respiratory failure, R pleural effusion: --Continue UF with IHD as tolerated --Appreciate CT surgery consult --Repeat CXR in AM CAD/hypertension: --Remains on Coreg, amlodipine and lisinopril --BP remains appropriate, no intradialytic hypotension Aortic stenosis: --Possibly contributing to symptoms, avoid aggressive UF with HD C diff colitis: --Remains on oral vancomycin Hyperphosphatemia: --Phosphate binder with meals
[2016-12-28 16:00] VITALS: O2SAT 92
[2016-12-28] MEDS: AMITRIPTYLINE HCL 10 MG TAB PO SCH (21:05)
[2016-12-28] MEDS: PRAVASTATIN SOD 20 MG TAB PO SCH (21:05)
[2016-12-29] VITALS (25 sets, daily range): BP systolic 121–161; BP diastolic 52–106; PULSE 73–97; TEMP 36.2–37; O2SAT 93–95
[2016-12-29] MEDS: LEVOTHYROXINE 137 MCG TAB PO SCH (06:00)
--- NOTE | 2016-12-29 07:46 | DIAGNOSTIC IMAGING REPORT ---
CHEST ONE VIEW PORTABLE CLINICAL HISTORY: Right pleural effusion. Abnormal chest x-ray. COMPARISON STUDY: 12/27/2016 FINDINGS: The heart remains enlarged. Vascular stents are again visualized in the right subclavian region. There is radiographic evidence of bony vascular congestion/fluid overload. There is no lobar consolidation. A small right pleural effusion is suspected.[ IMPRESSION: Cardiomegaly and radiographic evidence of congestive failure/fluid overload. Decreasing right pleural effusion and resolving right basilar airspace opacities Electronically signed by: Dejuan Rivera M.D. 12/29/2016 7:44 AM Dictated Date/Time: 12/29/2016 7:43 AM
[2016-12-29 07:47] LABS: BUN/CREATININE RATIO 3.9 (10-20); CREATININE 4.4 mg/dl (0.60-1.20); PHOSPHORUS 2.2 mg/dl (2.5-4.9); POTASSIUM 4.1 mmol/L (3.5-5.1)
[2016-12-29] MEDS: VANCOMYCIN HCL 125 MG/2.5ML SOLN PO SCH ×4 (08:17→21:10)
[2016-12-29] MEDS: PANTOprazole SOD 40 MG TAB PO SCH ×2 (08:17→21:10)
[2016-12-29] MEDS: RASPBERRY SYRUP 5 ML UDP PO SCH ×4 (08:17→21:10)
[2016-12-29] MEDS: CHOLECALCIFEROL 1000 INTER.UNIT TAB PO SCH (08:18)
[2016-12-29] MEDS: NEPHROCAPS PO SCH (08:18)
[2016-12-29] MEDS: SERTRALINE HCL 50 MG TAB PO SCH (08:18)
--- NOTE | 2016-12-29 10:38 | Nephrology Progress Note ---
Nephrology Progress Note Date of Service Dec 29, 2016. Chief Complaint Follow up evaluation of this patient w/ ESRD on HD admitted with clostridium difficile colitis, dehydration and weakness Subjective Ms. Jo was seen and examined in preparation for HD this morning. She awakens to voice and is oriented x 3. She is in no distress but appears very weak. RN notes document persistent diarrhea. Stool for Clostridium Difficile toxin has tested positive. Review of Systems Constitutional: No fever Cardiovascular: No chest pain Respiratory: No dyspnea at rest Abdomen: No pain, No nausea, No vomiting Extremities: No leg edema A complete review of systems was performed. Pertinent positives are noted above. All other systems are negative. Vital Signs Last 8 Hrs Date Time Temp Pulse Resp B/P (MAP) Pulse Ox O2 Delivery O2 Flow Rate FiO2 12/29/16 10:15 79 133/64 12/29/16 10:00 79 132/64 12/29/16 09:45 77 132/65 12/29/16 09:44 77 135/66 12/29/16 09:35 36.2 79 133/62 (85) 12/29/16 08:00 94 Nasal Cannula 1.0 12/29/16 07:21 36.6 75 16 140/64 (89) 94 Nasal Cannula 1.0 Last Recorded Weight Weight (Kilograms): 68.400 Physical Exam General Appearance: + thin (frail, chronically ill appearing) Head: atraumatic (temporal muscle wasting) Eyes: PERRL Neck: no adenopathy Respiratory/Chest: lungs clear, no accessory muscle use Cardiovascular: regular rate, rhythm Abdomen/GI: normal bowel sounds, non tender Extremities/Musculoskelatal: no calf tenderness, no pedal edema Neurologic/Psych: oriented x 3 Family History Patient reports no known family medical history. Social History Smoking Status: Never smoker Drug Use: none Marital Status: Occupation: retired Laboratory Results Past 24 Hours 12/29/16 06:37 Test 12/29/16 06:37 Anion Gap 8.0 mmol/L (3-11) Est Creatinine Clear Calc Drug Dose 9.0 ml/min Estimated GFR () 10.1 Estimated GFR (Non- 8.7 BUN/Creatinine Ratio 3.9 (10-20) Calcium Level 8.0 mg/dl (8.5-10.1) Phosphorus Level 2.2 mg/dl (2.5-4.9) Albumin 2.3 gm/dl (3.4-5.0) Allergies Coded Allergies: Diazepam (Verified Adverse Reaction, Severe, CHEST PAIN, 12/25/16) Medications Current Inpatient Medications Medications (Trade) Dose Ordered Sig/Rach Route Start Time Stop Time Status Last Admin Dose Admin Acetaminophen (Tylenol Tab) 650 mg Q4H PRN PO 12/25/16 18:00 01/24/17 17:59 Al Hydrox/Mg Hydrox/Simethicone (Maalox Max Susp) 15 ml Q4H PRN PO 12/25/16 18:00 01/24/17 17:59 Magnesium Hydroxide (Milk Of Magnesia Susp) 30 ml Q6H PRN PO 12/25/16 18:00 01/24/17 17:59 Polyethylene (Miralax Powder Packet) 17 gm DAILY PRN PO 12/25/16 18:00 01/24/17 17:59 Ondansetron HCl (Zofran Inj) 4 mg Q6H PRN IV 12/25/16 18:00 01/24/17 17:59 Amitriptyline HCl (Elavil Tab) 10 mg HS PO 12/25/16 21:00 01/24/17 20:59 12/28/16 21:05 10 MG Carvedilol (Coreg Tab) 6.25 mg QAM PO 12/26/16 09:00 01/25/17 08:59 12/28/16 08:35 6.25 MG Cholecalciferol (Vitamin D Tab) 1,000 inter.unit DAILY PO 12/26/16 09:00 01/25/17 08:59 12/29/16 08:18 1,000 INTER.UNIT Folic Acid (Folvite Tab) 1 mg DAILY PO 12/26/16 09:00 01/25/17 08:59 12/29/16 08:17 1 MG Levothyroxine Sodium (Synthroid Tab) 137 mcg DAILYBB PO 12/26/16 06:30 01/25/17 06:59 12/29/16 06:00 137 MCG Pantoprazole Sodium (Protonix Tab) 40 mg BID PO 12/25/16 21:00 01/24/17 20:59 12/29/16 08:17 40 MG Pravastatin Sodium (Pravachol Tab) 20 mg HS PO 12/25/16 21:00 01/24/17 20:59 12/28/16 21:05 20 MG Sertraline HCl (Zoloft Tab) 50 mg DAILY PO 12/26/16 09:00 01/25/17 08:59 12/29/16 08:18 50 MG Vitamin B Complex/ Vit C/Folic Acid (Nephrocaps) 1 cap DAILY PO 12/26/16 09:00 01/25/17 08:59 12/29/16 08:18 1 CAP Miconazole Nitrate (Desenex Powder) 1 appln PRN PRN EXT 12/26/16 01:15 01/25/17 01:14 12/26/16 05:10 1 APPLN Vancomycin HCl (Vancomycin Oral Soln) 125 mg QID PO 12/26/16 09:00 01/09/17 08:59 12/29/16 08:17 125 MG Raspberry (Raspberry Syrup 5ml Cup) 5 ml QID PO 12/26/16 09:00 01/09/17 08:59 12/29/16 08:17 5 ML Impression (1) End-stage renal disease on hemodialysis (2) Hypoxia (3) SOB (shortness of breath) (4) Pleural effusion, right (5) Aortic stenosis (6) CAD (coronary artery disease) (7) Hemodialysis access, AV graft Maria G Jo is an 81-year-old female with a complicated medical history of ESRD on HD, CAD, JOON, obesity, JOON and pulmonary hypertension. She was recently admitted with C diff colitis. This admission, she presented with dizziness and shortness of breath following hemodialysis (dialyzes [facility] w/ Dr. Alexandra). UF even on the day of admission. She has a recurrent right sided pleural effusion. Thoracentesis was performed on December 26 with notable therapeutic benefit. Recommendations ESRD: --HD today. Orders entered into EMR. Limit UF to 1 L due to clinical dehydration and ongoing diarrhea --Nephrocaps daily R PLEURAL EFFUSION: --Continue UF with IHD as tolerated --Appreciate CT surgery consult --CXR film reviewed this am. Patient has pulmonary vascular congestion but film appears to be underpenetrated. Patient is breathing comfortably on O2 at 1 L / min NC CAD/HTN: --Remains on Coreg --BP remains appropriate AORTIC STENOSIS: --Possibly contributing to symptoms, avoid aggressive UF with HD C DIFFICILE COLITIS: --Remains on oral vancomycin HYPERPHOSPHATEMIA: --Phosphate binder with meals
--- NOTE | 2016-12-29 11:51 | Hospitalist Progress Note ---
Hospitalist Progress Note Date of Service Dec 29, 2016. Subjective Pt evaluation today including: conversation w/ patient, physical exam, chart review, lab review, review of studies, review of inpatient medication list Patient seen and evaluated. Continues to take vancomycin. No complaints today. Receiving dialysis today. Currently on RA and oxygenating adequately. Denies SOB and no distress noted. Constitutional: No fever, No chills Respiratory: No shortness of breath Cardiovascular: No chest pain Abdomen: + diarrhea, No pain, No nausea, No vomiting, No constipation Musculoskeletal: No swelling, No calf pain Medications Current Inpatient Medications Medications (Trade) Dose Ordered Sig/Rach Route Start Time Stop Time Status Last Admin Dose Admin Acetaminophen (Tylenol Tab) 650 mg Q4H PRN PO 12/25/16 18:00 01/24/17 17:59 Al Hydrox/Mg Hydrox/Simethicone (Maalox Max Susp) 15 ml Q4H PRN PO 12/25/16 18:00 01/24/17 17:59 Magnesium Hydroxide (Milk Of Magnesia Susp) 30 ml Q6H PRN PO 12/25/16 18:00 01/24/17 17:59 Polyethylene (Miralax Powder Packet) 17 gm DAILY PRN PO 12/25/16 18:00 01/24/17 17:59 Ondansetron HCl (Zofran Inj) 4 mg Q6H PRN IV 12/25/16 18:00 01/24/17 17:59 Amitriptyline HCl (Elavil Tab) 10 mg HS PO 12/25/16 21:00 01/24/17 20:59 12/28/16 21:05 10 MG Carvedilol (Coreg Tab) 6.25 mg QAM PO 12/26/16 09:00 01/25/17 08:59 12/28/16 08:35 6.25 MG Cholecalciferol (Vitamin D Tab) 1,000 inter.unit DAILY PO 12/26/16 09:00 01/25/17 08:59 12/29/16 08:18 1,000 INTER.UNIT Folic Acid (Folvite Tab) 1 mg DAILY PO 12/26/16 09:00 01/25/17 08:59 12/29/16 08:17 1 MG Levothyroxine Sodium (Synthroid Tab) 137 mcg DAILYBB PO 12/26/16 06:30 01/25/17 06:59 12/29/16 06:00 137 MCG Pantoprazole Sodium (Protonix Tab) 40 mg BID PO 12/25/16 21:00 01/24/17 20:59 12/29/16 08:17 40 MG Pravastatin Sodium (Pravachol Tab) 20 mg HS PO 12/25/16 21:00 01/24/17 20:59 12/28/16 21:05 20 MG Sertraline HCl (Zoloft Tab) 50 mg DAILY PO 12/26/16 09:00 01/25/17 08:59 12/29/16 08:18 50 MG Vitamin B Complex/ Vit C/Folic Acid (Nephrocaps) 1 cap DAILY PO 12/26/16 09:00 01/25/17 08:59 12/29/16 08:18 1 CAP Miconazole Nitrate (Desenex Powder) 1 appln PRN PRN EXT 12/26/16 01:15 01/25/17 01:14 12/26/16 05:10 1 APPLN Vancomycin HCl (Vancomycin Oral Soln) 125 mg QID PO 12/26/16 09:00 01/09/17 08:59 12/29/16 08:17 125 MG Raspberry (Raspberry Syrup 5ml Cup) 5 ml QID PO 12/26/16 09:00 01/09/17 08:59 12/29/16 08:17 5 ML Objective Vital Signs Date Time Temp Pulse Resp B/P (MAP) Pulse Ox O2 Delivery O2 Flow Rate FiO2 12/29/16 11:30 87 159/52 12/29/16 11:15 84 153/67 12/29/16 11:00 84 150/71 12/29/16 10:45 83 135/74 12/29/16 10:30 81 144/67 12/29/16 10:15 79 133/64 12/29/16 10:00 79 132/64 12/29/16 09:45 77 132/65 12/29/16 09:44 77 135/66 12/29/16 09:35 36.2 79 133/62 (85) 12/29/16 08:00 94 Nasal Cannula 1.0 12/29/16 07:21 36.6 75 16 140/64 (89) 94 Nasal Cannula 1.0 12/29/16 00:00 Room Air 12/29/16 00:00 37.0 76 18 150/71 (97) 93 Room Air 12/28/16 16:00 92 Room Air 12/28/16 15:30 36.8 76 24 125/42 (69) 92 Room Air Physical Exam General Appearance: no apparent distress Eyes: sclerae normal ENT: hearing grossly normal Neck: supple, no JVD, trachea midline Respiratory/Chest: no respiratory distress, no accessory muscle use, + decreased breath sounds, + crackles Cardiovascular: regular rate, rhythm, no gallop, + systolic murmur Abdomen: normal bowel sounds, non tender, soft Extremities: no pedal edema, no calf tenderness Neurologic/Psychiatric: alert Skin: normal color, warm/dry Laboratory Results Last 24 Hours Test 12/29/16 06:37 Sodium Level 137 mmol/L Potassium Level 4.1 mmol/L Chloride Level 103 mmol/L Carbon Dioxide Level 26 mmol/L Anion Gap 8.0 mmol/L Blood Urea Nitrogen 17 mg/dl Creatinine 4.40 mg/dl Est Creatinine Clear Calc Drug Dose 9.0 ml/min Estimated GFR () 10.1 Estimated GFR (Non- 8.7 BUN/Creatinine Ratio 3.9 Random Glucose 75 mg/dl Calcium Level 8.0 mg/dl Phosphorus Level 2.2 mg/dl Albumin 2.3 gm/dl Assessment and Plan Ms. Jo is a 81 y/o female, with PMHx of ESRD on HD, diastolic CHF, HTN, hypothyroidism, dyslipidemia, depression, and GERD, who presented to the ED because of SOB/dizziness after HD on 12/25. Acute Hypoxic Respiratory Failure S/P Thoracentesis: IMPROVING - Thoracentesis removed 950 mL on 12/26 - no further complaints of SOB and currently oxygenating well on RA - CT Surg - recommendations reviewed - obtained CXR this AM with evidence congestive failure/overload with decreasing R pleural effusion and R basilar opacity C. Diff: IMPROVING - Previous admission with C. Diff and treatment provided - currently having about 8 BMs a day - Vancomycin po QID - patient initially refused medication but since discussion with her she has taken the vancomycin - DAY #3 -- Will treat as if this is reoccurrence and therefore Flagyl would not be a good alternative unfortunately - and likely will need long taper -- Consideration for taper of QID x 10 days total, BID x 7 days, and daily x 7 days Mild Hypokalemia: RESOLVED - Repleted - continue to follow electrolytes HTN: - Hold Amlodipine 10 mg daily and Lisinopril 10 mg daily ESRD on HD MWF: - Consult Nephrology for dialysis services while inpatient CAD/Chronic Diastolic CHF: Coreg 6.25 mg daily Hypothyroidism: Synthroid 127 mcg daily Dyslipidemia: Pravastatin 20 mg daily Depression/Anxiety: Zoloft 50 mg daily, Elavil 10 mg HS GERD: Protonix 40 mg daily DVT Prophylaxis: RICHARD/SCDs Code Status: LEVEL I, FULL Disposition: Plan for [facility] - trying to establish dialysis services closer to this location - Will need to discuss with Dr. Wade about further evaluation of pleural effusions and Vascular surgery for any interventions - If not further interventions from these groups she is optimal for D/C - would suspect she will be here today Continued [facility] stay due to: home environment unsafe for pt Discharge planning: senior living facility
--- NOTE | 2016-12-29 12:52 | Medical Consult ---
Consultation Note Date of Service Dec 29, 2016. Consultation Note 81 yo f with multiple medical problems, well known to Dr Feliciano for HD access, seen today. Pt with RUE brachiocephalic AVF, functioning well at HD. Pt recently with R innominate and subclavian v SAND CONDITIONER d/t occlusion and edema of RUE. Pt currently somewhat confused, unable to answer questions. Was to come in office to determine whether there was improvement in edema of RUE since SAND CONDITIONER, but appt cx d/t being hospitalized. Arm remains with +2 edema. AVF with excellent thrill/bruit. Pt denies any pain or problems with RUE. No further vascular surgical intervention recommended at this time. Please call if needed.
[2016-12-29] MEDS: CARVEDILOL 6.25 MG TAB PO SCH (13:53)
--- NOTE | 2016-12-29 15:19 | Discharge Instructions ---
Discharge Instructions Date of Service Dec 30, 2016. Admission Reason for Admission: Hypoxia, Pleural Effusion, Right Discharge Discharge Diagnosis / Problem: Right Pleural Effusion and C. Diff Discharge Goals Goal(s): Decrease discomfort, Improve function, Increase independence Activity Recommendations Activity Level: Assistance Required Therapies: Physical Therapy, Occupational Therapy . Additional Information Patient informed of condition: Yes Advance Directives: No DNR: No Level of Care: Skilled Communicable Disease: Yes (C. Diff) Prognosis: Improving Jacobs Catheter: No Instructions / Follow-Up Instructions / Follow-Up Ms. Jo is a 81 y/o female, with PMHx of ESRD on HD, diastolic CHF, HTN, hypothyroidism, dyslipidemia, depression, and GERD, who presented to the ED because of SOB/dizziness after HD on 12/25. Acute Hypoxic Respiratory Failure S/P Thoracentesis on 12/26: IMPROVING - Thoracentesis removed 950 mL on 12/26 - no further complaints of SOB and currently oxygenating well on RA -- Repeat CXR does show congestion and likely effusions are result of ESRD - CT Surg - Dr. Wade followed as inpatient - if SOB/pleural effusions become ongoing she may need PleurX catheter placed C. Diff: IMPROVING - Previous admission with C. Diff and treatment provided - currently having about 8 BMs a day - Given that this is a reoccurrence Vancomycin is the drug of choice - She initially was refusing this due to bad taste but after discussion she has been compliant - Unfortunately the best treatment for her will be the long taper -- Vancomycin 125 mg po QID x 10 days - TODAY IS DAY #4/10 - CONTINUE UNTIL -- Vancomycin 125 mg po BID x 7 days - CONTINUE UNTIL 01/12/17 -- Vancomycin 125 mg daily x 7 days - CONTINUE UNTIL 01/19/17 -- Vancomycin 125 mg every 3 days x 2 weeks - 01/22, 01/25, 01/28, 01/31 Mild Hypokalemia: RESOLVED - Repleted - routine electrolyte monitoring if frequent diarrhea continues HTN: - Amlodipine 10 mg daily and Lisinopril 10 mg daily - be mindful of low pressures especially and hold when if appropriate - Upon admission blood pressure was low normal but improved ESRD on HD MWF: - Arrangements are being made for transfer of services closer to [facility] - Right upper extremity AV fistula +thrill and +bruit -- Does have chronic edema in right arm and stenosis with previous stents placed - Follows with Dr. Feliciano from Vascular Surgery - plan for outpatient monitoring CAD/Chronic Diastolic CHF: Coreg 6.25 mg daily Hypothyroidism: Synthroid 127 mcg daily Dyslipidemia: Pravastatin 20 mg daily Depression/Anxiety: Zoloft 50 mg daily, Elavil 10 mg HS GERD: Protonix 40 mg daily DVT Prophylaxis: RICHARD/SCDs Code Status: LEVEL I, FULL Disposition: Currently requiring two assists with transfers and will benefit from PT/OT services Current Hospital Diet Patient's current hospital diet: AHA Diet (Heart Healthy) Discharge Diet Recommended Diet: AHA Diet (Heart Healthy) Pending Studies Studies pending at discharge: no Medical Emergencies . Who to Call and When: Medical Emergencies: If at any time you feel your situation is an emergency, please call 911 immediately. . Non-Emergent Contact Non-Emergency issues call your: Primary Care Provider Call Non-Emergent contact if: you have a fever, your pain is concerning you, you have any medication questions . . "Provider Documentation" section prepared by Janis Rosario. . Core Measure Problem Core Measures: None
[2016-12-29] MEDS ORDERED: VANC5CAP PO ×4 (15:36)
[2016-12-29] MEDS ORDERED: MCTP EXT (15:36)
--- NOTE | 2016-12-29 17:33 | SURGERY PROGRESS NOTE ---
DATE: 12/29/2016 Ms. Jo was seen today on dialysis. She is on room air with 94% saturation. She does have decreased breath sounds in both bases. Her x-ray shows a small amount of fluid reaccumulation in the right but nothing I would intervene at this point. We will continue to follow along and intervene as necessary.
[2016-12-29] MEDS: AMITRIPTYLINE HCL 10 MG TAB PO SCH (21:10)
[2016-12-29] MEDS: PRAVASTATIN SOD 20 MG TAB PO SCH (21:10)
[2016-12-30] MEDS: LEVOTHYROXINE 137 MCG TAB PO SCH (05:55)
[2016-12-30 07:40] LABS: BUN/CREATININE RATIO 3.7 (10-20); CALCIUM 8.2 mg/dl (8.5-10.1); CREATININE 2.9 mg/dl (0.60-1.20); POTASSIUM 4.1 mmol/L (3.5-5.1)
[2016-12-30 07:43] VITALS: BP 146/52; PULSE 77; TEMP 36.6; O2SAT 95
[2016-12-30] MEDS ORDERED: LISINOPRIL 10 MG TAB PO SCH (09:00)
[2016-12-30] MEDS ORDERED: AMLODIPINE BESYLATE 5 MG TAB PO SCH (09:00)
[2016-12-30] MEDS: SERTRALINE HCL 50 MG TAB PO SCH (09:02)
[2016-12-30] MEDS: PANTOprazole SOD 40 MG TAB PO SCH (09:02)
[2016-12-30] MEDS: CHOLECALCIFEROL 1000 INTER.UNIT TAB PO SCH (09:02)
[2016-12-30] MEDS: CARVEDILOL 6.25 MG TAB PO SCH (09:02)
[2016-12-30] MEDS: NEPHROCAPS PO SCH (09:02)
[2016-12-30] MEDS: RASPBERRY SYRUP 5 ML UDP PO SCH ×2 (09:04→13:47)
[2016-12-30] MEDS: VANCOMYCIN HCL 125 MG/2.5ML SOLN PO SCH ×2 (09:12→13:47)
[2016-12-30 11:47] VITALS: BP 113/53; PULSE 66; TEMP 36.7; O2SAT 93
--- NOTE | 2016-12-30 13:32 | Discharge Summary ---
Discharge Summary Date of Service Dec 30, 2016. Discharge Summary Admission Date: Dec 25, 2016 at 17:51 Discharge Date: Dec 30, 2016 Discharge Disposition: snf facility Principal Diagnosis: C. difficile and Hypoxia Problems/Secondary Diagnoses: 1. ESRD on HD 2. Diastolic CHF 3. HTN 4. Hypothyroidism 5. Dyslipidemia 6. Depression 7. GERD 8. TIA 9. H/O PE/DVT 11. JOON Immunizations: Have You Had Influenza Vaccine: N/A History of Tetanus Vaccine?: Yes History of Pneumococcal: Yes Pneumococcal Date: Feb 23, 2010 History of Hepatitis B Vaccine: No Procedures: 1. CHEST ONE VIEW PORTABLE FINDINGS: The heart is enlarged. There is a right subclavian region stent. There is radiographic evidence of mild pulmonary vascular congestion. Since the prior study the patient developed an increasing right pleural effusion with associated right basilar airspace opacities.[ IMPRESSION: Cardiomegaly and pulmonary vascular congestion. Increasing right pleural effusion with associated right basilar airspace opacities. 2. CHEST ONE VIEW PORTABLE FINDINGS: The heart remains enlarged. Vascular stents are again visualized in the right subclavian region. There is radiographic evidence of bony vascular congestion/fluid overload. There is no lobar consolidation. A small right pleural effusion is suspected.[ IMPRESSION: Cardiomegaly and radiographic evidence of congestive failure/fluid overload. Decreasing right pleural effusion and resolving right basilar airspace opacities Consultations: 1. CT Surgery 2. Nephrology 3. PT/OT Medication Reconciliation New Medications: Vancomycin Hcl (Vancomycin) 125 Mg Cap 125 MG PO QID, #26 TAB Take four times a day until 01/05/17 Vancomycin Hcl (Vancomycin) 125 Mg Cap 125 MG PO BID for 7 Days, #14 CAP take from 01/06-01/12 Vancomycin Hcl (Vancomycin) 125 Mg Cap 125 MG PO DAILY for 7 Days, #7 CAP Take from 01/13-01/19 Vancomycin Hcl (Vancomycin) 125 Mg Cap 125 MG PO UD for 4 Days, #4 CAP Take one capsule every 3 days - 01/22, 01/25, 01/28, 01/31 Miconazole Nitrate (Desenex Shake Powder) 43 Appln/43 Gm Powd 1 APPLN EXT PRN PRN for Affected Skin Folds for 14 Days Continued Medications: Amitriptyline HCl (Amitriptyline HCl) 10 Mg Tab 10 MG PO HS Amlodipine (Norvasc) 10 Mg Tab 10 MG PO DAILY, TAB Carvedilol (Coreg) 6.25 Mg Tab 6.25 MG PO QAM Cholecalciferol (Vitamin D3) 1,000 Unit Tab 1000 INTER.UNIT PO DAILY, TAB 3 Refills Folic Acid (Folvite) 1 Mg Tab 1 MG PO DAILY DAILY @1200 Levothyroxine Sodium (Levothyroxine Sodium) 137 Mcg Tab 137 MCG PO DAILY, TAB Lisinopril (Lisinopril) 10 Mg Tab 10 MG PO QAM Pantoprazole Sodium (Protonix) 40 Mg Tab 40 MG PO BID Pravastatin Sod (Pravastatin Sodium) 20 Mg Tab 20 MG PO DAILY Sertraline HCl (Sertraline HCl) 50 Mg Tab 50 MG PO DAILY Vitamin B Cmplx/Vitc/Folic Ac (Nephrocaps) Cap 1 CAP PO DAILY, CAP Discontinued Medications: Vancomycin Hcl (Vancomycin) 250 Mg Cap 250 MG PO DAILY Discharge Exam Review of Systems: Constitutional: No fever, No chills, No weakness, No fatigue Respiratory: No cough, No shortness of breath Cardiovascular: No chest pain, No orthopnea Abdomen: + diarrhea, No pain, No nausea, No vomiting, No constipation Genitourinary - Female: No dysuria Neurologic: No numbness/tingling Hematologic / Lymphatic: No abnormal bleeding/bruising Physical Exam: General Appearance: no apparent distress Eyes: sclerae normal ENT: hearing grossly normal Neck: supple, no JVD, trachea midline Respiratory/Chest: lungs clear, no respiratory distress, no accessory muscle use, + decreased breath sounds Cardiovascular: regular rate, rhythm, no gallop, + systolic murmur Abdomen / GI: normal bowel sounds, non tender, soft Extremities: no calf tenderness, no pedal edema Neurologic/Psychiatric: alert, + disoriented (only oriented to self) Skin: normal color, warm/dry Hospital Course ADMISSION: Patient is a pleasant 81 y/o female, with PMHx of ESRD on HD, diastolic CHF, HTN, hypothyroidism, dyslipidemia, depression, and GERD, who presented to the ED because of SOB/dizziness after HD on 12/25. Patient states after she completed dialysis today, she started to feel lightheaded. She was placed on 2L O2 in ED with saturations at 96%. Patient tried to ambulate with ED nurse, but could not stand due to dizziness; pulse ox was at 88%. Patient is a poor historian, limited HPI. Patient denies any SOB at present. Patient denies any fever, chills, sweats, vision changes, CP, palpitations, edema, SOB, wheezing, cough, abdominal pain, nausea, vomiting, diarrhea, urinary symptoms, melena, numbness/tingling, weakness, muscle/joint pain, anxiety/depression, active bleeding, or new skin discoloration/changes. HOSPITAL COURSE: Ms. Jo was admitted for a progressing pleural effusion and dizziness. She underwent thoracentesis on 12/[address] Wade for 950 mL from R chest. She was weaned from oxygen and saturating adequately on RA. Suspect this is likely from ESRD as well as diastolic dysfunction. She was noted to have frequent loose stools which tested positive for C. diff. On a previous admission she was treated for this. She was treated as a reoccurrence with oral vancomycin. The first few days of admission she refused this medication but has been consistently taking it at this time. Plan for long taper of QID x 10 days total, BID x 7 days, and daily x 7 days with a pulse approach of Q3D x 2 weeks. Patient has had multiple admissions during this year and appears to get weaker with each one. She is a 2-assist for transfers and movements. Discussions took place with patient and daughter for plans to go to [facility] upon discharge. Patient previously lived alone with OOA support who expresses concern as she is requiring more care. Ms. Jo would benefit from skilled needs and ultimately personal care for safety concerns. Patient is stable and having less frequent bowel movements and is optimal for D/C to [facility] Total Time Spent: Greater than 30 minutes This includes examination of the patient, discharge planning, medication reconciliation, and communication with other providers. Discharge Instructions Please refer to the electronic Patient Visit Report (Discharge Instructions) for additional information. Additional Copies To Marcelo Bradley M.D.
[2016-12-30 14:11] VITALS: O2SAT 96
== END 2016-12-30 15:27 | DRG 186 ==
LOC: EDBD 14:59 → C.EDC 15:03 → C.MS2W 17:51 → ENRESERV 18:14
PROVIDERS: ADMIT Internal Medicine; ATTEND Internal Medicine
PROC: 0W993ZX Drainage of Right Pleural Cavity, Percutaneous Approach, Diagnostic (ICD-10-PCS; principal; 2016-12-26)
DX: J90 Pleural effusion, not elsewhere classified (principal); J96.01 Acute respiratory failure with hypoxia; N18.6 End stage renal disease; I50.32 Chronic diastolic (congestive) heart failure; I13.2 Hypertensive heart and chronic kidney disease with heart failure and with stage 5 chronic kidney disease, or end stage renal disease; A04.7 Enterocolitis due to Clostridium difficile; E78.5 Hyperlipidemia, unspecified; F32.9 Major depressive disorder, single episode, unspecified; F41.9 Anxiety disorder, unspecified; K21.9 Gastro-esophageal reflux disease without esophagitis; G47.33 Obstructive sleep apnea (adult) (pediatric); E03.9 Hypothyroidism, unspecified; I25.10 Atherosclerotic heart disease of native coronary artery without angina pectoris; E87.5 Hyperkalemia; E83.39 Other disorders of phosphorus metabolism; E11.22 Type 2 diabetes mellitus with diabetic chronic kidney disease; K27.9 Peptic ulcer, site unspecified, unspecified as acute or chronic, without hemorrhage or perforation; I35.0 Nonrheumatic aortic (valve) stenosis; R01.1 Cardiac murmur, unspecified; Z87.891 Personal history of nicotine dependence; Z96.651 Presence of right artificial knee joint; Z86.73 Personal history of transient ischemic attack (TIA), and cerebral infarction without residual deficits; Z86.718 Personal history of other venous thrombosis and embolism; Z86.711 Personal history of pulmonary embolism; Z99.2 Dependence on renal dialysis; Z79.899 Other long term (current) drug therapy

== ENCOUNTER → 2017-01-22 | Outpatient (CLI) | payer OTHER ==
[~2017-01-22] MED LIST changes: -ACET-1256 PO; +B-CO1CAP17 PO; +CHOL1000 PO; +MCTP EXT; -NYST1POW7 TD; +VANC5CAP PO
--- NOTE | 2017-01-22 10:21 | DIAGNOSTIC IMAGING REPORT ---
CHEST 2 VIEWS ROUTINE HISTORY:81 [id number] COMPARISON: 12/29/2016 TECHNIQUE: Portable AP and lateral views of the chest FINDINGS: Cardiac silhouette is again enlarged. Vascular stents are again seen within the right subclavian region. There is atherosclerosis of the aorta. There is mild background vascular congestion and trace blunting the left costophrenic angle. There is a large right pleural effusion with right perihilar opacity suggesting atelectasis. Bones are diffusely demineralized. Multiple rib fractures are seen on the right. IMPRESSION: 1. Cardiomegaly with mild pulmonary vascular congestion. 2. Large right pleural effusion with associated consolidation/atelectasis. 3. Multiple contiguous right-sided rib fractures without pneumothorax identified. The above report was generated using voice recognition software. It may contain grammatical, syntax or spelling errors. Electronically signed by: Bill Shields 01/22/2017 10:19 AM Dictated Date/Time: 01/22/2017 10:17 AM
== END | disposition home or self-care (01) ==
LOC: C.RAD 09:21
PROVIDERS: ATTEND Internal Medicine Pulmonary Disease
DX: J90 Pleural effusion, not elsewhere classified (principal)